=== PATIENT | male | born 1945 | race African-American/Black ===

== ENCOUNTER 2016-09-06 19:55 | Inpatient (IN) ==
--- NOTE | 2016-09-06 20:25 | Emergency Department Note ---
Arrival - Arrival Chief Complaint: Shortness of Breath Stated Complaint: short of breath ED Nursing Triage Note: Patient to room via ems. Patient was transfered from [facility] for NSTEMI. Patient states that he has been short of breath for 3 weeks. He states that today he became dizzy and thought he was going to pass out. Patients trop 5.3 at [facility]. Mode of Arrival: Stretcher Limitations: No Limitations Source: Patient Time Seen by Provider: 09/06/16 20:20 - History of Present Illness HPI Narrative: This morbidly obese 71-year-old black male presents on transfer from [facility] where he presented for acute onset of dizziness following progressive insidious onset of shortness of breath, orthopnea, and PND. The patient's workup at [facility] was found to have findings of a non-STEMI NE. Of note he has had a prior NE as well as cardiac cath with stents per Dr. Blanchard here at [place]. Interestingly enough the patient had no complaints of pain whatsoever during the past 3 weeks or especially during the acute episode earlier today. He did complain of some diaphoresis and shortness of breath at the peak of dizziness when he thought he was about to pass out but currently feels back to normal. On transfer from [place] he was given Antivert, aspirin, Nitropaste, Lasix, and Lovenox. He does not appear in any acute distress in bed at rest. Onset (ago): hour(s) (Patient presents 4 hours post onset of symptoms) Allergies/Adverse Reactions: Allergies Allergy/AdvReac Type Severity Reaction Status Date / Time No Known Allergies Allergy Unverified 09/06/16 20:03 Home Medications: Home Medications Medication Instructions Recorded Confirmed Type Aspirin EC Tab 81 mg PO DAILY 09/06/16 09/06/16 History Glipizide [Glipizide Xl] 10 mg PO BID 09/06/16 09/06/16 History Lisinopril 10 mg PO DAILY 09/06/16 09/06/16 History Metformin HCl [Fortamet] 500 mg PO BID 09/06/16 09/06/16 History Pravastatin [Pravachol] 40 mg PO BEDTIME 09/06/16 09/06/16 History Tamsulosin [Flomax] 0.4 mg PO DAILY 09/06/16 09/06/16 History Review of System - Review of System 12 point system: reviewed and no additional remarkable complaints except as stated - Review of System Constitutional: Present: as per HPI Respiratory: Present: as per HPI Cardiovascular: Present: as per HPI Medical,Surgical,& Family Hx - Medical History Cardio: History of: Hypertension, Cardiovascular Problems (NE) Neurology: History of: Cerebrovascular Accident Endocrine: History of: Diabetes Mellitus (NIDDM) Gastrointestinal: History of: Hepatitis - Surgical History Cardiac Surgeries: Sugical HX of: Cardiac Catheterization (stents placed) - Social History Smoking Status: Never smoker Frequency of Alcohol Use: None Type of Drug Use: None Exam Physical Examination: GENERAL: Morbidly obese black male in no acute distress. HEENT: Normocephalic. No trauma. Moist mucous membranes. EOMI. PERRLA. ENT NML NECK: Supple. No adenopathy. CARDIAC: Regular. No murmurs. Heart rate 95 CHEST: Bibasilar scattered rales. No respiratory distress. O2 sat 98% ABDOMEN: Soft. Nontender. Active bowel sounds. EXTREMITIES: No trauma. Normal ROM. No pedal edema. SKIN: No diaphoresis. No rash. NEURO: Alert. Neuro intact no focal deficits. Vital Signs: Vital Signs Temperature 97.6 F 09/06/16 19:55 Pulse Rate 95 H 09/06/16 20:09 Respiratory Rate 20 09/06/16 20:09 Blood Pressure 185/82 09/06/16 20:09 O2 Sat by Pulse Oximetry 98 09/06/16 20:09 Course - Reevaluation(s) Reevaluation #1: Discussed with patient the need for hospitalization. - Consultations Consultation #1: Discussed with Dr. Angulo who agreed to admit for Dr. Blanchard for further evaluation treatment of the situation. Results - Labs Labs: Laboratory from [place] reveals creatinine 1.6 with a BUN of 18 a potassium 4.2 CK total of 225 with a troponin of 5.387 white blood cell count 9400 with hematocrit of 37 - Impressions EKG sinus rhythm with normal IN interval and QRS duration. Left atrial enlargement noted with significant lateral and inferior wall ST flattening and depression as well as evidence in V1 a possible anterior NE. - Diagnostic Findings Procedure: CT: image reviewed by me, report reviewed by me (Head per [place] small age indeterminate left cerebellar infarct, old right basal ganglia lacunar infarct) Disposition Clinical Impression: Non-STEMI NE, CAD with prior NE and stents, Hypertension, Diabetes Case discussed with: patient Disposition: Still a Patient Condition: Stable Time of Disposition: 20:46
[2016-09-06] MEDS ORDERED: GLUCAGON 1 MG VIAL IM PRN (20:37)
[2016-09-06] MEDS ORDERED: DEXTROSE 50% 25 GM/50 ML VIAL IV PRN (20:37)
[2016-09-06] MEDS ORDERED: ONDANSETRON 4 MG/2 ML VIAL IV PRN (20:37)
[2016-09-06] MEDS ORDERED: HYDROmorphone 2 MG/1 ML VIAL IV PRN (20:37)
[2016-09-06] MEDS ORDERED: TAMSULOSIN 0.4 MG CAPSULE PO SCH (21:00)
[2016-09-06] MEDS ORDERED: ENOXAPARIN 120 MG/0.8 ML SYRINGE SUBCUT SCH (21:00)
[2016-09-06] MEDS ORDERED: PRAVASTATIN 40 MG TABLET PO SCH (21:00)
[2016-09-06 21:05] LABS: PT Patient Result 10.7 SECS; Partial Thromboplastin Time 31.1 SECS (0-40)
[2016-09-06] MEDS: INSULIN REGULAR 100 UNIT/ML SUBCUT SCH (21:32)
--- NOTE | 2016-09-06 21:43 | XRay Report ---
Exam: XR chest 1V portable Date: 09/06/2016 8:21 PM Indication: Chest pain Comparison: None Technical: AP portable Findings: Cardiomegaly present. Question mild edema. External cardiac leads oxygen tubing are present. No obvious infiltrate or effusion. Lateral marginal osteophytes are present. Impression: 1. Cardiomegaly. Very minimal interstitial edema suspected PROCEDURE INTERPRETED AT [facility] DEPARTMENT OF RADIOLOGY Final Report Signed by: Dr. Olegario Hull
[2016-09-06] MEDS: METOPROLOL TARTRATE 50 MG TABLET PO SCH (22:20)
--- NOTE | 2016-09-06 23:31 | EKG Report ---
Stationary ECG Study [facility] Test Date: 09/06/2016 11:31:33 PM Pat Name: MOMO HAWK Department: Room: 111 Gender: M Car Jockey: LEON : 1945 Requested by: Rony Campbell Order Number: [id number] Reading MD: GEORGINA CORDERO Intervals [place] Rate: 72 P: 34 CO: 165 QRS: 28 QRSD: 98 T: 153 QT: 364 QTc: 388 Interpretive Statements SINUS RHYTHM at 72 BPM POSSIBLE LEFT ATRIAL ENLARGEMENT Possible old inferior IN NST; consider ischemia Electronically Signed On 09-07-16 15:35:39 CDT by GEORGINA CORDERO [email or web address]
[2016-09-07] MEDS: NITROGLYCERIN 2% OINT 1 INCH/GM PACK TOP SCH ×3 (00:33→16:04)
[2016-09-07 05:26] LABS: Basophils % 0.3 % (0.0-0.8); Eosinophils # 0.2 10*3/uL (0.0-0.87); Eosinophils % 2.3 % (0.00-10.9); Hematocrit 36.2 VOL% (42.0-52.0); Hemoglobin 10.8 GM/DL (14.0-18.0); Immature Granulocytes % 0.9 %; Immature Granulocytes Absolute 0.08 #; Lymphocytes # 1.8 10*3/uL (1.4-4.0); Lymphocytes % 19.7 % (21.2-54.2); Mean Corpuscular HGB Conc 29.8 GM/DL (32-36); Mean Corpuscular Hemoglobin 28 PG (27-34); Mean Corpuscular Volume 95.3 FL (87-102); Mean Platelet Volume 13.2 FL (9.6-12.0); Monocytes % 10.6 % (1.7-12.7); Neutrophils # 6.1 10*3/uL (1.4-7.4); Neutrophils % 66.2 % (38.7-73.9); Platelet Count 304 T/CUMM (130-400); Red Cell Distribution Width 16.4 % (9.3-17.3); White Blood Count 9.2 T/CUMM (4-12)
[2016-09-07 05:36] LABS: PT Patient Result 10.5 SECS; Partial Thromboplastin Time 33.2 SECS (0-40)
[2016-09-07 05:44] LABS: Alanine Aminotransferase 32 U/L (16-61); Alkaline Phosphatase 90 U/L (45-117); Aspartate Amino Transferase 25 U/L (0-37); Bilirubin,Total < 0.39 MG/DL (0.2-1.0); Blood Urea Nitrogen 23 MG/DL (7-18); Calcium 9.4 MG/DL (8.5-10.1); Glucose 129 MG/DL (74-106); Osmolality,Calculated 291.8 MOS/KG (273-304); Potassium 4.8 MMOL/L (3.5-5.1); Sodium 144 MMOL/L (136-145); Total Protein 7.1 G/DL (6.4-8.3)
[2016-09-07] MEDS ORDERED: metFORMIN 500 MG TABLET PO SCH (08:00)
[2016-09-07] MEDS ORDERED: ASPIRIN 325 MG TABLET PO SCH (09:00)
[2016-09-07] MEDS ORDERED: PANTOPRAZOLE 40 MG TABLET PO SCH (09:00)
[2016-09-07] MEDS ORDERED: FUROSEMIDE 40 MG/4 ML VIAL IV SCH (09:00)
--- NOTE | 2016-09-07 09:06 | EKG Report ---
Stationary ECG Study [facility] Test Date: 09/07/2016 2:55:38 AM Pat Name: MOMO HAWK Department: Room: 111 Gender: M Team Automobile Assembler: LEON : 1945 Requested by: Rony Campbell Order Number: [id number] Reading MD: GEORGINA CORDERO Intervals [place] Rate: 73 P: 48 VT: 155 QRS: 23 QRSD: 106 T: 148 QT: 374 QTc: 400 Interpretive Statements SINUS RHYTHM WITH MARKED SINUS ARRHYTHMIA with one PVC at 73 BPM POSSIBLE LEFT ATRIAL ENLARGEMENT Possible old inferior TX NST; consider ischemia Electronically Signed On 09-07-16 15:36:37 CDT by GEORGINA CORDERO [email or web address]
--- NOTE | 2016-09-07 09:14 | Cardiology History & Physical ---
<Annia Etienne E - Last Filed: 09/07/16 09:16> Assessment and Plan - Time spent with patient Time spent with patient: Greater than 30 minutes (1) NSTEMI (non-ST elevated myocardial infarction) Status: Acute Assessment and plan: SEE PLAN OF CARE LISTED BELOW Current Visit: Yes (2) CAD (coronary artery disease) Status: Chronic Assessment and plan: SEE PLAN OF CARE LISTED BELOW Current Visit: Yes (3) Hypertension Status: Chronic Assessment and plan: SEE PLAN OF CARE LISTED BELOW Current Visit: Yes (4) Dyslipidemia Status: Chronic Assessment and plan: SEE PLAN OF CARE LISTED BELOW Current Visit: Yes (5) Diabetes Status: Chronic Assessment and plan: SEE PLAN OF CARE LISTED BELOW Current Visit: Yes (6) Obesity (BMI 30-39.9) Status: Chronic Assessment and plan: SEE PLAN OF CARE LISTED BELOW Current Visit: Yes (7) Chronic renal insufficiency, stage II (mild) Status: Chronic Assessment and plan: SEE PLAN OF CARE LISTED BELOW Current Visit: Yes (8) Noncompliance Status: Chronic Assessment and plan: SEE PLAN OF CARE LISTED BELOW Current Visit: Yes History of Present Illness Chief complaint: Shortness of breath, elevated troponin History of present illness: Mr. 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 Patient is a poor historian. Risk factors include: age, known coronary artery disease with prior NV, hypertension, dyslipidemia, diabetes, sedentary lifestyle, obesity, non- compliance. He has a history of known coronary artery disease with apparent last cardiac catheterization taking place in 2000. Reading a discharge summary I see that Dr. Blanchard noted the following with heart cath: November 29, 2000: Cath revealed normal LVEF. There was inferior hypokinesis. It was felt that he had mild disease. The diagonal had 50% narrowing. The circumflex had distal diffuse disease. It was old. In obtuse marginal had 50% lesion. The right coronary artery had mid 70% lesion. The distal right coronary artery had a 99% narrowing. It was before PDA. Stent it was a long segment on the proximal and mid right coronary artery with good overall results. He presented to the emergency department at [facility] last evening with complaints of weakness, dizziness, worsening shortness of breath and diaphoresis for three weeks. He is adamant he has had not chest pain, heaviness or tightness. He reveals he has had a "cold" in his chest for about 3 weeks. Cardiac biomarkers were obtained his troponin did to be 5.3. Creatinine of 1.6, proBNP greater than 1000 when he was transferred to our unit. EKG is abnormal. He has been housed in our intensive care unit overnight. He tells me at this time, he is breathing and his "cold" are better. He denies swelling, and in fact denies any type of symptoms other than "having a cold". He has received aspirin, Lovenox, beta blockade, nitroglycerin and lipid-lowering agent. Holding any ARBs or ИВАН inhibitors, holding metformin. We discussed the need for cardiac catheterization his troponin remains elevated at 4.35. -5.0. Patient states he is willing to undergo this procedure. I stressed the importance of taking medications, specifically antiplatelets, daily without fail for 1 year. He tells me he is not certain he can be compliant. We discussed the possibility of using a bare-metal stent and taking antiplatelet for 1 month without fail. He believes he may continue this. Certainly, we can discuss home health at discharge to help with medication compliance as well as working closely with his primary care provider Dr. Akhil De Leon. Echocardiogram has been ordered. I will keep him n.p.o. until Dr. Blanchard can evaluate and make recommendations. 1. NSTEMI -has received appropriate medications and anticipate he will undergo cardiac catheterization. 2. KNOWN CAD -see plan of care listed above 3. HYPERTENSION -will adjust medications accordingly during hospital stay 4. DYSLIPIDEMIA -continue lipid-lowering agent. Fasting lipid profile in the morning 5. DIABETES -sliding scale insulin. Hold metformin 6. OBESITY -dietary counseling prior to discharge 7. NON-COMPLIANCE -reiterated the importance of compliance. We will work closely with his primary care provider to ensure compliance for 1 full month of \\ antiplatelet therapy should he need a coronary PCI 8. RENAL INSUFFICIENCY -I am uncertain if this is a chronic condition or an acute. I suspect there is chronic component to this and at this time a light pole there is chronic renal insufficiency, stage II Home Medications Medication Instructions Recorded Confirmed Type Aspirin EC Tab 81 mg PO DAILY 09/06/16 09/06/16 History Glipizide [Glipizide Xl] 10 mg PO BID 09/06/16 09/06/16 History Lisinopril 10 mg PO DAILY 09/06/16 09/06/16 History Metformin HCl [Fortamet] 500 mg PO BID 09/06/16 09/06/16 History Pravastatin [Pravachol] 40 mg PO BEDTIME 09/06/16 09/06/16 History Tamsulosin [Flomax] 0.4 mg PO DAILY 09/06/16 09/06/16 History Allergies Allergy/AdvReac Type Severity Reaction Status Date / Time No Known Allergies Allergy Unverified 09/06/16 20:03 Review of systems: REVIEW OF SYSTEMS: - Constitutional Constitutional: Denies fatigue. Absent: syncope, anorexia, night sweats - EENT Eyes: Absent: blurry vision, loss of vision, diplopia Ears: Absent: decreased hearing, ear pain, ear discharge - Cardiovascular Cardiovascular: Denies chest pain with exertion. Mild dyspnea on exertion and at rest. Denies edema, palpitations. Absent: chest pain with deep breath, claudication - Respiratory Respiratory: Present: MAURER, cough. Absent: wheezing, hemoptysis, change in phlegm color - Gastrointestinal Gastrointestinal: Denies constipation. Absent: abdominal pain, hematemesis, hematochezia, melena, change in bowel habits, nausea - Genitourinary Genitourinary: Absent: difficulty urinating, dysuria, urinary hesitancy, flank pain - Musculoskeletal Musculoskeletal: Present: back pain Absent: joint swelling, muscle cramps, muscle weakness - Neurological Neurological: Present: normal gait without frequent falls, dizziness.. Absent: hemiparesis - Psychiatric Psychiatric: Absent: anxiety, depression, difficulty concentrating - Endocrine Endocrine: Absent: cold intolerance, heat intolerance, polyuria, polyphagia, polydipsia - Hematologic/Lymphatic Hematologic/Lymphatic: Present: easy bruising. Absent: easy bleeding, easy bruisability -Integumentary Integumentary: Absent: lesions, rashes, skin breakdown Medical,Surgical,& Family Hx - Medical History Cardio: History of: CAD, Hypertension, NV, Cardiovascular Problems (NV) Neurology: History of: Cerebrovascular Accident Endocrine: History of: Diabetes Mellitus (NIDDM) Gastrointestinal: History of: Hepatitis - Surgical History Cardiac Surgeries: Sugical HX of: Cardiac Catheterization (stents placed) - Family History Family History: Reports;: Family Cancer (dad, brother), Family Hypertension (dad , brother) Denies;: Family Diabetes, Family Heart Disease, Family Hematology, Family Psychiatric Problems, Family Stroke - Social History Smoking Status: Never smoker Have you smoked in the last 12 months: No Frequency of Alcohol Use: None Type of Drug Use: None Marital Status: Lives With:: Spouse Functional capacity: independent ambulation Cardiology Physical Exam - Constitutional Vitals: Vital Signs Temp Pulse Resp BP Pulse Ox 97.8 F 65 18 106/58 98 09/07/16 00:00 09/07/16 06:00 09/07/16 06:00 09/07/16 06:00 09/07/16 06:00 Intake and Output 09/06/16 09/07/16 09/07/16 23:59 07:59 15:59 Intake Total 200 / 200 Output Total 300 / 300 1100 / 1100 Balance -100 / -100 -1100 / -1100 Intake: Oral 200 / 200 Output: Urine 300 / 300 1100 / 1100 Other: Voiding Method Urinal Urinal # Bowel Movements 1 Weight 115 kg 114.759 kg Patient Weight 09/07/16 23:59 Weight 114.759 kg Exam: General: [Appears well with no apparent distress.] [Pleasant and cooperative. ] [Appears comfortable.] HEENT: [PERRL, normocephalic, atraumatic. Mucous membranes moist. No jaundice noted. Conjunctiva moist and clear, sclerae anicteric] Neck: Difficult to assess for JVD but no obvious jugular vein distention or HR HJR noted. No thyromegaly or lymphadenopathy noted. Cardiac: [Regular rate and rhythm.] [No obvious murmur rub or gallop.] Lungs: [Clear to auscultation without accessory muscle use to assist the respiratory pattern.] Wearing oxygen 2 L/min via nasal cannula Abdomen: Soft, protuberant, bowel sounds normoactive. Nontender and nondistended. No abdominal bruit or thrill noted. No masses noted. Musculoskeletal: No fluid collection. Decreased range of motion is noted. Extremities: No clubbing, cyanosis noted. [Trace to 1+ bilateral lower extremity edema noted.] Upper extremity pulses 2+. Lower extremity pulses 1+. Capillary refill less than 3 seconds. Skin: No unusual lesions or rashes. No skin breakdown appreciated. Neuro: Awake, alert and oriented 3. Moves all extremities well without hemiparesis or paralysis. No essential tremor is appreciated. Result/EKG - Labs CBC & BMP: 09/07/16 05:05 09/07/16 05:05 Lab Results: I have reviewed the past 24 hour labs Labs: Laboratory Results - last 24 hr 09/06/16 09/06/16 09/07/16 21:28 23:49 02:05 WBC RBC Hgb Hct MCV MCH MCHC RDW Plt Count MPV Neut % (Auto) Lymph % (Auto) Maury % (Auto) Eos % (Auto) Baso % (Auto) Neut # (Auto) Lymph # (Auto) Maury # (Auto) Eos # (Auto) Baso # (Auto) Immature Gran % Nucleated RBC % Immature Gran # Nucleated RBCs # INR PT Patient/Control Mix Circ Anticoag PTT Sodium Potassium Chloride Carbon Dioxide Anion Gap BUN Creatinine GFR Calculation BUN/Creatinine Ratio Glucose POC Glucose 126 H Calculated Osmolality Calcium Total Bilirubin AST ALT Alkaline Phosphatase Total Creatine Kinase CK-MB (CK-2) Troponin I 4.460 H 4.790 H Total Protein Albumin Globulin Albumin/Globulin Ratio 09/07/16 09/07/16 09/07/16 05:05 05:05 05:05 WBC 9.2 RBC 3.80 Hgb 10.8 L Hct 36.2 L MCV 95.3 MCH 28 MCHC 29.8 L RDW 16.4 Plt Count 304 MPV 13.2 H Neut % (Auto) 66.2 Lymph % (Auto) 19.7 L Maury % (Auto) 10.6 Eos % (Auto) 2.3 Baso % (Auto) 0.3 Neut # (Auto) 6.1 Lymph # (Auto) 1.8 Maury # (Auto) 1.0 H Eos # (Auto) 0.2 Baso # (Auto) 0.0 Immature Gran % 0.9 Nucleated RBC % 0.0 Immature Gran # 0.08 Nucleated RBCs # 0.00 INR 1.0 PT Patient/Control Mix 10.5 Circ Anticoag PTT 33.2 Sodium 144 Potassium 4.8 Chloride 110 H Carbon Dioxide 27 Anion Gap 11.8 BUN 23 H Creatinine 1.70 H GFR Calculation 60 BUN/Creatinine Ratio 13.00 Glucose 129 H POC Glucose Calculated Osmolality 291.8 Calcium 9.4 Total Bilirubin < 0.39 AST 25 ALT 32 Alkaline Phosphatase 90 Total Creatine Kinase 234 CK-MB (CK-2) 3.4 Troponin I 4.340 H Total Protein 7.1 Albumin 3.0 L Globulin 4.1 H Albumin/Globulin Ratio 0.7 L - Diagnostic Findings Procedure: Chest x-ray: report reviewed by me, CT: report reviewed by me - EKG EKG results: interpreted by me EKG shows: sinus rhythm <Mina Blanchard - Last Filed: 09/07/16 10:30> Assessment and Plan - Time spent with patient Time spent with patient: Greater than 30 minutes (1) Hypomagnesemia Status: Acute Current Visit: Yes (2) Heart failure Status: Acute Current Visit: Yes (3) Suspected sleep apnea Status: Acute Current Visit: Yes (4) NSTEMI (non-ST elevated myocardial infarction) Status: Acute Current Visit: Yes (5) CAD (coronary artery disease) Status: Chronic Current Visit: Yes (6) Chronic renal insufficiency, stage II (mild) Status: Chronic Current Visit: Yes (7) Diabetes Status: Chronic Current Visit: Yes (8) Dyslipidemia Status: Chronic Current Visit: Yes (9) Hypertension Status: Chronic Current Visit: Yes (10) Noncompliance Status: Chronic Current Visit: Yes (11) Obesity (BMI 30-39.9) Status: Chronic Current Visit: Yes History of Present Illness History of present illness: Mr. Landry is a 71 year old male Cardiology Physical Exam - Constitutional Vitals: Vital Signs Temp Pulse Resp BP Pulse Ox 97.8 F 65 18 106/58 98 09/07/16 00:00 09/07/16 06:00 09/07/16 06:00 09/07/16 06:00 09/07/16 06:00 Intake and Output 09/06/16 09/07/16 09/07/16 23:59 07:59 15:59 Intake Total 200 / 200 Output Total 300 / 300 1100 / 1100 Balance -100 / -100 -1100 / -1100 Intake: IV 10 1/2Ns 1,000 ml @ 75 mls/ 10 10 hr IV .[id number] SHELL Rx#: [id number] Oral 200 / 200 Output: Urine 300 / 300 1100 / 1100 Other: Voiding Method Urinal Urinal # Bowel Movements 1 Weight 115 kg 114.759 kg Patient Weight 09/07/16 23:59 Weight 114.759 kg Result/EKG - Labs CBC & BMP: 09/07/16 05:05 04/04/17 05:05 Labs: Laboratory Results - last 24 hr 09/06/16 09/06/16 09/07/16 21:28 23:49 02:05 WBC RBC Hgb Hct MCV MCH MCHC RDW Plt Count MPV Neut % (Auto) Lymph % (Auto) Maury % (Auto) Eos % (Auto) Baso % (Auto) Neut # (Auto) Lymph # (Auto) Maury # (Auto) Eos # (Auto) Baso # (Auto) Immature Gran % Nucleated RBC % Immature Gran # Nucleated RBCs # INR PT Patient/Control Mix Circ Anticoag PTT Sodium Potassium Chloride Carbon Dioxide Anion Gap BUN Creatinine GFR Calculation BUN/Creatinine Ratio Glucose POC Glucose 126 H Calculated Osmolality Calcium Total Bilirubin AST ALT Alkaline Phosphatase Total Creatine Kinase CK-MB (CK-2) Troponin I 4.460 H 4.790 H Total Protein Albumin Globulin Albumin/Globulin Ratio 09/07/16 09/07/16 09/07/16 05:05 05:05 05:05 WBC 9.2 RBC 3.80 Hgb 10.8 L Hct 36.2 L MCV 95.3 MCH 28 MCHC 29.8 L RDW 16.4 Plt Count 304 MPV 13.2 H Neut % (Auto) 66.2 Lymph % (Auto) 19.7 L Maury % (Auto) 10.6 Eos % (Auto) 2.3 Baso % (Auto) 0.3 Neut # (Auto) 6.1 Lymph # (Auto) 1.8 Maury # (Auto) 1.0 H Eos # (Auto) 0.2 Baso # (Auto) 0.0 Immature Gran % 0.9 Nucleated RBC % 0.0 Immature Gran # 0.08 Nucleated RBCs # 0.00 INR 1.0 PT Patient/Control Mix 10.5 Circ Anticoag PTT 33.2 Sodium 144 Potassium 4.8 Chloride 110 H Carbon Dioxide 27 Anion Gap 11.8 BUN 23 H Creatinine 1.70 H GFR Calculation 60 BUN/Creatinine Ratio 13.00 Glucose 129 H POC Glucose Calculated Osmolality 291.8 Calcium 9.4 Total Bilirubin < 0.39 AST 25 ALT 32 Alkaline Phosphatase 90 Total Creatine Kinase 234 CK-MB (CK-2) 3.4 Troponin I 4.340 H Total Protein 7.1 Albumin 3.0 L Globulin 4.1 H Albumin/Globulin Ratio 0.7 L
[2016-09-07] MEDS: METOPROLOL TARTRATE 50 MG TABLET PO SCH (09:15)
[2016-09-07] MEDS: INSULIN REGULAR 100 UNIT/ML SUBCUT SCH ×3 (09:16→16:45)
[2016-09-07] MEDS ORDERED: SODIUM CHLORIDE 0.45% 1,000 ML IV SCH (09:30)
[2016-09-07] MEDS ORDERED: MAGNESIUM SULF RIDER 2 GM in PREMIX 1 EACH IV PRN (09:33)
[2016-09-07] MEDS ORDERED: POTASSIUM CHLORIDE RIDER 10 MEQ in PREMIX 1 EACH IV PRN (09:33)
--- NOTE | 2016-09-07 09:46 | EKG Report ---
Please refer to the EKG image. Final interpretation is pending.
[2016-09-07] MEDS ORDERED: DIAZEPAM 5 MG TABLET PO ONE (10:00)
[2016-09-07] MEDS ORDERED: diphenhydrAMINE CAP 25 MG CAPSULE PO ONE (10:00)
[2016-09-07] MEDS ORDERED: MAGNESIUM SULF RIDER 2 GM in PREMIX 1 EACH IV ONE (10:26)
--- NOTE | 2016-09-07 10:28 | History and Physical Update ---
Sedation H&P Update - History and Physical H&P was reviewed, the patient examined and there: are no changes in the patients condition since last H&P was completed. - Dictation Physical: refer to scanned H&P - Physical Exam Mental Status: alert and oriented Heart: regular rate and rhythm Lung: clear to auscultation Abdomen: within normal limits Vitals: within normal limits - Sedation Patient Consent: Procedure disscussed with patient and patinet has consented., Risks and benefits were discussed with patient,including infection,, bleeding, injury to surrounding structures, seizure, temporary nerve, Patient understands and accepts potential risks/benefits and agrees to, proceed. ASA Class: II Airway Assessment: Class III: Soft palate, base of uvula visible
[2016-09-07] MEDS ORDERED: LIDOCAINE 1% 20 ML VIAL ONE ×2 (10:34→11:55)
[2016-09-07] MEDS ORDERED: ETOMIDATE 20 MG/10 ML VIAL IV ONE (10:51)
[2016-09-07] MEDS ORDERED: SUCCINYLCHOLINE 200 MG/10 ML VIAL ONE (10:51)
--- NOTE | 2016-09-07 11:00 | Event Note ---
ER code note/procedure note: Called to Triage Rn #1 for CODE BLUE. Upon arrival patient had a pulse agonal breathing was on the cath table prior to the start of the cath. Patient apparently bradycardia down into respiratory distress, ACLS protocol started, patient was intubated successfully first attempt with a 7.5 ET tube using a #4 Parr blade ET tube excessively passed through the vocal cords visualized copious amounts of secretions expelled from the esophagus into the upper airway was sucked out suction, 20 mg etomidate use, patient had a good pulse good and CO2 detection on color change, condensation noted in the tube, using the C arm we could visualize the ET tube 2 cm above the joseph, care was turned over to the four horse hitch driver's with a proceed with catheterization the patient patient stable but critical condition
[2016-09-07] MEDS ORDERED: MEPERIDINE 25 MG/1 ML VIAL ONE (11:18)
[2016-09-07] MEDS ORDERED: MIDAZOLAM 2 MG/2 ML VIAL ONE (11:19)
--- NOTE | 2016-09-07 11:21 | XRay Report ---
Referring Physician: Mina Blanchard Exam: XR chest 1V portable Date: September 07, 2016 at 10:41 AM Reason: Code, unresponsive Comparison: Chest one view portable September 06, 2016 Findings: An endotracheal tube is in place with its distal tip at the level of the aortic arch, projecting 2 cm above the joseph. The cardiac silhouette is again enlarged. There are scattered opacities throughout both lungs. This is concerning for pulmonary edema and atelectasis, but pneumonia is not excluded. No pneumothorax is identified, but there may be mild left pleural fluid. There is persistent mild elevation of the right hemidiaphragm. The osseous structures appear stable. Impression: 1. Interval placement of an endotracheal tube as above. 2. There are scattered opacities throughout both lungs. This is concerning for pulmonary edema and atelectasis, but pneumonia is not excluded. PROCEDURE INTERPRETED AT [facility] DEPARTMENT OF RADIOLOGY Final Report Signed by: Dr. Marcelo Reynolds
[2016-09-07] MEDS ORDERED: PROPOFOL 1,000 MG/100 ML BOTTLE IV ONE ×2 (11:24)
[2016-09-07 11:36] LABS: Risk Ratio 4.58; VLDL CHOLESTEROL 22.8 MG/DL
[2016-09-07] MEDS ORDERED: HEPARIN/NACL 0.9% 2 UNITS/ML 500 ML IV ONE ×2 (12:00→12:47)
--- NOTE | 2016-09-07 12:07 | EKG Report ---
Stationary ECG Study [facility] Test Date: 09/07/2016 11:10:30 AM Pat Name: MOMO HAWK Department: Room: 111 Gender: M Data Control Clerk: : 1945 Requested by: Mina Blanchard Order Number: [id number] Reading MD: GEORGINA CORDERO Intervals [place] Rate: 95 P: 29 IN: 163 QRS: 20 QRSD: 106 T: 38 QT: 386 QTc: 439 Interpretive Statements SINUS RHYTHM WITH OCCASIONAL VENTRICULAR PREMATURE COMPLEXES at 95 bpm POSSIBLE LEFT ATRIAL ENLARGEMENT INFERIOR INFARCT, PROBABLY OLD Electronically Signed On 09-07-16 15:49:23 CDT by GEORGINA CORDERO [email or web address]
[2016-09-07] MEDS ORDERED: SODIUM CHLORIDE 0.9% 1,000 ML IV SCH (12:30)
--- NOTE | 2016-09-07 12:36 | Operative Note ---
Date of procedure: 09/07/16 Procedure Preformed: Left heart cath Coronary angiography Left ventriculography Placement of right femoral artery sheath-- for use with Arctic sun Placement of triple-lumen sheath in the right femoral vein-for use with Arctic sun Intra-aortic balloon pump placed from the left femoral artery-for hypotension, triple-vessel coronary disease, heart failure, high LVEDP, for coronary arterial bypass grafting in the near future Surgeon / Physician: Mina Blanchard Hl7 Interface Developer: Chris Manzanares Post-op diagnosis: same (Known coronary disease, non-ST elevation [place], heart failure, renal insufficiency, diabetes) Findings: Impression: Significant three-vessel coronary arterial disease--involving the proximal to mid LAD, 2 major diagonals, septal perforators, mid to distal circumflex, mid right coronary artery Moderately severe global left systolic dysfunction, LVEF 30% Global hypokinesis Moderate elevation of LVEDP, 20-25 mmHg Sewing in of the right femoral arterial sheath-to be used with Arctic sun Placement of a venous triple lumen catheter in the right femoral vein-for use with Arctic sun Intra-aortic balloon pump-placed via the left femoral artery-for hemodynamic instability, non-STEMI, hypotension, heart failure, likely for coronary bypass grafting in the near future Plan/recommendations: The patient will have risk factors optimized. The patient will be on antiplatelet medications to include aspirin indefinitely he has had significant progression of disease. He has coronary artery disease involving all 3 vessels.. He coded right before this event. He could have been ischemic. I placed a balloon pump. I am consulting Dr. Steve Guzman regarding consideration of her bypass grafting. I will consult pulmonary medicine. I will change the metoprolol to carvedilol. Since he did not have return of spontaneous consciousness, will treat him with Arctic sun per postcode protocol. Prognosis is guarded. I discussed with the patient's . sHe voices understanding. Addenda: I saw the patient post-cath. the groin puncture site and distal pulse are stable. vital signs are stable and the patient will be observed closely overnight. Specimens: none sent Estimated blood loss: minimal Condition: critical Anesthesia: local, conscious sedation Disposition: ICU
[2016-09-07] MEDS: PROPOFOL 1,000 MG/100 ML BOTTLE IV SCH ×3 (12:41→18:59)
--- NOTE | 2016-09-07 12:43 | Cardiology Operative Report ---
Date of Procedure:: 09/07/16 Post-op diagnosis: same (Known coronary disease, non-ST elevation [place], heart failure, renal insufficiency, diabetes--upon being put on table for the cath, the patient had a cardiopulmonary arrest. He was resuscitated fairly quickly. His initial rhythm was noted to be bradycardia. He been off the monitor at the time. Atropine and epinephrine were given he responded very quickly.) Procedure: Date of procedure: 09/07/16 Procedure Preformed: Left heart cath Coronary angiography Left ventriculography Placement of right femoral artery sheath-- for use with Metropolist Placement of triple-lumen sheath in the right femoral vein-for use with Metropolist Intra-aortic balloon pump placed from the left femoral artery-for hypotension, triple-vessel coronary disease, heart failure, high LVEDP, for coronary arterial bypass grafting in the near future--high risk coronary anatomy Surgeon / Physician: Mina Blanchard Perpetual Inventory Clerk: Chris Manzanares Post-op diagnosis: same (Known coronary disease, non-ST elevation [place], heart failure, renal insufficiency, diabetes) procedure: The patient was prepped and draped in usual manner. Entered the right femoral artery via the Seldinger technique. I used a sheath and then used a JL4 and engaged left coronary. Multiple views were taken. I then exchanged for a JR4. Multiple views of the right coronary were taken. I then exchanged for an angled pigtail. I crossed the valve. Left ventricular end-diastolic pressures measured. Left ventriculography was done. Left ventricle pullback was done. The catheters were then removed from the patient. He was deemed at that point the patient was likely a surgical candidate. Also he was hypotensive, recent non-STEMI, moderate LV systolic dysfunction, triple-vessel disease, and elevated LVEDP. Thus, placed a left femoral artery balloon pump into the central aorta. It was secured. I sewn in place the right femoral arterial sheath to be used with the therapeutic hypothermia. Also placed a venous sheath in the right femoral vein to be used with the therapeutic hypothermia. It was a triple-lumen catheter. Please see the cath data sheets for the details of catheters used. Complications: None Hemodynamic data: LVEDP was 20-25 mmHg. Angiographic data: The left main coronary was large and had minimal luminal irregularities. The left anterior descending artery was a large vessel with 2 major diagonals and 2 major septal perforators. After the second major diagonal, but at the junction of the proximal mid LAD, the LAD was totally occluded. There were some collaterals to it, suggesting this was not recent. There was critical disease in the ostium of the 2 diagonals and the 2 septal perforators. The left circumflex system was moderate to large sized and had one obtuse marginal post lateral branch. The circumflex, after the obtuse marginal was totally occluded. There were some left to left collaterals. The first obtuse marginal had mild disease, probably no more than 30-40% narrowed. The right coronary artery was large in size, dominant vessel with the PDA. There is appearance of 1 or 2 long stents in the right coronary artery. The stents were occluded. There were some SEAMUS grade I to II collaterals to the distal right coronary artery, suggesting this is not a recent occlusion. The distal right coronary artery was seen and was at least moderate in size. STREETER left ventriculography revealed moderately severe global/regional left ventricular systolic dysfunction. Overall ejection fraction was at least 30%. There is no significant mitral regurgitation. Angiogram of the right femoral artery revealed the puncture site to be in a large vessel, above the bifurcation. It was suitable for Angio-Seal. Findings: Impression: Significant three-vessel coronary arterial disease--involving the proximal to mid LAD, 2 major diagonals, septal perforators, mid to distal circumflex, mid right coronary artery Moderately severe global left systolic dysfunction, LVEF 30% Global hypokinesis Moderate elevation of LVEDP, 20-25 mmHg Sewing in of the right femoral arterial sheath-to be used with Metropolist Placement of a venous triple lumen catheter in the right femoral vein-for use with Metropolist Intra-aortic balloon pump-placed via the left femoral artery-for hemodynamic instability, non-STEMI, hypotension, heart failure, likely for coronary bypass grafting in the near future Plan/recommendations: The patient will have risk factors optimized. The patient will be on antiplatelet medications to include aspirin indefinitely he has had significant progression of disease. He has coronary artery disease involving all 3 vessels.. He coded right before this event. He could have been ischemic. I placed a balloon pump. I am consulting Dr. Steve Guzman regarding consideration of her bypass grafting. I will consult pulmonary medicine. I will change the metoprolol to carvedilol. Since he did not have return of spontaneous consciousness, will treat him with Arctic sun per postcode protocol. Prognosis is guarded. I discussed with the patient's . sHe voices understanding. Addenda: I saw the patient post-cath. the groin puncture site and distal pulse are stable. vital signs are stable and the patient will be observed closely overnight. Specimens: none sent Estimated blood loss: minimal Condition: critical Anesthesia: local, conscious sedation Disposition: ICU Additional CC's: Mina De Leon Anesthesia: local, minimal conscious sedation Surgeon / Physician: Mina Blanchard Perpetual Inventory Clerk: other Estimated blood loss: minimal Specimens: none sent Condition: critical Disposition: ICU/CCU
[2016-09-07] MEDS ORDERED: PHENYLEPHRINE DRIP 40 MG/250 ML PREMIX IV ONE (13:19)
[2016-09-07] MEDS ORDERED: ALBUMIN 5% 12.5 GM/250 ML VIAL IV ONE (13:19)
--- NOTE | 2016-09-07 13:24 | Cardiothoracic Progress Note ---
Cardiothoracic Subjective Interval history: Patient is a 71-year-old man with known coronary artery disease who presented this morning to an outside hospital with symptoms of shortness of breath and chest discomfort. He had an elevated troponin noted and was therefore transferred here for further care. Upon admission to our emergency room and was clear that the patient was having ischemic chest pain and cardiology was consulted and felt that urgent cardiac catheterization was necessary. At the time of cardiac catheterization the patient experienced cardiopulmonary arrest and had to be resuscitated and intubated. Catheterization was then undertaken demonstrating critical 3 vessel coronary disease and a intra-aortic balloon pump was put in place. Patient was transferred to the intensive care unit where he remained critically ill with evidence of cardiogenic shock. He is intubated and on the ventilator. I had a long discussion with Dr. Blanchard and we both believe that revascularization is going to be indicated and that the question of timing is paramount. We are going to begin therapy with hypothermia because of his cardiac arrest and continue to support in hemodynamically with the intra-aortic balloon pump and appropriate medication. Hopefully he will improve over the next 12-24 hours to the point where surgery can be considered. I do think that surgical intervention at this critical time probably carries a prohibitive risk. We will follow along with you. Exam (Progress Note) - Constitutional Vitals: Period Temp Pulse Resp BP Sys/Hassan Pulse Ox Last 24 Hr 97.0 F-97.8 F 60-107 14-24 104-167/58-96 91-98 Result/EKG - Labs CBC & BMP: 09/07/16 05:05 09/07/16 05:05 Labs: Laboratory Results - last 24 hr 09/06/16 09/06/16 09/07/16 21:28 23:49 02:02 WBC RBC Hgb Hct MCV MCH MCHC RDW Plt Count MPV Neut % (Auto) Lymph % (Auto) Shelby % (Auto) Eos % (Auto) Baso % (Auto) Neut # (Auto) Lymph # (Auto) Shelby # (Auto) Eos # (Auto) Baso # (Auto) Immature Gran % Nucleated RBC % Immature Gran # Nucleated RBCs # INR PT Patient/Control Mix Circ Anticoag PTT Sodium Potassium Chloride Carbon Dioxide Anion Gap BUN Creatinine GFR Calculation BUN/Creatinine Ratio Glucose POC Glucose 126 H Calculated Osmolality Calcium Total Bilirubin AST ALT Alkaline Phosphatase Total Creatine Kinase CK-MB (CK-2) Troponin I 4.460 H Total Protein Albumin Globulin Albumin/Globulin Ratio Triglycerides 114 Cholesterol 197 LDL Cholesterol 137.0 VLDL Cholesterol 22.8 HDL Cholesterol 43 Heart Disease Risk Ratio 4.58 09/07/16 09/07/16 09/07/16 02:05 05:05 05:05 WBC 9.2 RBC 3.80 Hgb 10.8 L Hct 36.2 L MCV 95.3 MCH 28 MCHC 29.8 L RDW 16.4 Plt Count 304 MPV 13.2 H Neut % (Auto) 66.2 Lymph % (Auto) 19.7 L Shelby % (Auto) 10.6 Eos % (Auto) 2.3 Baso % (Auto) 0.3 Neut # (Auto) 6.1 Lymph # (Auto) 1.8 Shelby # (Auto) 1.0 H Eos # (Auto) 0.2 Baso # (Auto) 0.0 Immature Gran % 0.9 Nucleated RBC % 0.0 Immature Gran # 0.08 Nucleated RBCs # 0.00 INR 1.0 PT Patient/Control Mix 10.5 Circ Anticoag PTT 33.2 Sodium Potassium Chloride Carbon Dioxide Anion Gap BUN Creatinine GFR Calculation BUN/Creatinine Ratio Glucose POC Glucose Calculated Osmolality Calcium Total Bilirubin AST ALT Alkaline Phosphatase Total Creatine Kinase CK-MB (CK-2) Troponin I 4.790 H Total Protein Albumin Globulin Albumin/Globulin Ratio Triglycerides Cholesterol LDL Cholesterol VLDL Cholesterol HDL Cholesterol Heart Disease Risk Ratio 09/07/16 09/07/16 05:05 07:11 WBC RBC Hgb Hct MCV MCH MCHC RDW Plt Count MPV Neut % (Auto) Lymph % (Auto) Shelby % (Auto) Eos % (Auto) Baso % (Auto) Neut # (Auto) Lymph # (Auto) Shelby # (Auto) Eos # (Auto) Baso # (Auto) Immature Gran % Nucleated RBC % Immature Gran # Nucleated RBCs # INR PT Patient/Control Mix Circ Anticoag PTT Sodium 144 Potassium 4.8 Chloride 110 H Carbon Dioxide 27 Anion Gap 11.8 BUN 23 H Creatinine 1.70 H GFR Calculation 60 BUN/Creatinine Ratio 13.00 Glucose 129 H POC Glucose 147 H Calculated Osmolality 291.8 Calcium 9.4 Total Bilirubin < 0.39 AST 25 ALT 32 Alkaline Phosphatase 90 Total Creatine Kinase 234 CK-MB (CK-2) 3.4 Troponin I 4.340 H Total Protein 7.1 Albumin 3.0 L Globulin 4.1 H Albumin/Globulin Ratio 0.7 L Triglycerides Cholesterol LDL Cholesterol VLDL Cholesterol HDL Cholesterol Heart Disease Risk Ratio
[2016-09-07] MEDS ORDERED: PHENYLEPHRINE DRIP 40 MG/250 ML PREMIX IV SCH (13:30)
[2016-09-07] MEDS: fentaNYL INJ 1,250 MCG in SODIUM CHLORIDE 0.9% 225 ML IV SCH (13:54)
[2016-09-07] MEDS: CISATRACURIUM 200 MG in SODIUM CHLORIDE 0.9% 100 ML IV SCH (13:59)
[2016-09-07 14:25] LABS: ABG Base Excess -1.6 MMOL/L (-2.5-2.5); ABG HCO3 25.8 MMOL/L (20-26); ABG PH 7.274 (7.35-7.45); ABG PO2 211.2 MM HG (80-95); ABG TCO2 27.6 MMOL/L (23-27)
[2016-09-07 14:30] LABS: Basophils % 0.3 % (0.0-0.8); Eosinophils # 0.1 10*3/uL (0.0-0.87); Eosinophils % 1.3 % (0.00-10.9); Hematocrit 32.8 VOL% (42.0-52.0); Hemoglobin 9.8 GM/DL (14.0-18.0); Immature Granulocytes % 1.5 %; Immature Granulocytes Absolute 0.12 #; Lymphocytes # 1.2 10*3/uL (1.4-4.0); Lymphocytes % 14.8 % (21.2-54.2); Mean Corpuscular HGB Conc 29.9 GM/DL (32-36); Mean Corpuscular Hemoglobin 29 PG (27-34); Mean Corpuscular Volume 96.5 FL (87-102); Mean Platelet Volume 12.8 FL (9.6-12.0); Monocytes # 0.6 10*3/uL (0.11-0.8); Monocytes % 7.9 % (1.7-12.7); Neutrophils # 5.9 10*3/uL (1.4-7.4); Neutrophils % 74.2 % (38.7-73.9); Platelet Count 263 T/CUMM (130-400); Red Cell Distribution Width 16.5 % (9.3-17.3)
[2016-09-07 14:31] LABS: INR 1.1; PT Patient Result 11.4 SECS
[2016-09-07 14:47] LABS: Albumin 3.2 G/DL (3.4-5.0); Bilirubin,Total 0.4 MG/DL (0.2-1.0); Calcium 8.8 MG/DL (8.5-10.1); Magnesium 2.1 MG/DL (1.8-2.4); Osmolality,Calculated 286.1 MOS/KG (273-304); Potassium 4.5 MMOL/L (3.5-5.1); Total Protein 6.5 G/DL (6.4-8.3)
[2016-09-07 14:48] LABS: Lactic Acid 0.7 MMOL/L (0.4-2.0)
[2016-09-07 14:49] LABS: Apearance,Urine CLEAR (Clear); Bilirubin,Urine Negative (Negative); Blood, Urine Moderate mg/dL (Negative); Glucose,Urine (UA) Negative (Negative); Ketones,Urine Negative (Negative); Mucus,Urine Occasional /LPF (Occasional); Nitrite,Urine Negative (Negative); Protein,Urine 30 MG/DL; RBC,Urine 16 /HPF (0-4); Squamous Epithelial Cell,Urine Occasional /HPF (0-10); Urine Color Yellow (Yellow); Urine Urobilinogen < 2.0 EU/DL (0.2-1.0); WBC,Urine 2 /HPF (0-6)
[2016-09-07] MEDS: ASPIRIN CHEW 81 MG TABLET PO SCH (15:57)
[2016-09-07] MEDS: MINERAL OIL/PETROLATUM OPH OINT 3.5 GM TUBE BOTH EYES SCH ×2 (15:58→21:51)
[2016-09-07] MEDS: MAGNESIUM CHLORIDE 64 MG TABLET PO SCH ×2 (16:03→21:50)
[2016-09-07] MEDS ORDERED: ALBUMIN 5% 12.5 GM in PREMIX 1 EACH IV ONE (16:35)
[2016-09-07] MEDS: CARVEDILOL 3.125 MG TABLET PO SCH ×2 (17:08→23:04)
[2016-09-07] MEDS ORDERED: ATROPINE 1 MG/10 ML SYRINGE IV PRN (17:46)
--- NOTE | 2016-09-07 17:49 | Neurology Consult Note ---
History of Present Illness History of present illness: Mr. Landry is a 71 year old -[place] male, not routinely followed by cardiology but considers Dr. Blanchard his scallop shucker. Patient is a poor historian. Risk factors include: age, known coronary artery disease with prior MT, hypertension, dyslipidemia, diabetes, sedentary lifestyle, obesity, non- compliance. He has a history of known coronary artery disease with apparent last cardiac catheterization taking place in 2000. He presented to the emergency department at [facility] last evening with complaints of weakness , dizziness, worsening shortness of breath and diaphoresis for three weeks. He is adamant he has had not chest pain, heaviness or tightness. He reveals he has had a "cold" in his chest for about 3 weeks. He was taken to to laboratory machinist this morning where he coded. Code was ran for 5 minutes or more. He was started on [employer] sun protocol now. Home Medications Medication Instructions Recorded Confirmed Type Aspirin EC Tab 81 mg PO DAILY 09/06/16 09/06/16 History Glipizide [Glipizide Xl] 10 mg PO BID 09/06/16 09/06/16 History Lisinopril 10 mg PO DAILY 09/06/16 09/06/16 History Metformin HCl [Fortamet] 500 mg PO BID 09/06/16 09/06/16 History Pravastatin [Pravachol] 40 mg PO BEDTIME 09/06/16 09/06/16 History Tamsulosin [Flomax] 0.4 mg PO DAILY 09/06/16 09/06/16 History Allergies Allergy/AdvReac Type Severity Reaction Status Date / Time No Known Allergies Allergy Unverified 09/06/16 20:03 ROS unobtainable: due to endotracheal tube, due to mental status Medical,Surgical,& Family Hx - Medical History Cardio: History of: CAD, Hypertension, MT, Cardiovascular Problems ([place]) Neurology: History of: Cerebrovascular Accident Endocrine: History of: Diabetes Mellitus (NIDDM) Gastrointestinal: History of: Hepatitis - Surgical History Cardiac Surgeries: Sugical HX of: Cardiac Catheterization (stents placed) - Family History Family History: Reports;: Family Cancer (dad, brother), Family Hypertension (dad , brother) Denies;: Family Diabetes, Family Heart Disease, Family Hematology, Family Psychiatric Problems, Family Stroke - Social History Smoking Status: Never smoker Frequency of Alcohol Use: None Type of Drug Use: None Exam - Constitutional Vitals: Period Temp Pulse Resp BP Sys/Hassan Pulse Ox Last 24 Hr 97.0 F-97.8 F 60-107 12-24 104-167/58-96 91-100 Exam: GENERAL: Patient is in no acute distress. NECK: Neck is supple. There is no JVD. No carotid bruits present. No thyroid masses. CVS: First and second heart sounds are normal. There is no S3 present. Regular rate and rhythm. RESPIRATORY: Lungs are clear to auscultation without any rales or rhonchi. ABDOMEN: Soft and non-tender. Bowel sounds are present. There is no hepatosplenomegaly. EXT: There is no palpable edema. Peripheral pulses are present. Skin: No rashes Central Nervous system: General: Sedated Speech: None Comprehension: None Facial expressions: Normal Cranial Nerves: Pupils are small and sluggish. Doll's head eye movements are impaired. Motor: Strength cannot be assessed Sensory: Cannot be assessed Reflexes: Absent and symmetric Cerebellar function: Cannot be assessed Toes: Equivocal Gait: Cannot be assessed Results - Labs CBC & BMP: 09/07/16 14:00 09/07/16 14:00 Assessment and Plan (1) Hypoxic encephalopathy Status: Acute Assessment and plan: Secondary to cardio-pulmonary arrest Cont current Hypothermia protocol. Will perform scanning in next 24 -48 hours. Prognosis is guarded. Thank you for the consult Current Visit: Yes
[2016-09-07] MEDS: DOPamine 800 MG/250 ML PREMIX IV SCH (17:52)
--- NOTE | 2016-09-07 18:19 | Pulmonology Consult Note ---
Assessment and Plan (1) CAD (coronary artery disease) Status: Chronic Assessment and plan: Patient has significant triple-vessel coronary artery disease with an ischemic cardiomyopathy and ejection fraction of 30%. He is on the balloon pump now. Current Visit: Yes (2) Hypertension Status: Chronic Assessment and plan: His blood pressure and heart rate are stable at present. Current Visit: Yes (3) Dyslipidemia Status: Chronic Assessment and plan: This can be treated later. Current Visit: Yes (4) Diabetes Status: Chronic Assessment and plan: His glucose has been monitored. Current Visit: Yes (5) Obesity (BMI 30-39.9) Status: Chronic Assessment and plan: He is a large man Current Visit: Yes (6) Chronic renal insufficiency, stage II (mild) Status: Chronic Assessment and plan: His creatinine is 1.8 at present Current Visit: Yes (7) Hypoxic encephalopathy Status: Acute Assessment and plan: The patient is undergoing a cooling protocol since he had a brief cardiac arrest. Current Visit: Yes (8) Cardiac arrest Status: Acute Assessment and plan: Patient is status post brief cardiac arrest and is stable at present. He is undergoing the cooling protocol. Current Visit: Yes (9) On mechanically assisted ventilation Status: Acute Assessment and plan: We will adjust his ventilator and continue support Current Visit: Yes (10) NSTEMI (non-ST elevated myocardial infarction) Status: Acute Assessment and plan: He does have significant enzymes. Current Visit: Yes History of Present Illness Chief complaint: Ventilator History of present illness: Mr. Landry is a 71 year old black male that is overweight and has known coronary artery disease hypertension hyperlipidemia and diabetes. He came in with shortness of breath along with weakness and dizziness. He said he was not having chest pain. He was monitored in the CCU and this morning was taken to the cardiac catheterization lab. While moving onto the table he apparently had a brief cardiac arrest. Brief CPR was done and he is ventilated. He had a cardiac catheterization and now has triple-vessel coronary artery disease. He had an ejection fraction about 30%. He is now on the balloon pump and the cooling protocol. He has been ventilated and is reasonably stable at present. He has not been a smoker and no history of lung disease. Home Medications Medication Instructions Recorded Confirmed Type Aspirin EC Tab 81 mg PO DAILY 09/06/16 09/06/16 History Glipizide [Glipizide Xl] 10 mg PO BID 09/06/16 09/06/16 History Lisinopril 10 mg PO DAILY 09/06/16 09/06/16 History Metformin HCl [Fortamet] 500 mg PO BID 09/06/16 09/06/16 History Pravastatin [Pravachol] 40 mg PO BEDTIME 09/06/16 09/06/16 History Tamsulosin [Flomax] 0.4 mg PO DAILY 09/06/16 09/06/16 History Allergies Allergy/AdvReac Type Severity Reaction Status Date / Time No Known Allergies Allergy Unverified 09/06/16 20:03 ROS unobtainable: due to endotracheal tube (He is sedated on the ventilator at present.) Exam (Pulmonay) H&P - Constitutional Vitals: Period Temp Pulse Resp BP Sys/Hassan Pulse Ox Last 24 Hr 97.0 F-97.8 F 60-107 12-24 104-167/58-96 91-100 General appearance: over weight, other (He is sedated on the ventilator) - Head Head exam: Present: normal inspection, normocephalic - Eye Eye exam: Absent: scleral icterus Pupils: Present: JAY - ENT ENT exam: Present: other (ET tube is in good position) - Neck Neck exam: Present: normal inspection. Absent: lymphadenopathy, thyromegaly - Respiratory Respiratory exam: Present: clear to auscultation bilaterally (He has good breath sounds bilaterally is moving air okay.) - Cardiovascular Cardiovascular exam: Present: regular rate and rhythm. Absent: gallop, systolic murmur - GI/Abdominal GI/Abdominal exam: Present: hypoactive bowel sounds, soft. Absent: distended, organomegaly, tenderness - Extremities Exam Extremities exam: Present: edema (He has trace ankle edema). Absent: calf tenderness - Neurological Exam Neurological exam: Present: other (He is sedated on the ventilator at present) - Skin Skin exam: Present: warm, dry Medical,Surgical,& Family Hx - Medical History Cardio: History of: CAD, Hypertension, [place], Cardiovascular Problems ([place]) Neurology: History of: Cerebrovascular Accident Endocrine: History of: Diabetes Mellitus (NIDDM) Gastrointestinal: History of: Hepatitis - Surgical History Cardiac Surgeries: Sugical HX of: Cardiac Catheterization (stents placed) - Family History Family History: Reports;: Family Cancer (dad, brother), Family Hypertension (dad , brother) Denies;: Family Diabetes, Family Heart Disease, Family Hematology, Family Psychiatric Problems, Family Stroke - Social History Smoking Status: Never smoker Frequency of Alcohol Use: None Type of Drug Use: None Results - Labs CBC & BMP: 09/07/16 14:00 09/07/16 14:00 Labs: His PO2 is 211 with a PCO2 of 57 and pH of 7.27 - Diagnostic Findings Procedure: Chest x-ray: image reviewed by me, report reviewed by me (Chest x- ray shows cardiomegaly suggest mild CHF)
[2016-09-07] MEDS: INSULIN REGULAR 100 UNIT/ML IV SCH ×2 (20:24→23:38)
[2016-09-07 20:28] LABS: INR 1.1; PT Patient Result 11.2 SECS; Partial Thromboplastin Time 36.2 SECS (0-40)
[2016-09-07 20:57] LABS: CKMB % 2.2 %
[2016-09-07 20:58] LABS: Troponin I Only 3.48 NG/ML (0.00-0.045)
[2016-09-07] MEDS ORDERED: INSULIN REGULAR 100 UNIT/ML SUBCUT SCH (21:00)
[2016-09-07] MEDS ORDERED: ENOXAPARIN 40 MG/0.4 ML SYRINGE SUBCUT SCH (21:00)
[2016-09-07] MEDS: PRAVASTATIN 40 MG TABLET PO SCH (21:50)
[2016-09-08 00:14] LABS: CKMB % 2.9 %
[2016-09-08 00:17] LABS: Troponin I Only 3.52 NG/ML (0.00-0.045)
[2016-09-08] MEDS: fentaNYL INJ 1,250 MCG in SODIUM CHLORIDE 0.9% 225 ML IV SCH ×3 (00:43→19:01)
[2016-09-08 02:44] LABS: INR 1.1; PT Patient Result 11.2 SECS; Partial Thromboplastin Time 35.9 SECS (0-40)
[2016-09-08 03:50] LABS: Apearance,Urine CLEAR (Clear); Bacteria,Urine Occasional /HPF (Few); Bilirubin,Urine Negative (Negative); Blood, Urine Moderate mg/dL (Negative); Glucose,Urine (UA) 50 mg/dL (Negative); Ketones,Urine Negative (Negative); Nitrite,Urine Negative (Negative); Protein,Urine 30 MG/DL; RBC,Urine 41 /HPF (0-4); Urine Color Yellow (Yellow); Urine Specific Gravity 1.014 (1.001-1.035); Urine Urobilinogen < 2.0 EU/DL (0.2-1.0); WBC,Urine 5 /HPF (0-6)
[2016-09-08 04:44] LABS: ABG Base Excess -0.2 MMOL/L (-2.5-2.5); ABG HCO3 24.2 MMOL/L (20-26); ABG Oxygen Saturation 94.9 % (95-100); ABG PCO2 43.2 MM HG (35-48); ABG PH 7.373 (7.35-7.45); ABG PO2 77.1 MM HG (80-95); ABG TCO2 22.6 MMOL/L (23-27)
[2016-09-08] MEDS: CARVEDILOL 3.125 MG TABLET PO SCH ×4 (04:44→22:54)
[2016-09-08] MEDS: INSULIN REGULAR 100 UNIT/ML IV SCH ×6 (04:51→23:48)
[2016-09-08 05:13] LABS: Calcium 9.3 MG/DL (8.5-10.1); Magnesium 2.1 MG/DL (1.8-2.4); Osmolality,Calculated 292.8 MOS/KG (273-304); Potassium 3.8 MMOL/L (3.5-5.1)
[2016-09-08 05:17] LABS: Basophils % 0.2 % (0.0-0.8); Eosinophils # 0.1 10*3/uL (0.0-0.87); Eosinophils % 1.7 % (0.00-10.9); Hematocrit 36.8 VOL% (42.0-52.0); Hemoglobin 11.2 GM/DL (14.0-18.0); Immature Granulocytes % 0.7 %; Immature Granulocytes Absolute 0.06 #; Lymphocytes # 0.8 10*3/uL (1.4-4.0); Lymphocytes % 9.7 % (21.2-54.2); Mean Corpuscular HGB Conc 30.4 GM/DL (32-36); Mean Corpuscular Hemoglobin 29 PG (27-34); Mean Corpuscular Volume 94.8 FL (87-102); Mean Platelet Volume 12.2 FL (9.6-12.0); Monocytes # 0.8 10*3/uL (0.11-0.8); Monocytes % 9.8 % (1.7-12.7); Neutrophils # 6.5 10*3/uL (1.4-7.4); Neutrophils % 77.9 % (38.7-73.9); Platelet Count 222 T/CUMM (130-400); Red Blood Count 3.88 MC/CUMM (3.8-5.5); Red Cell Distribution Width 16.1 % (9.3-17.3); White Blood Count 8.4 T/CUMM (4-12)
[2016-09-08 05:47] LABS: CKMB % 3.6 %
[2016-09-08 05:54] LABS: Troponin I Only 3.23 NG/ML (0.00-0.045)
--- NOTE | 2016-09-08 06:15 | Cardiothoracic Progress Note ---
Cardiothoracic Subjective Interval history: Patient is sedated on the [facility] protocol. Blood pressure has been stable through the night and his blood gases have been adequate. Urine output has been good and his creatinine is actually down this morning. His troponins have actually trended down since his admission to the hospital. This would indicate to me that he has not had any further myocardial damage. Probably had whatever injury occurred at sometime in the recent past. He is due to be rewarmed starting earlier this afternoon but if he remains stable it may be best to wait on surgery until early next week. My reading of the [facility] protocol recommends against surgery if possible in the early period of time following cessation of cooling. Will follow along for now and make further determinations about timing of surgery depending upon his clinical condition. Exam (Progress Note) - Constitutional Vitals: Period Temp Pulse Resp BP Sys/Hassan Pulse Ox Last 24 Hr 9.7 F-97.7 F 48-82 7-22 66-149/35-76 91-100 Result/EKG - Labs CBC & BMP: 09/08/16 05:00 09/08/16 04:30 Labs: Laboratory Results - last 24 hr 09/07/16 09/07/16 09/07/16 02:02 07:11 14:00 WBC RBC Hgb Hct MCV MCH MCHC RDW Plt Count MPV Neut % (Auto) Lymph % (Auto) [place] % (Auto) Eos % (Auto) Baso % (Auto) Neut # (Auto) Lymph # (Auto) [place] # (Auto) Eos # (Auto) Baso # (Auto) Immature Gran % Nucleated RBC % Immature Gran # Nucleated RBCs # INR PT Patient/Control Mix Circ Anticoag PTT ABG pH ABG pCO2 ABG pO2 ABG HCO3 ABG Total CO2 ABG O2 Saturation ABG Base Excess Sodium Potassium Chloride Carbon Dioxide Anion Gap BUN Creatinine GFR Calculation BUN/Creatinine Ratio Glucose POC Glucose 147 H Calculated Osmolality Lactic Acid Calcium Phosphorus Magnesium Total Bilirubin AST ALT Alkaline Phosphatase Total Creatine Kinase 242 CK-MB (CK-2) 4.0 H CK and CKMB Interp Troponin I 3.320 H D B-Natriuretic Peptide Total Protein Albumin Globulin Albumin/Globulin Ratio Triglycerides 114 Cholesterol 197 LDL Cholesterol 137.0 VLDL Cholesterol 22.8 HDL Cholesterol 43 Heart Disease Risk Ratio 4.58 Amylase Lipase Urine Color Urine Appearance Urine pH Ur Specific [place] Urine Protein Urine Glucose (UA) Urine Ketones Urine Blood Urine Nitrate Urine Bilirubin Urine Urobilinogen Urine Leukocytes Urine RBC Urine WBC Ur Squamous Epith Cells Urine Bacteria Urine Mucus Ur Culture Indicated? 09/07/16 09/07/16 09/07/16 14:00 14:00 14:00 WBC 8.0 RBC 3.40 L Hgb 9.8 L Hct 32.8 L MCV 96.5 MCH 29 MCHC 29.9 L RDW 16.5 Plt Count 263 MPV 12.8 H Neut % (Auto) 74.2 H Lymph % (Auto) 14.8 L [place] % (Auto) 7.9 Eos % (Auto) 1.3 Baso % (Auto) 0.3 Neut # (Auto) 5.9 Lymph # (Auto) 1.2 L [place] # (Auto) 0.6 Eos # (Auto) 0.1 Baso # (Auto) 0.0 Immature Gran % 1.5 Nucleated RBC % 0.0 Immature Gran # 0.12 Nucleated RBCs # 0.00 INR 1.1 PT Patient/Control Mix 11.4 Circ Anticoag PTT 35.0 ABG pH ABG pCO2 ABG pO2 ABG HCO3 ABG Total CO2 ABG O2 Saturation ABG Base Excess Sodium 142 Potassium 4.5 Chloride 110 H Carbon Dioxide 26 Anion Gap 10.5 BUN 24 H Creatinine 1.80 H GFR Calculation 56 BUN/Creatinine Ratio 13.00 Glucose 100 POC Glucose Calculated Osmolality 286.1 Lactic Acid 0.7 Calcium 8.8 Phosphorus 5.0 H Magnesium 2.1 Total Bilirubin 0.40 AST 39 H ALT 54 Alkaline Phosphatase 73 Total Creatine Kinase CK-MB (CK-2) CK and CKMB Interp Troponin I B-Natriuretic Peptide Total Protein 6.5 Albumin 3.2 L Globulin 3.3 Albumin/Globulin Ratio 0.9 L Triglycerides Cholesterol LDL Cholesterol VLDL Cholesterol HDL Cholesterol Heart Disease Risk Ratio Amylase 55 Lipase 111.0 Urine Color Urine Appearance Urine pH Ur Specific [place] Urine Protein Urine Glucose (UA) Urine Ketones Urine Blood Urine Nitrate Urine Bilirubin Urine Urobilinogen Urine Leukocytes Urine RBC Urine WBC Ur Squamous Epith Cells Urine Bacteria Urine Mucus Ur Culture Indicated? 09/07/16 09/07/16 09/07/16 14:00 14:00 14:19 WBC RBC Hgb Hct MCV MCH MCHC RDW Plt Count MPV Neut % (Auto) Lymph % (Auto) [place] % (Auto) Eos % (Auto) Baso % (Auto) Neut # (Auto) Lymph # (Auto) [place] # (Auto) Eos # (Auto) Baso # (Auto) Immature Gran % Nucleated RBC % Immature Gran # Nucleated RBCs # INR PT Patient/Control Mix Circ Anticoag PTT ABG pH 7.274 L ABG pCO2 57.0 H ABG pO2 211.2 H ABG HCO3 25.8 ABG Total CO2 27.6 H ABG O2 Saturation 99.0 ABG Base Excess -1.6 Sodium Potassium Chloride Carbon Dioxide Anion Gap BUN Creatinine GFR Calculation BUN/Creatinine Ratio Glucose POC Glucose Calculated Osmolality Lactic Acid Calcium Phosphorus Magnesium Total Bilirubin AST ALT Alkaline Phosphatase Total Creatine Kinase CK-MB (CK-2) CK and CKMB Interp Troponin I B-Natriuretic Peptide 173 H Total Protein Albumin Globulin Albumin/Globulin Ratio Triglycerides Cholesterol LDL Cholesterol VLDL Cholesterol HDL Cholesterol Heart Disease Risk Ratio Amylase Lipase Urine Color Yellow Urine Appearance Clear Urine pH 5.0 Ur Specific [place] 1.040 H Urine Protein 30 Urine Glucose (UA) Negative Urine Ketones Negative Urine Blood Moderate Urine Nitrate Negative Urine Bilirubin Negative Urine Urobilinogen < 2.0 H Urine Leukocytes Negative Urine RBC 16 Urine WBC 2 Ur Squamous Epith Cells Occasional Urine Bacteria Urine Mucus Occasional Ur Culture Indicated? Not indicated 09/07/16 09/07/16 09/07/16 16:49 20:02 20:06 WBC RBC Hgb Hct MCV MCH MCHC RDW Plt Count MPV Neut % (Auto) Lymph % (Auto) [place] % (Auto) Eos % (Auto) Baso % (Auto) Neut # (Auto) Lymph # (Auto) [place] # (Auto) Eos # (Auto) Baso # (Auto) Immature Gran % Nucleated RBC % Immature Gran # Nucleated RBCs # INR PT Patient/Control Mix Circ Anticoag PTT ABG pH ABG pCO2 ABG pO2 ABG HCO3 ABG Total CO2 ABG O2 Saturation ABG Base Excess Sodium Potassium Chloride Carbon Dioxide Anion Gap BUN Creatinine GFR Calculation BUN/Creatinine Ratio Glucose POC Glucose 72 L 147 H Calculated Osmolality Lactic Acid Calcium Phosphorus Magnesium Total Bilirubin AST ALT Alkaline Phosphatase Total Creatine Kinase 390 H D CK-MB (CK-2) 8.4 H CK and CKMB Interp 2.2 Troponin I 3.480 H B-Natriuretic Peptide Total Protein Albumin Globulin Albumin/Globulin Ratio Triglycerides Cholesterol LDL Cholesterol VLDL Cholesterol HDL Cholesterol Heart Disease Risk Ratio Amylase Lipase Urine Color Urine Appearance Urine pH Ur Specific [place] Urine Protein Urine Glucose (UA) Urine Ketones Urine Blood Urine Nitrate Urine Bilirubin Urine Urobilinogen Urine Leukocytes Urine RBC Urine WBC Ur Squamous Epith Cells Urine Bacteria Urine Mucus Ur Culture Indicated? 09/07/16 09/07/16 09/07/16 20:06 23:20 23:21 WBC RBC Hgb Hct MCV MCH MCHC RDW Plt Count MPV Neut % (Auto) Lymph % (Auto) [place] % (Auto) Eos % (Auto) Baso % (Auto) Neut # (Auto) Lymph # (Auto) [place] # (Auto) Eos # (Auto) Baso # (Auto) Immature Gran % Nucleated RBC % Immature Gran # Nucleated RBCs # INR 1.1 PT Patient/Control Mix 11.2 Circ Anticoag PTT 36.2 ABG pH ABG pCO2 ABG pO2 ABG HCO3 ABG Total CO2 ABG O2 Saturation ABG Base Excess Sodium Potassium Chloride Carbon Dioxide Anion Gap BUN Creatinine GFR Calculation BUN/Creatinine Ratio Glucose POC Glucose 188 H Calculated Osmolality Lactic Acid Calcium Phosphorus Magnesium Total Bilirubin AST ALT Alkaline Phosphatase Total Creatine Kinase 392 H CK-MB (CK-2) 11.2 H CK and CKMB Interp 2.9 Troponin I 3.520 H B-Natriuretic Peptide Total Protein Albumin Globulin Albumin/Globulin Ratio Triglycerides Cholesterol LDL Cholesterol VLDL Cholesterol HDL Cholesterol Heart Disease Risk Ratio Amylase Lipase Urine Color Urine Appearance Urine pH Ur Specific [place] Urine Protein Urine Glucose (UA) Urine Ketones Urine Blood Urine Nitrate Urine Bilirubin Urine Urobilinogen Urine Leukocytes Urine RBC Urine WBC Ur Squamous Epith Cells Urine Bacteria Urine Mucus Ur Culture Indicated? 09/08/16 09/08/16 09/08/16 02:00 02:10 04:27 WBC RBC Hgb Hct MCV MCH MCHC RDW Plt Count MPV Neut % (Auto) Lymph % (Auto) [place] % (Auto) Eos % (Auto) Baso % (Auto) Neut # (Auto) Lymph # (Auto) [place] # (Auto) Eos # (Auto) Baso # (Auto) Immature Gran % Nucleated RBC % Immature Gran # Nucleated RBCs # INR 1.1 PT Patient/Control Mix 11.2 Circ Anticoag PTT 35.9 ABG pH ABG pCO2 ABG pO2 ABG HCO3 ABG Total CO2 ABG O2 Saturation ABG Base Excess Sodium Potassium Chloride Carbon Dioxide Anion Gap BUN Creatinine GFR Calculation BUN/Creatinine Ratio Glucose POC Glucose 204 H Calculated Osmolality Lactic Acid Calcium Phosphorus Magnesium Total Bilirubin AST ALT Alkaline Phosphatase Total Creatine Kinase CK-MB (CK-2) CK and CKMB Interp Troponin I B-Natriuretic Peptide Total Protein Albumin Globulin Albumin/Globulin Ratio Triglycerides Cholesterol LDL Cholesterol VLDL Cholesterol HDL Cholesterol Heart Disease Risk Ratio Amylase Lipase Urine Color Yellow Urine Appearance Clear Urine pH 6.0 Ur Specific [place] 1.014 Urine Protein 30 Urine Glucose (UA) 50 Urine Ketones Negative Urine Blood Moderate Urine Nitrate Negative Urine Bilirubin Negative Urine Urobilinogen < 2.0 H Urine Leukocytes Trace Urine RBC 41 Urine WBC 5 Ur Squamous Epith Cells Urine Bacteria Occasional Urine Mucus Ur Culture Indicated? Results to follow 09/08/16 09/08/16 09/08/16 04:30 04:30 04:30 WBC RBC Hgb Hct MCV MCH MCHC RDW Plt Count MPV Neut % (Auto) Lymph % (Auto) [place] % (Auto) Eos % (Auto) Baso % (Auto) Neut # (Auto) Lymph # (Auto) [place] # (Auto) Eos # (Auto) Baso # (Auto) Immature Gran % Nucleated RBC % Immature Gran # Nucleated RBCs # INR PT Patient/Control Mix Circ Anticoag PTT ABG pH 7.373 ABG pCO2 43.2 ABG pO2 77.1 L ABG HCO3 24.2 ABG Total CO2 22.6 L ABG O2 Saturation 94.9 L ABG Base Excess -0.2 Sodium 144 Potassium 3.8 Chloride 110 H Carbon Dioxide 25 Anion Gap 12.8 BUN 19 H Creatinine 1.20 GFR Calculation 92 BUN/Creatinine Ratio 15.00 Glucose 190 H POC Glucose Calculated Osmolality 292.8 Lactic Acid Calcium 9.3 Phosphorus Magnesium 2.1 Total Bilirubin AST ALT Alkaline Phosphatase Total Creatine Kinase 371 H CK-MB (CK-2) 13.2 H CK and CKMB Interp 3.6 Troponin I 3.230 H B-Natriuretic Peptide Total Protein Albumin Globulin Albumin/Globulin Ratio Triglycerides Cholesterol LDL Cholesterol VLDL Cholesterol HDL Cholesterol Heart Disease Risk Ratio Amylase Lipase Urine Color Urine Appearance Urine pH Ur Specific [place] Urine Protein Urine Glucose (UA) Urine Ketones Urine Blood Urine Nitrate Urine Bilirubin Urine Urobilinogen Urine Leukocytes Urine RBC Urine WBC Ur Squamous Epith Cells Urine Bacteria Urine Mucus Ur Culture Indicated? 09/08/16 09/08/16 04:30 05:00 WBC 8.4 RBC 3.88 Hgb 11.2 L Hct 36.8 L MCV 94.8 MCH 29 MCHC 30.4 L RDW 16.1 Plt Count 222 MPV 12.2 H Neut % (Auto) 77.9 H Lymph % (Auto) 9.7 L [place] % (Auto) 9.8 Eos % (Auto) 1.7 Baso % (Auto) 0.2 Neut # (Auto) 6.5 Lymph # (Auto) 0.8 L [place] # (Auto) 0.8 Eos # (Auto) 0.1 Baso # (Auto) 0.0 Immature Gran % 0.7 Nucleated RBC % 0.0 Immature Gran # 0.06 Nucleated RBCs # 0.00 INR PT Patient/Control Mix Circ Anticoag PTT ABG pH ABG pCO2 ABG pO2 ABG HCO3 ABG Total CO2 ABG O2 Saturation ABG Base Excess Sodium Potassium Chloride Carbon Dioxide Anion Gap BUN Creatinine GFR Calculation BUN/Creatinine Ratio Glucose POC Glucose Calculated Osmolality Lactic Acid 1.0 Calcium Phosphorus Magnesium Total Bilirubin AST ALT Alkaline Phosphatase Total Creatine Kinase CK-MB (CK-2) CK and CKMB Interp Troponin I B-Natriuretic Peptide Total Protein Albumin Globulin Albumin/Globulin Ratio Triglycerides Cholesterol LDL Cholesterol VLDL Cholesterol HDL Cholesterol Heart Disease Risk Ratio Amylase Lipase Urine Color Urine Appearance Urine pH Ur Specific [place] Urine Protein Urine Glucose (UA) Urine Ketones Urine Blood Urine Nitrate Urine Bilirubin Urine Urobilinogen Urine Leukocytes Urine RBC Urine WBC Ur Squamous Epith Cells Urine Bacteria Urine Mucus Ur Culture Indicated?
--- NOTE | 2016-09-08 07:55 | Pulmonology Progress Note ---
Pulmonary - PN: Subj Interval history: The patient is a 71-year-old black man that came in with shortness of breath and some weakness there was a question of mild heart failure. He was taken to the [facility] where he had a brief cardiac arrest. He was found to have triple- vessel coronary artery disease with ejection fraction of 30%. He has been placed on the ventilator and the balloon pump. He is on the cooling protocol. He has been fairly stable overnight. He is sedated and his blood pressure is a little on the low side. He has not had any arrhythmias. He has had good urine output. His oxygenation has been adequate. Exam (Progress Note) - Constitutional Vitals: Period Temp Pulse Resp BP Sys/Hassan Pulse Ox Last 24 Hr 9.7 F-95.9 F 46-82 7-22 66-149/35-76 91-100 Exam: General appearance: over weight, other (He is sedated on the ventilator. He is comfortable on the ventilator. He has had little change through the night.) - Head Head exam: Present: normal inspection, normocephalic - Eye Eye exam: Absent: scleral icterus Pupils: Present: JAY - ENT ENT exam: Present: other (ET tube is in good position) - Neck Neck exam: Present: normal inspection. Absent: lymphadenopathy, thyromegaly - Respiratory Respiratory exam: Present: clear to auscultation bilaterally (He has good breath sounds bilaterally is moving air okay.) - Cardiovascular Cardiovascular exam: Present: regular rate and rhythm. Absent: gallop, systolic murmur - GI/Abdominal GI/Abdominal exam: Present: hypoactive bowel sounds, soft. Absent: distended, organomegaly, tenderness - Extremities Exam Extremities exam: Present: edema (He has trace ankle edema). Absent: calf tenderness - Neurological Exam Neurological exam: Present: other (He is sedated on the ventilator at present) - Skin Skin exam: Present: warm, dry Results - Labs CBC & BMP: 09/08/16 05:00 09/08/16 04:30 Labs: His PO2 of 77 with a PCO2 of 43 and a pH of 7.37 Assessment and Plan (1) CAD (coronary artery disease) Status: Chronic Assessment and plan: Patient has significant triple-vessel coronary artery disease with an ischemic cardiomyopathy and ejection fraction of 30%. He is on the balloon pump now. He has been hemodynamically stable. Current Visit: Yes (2) Hypertension Status: Chronic Assessment and plan: His blood pressure and heart rate are stable at present. His blood pressure is a little on the low side but he is sedated and is on the balloon pump. Current Visit: Yes (3) Dyslipidemia Status: Chronic Assessment and plan: This can be treated later. Current Visit: Yes (4) Diabetes Status: Chronic Assessment and plan: His glucose has been monitored. His glucose is 204 this morning Current Visit: Yes (5) Obesity (BMI 30-39.9) Status: Chronic Assessment and plan: He is a large man. He has been ventilated okay. Current Visit: Yes (6) Chronic renal insufficiency, stage II (mild) Status: Chronic Assessment and plan: His creatinine has improved and is down to 1.2. He does have good urine output. Current Visit: Yes (7) Hypoxic encephalopathy Status: Acute Assessment and plan: The patient is undergoing a cooling protocol since he had a brief cardiac arrest. Current Visit: Yes (8) Cardiac arrest Status: Acute Assessment and plan: Patient is status post brief cardiac arrest and is stable at present. He is undergoing the cooling protocol. Current Visit: Yes (9) On mechanically assisted ventilation Status: Acute Assessment and plan: We will adjust his ventilator and continue support. His ABGs are adequate. Current Visit: Yes (10) NSTEMI (non-ST elevated myocardial infarction) Status: Acute Assessment and plan: He does have significant enzymes. His troponin went up to 3.4 and is starting to fall. Current Visit: Yes
--- NOTE | 2016-09-08 07:58 | EKG Report ---
Stationary ECG Study [facility] Test Date: 09/08/2016 7:35:32 AM Pat Name: MOMO HAWK Department: Room: 111 Gender: M Gold Beater: CHINTAN : 1945 Requested by: Desmond Blanchard Order Number: [id number] Reading MD: DESMOND BLANCHARD Intervals [place] Rate: 53 P: 18 HI: 164 QRS: 62 QRSD: 114 T: 227 QT: 504 QTc: 486 Interpretive Statements SINUS BRADYCARDIA MODERATE INTRAVENTRICULAR CONDUCTION DELAY ST DEVIATION AND MODERATE T-WAVE ABNORMALITY, CONSIDER LATERAL ISCHEMIA ST DEVIATION AND MODERATE T-WAVE ABNORMALITY, CONSIDER INFERIOR ISCHEMIA INTERPRETATION BASED ON A DEFAULT AGE OF 40 YEARS Electronically Signed On 09-11-16 13:58:29 CDT by DESMOND BLANCHARD [email or web address]
[2016-09-08 08:56] LABS: Basophils % 0.3 % (0.0-0.8); Eosinophils # 0.2 10*3/uL (0.0-0.87); Eosinophils % 2.1 % (0.00-10.9); Hematocrit 34.4 VOL% (42.0-52.0); Hemoglobin 10.5 GM/DL (14.0-18.0); Immature Granulocytes % 0.7 %; Immature Granulocytes Absolute 0.05 #; Lymphocytes # 0.7 10*3/uL (1.4-4.0); Lymphocytes % 9.8 % (21.2-54.2); Mean Corpuscular HGB Conc 30.5 GM/DL (32-36); Mean Corpuscular Hemoglobin 29 PG (27-34); Mean Corpuscular Volume 94.8 FL (87-102); Mean Platelet Volume 12.3 FL (9.6-12.0); Monocytes # 0.5 10*3/uL (0.11-0.8); Monocytes % 6.4 % (1.7-12.7); Neutrophils # 5.7 10*3/uL (1.4-7.4); Neutrophils % 80.7 % (38.7-73.9); Platelet Count 215 T/CUMM (130-400); Red Blood Count 3.63 MC/CUMM (3.8-5.5); Red Cell Distribution Width 15.9 % (9.3-17.3); White Blood Count 7.1 T/CUMM (4-12)
[2016-09-08] MEDS ORDERED: ASPIRIN EC 81 MG TABLET PO SCH (09:00)
[2016-09-08] MEDS ORDERED: TAMSULOSIN 0.4 MG CAPSULE PO SCH (09:00)
[2016-09-08 09:05] LABS: PT Patient Result 11.1 SECS; Partial Thromboplastin Time 35.7 SECS (0-40)
[2016-09-08] MEDS: CISATRACURIUM 200 MG in SODIUM CHLORIDE 0.9% 100 ML IV SCH (09:21)
[2016-09-08 09:26] LABS: Calcium 8.8 MG/DL (8.5-10.1); Osmolality,Calculated 292.8 MOS/KG (273-304); Potassium 3.9 MMOL/L (3.5-5.1)
[2016-09-08 09:36] LABS: CKMB % 3.1 %
[2016-09-08 09:37] LABS: Troponin I Only 2.61 NG/ML (0.00-0.045)
[2016-09-08] MEDS: PHENYLEPHRINE INJ 160 MG in SODIUM CHLORIDE 0.9% 234 ML IV SCH ×2 (09:43→16:31)
[2016-09-08] MEDS ORDERED: POTASSIUM CHLORIDE RIDER 100 ML IV PRN (09:48)
--- NOTE | 2016-09-08 09:48 | Cardiology Progress Note ---
<Annia Etienne E - Last Filed: 09/08/16 09:59> Assessment and Plan - Time spent with patient Time spent with patient: Greater than 30 minutes (1) NSTEMI (non-ST elevated myocardial infarction) Status: Acute Assessment and plan: SEE PLAN OF CARE LISTED BELOW Current Visit: Yes (2) CAD (coronary artery disease) Status: Chronic Assessment and plan: SEE PLAN OF CARE LISTED BELOW Current Visit: Yes (3) Hypertension Status: Chronic Assessment and plan: SEE PLAN OF CARE LISTED BELOW Current Visit: Yes (4) Dyslipidemia Status: Chronic Assessment and plan: SEE PLAN OF CARE LISTED BELOW Current Visit: Yes (5) Diabetes Status: Chronic Assessment and plan: SEE PLAN OF CARE LISTED BELOW Current Visit: Yes (6) Obesity (BMI 30-39.9) Status: Chronic Assessment and plan: SEE PLAN OF CARE LISTED BELOW Current Visit: Yes (7) Chronic renal insufficiency, stage II (mild) Status: Chronic Assessment and plan: SEE PLAN OF CARE LISTED BELOW Current Visit: Yes (8) Noncompliance Status: Chronic Assessment and plan: SEE PLAN OF CARE LISTED BELOW Current Visit: Yes (9) Ischemic cardiomyopathy Status: Acute Assessment and plan: See plan of care listed below Current Visit: Yes (10) Cardiopulmonary arrest Status: Acute Assessment and plan: See plan of care listed below Current Visit: Yes Cardiology - PN: Subj Interval history: FLOOR MANAGER: DR. BLANCHARD PCP: DR. GAYLE HATHAWAY Mr. Landry was admitted for NSTEMI September 07, 2016. He underwent cardiac catheterization and was found to have significant three-vessel coronary artery disease, EF 30%. CV surgery has been consulted regarding consideration of CABG. He did experience brief cardiopulmonary arrest prior to the cardiac catheterization. He was placed on a balloon pump. Because he did not have spontaneous return of consciousness, he is being treated with [facility] post code protocol. He should start rewarming this afternoon. DAY 2, SEPTEMBER 08, 2016: Overnight, patient's labs are stable. Troponin is decreasing, creatinine is stable at 1.3. Patient will continue to be supported and recovered today. Hopefully, in approximately 1 week, patient may be eligible for CABG depending on his continued improvement. I 1. NSTEMI -troponins trending down. 2. Three-vessel CAD -eventually, will require bypass grafting. Appreciate Dr. Guzman's assistance. 3. HYPERTENSION -history of, now being maintained with low-dose dopamine. 4. DYSLIPIDEMIA - continue lipid-lowering agent. 5. DIABETES -sliding scale insulin. Hold metformin 6. OBESITY -dietary counseling prior to discharge 7. NON-COMPLIANCE - will continue to reiterate the importance of compliance when able 8. RENAL INSUFFICIENCY -chronic renal insufficiency, stage II. Continue current plan of care. Avoiding ИВАН inhibitors and or ARB's. 9. POST CARDIOPULMONARY ARREST - [place] protocol continues. IABP in place 10. ICM - EF 30%. Exam (Progress Note) - Constitutional Vitals: Period Temp Pulse Resp BP Sys/Hassan Pulse Ox Last 24 Hr 9.7 F-95.9 F 46-82 12-22 66-136/35-76 91-100 Exam: General: [Intubated, sedated. Appears comfortable. HEENT: [NG tube for right nares. ET tube intact secure. No jaundice noted. Conjunctiva moist and clear, sclerae anicteric] Neck: No obvious JVD/HJR, no thyromegaly or lymphadenopathy noted. No carotid bruit appreciated Cardiac: [Regular rate and rhythm, IABP augmentation ausculatated. Lungs: [Coarse, but clear. Remains intubated. Symmeterical chest wall movements noted. Abdomen: Soft, bowel sounds normoactive. Nontender and nondistended. No abdominal bruit or thrill noted. No masses noted. Musculoskeletal: No fluid collection. Decreased range of motion is noted. Extremities: No clubbing, cyanosis noted. [ No edema noted.] Upper extremity pulses 2+. Lower extremity pulses 2+. Capillary refill less than 3 seconds. Skin: No unusual lesions or rashes. No skin breakdown appreciated. Neuro: No essential tremor is appreciated. Result/EKG - Labs CBC & BMP: 09/08/16 08:50 09/08/16 08:50 Lab Results: I have reviewed the past 24 hour labs Labs: Laboratory Results - last 24 hr 09/07/16 09/07/16 09/07/16 02:02 07:11 14:00 WBC RBC Hgb Hct MCV MCH MCHC RDW Plt Count MPV Neut % (Auto) Lymph % (Auto) [place] % (Auto) Eos % (Auto) Baso % (Auto) Neut # (Auto) Lymph # (Auto) [place] # (Auto) Eos # (Auto) Baso # (Auto) Immature Gran % Nucleated RBC % Immature Gran # Nucleated RBCs # INR PT Patient/Control Mix Circ Anticoag PTT ABG pH ABG pCO2 ABG pO2 ABG HCO3 ABG Total CO2 ABG O2 Saturation ABG Base Excess Sodium Potassium Chloride Carbon Dioxide Anion Gap BUN Creatinine GFR Calculation BUN/Creatinine Ratio Glucose POC Glucose 147 H Calculated Osmolality Lactic Acid Calcium Phosphorus Magnesium Total Bilirubin AST ALT Alkaline Phosphatase Total Creatine Kinase 242 CK-MB (CK-2) 4.0 H CK and CKMB Interp Troponin I 3.320 H D B-Natriuretic Peptide Total Protein Albumin Globulin Albumin/Globulin Ratio Triglycerides 114 Cholesterol 197 LDL Cholesterol 137.0 VLDL Cholesterol 22.8 HDL Cholesterol 43 Heart Disease Risk Ratio 4.58 Amylase Lipase Urine Color Urine Appearance Urine pH Ur Specific [place] Urine Protein Urine Glucose (UA) Urine Ketones Urine Blood Urine Nitrate Urine Bilirubin Urine Urobilinogen Urine Leukocytes Urine RBC Urine WBC Ur Squamous Epith Cells Urine Bacteria Urine Mucus Ur Culture Indicated? 09/07/16 09/07/16 09/07/16 14:00 14:00 14:00 WBC 8.0 RBC 3.40 L Hgb 9.8 L Hct 32.8 L MCV 96.5 MCH 29 MCHC 29.9 L RDW 16.5 Plt Count 263 MPV 12.8 H Neut % (Auto) 74.2 H Lymph % (Auto) 14.8 L [place] % (Auto) 7.9 Eos % (Auto) 1.3 Baso % (Auto) 0.3 Neut # (Auto) 5.9 Lymph # (Auto) 1.2 L [place] # (Auto) 0.6 Eos # (Auto) 0.1 Baso # (Auto) 0.0 Immature Gran % 1.5 Nucleated RBC % 0.0 Immature Gran # 0.12 Nucleated RBCs # 0.00 INR 1.1 PT Patient/Control Mix 11.4 Circ Anticoag PTT 35.0 ABG pH ABG pCO2 ABG pO2 ABG HCO3 ABG Total CO2 ABG O2 Saturation ABG Base Excess Sodium 142 Potassium 4.5 Chloride 110 H Carbon Dioxide 26 Anion Gap 10.5 BUN 24 H Creatinine 1.80 H GFR Calculation 56 BUN/Creatinine Ratio 13.00 Glucose 100 POC Glucose Calculated Osmolality 286.1 Lactic Acid 0.7 Calcium 8.8 Phosphorus 5.0 H Magnesium 2.1 Total Bilirubin 0.40 AST 39 H ALT 54 Alkaline Phosphatase 73 Total Creatine Kinase CK-MB (CK-2) CK and CKMB Interp Troponin I B-Natriuretic Peptide Total Protein 6.5 Albumin 3.2 L Globulin 3.3 Albumin/Globulin Ratio 0.9 L Triglycerides Cholesterol LDL Cholesterol VLDL Cholesterol HDL Cholesterol Heart Disease Risk Ratio Amylase 55 Lipase 111.0 Urine Color Urine Appearance Urine pH Ur Specific [place] Urine Protein Urine Glucose (UA) Urine Ketones Urine Blood Urine Nitrate Urine Bilirubin Urine Urobilinogen Urine Leukocytes Urine RBC Urine WBC Ur Squamous Epith Cells Urine Bacteria Urine Mucus Ur Culture Indicated? 09/07/16 09/07/16 09/07/16 14:00 14:00 14:19 WBC RBC Hgb Hct MCV MCH MCHC RDW Plt Count MPV Neut % (Auto) Lymph % (Auto) [place] % (Auto) Eos % (Auto) Baso % (Auto) Neut # (Auto) Lymph # (Auto) [place] # (Auto) Eos # (Auto) Baso # (Auto) Immature Gran % Nucleated RBC % Immature Gran # Nucleated RBCs # INR PT Patient/Control Mix Circ Anticoag PTT ABG pH 7.274 L ABG pCO2 57.0 H ABG pO2 211.2 H ABG HCO3 25.8 ABG Total CO2 27.6 H ABG O2 Saturation 99.0 ABG Base Excess -1.6 Sodium Potassium Chloride Carbon Dioxide Anion Gap BUN Creatinine GFR Calculation BUN/Creatinine Ratio Glucose POC Glucose Calculated Osmolality Lactic Acid Calcium Phosphorus Magnesium Total Bilirubin AST ALT Alkaline Phosphatase Total Creatine Kinase CK-MB (CK-2) CK and CKMB Interp Troponin I B-Natriuretic Peptide 173 H Total Protein Albumin Globulin Albumin/Globulin Ratio Triglycerides Cholesterol LDL Cholesterol VLDL Cholesterol HDL Cholesterol Heart Disease Risk Ratio Amylase Lipase Urine Color Yellow Urine Appearance Clear Urine pH 5.0 Ur Specific [place] 1.040 H Urine Protein 30 Urine Glucose (UA) Negative Urine Ketones Negative Urine Blood Moderate Urine Nitrate Negative Urine Bilirubin Negative Urine Urobilinogen < 2.0 H Urine Leukocytes Negative Urine RBC 16 Urine WBC 2 Ur Squamous Epith Cells Occasional Urine Bacteria Urine Mucus Occasional Ur Culture Indicated? Not indicated 09/07/16 09/07/16 09/07/16 16:49 20:02 20:06 WBC RBC Hgb Hct MCV MCH MCHC RDW Plt Count MPV Neut % (Auto) Lymph % (Auto) [place] % (Auto) Eos % (Auto) Baso % (Auto) Neut # (Auto) Lymph # (Auto) [place] # (Auto) Eos # (Auto) Baso # (Auto) Immature Gran % Nucleated RBC % Immature Gran # Nucleated RBCs # INR PT Patient/Control Mix Circ Anticoag PTT ABG pH ABG pCO2 ABG pO2 ABG HCO3 ABG Total CO2 ABG O2 Saturation ABG Base Excess Sodium Potassium Chloride Carbon Dioxide Anion Gap BUN Creatinine GFR Calculation BUN/Creatinine Ratio Glucose POC Glucose 72 L 147 H Calculated Osmolality Lactic Acid Calcium Phosphorus Magnesium Total Bilirubin AST ALT Alkaline Phosphatase Total Creatine Kinase 390 H D CK-MB (CK-2) 8.4 H CK and CKMB Interp 2.2 Troponin I 3.480 H B-Natriuretic Peptide Total Protein Albumin Globulin Albumin/Globulin Ratio Triglycerides Cholesterol LDL Cholesterol VLDL Cholesterol HDL Cholesterol Heart Disease Risk Ratio Amylase Lipase Urine Color Urine Appearance Urine pH Ur Specific [place] Urine Protein Urine Glucose (UA) Urine Ketones Urine Blood Urine Nitrate Urine Bilirubin Urine Urobilinogen Urine Leukocytes Urine RBC Urine WBC Ur Squamous Epith Cells Urine Bacteria Urine Mucus Ur Culture Indicated? 09/07/16 09/07/16 09/07/16 20:06 23:20 23:21 WBC RBC Hgb Hct MCV MCH MCHC RDW Plt Count MPV Neut % (Auto) Lymph % (Auto) [place] % (Auto) Eos % (Auto) Baso % (Auto) Neut # (Auto) Lymph # (Auto) [place] # (Auto) Eos # (Auto) Baso # (Auto) Immature Gran % Nucleated RBC % Immature Gran # Nucleated RBCs # INR 1.1 PT Patient/Control Mix 11.2 Circ Anticoag PTT 36.2 ABG pH ABG pCO2 ABG pO2 ABG HCO3 ABG Total CO2 ABG O2 Saturation ABG Base Excess Sodium Potassium Chloride Carbon Dioxide Anion Gap BUN Creatinine GFR Calculation BUN/Creatinine Ratio Glucose POC Glucose 188 H Calculated Osmolality Lactic Acid Calcium Phosphorus Magnesium Total Bilirubin AST ALT Alkaline Phosphatase Total Creatine Kinase 392 H CK-MB (CK-2) 11.2 H CK and CKMB Interp 2.9 Troponin I 3.520 H B-Natriuretic Peptide Total Protein Albumin Globulin Albumin/Globulin Ratio Triglycerides Cholesterol LDL Cholesterol VLDL Cholesterol HDL Cholesterol Heart Disease Risk Ratio Amylase Lipase Urine Color Urine Appearance Urine pH Ur Specific [place] Urine Protein Urine Glucose (UA) Urine Ketones Urine Blood Urine Nitrate Urine Bilirubin Urine Urobilinogen Urine Leukocytes Urine RBC Urine WBC Ur Squamous Epith Cells Urine Bacteria Urine Mucus Ur Culture Indicated? 09/08/16 09/08/16 09/08/16 02:00 02:10 04:27 WBC RBC Hgb Hct MCV MCH MCHC RDW Plt Count MPV Neut % (Auto) Lymph % (Auto) [place] % (Auto) Eos % (Auto) Baso % (Auto) Neut # (Auto) Lymph # (Auto) [place] # (Auto) Eos # (Auto) Baso # (Auto) Immature Gran % Nucleated RBC % Immature Gran # Nucleated RBCs # INR 1.1 PT Patient/Control Mix 11.2 Circ Anticoag PTT 35.9 ABG pH ABG pCO2 ABG pO2 ABG HCO3 ABG Total CO2 ABG O2 Saturation ABG Base Excess Sodium Potassium Chloride Carbon Dioxide Anion Gap BUN Creatinine GFR Calculation BUN/Creatinine Ratio Glucose POC Glucose 204 H Calculated Osmolality Lactic Acid Calcium Phosphorus Magnesium Total Bilirubin AST ALT Alkaline Phosphatase Total Creatine Kinase CK-MB (CK-2) CK and CKMB Interp Troponin I B-Natriuretic Peptide Total Protein Albumin Globulin Albumin/Globulin Ratio Triglycerides Cholesterol LDL Cholesterol VLDL Cholesterol HDL Cholesterol Heart Disease Risk Ratio Amylase Lipase Urine Color Yellow Urine Appearance Clear Urine pH 6.0 Ur Specific [place] 1.014 Urine Protein 30 Urine Glucose (UA) 50 Urine Ketones Negative Urine Blood Moderate Urine Nitrate Negative Urine Bilirubin Negative Urine Urobilinogen < 2.0 H Urine Leukocytes Trace Urine RBC 41 Urine WBC 5 Ur Squamous Epith Cells Urine Bacteria Occasional Urine Mucus Ur Culture Indicated? Results to follow 09/08/16 09/08/16 09/08/16 04:30 04:30 04:30 WBC RBC Hgb Hct MCV MCH MCHC RDW Plt Count MPV Neut % (Auto) Lymph % (Auto) [place] % (Auto) Eos % (Auto) Baso % (Auto) Neut # (Auto) Lymph # (Auto) [place] # (Auto) Eos # (Auto) Baso # (Auto) Immature Gran % Nucleated RBC % Immature Gran # Nucleated RBCs # INR PT Patient/Control Mix Circ Anticoag PTT ABG pH ABG pCO2 ABG pO2 ABG HCO3 ABG Total CO2 ABG O2 Saturation ABG Base Excess Sodium 144 Potassium 3.8 Chloride 110 H Carbon Dioxide 25 Anion Gap 12.8 BUN 19 H Creatinine 1.20 GFR Calculation 92 BUN/Creatinine Ratio 15.00 Glucose 190 H POC Glucose Calculated Osmolality 292.8 Lactic Acid Calcium 9.3 Phosphorus 3.3 Magnesium 2.1 Total Bilirubin AST ALT Alkaline Phosphatase Total Creatine Kinase 371 H CK-MB (CK-2) 13.2 H CK and CKMB Interp 3.6 Troponin I 3.230 H B-Natriuretic Peptide Total Protein Albumin Globulin Albumin/Globulin Ratio Triglycerides Cholesterol LDL Cholesterol VLDL Cholesterol HDL Cholesterol Heart Disease Risk Ratio Amylase Lipase Urine Color Urine Appearance Urine pH Ur Specific [place] Urine Protein Urine Glucose (UA) Urine Ketones Urine Blood Urine Nitrate Urine Bilirubin Urine Urobilinogen Urine Leukocytes Urine RBC Urine WBC Ur Squamous Epith Cells Urine Bacteria Urine Mucus Ur Culture Indicated? 09/08/16 09/08/16 09/08/16 04:30 04:30 05:00 WBC 8.4 RBC 3.88 Hgb 11.2 L Hct 36.8 L MCV 94.8 MCH 29 MCHC 30.4 L RDW 16.1 Plt Count 222 MPV 12.2 H Neut % (Auto) 77.9 H Lymph % (Auto) 9.7 L [place] % (Auto) 9.8 Eos % (Auto) 1.7 Baso % (Auto) 0.2 Neut # (Auto) 6.5 Lymph # (Auto) 0.8 L [place] # (Auto) 0.8 Eos # (Auto) 0.1 Baso # (Auto) 0.0 Immature Gran % 0.7 Nucleated RBC % 0.0 Immature Gran # 0.06 Nucleated RBCs # 0.00 INR PT Patient/Control Mix Circ Anticoag PTT ABG pH 7.373 ABG pCO2 43.2 ABG pO2 77.1 L ABG HCO3 24.2 ABG Total CO2 22.6 L ABG O2 Saturation 94.9 L ABG Base Excess -0.2 Sodium Potassium Chloride Carbon Dioxide Anion Gap BUN Creatinine GFR Calculation BUN/Creatinine Ratio Glucose POC Glucose Calculated Osmolality Lactic Acid 1.0 Calcium Phosphorus Magnesium Total Bilirubin AST ALT Alkaline Phosphatase Total Creatine Kinase CK-MB (CK-2) CK and CKMB Interp Troponin I B-Natriuretic Peptide Total Protein Albumin Globulin Albumin/Globulin Ratio Triglycerides Cholesterol LDL Cholesterol VLDL Cholesterol HDL Cholesterol Heart Disease Risk Ratio Amylase Lipase Urine Color Urine Appearance Urine pH Ur Specific [place] Urine Protein Urine Glucose (UA) Urine Ketones Urine Blood Urine Nitrate Urine Bilirubin Urine Urobilinogen Urine Leukocytes Urine RBC Urine WBC Ur Squamous Epith Cells Urine Bacteria Urine Mucus Ur Culture Indicated? 09/08/16 09/08/16 09/08/16 08:50 08:50 08:50 WBC 7.1 RBC 3.63 L Hgb 10.5 L Hct 34.4 L MCV 94.8 MCH 29 MCHC 30.5 L RDW 15.9 Plt Count 215 MPV 12.3 H Neut % (Auto) 80.7 H Lymph % (Auto) 9.8 L [place] % (Auto) 6.4 Eos % (Auto) 2.1 Baso % (Auto) 0.3 Neut # (Auto) 5.7 Lymph # (Auto) 0.7 L [place] # (Auto) 0.5 Eos # (Auto) 0.2 Baso # (Auto) 0.0 Immature Gran % 0.7 Nucleated RBC % 0.0 Immature Gran # 0.05 Nucleated RBCs # 0.00 INR 1.0 PT Patient/Control Mix 11.1 Circ Anticoag PTT 35.7 ABG pH ABG pCO2 ABG pO2 ABG HCO3 ABG Total CO2 ABG O2 Saturation ABG Base Excess Sodium Potassium Chloride Carbon Dioxide Anion Gap BUN Creatinine GFR Calculation BUN/Creatinine Ratio Glucose POC Glucose Calculated Osmolality Lactic Acid Calcium Phosphorus Magnesium Total Bilirubin AST ALT Alkaline Phosphatase Total Creatine Kinase 362 H CK-MB (CK-2) 11.2 H CK and CKMB Interp 3.1 Troponin I 2.610 H B-Natriuretic Peptide Total Protein Albumin Globulin Albumin/Globulin Ratio Triglycerides Cholesterol LDL Cholesterol VLDL Cholesterol HDL Cholesterol Heart Disease Risk Ratio Amylase Lipase Urine Color Urine Appearance Urine pH Ur Specific [place] Urine Protein Urine Glucose (UA) Urine Ketones Urine Blood Urine Nitrate Urine Bilirubin Urine Urobilinogen Urine Leukocytes Urine RBC Urine WBC Ur Squamous Epith Cells Urine Bacteria Urine Mucus Ur Culture Indicated? 09/08/16 08:50 WBC RBC Hgb Hct MCV MCH MCHC RDW Plt Count MPV Neut % (Auto) Lymph % (Auto) [place] % (Auto) Eos % (Auto) Baso % (Auto) Neut # (Auto) Lymph # (Auto) [place] # (Auto) Eos # (Auto) Baso # (Auto) Immature Gran % Nucleated RBC % Immature Gran # Nucleated RBCs # INR PT Patient/Control Mix Circ Anticoag PTT ABG pH ABG pCO2 ABG pO2 ABG HCO3 ABG Total CO2 ABG O2 Saturation ABG Base Excess Sodium 144 Potassium 3.9 Chloride 110 H Carbon Dioxide 27 Anion Gap 10.9 BUN 20 H Creatinine 1.30 GFR Calculation 83 BUN/Creatinine Ratio 15.00 Glucose 179 H POC Glucose Calculated Osmolality 292.8 Lactic Acid 1.0 Calcium 8.8 Phosphorus Magnesium 2.0 Total Bilirubin AST ALT Alkaline Phosphatase Total Creatine Kinase CK-MB (CK-2) CK and CKMB Interp Troponin I B-Natriuretic Peptide Total Protein Albumin Globulin Albumin/Globulin Ratio Triglycerides Cholesterol LDL Cholesterol VLDL Cholesterol HDL Cholesterol Heart Disease Risk Ratio Amylase Lipase Urine Color Urine Appearance Urine pH Ur Specific [place] Urine Protein Urine Glucose (UA) Urine Ketones Urine Blood Urine Nitrate Urine Bilirubin Urine Urobilinogen Urine Leukocytes Urine RBC Urine WBC Ur Squamous Epith Cells Urine Bacteria Urine Mucus Ur Culture Indicated? - Diagnostic Findings Procedure: Chest x-ray: report reviewed by me - EKG EKG results: interpreted by me EKG shows: sinus rhythm <Mina Blanchard - Last Filed: 09/08/16 17:23> Assessment and Plan (1) Hypomagnesemia Status: Acute Current Visit: Yes (2) Heart failure Status: Acute Current Visit: Yes (3) Suspected sleep apnea Status: Acute Current Visit: Yes (4) NSTEMI (non-ST elevated myocardial infarction) Status: Acute Current Visit: Yes (5) CAD (coronary artery disease) Status: Chronic Current Visit: Yes (6) Chronic renal insufficiency, stage II (mild) Status: Chronic Current Visit: Yes (7) Diabetes Status: Chronic Current Visit: Yes (8) Dyslipidemia Status: Chronic Current Visit: Yes (9) Hypertension Status: Chronic Current Visit: Yes (10) Noncompliance Status: Chronic Current Visit: Yes (11) Obesity (BMI 30-39.9) Status: Chronic Current Visit: Yes (12) Hypoxic encephalopathy Status: Acute Current Visit: Yes Exam (Progress Note) - Constitutional Vitals: Period Temp Pulse Resp BP Sys/Hassan Pulse Ox Last 24 Hr 90.5 F-91.8 F 46-65 9-12 65-135/15-67 91-100 Result/EKG - Labs CBC & BMP: 09/08/16 12:46 09/08/16 12:46 Labs: Laboratory Results - last 24 hr 09/07/16 09/07/16 09/07/16 20:02 20:06 20:06 WBC RBC Hgb Hct MCV MCH MCHC RDW Plt Count MPV Neut % (Auto) Lymph % (Auto) [place] % (Auto) Eos % (Auto) Baso % (Auto) Neut # (Auto) Lymph # (Auto) [place] # (Auto) Eos # (Auto) Baso # (Auto) Immature Gran % Nucleated RBC % Immature Gran # Nucleated RBCs # INR 1.1 PT Patient/Control Mix 11.2 Circ Anticoag PTT 36.2 ABG pH ABG pCO2 ABG pO2 ABG HCO3 ABG Total CO2 ABG O2 Saturation ABG Base Excess Sodium Potassium Chloride Carbon Dioxide Anion Gap BUN Creatinine GFR Calculation BUN/Creatinine Ratio Glucose POC Glucose 147 H Calculated Osmolality Lactic Acid Calcium Phosphorus Magnesium Total Creatine Kinase 390 H D CK-MB (CK-2) 8.4 H CK and CKMB Interp 2.2 Troponin I 3.480 H Urine Color Urine Appearance Urine pH Ur Specific [place] Urine Protein Urine Glucose (UA) Urine Ketones Urine Blood Urine Nitrate Urine Bilirubin Urine Urobilinogen Urine Leukocytes Urine RBC Urine WBC Urine Bacteria Ur Culture Indicated? 09/07/16 09/07/16 09/08/16 23:20 23:21 02:00 WBC RBC Hgb Hct MCV MCH MCHC RDW Plt Count MPV Neut % (Auto) Lymph % (Auto) [place] % (Auto) Eos % (Auto) Baso % (Auto) Neut # (Auto) Lymph # (Auto) [place] # (Auto) Eos # (Auto) Baso # (Auto) Immature Gran % Nucleated RBC % Immature Gran # Nucleated RBCs # INR PT Patient/Control Mix Circ Anticoag PTT ABG pH ABG pCO2 ABG pO2 ABG HCO3 ABG Total CO2 ABG O2 Saturation ABG Base Excess Sodium Potassium Chloride Carbon Dioxide Anion Gap BUN Creatinine GFR Calculation BUN/Creatinine Ratio Glucose POC Glucose 188 H Calculated Osmolality Lactic Acid Calcium Phosphorus Magnesium Total Creatine Kinase 392 H CK-MB (CK-2) 11.2 H CK and CKMB Interp 2.9 Troponin I 3.520 H Urine Color Yellow Urine Appearance Clear Urine pH 6.0 Ur Specific [place] 1.014 Urine Protein 30 Urine Glucose (UA) 50 Urine Ketones Negative Urine Blood Moderate Urine Nitrate Negative Urine Bilirubin Negative Urine Urobilinogen < 2.0 H Urine Leukocytes Trace Urine RBC 41 Urine WBC 5 Urine Bacteria Occasional Ur Culture Indicated? Results to follow 09/08/16 09/08/16 09/08/16 02:10 04:27 04:30 WBC RBC Hgb Hct MCV MCH MCHC RDW Plt Count MPV Neut % (Auto) Lymph % (Auto) [place] % (Auto) Eos % (Auto) Baso % (Auto) Neut # (Auto) Lymph # (Auto) [place] # (Auto) Eos # (Auto) Baso # (Auto) Immature Gran % Nucleated RBC % Immature Gran # Nucleated RBCs # INR 1.1 PT Patient/Control Mix 11.2 Circ Anticoag PTT 35.9 ABG pH ABG pCO2 ABG pO2 ABG HCO3 ABG Total CO2 ABG O2 Saturation ABG Base Excess Sodium 144 Potassium 3.8 Chloride 110 H Carbon Dioxide 25 Anion Gap 12.8 BUN 19 H Creatinine 1.20 GFR Calculation 92 BUN/Creatinine Ratio 15.00 Glucose 190 H POC Glucose 204 H Calculated Osmolality 292.8 Lactic Acid Calcium 9.3 Phosphorus Magnesium 2.1 Total Creatine Kinase CK-MB (CK-2) CK and CKMB Interp Troponin I Urine Color Urine Appearance Urine pH Ur Specific [place] Urine Protein Urine Glucose (UA) Urine Ketones Urine Blood Urine Nitrate Urine Bilirubin Urine Urobilinogen Urine Leukocytes Urine RBC Urine WBC Urine Bacteria Ur Culture Indicated? 09/08/16 09/08/16 09/08/16 04:30 04:30 04:30 WBC RBC Hgb Hct MCV MCH MCHC RDW Plt Count MPV Neut % (Auto) Lymph % (Auto) [place] % (Auto) Eos % (Auto) Baso % (Auto) Neut # (Auto) Lymph # (Auto) [place] # (Auto) Eos # (Auto) Baso # (Auto) Immature Gran % Nucleated RBC % Immature Gran # Nucleated RBCs # INR PT Patient/Control Mix Circ Anticoag PTT ABG pH 7.373 ABG pCO2 43.2 ABG pO2 77.1 L ABG HCO3 24.2 ABG Total CO2 22.6 L ABG O2 Saturation 94.9 L ABG Base Excess -0.2 Sodium Potassium Chloride Carbon Dioxide Anion Gap BUN Creatinine GFR Calculation BUN/Creatinine Ratio Glucose POC Glucose Calculated Osmolality Lactic Acid Calcium Phosphorus 3.3 Magnesium Total Creatine Kinase 371 H CK-MB (CK-2) 13.2 H CK and CKMB Interp 3.6 Troponin I 3.230 H Urine Color Urine Appearance Urine pH Ur Specific [place] Urine Protein Urine Glucose (UA) Urine Ketones Urine Blood Urine Nitrate Urine Bilirubin Urine Urobilinogen Urine Leukocytes Urine RBC Urine WBC Urine Bacteria Ur Culture Indicated? 09/08/16 09/08/16 09/08/16 04:30 05:00 08:50 WBC 8.4 RBC 3.88 Hgb 11.2 L Hct 36.8 L MCV 94.8 MCH 29 MCHC 30.4 L RDW 16.1 Plt Count 222 MPV 12.2 H Neut % (Auto) 77.9 H Lymph % (Auto) 9.7 L [place] % (Auto) 9.8 Eos % (Auto) 1.7 Baso % (Auto) 0.2 Neut # (Auto) 6.5 Lymph # (Auto) 0.8 L [place] # (Auto) 0.8 Eos # (Auto) 0.1 Baso # (Auto) 0.0 Immature Gran % 0.7 Nucleated RBC % 0.0 Immature Gran # 0.06 Nucleated RBCs # 0.00 INR PT Patient/Control Mix Circ Anticoag PTT ABG pH ABG pCO2 ABG pO2 ABG HCO3 ABG Total CO2 ABG O2 Saturation ABG Base Excess Sodium Potassium Chloride Carbon Dioxide Anion Gap BUN Creatinine GFR Calculation BUN/Creatinine Ratio Glucose POC Glucose Calculated Osmolality Lactic Acid 1.0 Calcium Phosphorus Magnesium Total Creatine Kinase 362 H CK-MB (CK-2) 11.2 H CK and CKMB Interp 3.1 Troponin I 2.610 H Urine Color Urine Appearance Urine pH Ur Specific [place] Urine Protein Urine Glucose (UA) Urine Ketones Urine Blood Urine Nitrate Urine Bilirubin Urine Urobilinogen Urine Leukocytes Urine RBC Urine WBC Urine Bacteria Ur Culture Indicated? 09/08/16 09/08/16 09/08/16 08:50 08:50 08:50 WBC 7.1 RBC 3.63 L Hgb 10.5 L Hct 34.4 L MCV 94.8 MCH 29 MCHC 30.5 L RDW 15.9 Plt Count 215 MPV 12.3 H Neut % (Auto) 80.7 H Lymph % (Auto) 9.8 L [place] % (Auto) 6.4 Eos % (Auto) 2.1 Baso % (Auto) 0.3 Neut # (Auto) 5.7 Lymph # (Auto) 0.7 L [place] # (Auto) 0.5 Eos # (Auto) 0.2 Baso # (Auto) 0.0 Immature Gran % 0.7 Nucleated RBC % 0.0 Immature Gran # 0.05 Nucleated RBCs # 0.00 INR 1.0 PT Patient/Control Mix 11.1 Circ Anticoag PTT 35.7 ABG pH ABG pCO2 ABG pO2 ABG HCO3 ABG Total CO2 ABG O2 Saturation ABG Base Excess Sodium 144 Potassium 3.9 Chloride 110 H Carbon Dioxide 27 Anion Gap 10.9 BUN 20 H Creatinine 1.30 GFR Calculation 83 BUN/Creatinine Ratio 15.00 Glucose 179 H POC Glucose Calculated Osmolality 292.8 Lactic Acid 1.0 Calcium 8.8 Phosphorus Magnesium 2.0 Total Creatine Kinase CK-MB (CK-2) CK and CKMB Interp Troponin I Urine Color Urine Appearance Urine pH Ur Specific [place] Urine Protein Urine Glucose (UA) Urine Ketones Urine Blood Urine Nitrate Urine Bilirubin Urine Urobilinogen Urine Leukocytes Urine RBC Urine WBC Urine Bacteria Ur Culture Indicated? 09/08/16 09/08/16 09/08/16 12:15 12:46 12:46 WBC RBC Hgb Hct MCV MCH MCHC RDW Plt Count MPV Neut % (Auto) Lymph % (Auto) [place] % (Auto) Eos % (Auto) Baso % (Auto) Neut # (Auto) Lymph # (Auto) [place] # (Auto) Eos # (Auto) Baso # (Auto) Immature Gran % Nucleated RBC % Immature Gran # Nucleated RBCs # INR 1.1 PT Patient/Control Mix 11.4 Circ Anticoag PTT 35.2 ABG pH ABG pCO2 ABG pO2 ABG HCO3 ABG Total CO2 ABG O2 Saturation ABG Base Excess Sodium 146 H Potassium 3.8 Chloride 112 H Carbon Dioxide 27 Anion Gap 10.8 BUN 18 Creatinine 1.20 GFR Calculation 92 BUN/Creatinine Ratio 15.00 Glucose 156 H POC Glucose 155 H Calculated Osmolality 294.6 Lactic Acid Calcium 8.6 Phosphorus Magnesium 2.1 Total Creatine Kinase CK-MB (CK-2) CK and CKMB Interp Troponin I Urine Color Urine Appearance Urine pH Ur Specific [place] Urine Protein Urine Glucose (UA) Urine Ketones Urine Blood Urine Nitrate Urine Bilirubin Urine Urobilinogen Urine Leukocytes Urine RBC Urine WBC Urine Bacteria Ur Culture Indicated? 09/08/16 09/08/16 09/08/16 12:46 12:46 12:47 WBC 6.7 RBC 3.70 L Hgb 10.7 L Hct 34.4 L MCV 93.0 MCH 29 MCHC 31.1 L RDW 15.9 Plt Count 212 MPV 12.3 H Neut % (Auto) 77.8 H Lymph % (Auto) 11.2 L [place] % (Auto) 7.0 Eos % (Auto) 3.1 Baso % (Auto) 0.3 Neut # (Auto) 5.2 Lymph # (Auto) 0.8 L [place] # (Auto) 0.5 Eos # (Auto) 0.2 Baso # (Auto) 0.0 Immature Gran % 0.6 Nucleated RBC % 0.0 Immature Gran # 0.04 Nucleated RBCs # 0.00 INR PT Patient/Control Mix Circ Anticoag PTT ABG pH ABG pCO2 ABG pO2 ABG HCO3 ABG Total CO2 ABG O2 Saturation ABG Base Excess Sodium Potassium Chloride Carbon Dioxide Anion Gap BUN Creatinine GFR Calculation BUN/Creatinine Ratio Glucose POC Glucose Calculated Osmolality Lactic Acid 1.0 Calcium Phosphorus Magnesium Total Creatine Kinase 333 H CK-MB (CK-2) 11.2 H CK and CKMB Interp 3.4 Troponin I 2.490 H Urine Color Urine Appearance Urine pH Ur Specific [place] Urine Protein Urine Glucose (UA) Urine Ketones Urine Blood Urine Nitrate Urine Bilirubin Urine Urobilinogen Urine Leukocytes Urine RBC Urine WBC Urine Bacteria Ur Culture Indicated?
[2016-09-08] MEDS ORDERED: MAGNESIUM SULF RIDER 1 GM in PREMIX 1 EACH IV PRN (09:51)
[2016-09-08] MEDS: ASPIRIN CHEW 81 MG TABLET PO SCH (10:06)
[2016-09-08] MEDS: MINERAL OIL/PETROLATUM OPH OINT 3.5 GM TUBE BOTH EYES SCH ×3 (10:06→20:53)
[2016-09-08] MEDS: MAGNESIUM CHLORIDE 64 MG TABLET PO SCH ×2 (10:06→20:53)
--- NOTE | 2016-09-08 11:05 | Physician Query Form ---
CLICK EDIT DOCUMENT TO SELECT QUERY ANSWER --> OK --> SIGN Gina Linares RN, CCDS Certified Clinical Fabrication Machine Operator W) [phone] (f) [phone] [email or web address]: Make your selection(s) from the choices in EACH section by typing an "x" and enter comments in the comment section. Please use your independent medical judgment in providing your response. This request does not imply that any particular answer is desired or expected. CLINICAL INDICATORS: (Providers should not edit this section) The Medical Record indicates that the patient was admitted with Non-STEMI, "agonal breathing was on the cath table", Intubated and remains on the ventilator. If possible, please further clarify the type and acuity of respiratory diagnosis : ACUITY: ( x) Acute ( ) Chronic ( ) Acute on Chronic TYPE: ( ) Respiratory failure with hypoxia ( ) Respiratory failure with hypercapnia ( x) Respiratory Arrest ( ) Postprocedural/postoperative respiratory failure ( ) Respiratory Insufficiency ( ) Other, please specify: ( ) Clinically unable to determine Recognized criteria for respiratory failure PH <7.35 or >7.45 PO2 <60 PCO2 >50 RR >24 O2 Sat <90% on RA or <95% on O2 Use of accessory muscles Unable to speak in full sentences Intubation is not required COMMENTS: Use of terms such as suspected, likely, or probable (associated with a specific diagnosis that is being evaluated, monitored, or treated as if it exists) are acceptable and can be restated in the discharge summary if not ruled out. MTDD
[2016-09-08 12:59] LABS: Basophils % 0.3 % (0.0-0.8); Eosinophils # 0.2 10*3/uL (0.0-0.87); Eosinophils % 3.1 % (0.00-10.9); Hematocrit 34.4 VOL% (42.0-52.0); Hemoglobin 10.7 GM/DL (14.0-18.0); Immature Granulocytes % 0.6 %; Immature Granulocytes Absolute 0.04 #; Lymphocytes # 0.8 10*3/uL (1.4-4.0); Lymphocytes % 11.2 % (21.2-54.2); Mean Corpuscular HGB Conc 31.1 GM/DL (32-36); Mean Corpuscular Hemoglobin 29 PG (27-34); Mean Platelet Volume 12.3 FL (9.6-12.0); Monocytes # 0.5 10*3/uL (0.11-0.8); Neutrophils # 5.2 10*3/uL (1.4-7.4); Neutrophils % 77.8 % (38.7-73.9); Platelet Count 212 T/CUMM (130-400); Red Cell Distribution Width 15.9 % (9.3-17.3); White Blood Count 6.7 T/CUMM (4-12)
[2016-09-08 13:11] LABS: INR 1.1; PT Patient Result 11.4 SECS; Partial Thromboplastin Time 35.2 SECS (0-40)
[2016-09-08 13:30] LABS: Calcium 8.6 MG/DL (8.5-10.1); Magnesium 2.1 MG/DL (1.8-2.4); Osmolality,Calculated 294.6 MOS/KG (273-304); Potassium 3.8 MMOL/L (3.5-5.1)
[2016-09-08 13:35] LABS: CKMB % 3.4 %
[2016-09-08 13:38] LABS: Troponin I Only 2.49 NG/ML (0.00-0.045)
--- NOTE | 2016-09-08 15:46 | Neurology Progress Note ---
Neurology - PN : Subjective Interval history: Patient is still going through hypothermia protocol. His body temperature is 91 . No seizure-like activity reported Exam (Progress Note) - Constitutional Vitals: Period Temp Pulse Resp BP Sys/Hassan Pulse Ox Last 24 Hr 9.7 F-93.7 F 46-65 9-12 65-135/15-67 91-100 Exam: GENERAL: Patient is in no acute distress. NECK: Neck is supple. There is no JVD. No carotid bruits present. No thyroid masses. CVS: First and second heart sounds are normal. There is no S3 present. Regular rate and rhythm. RESPIRATORY: Lungs are clear to auscultation without any rales or rhonchi. ABDOMEN: Soft and non-tender. Bowel sounds are present. There is no hepatosplenomegaly. EXT: There is no palpable edema. Peripheral pulses are present. Skin: No rashes Central Nervous system: General: Sedated Speech: None Comprehension: None Facial expressions: Normal Cranial Nerves: Pupils are small and sluggish. Doll's head eye movements are impaired. Motor: Strength cannot be assessed Sensory: Cannot be assessed Reflexes: Absent and symmetric Cerebellar function: Cannot be assessed Toes: Equivocal Gait: Cannot be assessed Results - Labs CBC & BMP: 09/08/16 12:46 09/08/16 12:46 Assessment and Plan (1) Hypoxic encephalopathy Status: Acute Assessment and plan: Continue current supportive treatment. Plan to do a CAT scan and EEG once normal body temperature achieved Current Visit: Yes
--- NOTE | 2016-09-08 16:13 | ECHO Report ---
Jose Landry Exam Date: 09/08/2016 09:54 Referring Physician: Technologist: Kate Ferreira RDCS Age: 71 Ht (in): 68 Wt (lb): 253 Gender: M Exam Location: [facility] Echo Indications: Non-ST elevation (NSTEMI) myocardial infarction, CAD, Essential (primary) hypertension, Dyslipidemia, Chronic renal insufficiency stage 2, IDDM, Ischemic cardiomyopathy BP: 116 / 39 HR: 48 Rhythm: Sinus Technical Quality: Good IMPRESSIONS Moderate - 3 + left ventricular hypertrophy. Left ventricular ejection fraction is estimated at 35 - 40 %. Global HK ; apex and distal septum more severeHK. Moderately increased right atrial size. Moderately increased left atrial size. Mildly thickened mitral valve with 2+ mitral regurgitation. Aortic valve sclerosis without stenosis or regurgitation. Morphologically normal tricuspid valve. Trace to mild tricuspid valve regurgitation. Tricuspid regurgitation velocities suggest a PAP of 36 mmHg. MEASUREMENTS (Male / Female) Normal Values 2D ECHO LV Diastolic Diameter PLAX 4.6 cm 4.2 - 5.9 / 3.9 - 5.3 cm LV Systolic Diameter PLAX 3.3 cm LV Fractional Shortening PLAX 27.9 % IVS Diastolic Thickness 1.6 cm 0.6 - 1.0 / 0.6 - 0.9 cm LVPW Diastolic Thickness 1.8 cm 0.6 - 1.0 / 0.6 - 0.9 cm RV Internal Dim ED PLAX 3.2 cm Aortic Root Diameter 3.2 cm LA Systolic Diameter LX 5.3 cm 3.0 - 4.0 / 2.7 - 3.8 cm DOPPLER TR Peak Velocity 255.0 cm/s TR Peak Gradient 26.0 mmHg FINDINGS Left Ventricle Normal left ventricular cavity size. Moderate - 3 + left ventricular hypertrophy. Left ventricular ejection fraction is estimated at 35 - 40 %. global HK ; apex and distal septum more severeHK Right Ventricle The right ventricle is normal in size and function. Right Atrium Moderately increased right atrial size. Left Atrium Moderately increased left atrial size. Mitral Valve Mildly thickened mitral valve with 2+ mitral regurgitation. Aortic Valve Aortic valve sclerosis without stenosis or regurgitation. Tricuspid Valve Morphologically normal tricuspid valve. Trace to mild tricuspid valve regurgitation. Tricuspid regurgitation velocities suggest a PAP of 36 mmHg. Pulmonic Valve Morphologically normal pulmonic valve without significant stenosis. There is no pulmonic regurgitation. Pericardium Normal pericardium without effusion. Aorta Normal ascending aorta dimension. Mina Touchstone MD (Electronically Signed) Final Date: 08 September 2016 16:12
[2016-09-08] MEDS ORDERED: ENOXAPARIN 120 MG/0.8 ML SYRINGE SUBCUT SCH (17:00)
[2016-09-08] MEDS: ENOXAPARIN 120 MG/0.8 ML SYRINGE SUBCUT SCH (17:52)
[2016-09-08] MEDS: PROPOFOL 1,000 MG/100 ML BOTTLE IV SCH (19:00)
[2016-09-08 20:20] LABS: Basophils % 0.2 % (0.0-0.8); Eosinophils # 0.2 10*3/uL (0.0-0.87); Eosinophils % 2.3 % (0.00-10.9); Hematocrit 34.3 VOL% (42.0-52.0); Hemoglobin 10.7 GM/DL (14.0-18.0); Immature Granulocytes % 0.5 %; Immature Granulocytes Absolute 0.04 #; Lymphocytes # 0.5 10*3/uL (1.4-4.0); Lymphocytes % 6.5 % (21.2-54.2); Mean Corpuscular HGB Conc 31.2 GM/DL (32-36); Mean Corpuscular Hemoglobin 29 PG (27-34); Mean Corpuscular Volume 92.7 FL (87-102); Mean Platelet Volume 12.1 FL (9.6-12.0); Monocytes # 0.6 10*3/uL (0.11-0.8); Monocytes % 6.9 % (1.7-12.7); Neutrophils # 6.8 10*3/uL (1.4-7.4); Neutrophils % 83.6 % (38.7-73.9); Platelet Count 196 T/CUMM (130-400); Red Cell Distribution Width 16.2 % (9.3-17.3); White Blood Count 8.1 T/CUMM (4-12)
[2016-09-08 20:32] LABS: INR 1.1; Partial Thromboplastin Time 38.3 SECS (0-40)
[2016-09-08 20:33] LABS: Lactic Acid 0.9 MMOL/L (0.4-2.0)
[2016-09-08 20:39] LABS: Calcium 8.6 MG/DL (8.5-10.1); Osmolality,Calculated 295.4 MOS/KG (273-304); Potassium 3.7 MMOL/L (3.5-5.1)
[2016-09-08] MEDS: PRAVASTATIN 40 MG TABLET PO SCH (20:53)
[2016-09-08] MEDS: ATORVASTATIN 40 MG TABLET PO SCH (20:53)
[2016-09-08] MEDS ORDERED: AMIODARONE 450 MG/9 ML VIAL IV ONE (22:18)
[2016-09-08] MEDS: AMIODARONE INJ 450 MG in DEXTROSE 5% 241 ML IV SCH (22:32)
[2016-09-09] MEDS: PROPOFOL 1,000 MG/100 ML BOTTLE IV SCH ×8 (00:42→21:57)
[2016-09-09 02:17] LABS: Basophils % 0.2 % (0.0-0.8); Eosinophils # 0.2 10*3/uL (0.0-0.87); Eosinophils % 2.5 % (0.00-10.9); Hematocrit 34.7 VOL% (42.0-52.0); Hemoglobin 10.5 GM/DL (14.0-18.0); Immature Granulocytes % 0.8 %; Immature Granulocytes Absolute 0.07 #; Lymphocytes # 0.6 10*3/uL (1.4-4.0); Lymphocytes % 6.6 % (21.2-54.2); Mean Corpuscular HGB Conc 30.3 GM/DL (32-36); Mean Corpuscular Hemoglobin 29 PG (27-34); Mean Corpuscular Volume 94.3 FL (87-102); Mean Platelet Volume 12.5 FL (9.6-12.0); Monocytes # 0.5 10*3/uL (0.11-0.8); Monocytes % 5.4 % (1.7-12.7); Neutrophils % 84.5 % (38.7-73.9); Platelet Count 194 T/CUMM (130-400); Red Blood Count 3.68 MC/CUMM (3.8-5.5); Red Cell Distribution Width 16.3 % (9.3-17.3); White Blood Count 8.3 T/CUMM (4-12)
[2016-09-09 02:26] LABS: INR 1.1; PT Patient Result 11.7 SECS
[2016-09-09] MEDS: fentaNYL INJ 1,250 MCG in SODIUM CHLORIDE 0.9% 225 ML IV SCH ×3 (02:48→14:51)
[2016-09-09 02:50] LABS: Calcium 8.6 MG/DL (8.5-10.1); Magnesium 2.1 MG/DL (1.8-2.4); Osmolality,Calculated 294.6 MOS/KG (273-304); Potassium 3.8 MMOL/L (3.5-5.1)
[2016-09-09 04:01] LABS: ABG Base Excess 2.2 MMOL/L (-2.5-2.5); ABG HCO3 27.4 MMOL/L (20-26); ABG Oxygen Saturation 95.7 % (95-100); ABG PCO2 44.7 MM HG (35-48); ABG PH 7.406 (7.35-7.45); ABG PO2 79.3 MM HG (80-95); ABG TCO2 28.8 MMOL/L (23-27)
[2016-09-09] MEDS: INSULIN REGULAR 100 UNIT/ML IV SCH ×2 (04:08→08:47)
[2016-09-09] MEDS: CARVEDILOL 3.125 MG TABLET PO SCH (04:59)
[2016-09-09] MEDS: ENOXAPARIN 120 MG/0.8 ML SYRINGE SUBCUT SCH ×2 (06:19→17:37)
--- NOTE | 2016-09-09 06:23 | Pulmonology Progress Note ---
Pulmonary - PN: Subj Interval history: The patient is a 71-year-old black man that came in with shortness of breath and some weakness there was a question of mild heart failure. He was taken to the [facility] where he had a brief cardiac arrest. He was found to have triple- vessel coronary artery disease with ejection fraction of 30%. He has been placed on the ventilator and the balloon pump. He is on the cooling protocol. He has been fairly stable overnight. He is starting the warming process and apparently did start moving around and had to be sedated more. He has been stable on the ventilator. His oxygenation and vital signs are stable. Exam (Progress Note) - Constitutional Vitals: Period Temp Pulse Resp BP Sys/Hassan Pulse Ox Last 24 Hr 91.1 F-95.6 F 46-89 9-12 65-123/15-98 91-100 Exam: General appearance: over weight, other (He is sedated on the ventilator. He is comfortable on the ventilator. He has had little change through the night. He is in the warming phase of the [place] protocol) - Head Head exam: Present: normal inspection, normocephalic - Eye Eye exam: Absent: scleral icterus Pupils: Present: JAY - ENT ENT exam: Present: other (ET tube is in good position) - Neck Neck exam: Present: normal inspection. Absent: lymphadenopathy, thyromegaly - Respiratory Respiratory exam: Present: clear to auscultation bilaterally (He has good breath sounds bilaterally is moving air okay.) - Cardiovascular Cardiovascular exam: Present: regular rate and rhythm. Absent: gallop, systolic murmur - GI/Abdominal GI/Abdominal exam: Present: hypoactive bowel sounds, soft. Absent: distended, organomegaly, tenderness - Extremities Exam Extremities exam: Present: edema (He has trace ankle edema). Absent: calf tenderness - Neurological Exam Neurological exam: Present: other (He is sedated on the ventilator at present. Apparently he did start moving around and had to be sedated more.) - Skin Skin exam: Present: warm, dry Results - Labs CBC & BMP: 09/09/16 01:55 09/09/16 01:55 Labs: PO2 is 79 with a PCO2 of 44 and a pH of 7.4 Assessment and Plan (1) CAD (coronary artery disease) Status: Chronic Assessment and plan: Patient has significant triple-vessel coronary artery disease with an ischemic cardiomyopathy and ejection fraction of 30%. He is on the balloon pump now. He has been hemodynamically stable. Current Visit: Yes (2) Hypertension Status: Chronic Assessment and plan: His blood pressure has been on the low side and he is still getting dopamine. Current Visit: Yes (3) Dyslipidemia Status: Chronic Assessment and plan: This can be treated later. Current Visit: Yes (4) Diabetes Status: Chronic Assessment and plan: His glucose has been monitored. His glucose is 146 this morning Current Visit: Yes (5) Obesity (BMI 30-39.9) Status: Chronic Assessment and plan: He is a large man. He has been ventilated okay. Current Visit: Yes (6) Chronic renal insufficiency, stage II (mild) Status: Chronic Assessment and plan: His creatinine has been stable at around 1.3. Current Visit: Yes (7) Hypoxic encephalopathy Status: Acute Assessment and plan: The patient is undergoing a cooling protocol since he had a brief cardiac arrest. He apparently was moving around and required more sedation. Hopefully he will come around neurologically Current Visit: Yes (8) Cardiac arrest Status: Acute Assessment and plan: Patient is status post brief cardiac arrest and is stable at present. He is undergoing the cooling protocol. He does have a significant cardiomyopathy. Current Visit: Yes (9) On mechanically assisted ventilation Status: Acute Assessment and plan: We will adjust his ventilator and continue support. His ABGs are adequate. Current Visit: Yes (10) NSTEMI (non-ST elevated myocardial infarction) Status: Acute Assessment and plan: He does have significant enzymes. His troponin went up to 3.4 and is starting to fall. His cardiac enzymes are improving. Current Visit: Yes
[2016-09-09] MEDS: CISATRACURIUM 200 MG in SODIUM CHLORIDE 0.9% 100 ML IV SCH (07:08)
[2016-09-09] MEDS: DOPamine 800 MG/250 ML PREMIX IV SCH ×2 (07:24→13:35)
--- NOTE | 2016-09-09 07:49 | EKG Report ---
Stationary ECG Study [facility] Test Date: 09/09/2016 7:48:42 AM Pat Name: MOMO HAWK Department: Room: 111 Gender: M Cardiac Sonographer: CHINTAN : 1945 Requested by: Desmond Blanchard Order Number: [id number] Reading MD: DESMOND BLANCHARD Intervals [place] Rate: 69 P: -6 ID: [id number] QRS: 17 QRSD: 122 T: 185 QT: 425 QTc: 443 Interpretive Statements SINUS RHYTHM INFERIOR MYOCARDIAL INFARCTION, OF INDETERMINATE AGE POSSIBLE ANTEROSEPTAL MYOCARDIAL INFARCTION, OF INDETERMINATE AGE Electronically Signed On 09-11-16 14:00:31 CDT by DESMOND BLANCHARD [email or web address]
[2016-09-09] MEDS ORDERED: MAGNESIUM SULF RIDER 4 GM in PREMIX 1 EACH IV PRN (08:35)
[2016-09-09] MEDS ORDERED: MAGNESIUM SULF RIDER 2 GM in PREMIX 1 EACH IV PRN (08:35)
[2016-09-09] MEDS ORDERED: POTASSIUM CHLORIDE RIDER 10 MEQ in PREMIX 1 EACH IV PRN (08:36)
[2016-09-09] MEDS ORDERED: POTASSIUM CHLORIDE RIDER 20 MEQ in PREMIX 1 EACH IV PRN (08:36)
[2016-09-09] MEDS: ASPIRIN CHEW 81 MG TABLET PO SCH (08:47)
[2016-09-09] MEDS: PANTOPRAZOLE 40 MG VIAL IV SCH (08:47)
[2016-09-09] MEDS: MAGNESIUM CHLORIDE 64 MG TABLET PO SCH ×2 (08:48→20:38)
[2016-09-09] MEDS: MINERAL OIL/PETROLATUM OPH OINT 3.5 GM TUBE BOTH EYES SCH ×3 (08:48→20:19)
--- NOTE | 2016-09-09 08:53 | Cardiology Progress Note ---
<Annia Etienne E - Last Filed: 09/09/16 08:44> Assessment and Plan - Time spent with patient Time spent with patient: Less than 30 minutes (1) NSTEMI (non-ST elevated myocardial infarction) Status: Acute Assessment and plan: SEE PLAN OF CARE LISTED BELOW Current Visit: Yes (2) CAD (coronary artery disease) Status: Chronic Assessment and plan: SEE PLAN OF CARE LISTED BELOW Current Visit: Yes (3) Hypertension Status: Chronic Assessment and plan: SEE PLAN OF CARE LISTED BELOW Current Visit: Yes (4) Dyslipidemia Status: Chronic Assessment and plan: SEE PLAN OF CARE LISTED BELOW Current Visit: Yes (5) Diabetes Status: Chronic Assessment and plan: SEE PLAN OF CARE LISTED BELOW Current Visit: Yes (6) Obesity (BMI 30-39.9) Status: Chronic Assessment and plan: SEE PLAN OF CARE LISTED BELOW Current Visit: Yes (7) Chronic renal insufficiency, stage II (mild) Status: Chronic Assessment and plan: SEE PLAN OF CARE LISTED BELOW Current Visit: Yes (8) Noncompliance Status: Chronic Assessment and plan: SEE PLAN OF CARE LISTED BELOW Current Visit: Yes (9) Ischemic cardiomyopathy Status: Acute Assessment and plan: See plan of care listed below Current Visit: Yes (10) Cardiopulmonary arrest Status: Acute Assessment and plan: See plan of care listed below Current Visit: Yes Cardiology - PN: Subj Interval history: [employer] PORTAL DEVELOPER: DR. BLANCHARD PCP: DR. GAYLE HATHAWAY Mr. Landry was admitted for NSTEMI September 07, 2016. He underwent cardiac catheterization and was found to have significant three-vessel coronary artery disease, EF 30%. CV surgery has been consulted regarding consideration of CABG. He did experience brief cardiopulmonary arrest prior to the cardiac catheterization. He was placed on a intra-aortic balloon pump. Because he did not have spontaneous return of consciousness, he has been treated with [facility] post-code protocol. DAY 2, SEPTEMBER 08, 2016: Overnight, patient's labs are stable. Troponin is decreasing, creatinine is stable at 1.3. Patient will continue to be supported and recovered today. Hopefully, in approximately 1 week, patient may be eligible for CABG depending on his continued improvement. I 2016: SEPTEMBER 09, 2016: Neurologically, the patient is sedated. After we rewarm him we will then give a trial off sedation and see neurologically how he is doing. Hopefully his decreased level of consciousness will have resolved. Regarding the timing of surgery, I agree with Dr. Guzman. We will try to defer it for several days after the [facility] post-code protocol, but will also assess his clinical state. If it becomes urgent to revascularize, we can do so. Regarding his renal function is actually improved. Maybe that is from the balloon pump, hydration, etc. Creatinine 1.3. today. His blood pressure remains slightly low. He is on Dopamine and Angel with little required titration. During the evening, he had reported PVCs and pauses lasting 2-3 seconds during the rewarming process. Dr. Vo was notified and currently being treated with IV Amiodorone. I do not see atrial fibrillation. Neurology and pulmonology following along. We appreciate their assistance. Continue support. Prognosis remains guarded, but I see it is a good sign as he is no worse in several parameters and may be slightly better and are stable. My ideal would be that neurologically he would come back to mentally virtually normal cognitive function before he undergoes his bypass grafting, if at all possible. If there is no or minimal improvement in mental function, we may take more of a conservative, nonsurgical approach. ASSESSMENT/PLAN: 1. NSTEMI -continue current plan of care. He is on therapeutic doses of Lovenox and crushable aspirin. 2. Three-vessel CAD - eventually, will require bypass grafting. Appreciate Dr. Guzman's assistance. 3. HYPERTENSION -history of, now being maintained with low-dose dopamine and Angel-Synephrine. 4. DYSLIPIDEMIA - continue lipid-lowering agent. 5. DIABETES -sliding scale insulin. Hold metformin 6. OBESITY -dietary counseling prior to discharge 7. NON-COMPLIANCE - will continue to reiterate the importance of compliance when able 8. RENAL INSUFFICIENCY -chronic renal insufficiency, stage II. Continue current plan of care. Avoiding ИВАН inhibitors and or ARB's. 9. POST CARDIOPULMONARY ARREST - [facility] protocol continues. IABP in place 10. ICM - EF 30%. Exam (Progress Note) - Constitutional Vitals: Period Temp Pulse Resp BP Sys/Hassan Pulse Ox Last 24 Hr 91.1 F-96.3 F 47-89 12-12 65-126/15-98 91-100 Exam: General: [Intubated, sedated. Appears comfortable. HEENT: [NG tube for right nares. ET tube intact secure. No jaundice noted. Conjunctiva moist and clear, sclerae anicteric] Neck: No obvious JVD/HJR, no thyromegaly or lymphadenopathy noted. No carotid bruit appreciated Cardiac: [Regular rate and rhythm, IABP augmentation ausculatated. Lungs: [Coarse, but clear. Remains intubated. Symmeterical chest wall movements noted. Abdomen: Soft, bowel sounds normoactive. Nontender and nondistended. No abdominal bruit or thrill noted. No masses noted. Musculoskeletal: No fluid collection. Decreased range of motion is noted. Extremities: No clubbing, cyanosis noted. [ No edema noted.] Upper extremity pulses 2+. Lower extremity pulses 2+. Capillary refill less than 3 seconds. Skin: No unusual lesions or rashes. No skin breakdown appreciated. Neuro: No essential tremor is appreciated. Result/EKG - Labs CBC & BMP: 09/09/16 01:55 09/09/16 01:55 Lab Results: I have reviewed the past 24 hour labs Labs: Laboratory Results - last 24 hr 09/08/16 09/08/16 09/08/16 08:50 08:50 08:50 WBC 7.1 RBC 3.63 L Hgb 10.5 L Hct 34.4 L MCV 94.8 MCH 29 MCHC 30.5 L RDW 15.9 Plt Count 215 MPV 12.3 H Neut % (Auto) 80.7 H Lymph % (Auto) 9.8 L Gregg % (Auto) 6.4 Eos % (Auto) 2.1 Baso % (Auto) 0.3 Neut # (Auto) 5.7 Lymph # (Auto) 0.7 L Gregg # (Auto) 0.5 Eos # (Auto) 0.2 Baso # (Auto) 0.0 Immature Gran % 0.7 Nucleated RBC % 0.0 Immature Gran # 0.05 Nucleated RBCs # 0.00 INR 1.0 PT Patient/Control Mix 11.1 Circ Anticoag PTT 35.7 ABG pH ABG pCO2 ABG pO2 ABG HCO3 ABG Total CO2 ABG O2 Saturation ABG Base Excess Sodium Potassium Chloride Carbon Dioxide Anion Gap BUN Creatinine GFR Calculation BUN/Creatinine Ratio Glucose POC Glucose Calculated Osmolality Lactic Acid Calcium Phosphorus Magnesium Total Creatine Kinase 362 H CK-MB (CK-2) 11.2 H CK and CKMB Interp 3.1 Troponin I 2.610 H 09/08/16 09/08/16 09/08/16 08:50 12:15 12:46 WBC RBC Hgb Hct MCV MCH MCHC RDW Plt Count MPV Neut % (Auto) Lymph % (Auto) Gregg % (Auto) Eos % (Auto) Baso % (Auto) Neut # (Auto) Lymph # (Auto) Gregg # (Auto) Eos # (Auto) Baso # (Auto) Immature Gran % Nucleated RBC % Immature Gran # Nucleated RBCs # INR 1.1 PT Patient/Control Mix 11.4 Circ Anticoag PTT 35.2 ABG pH ABG pCO2 ABG pO2 ABG HCO3 ABG Total CO2 ABG O2 Saturation ABG Base Excess Sodium 144 Potassium 3.9 Chloride 110 H Carbon Dioxide 27 Anion Gap 10.9 BUN 20 H Creatinine 1.30 GFR Calculation 83 BUN/Creatinine Ratio 15.00 Glucose 179 H POC Glucose 155 H Calculated Osmolality 292.8 Lactic Acid 1.0 Calcium 8.8 Phosphorus Magnesium 2.0 Total Creatine Kinase CK-MB (CK-2) CK and CKMB Interp Troponin I 09/08/16 09/08/16 09/08/16 12:46 12:46 12:46 WBC 6.7 RBC 3.70 L Hgb 10.7 L Hct 34.4 L MCV 93.0 MCH 29 MCHC 31.1 L RDW 15.9 Plt Count 212 MPV 12.3 H Neut % (Auto) 77.8 H Lymph % (Auto) 11.2 L Gregg % (Auto) 7.0 Eos % (Auto) 3.1 Baso % (Auto) 0.3 Neut # (Auto) 5.2 Lymph # (Auto) 0.8 L Gregg # (Auto) 0.5 Eos # (Auto) 0.2 Baso # (Auto) 0.0 Immature Gran % 0.6 Nucleated RBC % 0.0 Immature Gran # 0.04 Nucleated RBCs # 0.00 INR PT Patient/Control Mix Circ Anticoag PTT ABG pH ABG pCO2 ABG pO2 ABG HCO3 ABG Total CO2 ABG O2 Saturation ABG Base Excess Sodium 146 H Potassium 3.8 Chloride 112 H Carbon Dioxide 27 Anion Gap 10.8 BUN 18 Creatinine 1.20 GFR Calculation 92 BUN/Creatinine Ratio 15.00 Glucose 156 H POC Glucose Calculated Osmolality 294.6 Lactic Acid 1.0 Calcium 8.6 Phosphorus Magnesium 2.1 Total Creatine Kinase CK-MB (CK-2) CK and CKMB Interp Troponin I 09/08/16 09/08/16 09/08/16 12:47 16:02 20:04 WBC RBC Hgb Hct MCV MCH MCHC RDW Plt Count MPV Neut % (Auto) Lymph % (Auto) Gregg % (Auto) Eos % (Auto) Baso % (Auto) Neut # (Auto) Lymph # (Auto) Gregg # (Auto) Eos # (Auto) Baso # (Auto) Immature Gran % Nucleated RBC % Immature Gran # Nucleated RBCs # INR 1.1 PT Patient/Control Mix 12.0 Circ Anticoag PTT 38.3 ABG pH ABG pCO2 ABG pO2 ABG HCO3 ABG Total CO2 ABG O2 Saturation ABG Base Excess Sodium Potassium Chloride Carbon Dioxide Anion Gap BUN Creatinine GFR Calculation BUN/Creatinine Ratio Glucose POC Glucose 128 H Calculated Osmolality Lactic Acid Calcium Phosphorus Magnesium Total Creatine Kinase 333 H CK-MB (CK-2) 11.2 H CK and CKMB Interp 3.4 Troponin I 2.490 H 09/08/16 09/08/16 09/08/16 20:04 20:04 20:26 WBC 8.1 RBC 3.70 L Hgb 10.7 L Hct 34.3 L MCV 92.7 MCH 29 MCHC 31.2 L RDW 16.2 Plt Count 196 MPV 12.1 H Neut % (Auto) 83.6 H Lymph % (Auto) 6.5 L Gregg % (Auto) 6.9 Eos % (Auto) 2.3 Baso % (Auto) 0.2 Neut # (Auto) 6.8 Lymph # (Auto) 0.5 L Gregg # (Auto) 0.6 Eos # (Auto) 0.2 Baso # (Auto) 0.0 Immature Gran % 0.5 Nucleated RBC % 0.0 Immature Gran # 0.04 Nucleated RBCs # 0.00 INR PT Patient/Control Mix Circ Anticoag PTT ABG pH ABG pCO2 ABG pO2 ABG HCO3 ABG Total CO2 ABG O2 Saturation ABG Base Excess Sodium 147 H Potassium 3.7 Chloride 113 H Carbon Dioxide 26 Anion Gap 11.7 BUN 19 H Creatinine 1.20 GFR Calculation 92 BUN/Creatinine Ratio 15.00 Glucose 127 H POC Glucose 139 H Calculated Osmolality 295.4 Lactic Acid 0.9 Calcium 8.6 Phosphorus Magnesium 2.0 Total Creatine Kinase CK-MB (CK-2) CK and CKMB Interp Troponin I 09/08/16 09/09/16 09/09/16 23:41 01:55 01:55 WBC 8.3 RBC 3.68 L Hgb 10.5 L Hct 34.7 L MCV 94.3 MCH 29 MCHC 30.3 L RDW 16.3 Plt Count 194 MPV 12.5 H Neut % (Auto) 84.5 H Lymph % (Auto) 6.6 L Gregg % (Auto) 5.4 Eos % (Auto) 2.5 Baso % (Auto) 0.2 Neut # (Auto) 7.0 Lymph # (Auto) 0.6 L Gregg # (Auto) 0.5 Eos # (Auto) 0.2 Baso # (Auto) 0.0 Immature Gran % 0.8 Nucleated RBC % 0.0 Immature Gran # 0.07 Nucleated RBCs # 0.00 INR PT Patient/Control Mix Circ Anticoag PTT ABG pH ABG pCO2 ABG pO2 ABG HCO3 ABG Total CO2 ABG O2 Saturation ABG Base Excess Sodium 146 H Potassium 3.8 Chloride 111 H Carbon Dioxide 28 Anion Gap 10.8 BUN 19 H Creatinine 1.30 GFR Calculation 83 BUN/Creatinine Ratio 14.00 Glucose 146 H POC Glucose 129 H Calculated Osmolality 294.6 Lactic Acid Calcium 8.6 Phosphorus Magnesium 2.1 Total Creatine Kinase CK-MB (CK-2) CK and CKMB Interp Troponin I 09/09/16 09/09/16 09/09/16 01:55 01:55 03:45 WBC RBC Hgb Hct MCV MCH MCHC RDW Plt Count MPV Neut % (Auto) Lymph % (Auto) Gregg % (Auto) Eos % (Auto) Baso % (Auto) Neut # (Auto) Lymph # (Auto) Gregg # (Auto) Eos # (Auto) Baso # (Auto) Immature Gran % Nucleated RBC % Immature Gran # Nucleated RBCs # INR 1.1 PT Patient/Control Mix 11.7 Circ Anticoag PTT 39.0 ABG pH 7.406 ABG pCO2 44.7 ABG pO2 79.3 L ABG HCO3 27.4 H ABG Total CO2 28.8 H ABG O2 Saturation 95.7 ABG Base Excess 2.2 Sodium Potassium Chloride Carbon Dioxide Anion Gap BUN Creatinine GFR Calculation BUN/Creatinine Ratio Glucose POC Glucose Calculated Osmolality Lactic Acid Calcium Phosphorus 3.7 Magnesium Total Creatine Kinase CK-MB (CK-2) CK and CKMB Interp Troponin I 09/09/16 09/09/16 04:07 08:03 WBC RBC Hgb Hct MCV MCH MCHC RDW Plt Count MPV Neut % (Auto) Lymph % (Auto) Gregg % (Auto) Eos % (Auto) Baso % (Auto) Neut # (Auto) Lymph # (Auto) Gregg # (Auto) Eos # (Auto) Baso # (Auto) Immature Gran % Nucleated RBC % Immature Gran # Nucleated RBCs # INR PT Patient/Control Mix Circ Anticoag PTT ABG pH ABG pCO2 ABG pO2 ABG HCO3 ABG Total CO2 ABG O2 Saturation ABG Base Excess Sodium Potassium Chloride Carbon Dioxide Anion Gap BUN Creatinine GFR Calculation BUN/Creatinine Ratio Glucose POC Glucose 150 H 133 H Calculated Osmolality Lactic Acid Calcium Phosphorus Magnesium Total Creatine Kinase CK-MB (CK-2) CK and CKMB Interp Troponin I - Diagnostic Findings Procedure: Chest x-ray: pending - EKG EKG results: interpreted by me EKG shows: sinus rhythm <Nelson Blancharde - Last Filed: 09/09/16 18:45> Assessment and Plan (1) Hypomagnesemia Status: Acute Current Visit: Yes (2) Heart failure Status: Acute Current Visit: Yes (3) Suspected sleep apnea Status: Acute Current Visit: Yes (4) NSTEMI (non-ST elevated myocardial infarction) Status: Acute Current Visit: Yes (5) CAD (coronary artery disease) Status: Chronic Current Visit: Yes (6) Chronic renal insufficiency, stage II (mild) Status: Chronic Current Visit: Yes (7) Diabetes Status: Chronic Current Visit: Yes (8) Dyslipidemia Status: Chronic Current Visit: Yes (9) Hypertension Status: Chronic Current Visit: Yes (10) Noncompliance Status: Chronic Current Visit: Yes (11) Obesity (BMI 30-39.9) Status: Chronic Current Visit: Yes (12) Hypoxic encephalopathy Status: Acute Current Visit: Yes (13) Arrhythmia Status: Acute Current Visit: Yes Exam (Progress Note) - Constitutional Vitals: Period Temp Pulse Resp BP Sys/Hassan Pulse Ox Last 24 Hr 91.2 F-97.1 F 53-103 12-12 78-135/31-98 87-96 Result/EKG - Labs CBC & BMP: 04/06/17 09:20 09/09/16 09:20 Labs: Laboratory Results - last 24 hr 09/08/16 09/08/16 09/08/16 20:04 20:04 20:04 WBC 8.1 RBC 3.70 L Hgb 10.7 L Hct 34.3 L MCV 92.7 MCH 29 MCHC 31.2 L RDW 16.2 Plt Count 196 MPV 12.1 H Neut % (Auto) 83.6 H Lymph % (Auto) 6.5 L Gregg % (Auto) 6.9 Eos % (Auto) 2.3 Baso % (Auto) 0.2 Neut # (Auto) 6.8 Lymph # (Auto) 0.5 L Gregg # (Auto) 0.6 Eos # (Auto) 0.2 Baso # (Auto) 0.0 Immature Gran % 0.5 Nucleated RBC % 0.0 Immature Gran # 0.04 Nucleated RBCs # 0.00 INR 1.1 PT Patient/Control Mix 12.0 Circ Anticoag PTT 38.3 ABG pH ABG pCO2 ABG pO2 ABG HCO3 ABG Total CO2 ABG O2 Saturation ABG Base Excess Sodium 147 H Potassium 3.7 Chloride 113 H Carbon Dioxide 26 Anion Gap 11.7 BUN 19 H Creatinine 1.20 GFR Calculation 92 BUN/Creatinine Ratio 15.00 Glucose 127 H POC Glucose Calculated Osmolality 295.4 Lactic Acid 0.9 Calcium 8.6 Phosphorus Magnesium 2.0 Total Bilirubin AST ALT Alkaline Phosphatase Total Creatine Kinase CK-MB (CK-2) CK and CKMB Interp Troponin I Total Protein Albumin Globulin Albumin/Globulin Ratio 09/08/16 09/08/16 09/09/16 20:26 23:41 01:55 WBC 8.3 RBC 3.68 L Hgb 10.5 L Hct 34.7 L MCV 94.3 MCH 29 MCHC 30.3 L RDW 16.3 Plt Count 194 MPV 12.5 H Neut % (Auto) 84.5 H Lymph % (Auto) 6.6 L Gregg % (Auto) 5.4 Eos % (Auto) 2.5 Baso % (Auto) 0.2 Neut # (Auto) 7.0 Lymph # (Auto) 0.6 L Gregg # (Auto) 0.5 Eos # (Auto) 0.2 Baso # (Auto) 0.0 Immature Gran % 0.8 Nucleated RBC % 0.0 Immature Gran # 0.07 Nucleated RBCs # 0.00 INR PT Patient/Control Mix Circ Anticoag PTT ABG pH ABG pCO2 ABG pO2 ABG HCO3 ABG Total CO2 ABG O2 Saturation ABG Base Excess Sodium Potassium Chloride Carbon Dioxide Anion Gap BUN Creatinine GFR Calculation BUN/Creatinine Ratio Glucose POC Glucose 139 H 129 H Calculated Osmolality Lactic Acid Calcium Phosphorus Magnesium Total Bilirubin AST ALT Alkaline Phosphatase Total Creatine Kinase CK-MB (CK-2) CK and CKMB Interp Troponin I Total Protein Albumin Globulin Albumin/Globulin Ratio 09/09/16 09/09/16 09/09/16 01:55 01:55 01:55 WBC RBC Hgb Hct MCV MCH MCHC RDW Plt Count MPV Neut % (Auto) Lymph % (Auto) Gregg % (Auto) Eos % (Auto) Baso % (Auto) Neut # (Auto) Lymph # (Auto) Gregg # (Auto) Eos # (Auto) Baso # (Auto) Immature Gran % Nucleated RBC % Immature Gran # Nucleated RBCs # INR 1.1 PT Patient/Control Mix 11.7 Circ Anticoag PTT 39.0 ABG pH ABG pCO2 ABG pO2 ABG HCO3 ABG Total CO2 ABG O2 Saturation ABG Base Excess Sodium 146 H Potassium 3.8 Chloride 111 H Carbon Dioxide 28 Anion Gap 10.8 BUN 19 H Creatinine 1.30 GFR Calculation 83 BUN/Creatinine Ratio 14.00 Glucose 146 H POC Glucose Calculated Osmolality 294.6 Lactic Acid Calcium 8.6 Phosphorus 3.7 Magnesium 2.1 Total Bilirubin AST ALT Alkaline Phosphatase Total Creatine Kinase CK-MB (CK-2) CK and CKMB Interp Troponin I Total Protein Albumin Globulin Albumin/Globulin Ratio 09/09/16 09/09/16 09/09/16 03:45 04:07 08:03 WBC RBC Hgb Hct MCV MCH MCHC RDW Plt Count MPV Neut % (Auto) Lymph % (Auto) Gregg % (Auto) Eos % (Auto) Baso % (Auto) Neut # (Auto) Lymph # (Auto) Gregg # (Auto) Eos # (Auto) Baso # (Auto) Immature Gran % Nucleated RBC % Immature Gran # Nucleated RBCs # INR PT Patient/Control Mix Circ Anticoag PTT ABG pH 7.406 ABG pCO2 44.7 ABG pO2 79.3 L ABG HCO3 27.4 H ABG Total CO2 28.8 H ABG O2 Saturation 95.7 ABG Base Excess 2.2 Sodium Potassium Chloride Carbon Dioxide Anion Gap BUN Creatinine GFR Calculation BUN/Creatinine Ratio Glucose POC Glucose 150 H 133 H Calculated Osmolality Lactic Acid Calcium Phosphorus Magnesium Total Bilirubin AST ALT Alkaline Phosphatase Total Creatine Kinase CK-MB (CK-2) CK and CKMB Interp Troponin I Total Protein Albumin Globulin Albumin/Globulin Ratio 09/09/16 09/09/16 09/09/16 09:20 09:20 09:20 WBC 7.1 RBC 3.63 L Hgb 10.5 L Hct 34.4 L MCV 94.8 MCH 29 MCHC 30.5 L RDW 16.4 Plt Count 195 MPV 12.7 H Neut % (Auto) 79.1 H Lymph % (Auto) 9.2 L Gregg % (Auto) 7.8 Eos % (Auto) 2.7 Baso % (Auto) 0.4 Neut # (Auto) 5.6 Lymph # (Auto) 0.7 L Gregg # (Auto) 0.6 Eos # (Auto) 0.2 Baso # (Auto) 0.0 Immature Gran % 0.8 Nucleated RBC % 0.0 Immature Gran # 0.06 Nucleated RBCs # 0.00 INR PT Patient/Control Mix Circ Anticoag PTT ABG pH ABG pCO2 ABG pO2 ABG HCO3 ABG Total CO2 ABG O2 Saturation ABG Base Excess Sodium 146 H Potassium 3.7 Chloride 111 H Carbon Dioxide 27 Anion Gap 11.7 BUN 19 H Creatinine 1.40 H GFR Calculation 80 BUN/Creatinine Ratio 13.00 Glucose 132 H POC Glucose Calculated Osmolality 293.6 Lactic Acid Calcium 8.5 Phosphorus 4.6 Magnesium 2.1 Total Bilirubin 0.40 AST 29 ALT 48 Alkaline Phosphatase 74 Total Creatine Kinase CK-MB (CK-2) CK and CKMB Interp Troponin I Total Protein 5.8 L Albumin 2.5 L Globulin 3.3 Albumin/Globulin Ratio 0.7 L 09/09/16 09/09/16 09/09/16 09:20 09:20 09:28 WBC RBC Hgb Hct MCV MCH MCHC RDW Plt Count MPV Neut % (Auto) Lymph % (Auto) Gregg % (Auto) Eos % (Auto) Baso % (Auto) Neut # (Auto) Lymph # (Auto) Gregg # (Auto) Eos # (Auto) Baso # (Auto) Immature Gran % Nucleated RBC % Immature Gran # Nucleated RBCs # INR 1.2 PT Patient/Control Mix 12.3 Circ Anticoag PTT 41.5 H ABG pH 7.378 ABG pCO2 43.0 ABG pO2 72.3 L ABG HCO3 24.4 ABG Total CO2 22.9 L ABG O2 Saturation 93.5 L ABG Base Excess 0.1 Sodium Potassium Chloride Carbon Dioxide Anion Gap BUN Creatinine GFR Calculation BUN/Creatinine Ratio Glucose POC Glucose Calculated Osmolality Lactic Acid Calcium Phosphorus Magnesium Total Bilirubin AST ALT Alkaline Phosphatase Total Creatine Kinase 264 D CK-MB (CK-2) 6.8 H CK and CKMB Interp 2.6 Troponin I 1.720 H D Total Protein Albumin Globulin Albumin/Globulin Ratio 09/09/16 09/09/16 11:42 16:24 WBC RBC Hgb Hct MCV MCH MCHC RDW Plt Count MPV Neut % (Auto) Lymph % (Auto) Gregg % (Auto) Eos % (Auto) Baso % (Auto) Neut # (Auto) Lymph # (Auto) Gregg # (Auto) Eos # (Auto) Baso # (Auto) Immature Gran % Nucleated RBC % Immature Gran # Nucleated RBCs # INR PT Patient/Control Mix Circ Anticoag PTT ABG pH ABG pCO2 ABG pO2 ABG HCO3 ABG Total CO2 ABG O2 Saturation ABG Base Excess Sodium Potassium Chloride Carbon Dioxide Anion Gap BUN Creatinine GFR Calculation BUN/Creatinine Ratio Glucose POC Glucose 127 H 150 H Calculated Osmolality Lactic Acid Calcium Phosphorus Magnesium Total Bilirubin AST ALT Alkaline Phosphatase Total Creatine Kinase CK-MB (CK-2) CK and CKMB Interp Troponin I Total Protein Albumin Globulin Albumin/Globulin Ratio
--- NOTE | 2016-09-09 09:12 | Cardiothoracic Progress Note ---
Cardiothoracic Subjective Interval history: Patient is sedated on the ventilator currently being rewarmed according to our [facility] on protocol. He apparently did wake up some during the night and has been recently sedated. He has been stable on the ventilator for her particular standpoint with adequate blood gases. The balloon pump remains in place and his hemodynamics appear to be stable. His renal function has maintained. I think that probably the best plan is to continue rewarming and then weaned the ventilator as tolerated. He probably would be best to remove the intra-aortic balloon pump at that point as well as surgery will probably not be until next week. All this will depend on the patient's neurological condition and his hemodynamic stability. Continue present therapy for now. Exam (Progress Note) - Constitutional Vitals: Period Temp Pulse Resp BP Sys/Hassan Pulse Ox Last 24 Hr 91.1 F-96.3 F 47-89 12-12 65-126/15-98 91-100 Result/EKG - Labs CBC & BMP: 09/09/16 01:55 09/09/16 01:55 Labs: Laboratory Results - last 24 hr 09/08/16 09/08/16 09/08/16 08:50 08:50 12:15 WBC RBC Hgb Hct MCV MCH MCHC RDW Plt Count MPV Neut % (Auto) Lymph % (Auto) [place] % (Auto) Eos % (Auto) Baso % (Auto) Neut # (Auto) Lymph # (Auto) [place] # (Auto) Eos # (Auto) Baso # (Auto) Immature Gran % Nucleated RBC % Immature Gran # Nucleated RBCs # INR PT Patient/Control Mix Circ Anticoag PTT ABG pH ABG pCO2 ABG pO2 ABG HCO3 ABG Total CO2 ABG O2 Saturation ABG Base Excess Sodium 144 Potassium 3.9 Chloride 110 H Carbon Dioxide 27 Anion Gap 10.9 BUN 20 H Creatinine 1.30 GFR Calculation 83 BUN/Creatinine Ratio 15.00 Glucose 179 H POC Glucose 155 H Calculated Osmolality 292.8 Lactic Acid 1.0 Calcium 8.8 Phosphorus Magnesium 2.0 Total Creatine Kinase 362 H CK-MB (CK-2) 11.2 H CK and CKMB Interp 3.1 Troponin I 2.610 H 09/08/16 09/08/16 09/08/16 12:46 12:46 12:46 WBC 6.7 RBC 3.70 L Hgb 10.7 L Hct 34.4 L MCV 93.0 MCH 29 MCHC 31.1 L RDW 15.9 Plt Count 212 MPV 12.3 H Neut % (Auto) 77.8 H Lymph % (Auto) 11.2 L [place] % (Auto) 7.0 Eos % (Auto) 3.1 Baso % (Auto) 0.3 Neut # (Auto) 5.2 Lymph # (Auto) 0.8 L [place] # (Auto) 0.5 Eos # (Auto) 0.2 Baso # (Auto) 0.0 Immature Gran % 0.6 Nucleated RBC % 0.0 Immature Gran # 0.04 Nucleated RBCs # 0.00 INR 1.1 PT Patient/Control Mix 11.4 Circ Anticoag PTT 35.2 ABG pH ABG pCO2 ABG pO2 ABG HCO3 ABG Total CO2 ABG O2 Saturation ABG Base Excess Sodium 146 H Potassium 3.8 Chloride 112 H Carbon Dioxide 27 Anion Gap 10.8 BUN 18 Creatinine 1.20 GFR Calculation 92 BUN/Creatinine Ratio 15.00 Glucose 156 H POC Glucose Calculated Osmolality 294.6 Lactic Acid Calcium 8.6 Phosphorus Magnesium 2.1 Total Creatine Kinase CK-MB (CK-2) CK and CKMB Interp Troponin I 09/08/16 09/08/16 09/08/16 12:46 12:47 16:02 WBC RBC Hgb Hct MCV MCH MCHC RDW Plt Count MPV Neut % (Auto) Lymph % (Auto) [place] % (Auto) Eos % (Auto) Baso % (Auto) Neut # (Auto) Lymph # (Auto) [place] # (Auto) Eos # (Auto) Baso # (Auto) Immature Gran % Nucleated RBC % Immature Gran # Nucleated RBCs # INR PT Patient/Control Mix Circ Anticoag PTT ABG pH ABG pCO2 ABG pO2 ABG HCO3 ABG Total CO2 ABG O2 Saturation ABG Base Excess Sodium Potassium Chloride Carbon Dioxide Anion Gap BUN Creatinine GFR Calculation BUN/Creatinine Ratio Glucose POC Glucose 128 H Calculated Osmolality Lactic Acid 1.0 Calcium Phosphorus Magnesium Total Creatine Kinase 333 H CK-MB (CK-2) 11.2 H CK and CKMB Interp 3.4 Troponin I 2.490 H 09/08/16 09/08/16 09/08/16 20:04 20:04 20:04 WBC 8.1 RBC 3.70 L Hgb 10.7 L Hct 34.3 L MCV 92.7 MCH 29 MCHC 31.2 L RDW 16.2 Plt Count 196 MPV 12.1 H Neut % (Auto) 83.6 H Lymph % (Auto) 6.5 L [place] % (Auto) 6.9 Eos % (Auto) 2.3 Baso % (Auto) 0.2 Neut # (Auto) 6.8 Lymph # (Auto) 0.5 L [place] # (Auto) 0.6 Eos # (Auto) 0.2 Baso # (Auto) 0.0 Immature Gran % 0.5 Nucleated RBC % 0.0 Immature Gran # 0.04 Nucleated RBCs # 0.00 INR 1.1 PT Patient/Control Mix 12.0 Circ Anticoag PTT 38.3 ABG pH ABG pCO2 ABG pO2 ABG HCO3 ABG Total CO2 ABG O2 Saturation ABG Base Excess Sodium 147 H Potassium 3.7 Chloride 113 H Carbon Dioxide 26 Anion Gap 11.7 BUN 19 H Creatinine 1.20 GFR Calculation 92 BUN/Creatinine Ratio 15.00 Glucose 127 H POC Glucose Calculated Osmolality 295.4 Lactic Acid 0.9 Calcium 8.6 Phosphorus Magnesium 2.0 Total Creatine Kinase CK-MB (CK-2) CK and CKMB Interp Troponin I 09/08/16 09/08/16 09/09/16 20:26 23:41 01:55 WBC 8.3 RBC 3.68 L Hgb 10.5 L Hct 34.7 L MCV 94.3 MCH 29 MCHC 30.3 L RDW 16.3 Plt Count 194 MPV 12.5 H Neut % (Auto) 84.5 H Lymph % (Auto) 6.6 L [place] % (Auto) 5.4 Eos % (Auto) 2.5 Baso % (Auto) 0.2 Neut # (Auto) 7.0 Lymph # (Auto) 0.6 L [place] # (Auto) 0.5 Eos # (Auto) 0.2 Baso # (Auto) 0.0 Immature Gran % 0.8 Nucleated RBC % 0.0 Immature Gran # 0.07 Nucleated RBCs # 0.00 INR PT Patient/Control Mix Circ Anticoag PTT ABG pH ABG pCO2 ABG pO2 ABG HCO3 ABG Total CO2 ABG O2 Saturation ABG Base Excess Sodium Potassium Chloride Carbon Dioxide Anion Gap BUN Creatinine GFR Calculation BUN/Creatinine Ratio Glucose POC Glucose 139 H 129 H Calculated Osmolality Lactic Acid Calcium Phosphorus Magnesium Total Creatine Kinase CK-MB (CK-2) CK and CKMB Interp Troponin I 09/09/16 09/09/16 09/09/16 01:55 01:55 01:55 WBC RBC Hgb Hct MCV MCH MCHC RDW Plt Count MPV Neut % (Auto) Lymph % (Auto) [place] % (Auto) Eos % (Auto) Baso % (Auto) Neut # (Auto) Lymph # (Auto) [place] # (Auto) Eos # (Auto) Baso # (Auto) Immature Gran % Nucleated RBC % Immature Gran # Nucleated RBCs # INR 1.1 PT Patient/Control Mix 11.7 Circ Anticoag PTT 39.0 ABG pH ABG pCO2 ABG pO2 ABG HCO3 ABG Total CO2 ABG O2 Saturation ABG Base Excess Sodium 146 H Potassium 3.8 Chloride 111 H Carbon Dioxide 28 Anion Gap 10.8 BUN 19 H Creatinine 1.30 GFR Calculation 83 BUN/Creatinine Ratio 14.00 Glucose 146 H POC Glucose Calculated Osmolality 294.6 Lactic Acid Calcium 8.6 Phosphorus 3.7 Magnesium 2.1 Total Creatine Kinase CK-MB (CK-2) CK and CKMB Interp Troponin I 09/09/16 09/09/16 09/09/16 03:45 04:07 08:03 WBC RBC Hgb Hct MCV MCH MCHC RDW Plt Count MPV Neut % (Auto) Lymph % (Auto) [place] % (Auto) Eos % (Auto) Baso % (Auto) Neut # (Auto) Lymph # (Auto) [place] # (Auto) Eos # (Auto) Baso # (Auto) Immature Gran % Nucleated RBC % Immature Gran # Nucleated RBCs # INR PT Patient/Control Mix Circ Anticoag PTT ABG pH 7.406 ABG pCO2 44.7 ABG pO2 79.3 L ABG HCO3 27.4 H ABG Total CO2 28.8 H ABG O2 Saturation 95.7 ABG Base Excess 2.2 Sodium Potassium Chloride Carbon Dioxide Anion Gap BUN Creatinine GFR Calculation BUN/Creatinine Ratio Glucose POC Glucose 150 H 133 H Calculated Osmolality Lactic Acid Calcium Phosphorus Magnesium Total Creatine Kinase CK-MB (CK-2) CK and CKMB Interp Troponin I
[2016-09-09 09:30] LABS: ABG Base Excess 0.1 MMOL/L (-2.5-2.5); ABG HCO3 24.4 MMOL/L (20-26); ABG Oxygen Saturation 93.5 % (95-100); ABG PH 7.378 (7.35-7.45); ABG PO2 72.3 MM HG (80-95); ABG TCO2 22.9 MMOL/L (23-27)
[2016-09-09 09:37] LABS: Basophils % 0.4 % (0.0-0.8); Eosinophils # 0.2 10*3/uL (0.0-0.87); Eosinophils % 2.7 % (0.00-10.9); Hematocrit 34.4 VOL% (42.0-52.0); Hemoglobin 10.5 GM/DL (14.0-18.0); Immature Granulocytes % 0.8 %; Immature Granulocytes Absolute 0.06 #; Lymphocytes # 0.7 10*3/uL (1.4-4.0); Lymphocytes % 9.2 % (21.2-54.2); Mean Corpuscular HGB Conc 30.5 GM/DL (32-36); Mean Corpuscular Hemoglobin 29 PG (27-34); Mean Corpuscular Volume 94.8 FL (87-102); Mean Platelet Volume 12.7 FL (9.6-12.0); Monocytes # 0.6 10*3/uL (0.11-0.8); Monocytes % 7.8 % (1.7-12.7); Neutrophils # 5.6 10*3/uL (1.4-7.4); Neutrophils % 79.1 % (38.7-73.9); Platelet Count 195 T/CUMM (130-400); Red Blood Count 3.63 MC/CUMM (3.8-5.5); Red Cell Distribution Width 16.4 % (9.3-17.3); White Blood Count 7.1 T/CUMM (4-12)
--- NOTE | 2016-09-09 09:44 | Neurology Progress Note ---
Neurology - PN : Subjective Interval history: Patient is sedated on the ventilator currently being rewarmed according to our [facility] protocol. He apparently did wake up some during the night and has been recently sedated. He has been stable on the ventilator with adequate blood gases. The balloon pump remains in place and his hemodynamics appear to be stable. His renal function has maintained. Exam (Progress Note) - Constitutional Vitals: Period Temp Pulse Resp BP Sys/Hassan Pulse Ox Last 24 Hr 91.1 F-96.9 F 47-89 12-12 65-126/15-98 91-100 Exam: GENERAL: Patient is in no acute distress. NECK: Neck is supple. There is no JVD. No carotid bruits present. No thyroid masses. CVS: First and second heart sounds are normal. There is no S3 present. Regular rate and rhythm. RESPIRATORY: Lungs are clear to auscultation without any rales or rhonchi. ABDOMEN: Soft and non-tender. Bowel sounds are present. There is no hepatosplenomegaly. EXT: There is no palpable edema. Peripheral pulses are present. Skin: No rashes Central Nervous system: General: Sedated Speech: None Comprehension: None Facial expressions: Normal Cranial Nerves: Pupils are small and sluggish. Doll's head eye movements are impaired. Motor: Strength cannot be assessed Sensory: Cannot be assessed Reflexes: Absent and symmetric Cerebellar function: Cannot be assessed Toes: Equivocal Gait: Cannot be assessed Results - Labs CBC & BMP: 09/09/16 01:55 09/09/16 01:55 Assessment and Plan (1) Hypoxic encephalopathy Status: Acute Assessment and plan: Continue current supportive treatment. Plan to do a CAT scan and EEG once normal body temperature achieved Current Visit: Yes
[2016-09-09 09:46] LABS: INR 1.2; PT Patient Result 12.3 SECS
--- NOTE | 2016-09-09 09:46 | XRay Report ---
History ventilator management Comparison 09/07/2016 ET tube tip remains at T4. Heart and vessels remain mildly enlarged There remains mild bilateral hazy perihilar pulmonary opacities There has been development of worsening more focal consolidation and air bronchograms in the left lower lobe. Small underlying effusion suspected. Impression: 1. Worsening left lower lobe consolidation 2. Continued mild bilateral perihilar infiltrates versus edema PROCEDURE INTERPRETED AT [facility] DEPARTMENT OF RADIOLOGY Final Report Signed by: Dr. Debbie Martinez
[2016-09-09 09:54] LABS: Partial Thromboplastin Time 41.5 SECS (0-40)
[2016-09-09 10:05] LABS: CKMB % 2.6 %
[2016-09-09 10:13] LABS: Troponin I Only 1.72 NG/ML (0.00-0.045)
[2016-09-09 10:16] LABS: Albumin 2.5 G/DL (3.4-5.0); Bilirubin,Total 0.4 MG/DL (0.2-1.0); Calcium 8.5 MG/DL (8.5-10.1); Osmolality,Calculated 293.6 MOS/KG (273-304); Potassium 3.7 MMOL/L (3.5-5.1); Total Protein 5.8 G/DL (6.4-8.3)
[2016-09-09 10:45] LABS: Magnesium 2.1 MG/DL (1.8-2.4); Phosphorous 4.6 MG/DL (2.5-4.9)
[2016-09-09] MEDS ORDERED: INSULIN REGULAR 100 UNIT/ML SUBCUT SCH (12:00)
[2016-09-09] MEDS: INSULIN REGULAR 100 UNIT/ML SUBCUT SCH ×3 (12:26→20:39)
[2016-09-09] MEDS: AMIODARONE INJ 450 MG in DEXTROSE 5% 241 ML IV SCH (13:35)
[2016-09-09] MEDS ORDERED: MIDAZOLAM 2 MG/2 ML VIAL IV PRN (14:27)
[2016-09-09] MEDS: MIDAZOLAM 2 MG/2 ML VIAL IV PRN (14:41)
[2016-09-09] MEDS: PRAVASTATIN 40 MG TABLET PO SCH (20:38)
[2016-09-09] MEDS: ATORVASTATIN 40 MG TABLET PO SCH (20:38)
[2016-09-10] MEDS: INSULIN REGULAR 100 UNIT/ML SUBCUT SCH ×5 (00:08→20:20)
[2016-09-10] MEDS: PROPOFOL 1,000 MG/100 ML BOTTLE IV SCH ×7 (01:05→20:00)
[2016-09-10] MEDS: DOPamine 800 MG/250 ML PREMIX IV SCH ×2 (04:39→18:19)
[2016-09-10 04:45] LABS: INR 1.1; PT Patient Result 12.1 SECS; Partial Thromboplastin Time 39.9 SECS (0-40)
[2016-09-10] MEDS ORDERED: HEPARIN/NACL 0.9% 2 UNITS/ML 0 ML IV ONE (04:49)
[2016-09-10] MEDS: ENOXAPARIN 120 MG/0.8 ML SYRINGE SUBCUT SCH ×2 (05:06→18:28)
[2016-09-10 05:19] LABS: Albumin 2.5 G/DL (3.4-5.0); Bilirubin,Direct 0.2 MG/DL (0.0-0.20); Bilirubin,Indirect 0.9 MG/DL (0.0-1.0); Bilirubin,Total 1.1 MG/DL (0.2-1.0); Magnesium 2.5 MG/DL (1.8-2.4); Osmolality,Calculated 295.6 MOS/KG (273-304); Potassium 4.2 MMOL/L (3.5-5.1); Total Protein 6.2 G/DL (6.4-8.3)
[2016-09-10 05:20] LABS: Basophils % 0.2 % (0.0-0.8); Eosinophils # 0.2 10*3/uL (0.0-0.87); Eosinophils % 1.6 % (0.00-10.9); Hematocrit 35.5 VOL% (42.0-52.0); Hemoglobin 10.8 GM/DL (14.0-18.0); Immature Granulocytes % 0.5 %; Immature Granulocytes Absolute 0.05 #; Lymphocytes # 1.2 10*3/uL (1.4-4.0); Lymphocytes % 12.8 % (21.2-54.2); Mean Corpuscular HGB Conc 30.4 GM/DL (32-36); Mean Corpuscular Hemoglobin 29 PG (27-34); Mean Corpuscular Volume 94.9 FL (87-102); Mean Platelet Volume 13.5 FL (9.6-12.0); Monocytes # 0.9 10*3/uL (0.11-0.8); Neutrophils % 74.9 % (38.7-73.9); Platelet Count 208 T/CUMM (130-400); Red Blood Count 3.74 MC/CUMM (3.8-5.5); Red Cell Distribution Width 16.7 % (9.3-17.3); White Blood Count 9.3 T/CUMM (4-12)
[2016-09-10] MEDS: AMIODARONE INJ 450 MG in DEXTROSE 5% 241 ML IV SCH (05:31)
[2016-09-10 05:48] LABS: ABG Base Excess 0.6 MMOL/L (-2.5-2.5); ABG HCO3 24.9 MMOL/L (20-26); ABG Oxygen Saturation 96.8 % (95-100); ABG PCO2 45.7 MM HG (35-48); ABG PO2 91.3 MM HG (80-95); ABG TCO2 22.8 MMOL/L (23-27)
--- NOTE | 2016-09-10 06:46 | Pulmonology Progress Note ---
Pulmonary - PN: Subj Interval history: The patient is a 71-year-old black man that came in with shortness of breath and some weakness there was a question of mild heart failure. He was taken to the [facility] where he had a brief cardiac arrest. He was found to have triple- vessel coronary artery disease with ejection fraction of 30%. He has been placed on the ventilator and the balloon pump. He did the cooling protocol and now he is warm back up. He does respond when off sedation. He is still requiring high FiO2. His chest x-ray has just very mild changes in the bases. Exam (Progress Note) - Constitutional Vitals: Period Temp Pulse Resp BP Sys/Hassan Pulse Ox Last 24 Hr 95.8 F-98.7 F 66-103 12-12 81-147/31-65 87-98 Exam: General appearance: over weight, other (He is sedated on the ventilator. He is comfortable on the ventilator. His blood pressure stable and his urine output is okay.) - Head Head exam: Present: normal inspection, normocephalic - Eye Eye exam: Absent: scleral icterus Pupils: Present: JAY - ENT ENT exam: Present: other (ET tube is in good position) - Neck Neck exam: Present: normal inspection. Absent: lymphadenopathy, thyromegaly - Respiratory Respiratory exam: Present: clear to auscultation bilaterally (He has good breath sounds bilaterally is moving air okay. He does not have any wheezing.) - Cardiovascular Cardiovascular exam: Present: regular rate and rhythm. Absent: gallop, systolic murmur - GI/Abdominal GI/Abdominal exam: Present: hypoactive bowel sounds, soft. Absent: distended, organomegaly, tenderness - Extremities Exam Extremities exam: Present: edema (He has trace ankle edema). Absent: calf tenderness - Neurological Exam Neurological exam: Present: other (He is sedated on the ventilator at present. He did respond appropriately and when off sedation ) - Skin Skin exam: Present: warm, dry Results - Labs CBC & BMP: 09/10/16 04:00 09/10/16 04:00 Labs: PO2 is 91 with a PCO2 of 45 and a pH of 7.37 - Diagnostic Findings Procedure: Chest x-ray: image reviewed by me, report reviewed by me (Chest x- ray shows mild bibasilar changes.) Assessment and Plan (1) CAD (coronary artery disease) Status: Chronic Assessment and plan: Patient has significant triple-vessel coronary artery disease with an ischemic cardiomyopathy and ejection fraction of 30%. He is on the balloon pump now. He has been hemodynamically stable. Current Visit: Yes (2) Hypertension Status: Chronic Assessment and plan: His blood pressure has been on the low side and he is still getting dopamine. He appears to be fairly stable at present. Current Visit: Yes (3) Dyslipidemia Status: Chronic Assessment and plan: This can be treated later. Current Visit: Yes (4) Diabetes Status: Chronic Assessment and plan: His glucose has been monitored. His glucose is 147 this morning Current Visit: Yes (5) Obesity (BMI 30-39.9) Status: Chronic Assessment and plan: He is a large man. He has been ventilated okay. Current Visit: Yes (6) Chronic renal insufficiency, stage II (mild) Status: Chronic Assessment and plan: His creatinine is up to 2.2 now. Current Visit: Yes (7) Hypoxic encephalopathy Status: Acute Assessment and plan: The patient is undergoing a cooling protocol since he had a brief cardiac arrest. He does respond when he is off sedation now. Current Visit: Yes (8) Cardiac arrest Status: Acute Assessment and plan: Patient is status post brief cardiac arrest and is stable at present. He is undergoing the cooling protocol. He does have a significant cardiomyopathy. Current Visit: Yes (9) On mechanically assisted ventilation Status: Acute Assessment and plan: He is stable on the ventilator but is still requiring a fairly high FiO2. Current Visit: Yes (10) NSTEMI (non-ST elevated myocardial infarction) Status: Acute Assessment and plan: He does have significant enzymes. His troponin went up to 3.4 and is starting to fall. His cardiac enzymes are improving. Current Visit: Yes
--- NOTE | 2016-09-10 07:38 | XRay Report ---
Exam: XR chest 1V portable Date: 09/10/2016 4:00 AM Indication: Follow-up ventilator respiratory failure Comparison: 09/09/2016 Findings: Endotracheal tube is located at the aortic knob. Nasogastric tube traverses esophagus into the stomach. External cardiac leads and a cardiac pad are present over the chest. Low volume effusions and shunt vascularity are again noted. Cardiomegaly is present. Lateral marginal osteophytes are present. No pneumothorax. Impression: 1. Stable appearance of the support tubing 2. No slight interval change with persistent effusions and shunt vascularity cardiac and decompensation PROCEDURE INTERPRETED AT [facility] DEPARTMENT OF RADIOLOGY Final Report Signed by: Dr. Olegario Hull
--- NOTE | 2016-09-10 08:15 | EKG Report ---
Stationary ECG Study [facility] Test Date: 09/10/2016 7:29:24 AM Pat Name: MOMO HAWK Department: Room: 111 Gender: M Manager Urgent Care: [facility] : 1945 Requested by: Desmond Blanchard Order Number: [id number] Reading MD: DESMOND BLANCHARD Intervals [place] Rate: 92 P: 1 SC: 171 QRS: -3 QRSD: 109 T: 193 QT: 343 QTc: 393 Interpretive Statements SINUS RHYTHM INFERIOR MYOCARDIAL INFARCTION, OF INDETERMINATE AGE MODERATE T-WAVE ABNORMALITY, CONSIDER LATERAL ISCHEMIA Electronically Signed On 09-11-16 14:01:26 CDT by DESMOND BLANCHARD [email or web address]
--- NOTE | 2016-09-10 08:46 | Cardiothoracic Progress Note ---
Cardiothoracic Subjective Interval history: Patient is sedated on the ventilator and intra-aortic balloon pump. His blood gases are slowly improving and his hemodynamics likewise seem to be improving. Blood pressure is more stable as is his heart rhythm. His troponins continue to trend downward and really did not rise very high since he has been in this hospital. He has been rewarmed back to normothermia. Apparently he is responsive and appropriate when his sedation is lightened. He presents a somewhat difficult decision regarding timing of surgical intervention. I do not think he has ongoing acute ischemia but clearly he has suffered a respiratory insult from which he seems to be improving. Understanding that there is some risk and waiting on revascularization, I still think that we ought to make an effort to get him extubated and perhaps get the balloon pump out with intentions of performing surgery next week, perhaps toward midweek. I agree with his present management. Exam (Progress Note) - Constitutional Vitals: Period Temp Pulse Resp BP Sys/Hassan Pulse Ox Last 24 Hr 96.9 F-98.7 F 70-103 12-12 81-147/31-68 87-98 Result/EKG - Labs CBC & BMP: 09/10/16 04:00 09/10/16 04:00 Labs: Laboratory Results - last 24 hr 09/09/16 09/09/16 09/09/16 09:20 09:20 09:20 WBC 7.1 RBC 3.63 L Hgb 10.5 L Hct 34.4 L MCV 94.8 MCH 29 MCHC 30.5 L RDW 16.4 Plt Count 195 MPV 12.7 H Neut % (Auto) 79.1 H Lymph % (Auto) 9.2 L [place] % (Auto) 7.8 Eos % (Auto) 2.7 Baso % (Auto) 0.4 Neut # (Auto) 5.6 Lymph # (Auto) 0.7 L [place] # (Auto) 0.6 Eos # (Auto) 0.2 Baso # (Auto) 0.0 Immature Gran % 0.8 Nucleated RBC % 0.0 Immature Gran # 0.06 Nucleated RBCs # 0.00 INR PT Patient/Control Mix Circ Anticoag PTT ABG pH ABG pCO2 ABG pO2 ABG HCO3 ABG Total CO2 ABG O2 Saturation ABG Base Excess Sodium 146 H Potassium 3.7 Chloride 111 H Carbon Dioxide 27 Anion Gap 11.7 BUN 19 H Creatinine 1.40 H GFR Calculation 80 BUN/Creatinine Ratio 13.00 Glucose 132 H POC Glucose Calculated Osmolality 293.6 Calcium 8.5 Phosphorus 4.6 Magnesium 2.1 Total Bilirubin 0.40 Direct Bilirubin Indirect Bilirubin AST 29 ALT 48 Alkaline Phosphatase 74 Total Creatine Kinase CK-MB (CK-2) CK and CKMB Interp Troponin I Total Protein 5.8 L Albumin 2.5 L Globulin 3.3 Albumin/Globulin Ratio 0.7 L 09/09/16 09/09/16 09/09/16 09:20 09:20 09:28 WBC RBC Hgb Hct MCV MCH MCHC RDW Plt Count MPV Neut % (Auto) Lymph % (Auto) [place] % (Auto) Eos % (Auto) Baso % (Auto) Neut # (Auto) Lymph # (Auto) [place] # (Auto) Eos # (Auto) Baso # (Auto) Immature Gran % Nucleated RBC % Immature Gran # Nucleated RBCs # INR 1.2 PT Patient/Control Mix 12.3 Circ Anticoag PTT 41.5 H ABG pH 7.378 ABG pCO2 43.0 ABG pO2 72.3 L ABG HCO3 24.4 ABG Total CO2 22.9 L ABG O2 Saturation 93.5 L ABG Base Excess 0.1 Sodium Potassium Chloride Carbon Dioxide Anion Gap BUN Creatinine GFR Calculation BUN/Creatinine Ratio Glucose POC Glucose Calculated Osmolality Calcium Phosphorus Magnesium Total Bilirubin Direct Bilirubin Indirect Bilirubin AST ALT Alkaline Phosphatase Total Creatine Kinase 264 D CK-MB (CK-2) 6.8 H CK and CKMB Interp 2.6 Troponin I 1.720 H D Total Protein Albumin Globulin Albumin/Globulin Ratio 09/09/16 09/09/16 09/09/16 11:42 16:24 20:32 WBC RBC Hgb Hct MCV MCH MCHC RDW Plt Count MPV Neut % (Auto) Lymph % (Auto) [place] % (Auto) Eos % (Auto) Baso % (Auto) Neut # (Auto) Lymph # (Auto) [place] # (Auto) Eos # (Auto) Baso # (Auto) Immature Gran % Nucleated RBC % Immature Gran # Nucleated RBCs # INR PT Patient/Control Mix Circ Anticoag PTT ABG pH ABG pCO2 ABG pO2 ABG HCO3 ABG Total CO2 ABG O2 Saturation ABG Base Excess Sodium Potassium Chloride Carbon Dioxide Anion Gap BUN Creatinine GFR Calculation BUN/Creatinine Ratio Glucose POC Glucose 127 H 150 H 142 H Calculated Osmolality Calcium Phosphorus Magnesium Total Bilirubin Direct Bilirubin Indirect Bilirubin AST ALT Alkaline Phosphatase Total Creatine Kinase CK-MB (CK-2) CK and CKMB Interp Troponin I Total Protein Albumin Globulin Albumin/Globulin Ratio 09/10/16 09/10/16 09/10/16 00:07 04:00 04:00 WBC 9.3 D RBC 3.74 L Hgb 10.8 L Hct 35.5 L MCV 94.9 MCH 29 MCHC 30.4 L RDW 16.7 Plt Count 208 MPV 13.5 H Neut % (Auto) 74.9 H Lymph % (Auto) 12.8 L [place] % (Auto) 10.0 Eos % (Auto) 1.6 Baso % (Auto) 0.2 Neut # (Auto) 7.0 Lymph # (Auto) 1.2 L [place] # (Auto) 0.9 H Eos # (Auto) 0.2 Baso # (Auto) 0.0 Immature Gran % 0.5 Nucleated RBC % 0.0 Immature Gran # 0.05 Nucleated RBCs # 0.00 INR PT Patient/Control Mix Circ Anticoag PTT ABG pH ABG pCO2 ABG pO2 ABG HCO3 ABG Total CO2 ABG O2 Saturation ABG Base Excess Sodium Potassium Chloride Carbon Dioxide Anion Gap BUN Creatinine GFR Calculation BUN/Creatinine Ratio Glucose POC Glucose 123 H Calculated Osmolality Calcium Phosphorus 4.1 Magnesium Total Bilirubin Direct Bilirubin Indirect Bilirubin AST ALT Alkaline Phosphatase Total Creatine Kinase CK-MB (CK-2) CK and CKMB Interp Troponin I Total Protein Albumin Globulin Albumin/Globulin Ratio 09/10/16 09/10/16 09/10/16 04:00 04:00 05:00 WBC RBC Hgb Hct MCV MCH MCHC RDW Plt Count MPV Neut % (Auto) Lymph % (Auto) [place] % (Auto) Eos % (Auto) Baso % (Auto) Neut # (Auto) Lymph # (Auto) [place] # (Auto) Eos # (Auto) Baso # (Auto) Immature Gran % Nucleated RBC % Immature Gran # Nucleated RBCs # INR 1.1 PT Patient/Control Mix 12.1 Circ Anticoag PTT 39.9 ABG pH 7.370 ABG pCO2 45.7 ABG pO2 91.3 ABG HCO3 24.9 ABG Total CO2 22.8 L ABG O2 Saturation 96.8 ABG Base Excess 0.6 Sodium 146 H Potassium 4.2 Chloride 112 H Carbon Dioxide 28 Anion Gap 10.2 BUN 20 H Creatinine 2.20 H GFR Calculation 45 BUN/Creatinine Ratio 9.00 Glucose 147 H POC Glucose Calculated Osmolality 295.6 Calcium 9.0 Phosphorus Magnesium 2.5 H Total Bilirubin 1.10 H Direct Bilirubin 0.2 Indirect Bilirubin 0.9 AST 82 H ALT 45 Alkaline Phosphatase 85 Total Creatine Kinase CK-MB (CK-2) CK and CKMB Interp Troponin I Total Protein 6.2 L Albumin 2.5 L Globulin Albumin/Globulin Ratio
[2016-09-10] MEDS ORDERED: MAGNESIUM SULF RIDER 4 GM in PREMIX 1 EACH IV PRN (09:02)
[2016-09-10] MEDS ORDERED: MAGNESIUM SULF RIDER 2 GM in PREMIX 1 EACH IV PRN (09:02)
[2016-09-10] MEDS ORDERED: POTASSIUM CHLORIDE RIDER 10 MEQ in PREMIX 1 EACH IV PRN (09:05)
--- NOTE | 2016-09-10 09:23 | Cardiology Progress Note ---
Assessment and Plan - Time spent with patient Time spent with patient: Greater than 30 minutes (1) NSTEMI (non-ST elevated myocardial infarction) Status: Acute Assessment and plan: SEE PLAN OF CARE LISTED BELOW Current Visit: Yes (2) CAD (coronary artery disease) Status: Chronic Assessment and plan: SEE PLAN OF CARE LISTED BELOW Current Visit: Yes (3) Hypertension Status: Chronic Assessment and plan: SEE PLAN OF CARE LISTED BELOW Current Visit: Yes (4) Dyslipidemia Status: Chronic Assessment and plan: SEE PLAN OF CARE LISTED BELOW Current Visit: Yes (5) Diabetes Status: Chronic Assessment and plan: SEE PLAN OF CARE LISTED BELOW Current Visit: Yes (6) Obesity (BMI 30-39.9) Status: Chronic Assessment and plan: SEE PLAN OF CARE LISTED BELOW Current Visit: Yes (7) Chronic renal insufficiency, stage II (mild) Status: Chronic Assessment and plan: SEE PLAN OF CARE LISTED BELOW Current Visit: Yes (8) Noncompliance Status: Chronic Assessment and plan: SEE PLAN OF CARE LISTED BELOW Current Visit: Yes (9) Ischemic cardiomyopathy Status: Chronic Assessment and plan: See plan of care listed below Current Visit: Yes (10) Cardiopulmonary arrest Status: Resolved Assessment and plan: See plan of care listed below Current Visit: Yes (11) On intra-aortic balloon pump assist Status: Acute Assessment and plan: SEE PLAN OF CARE LISTED BELOW Current Visit: Yes Cardiology - PN: Subj Interval history: STREET LIGHT INSPECTOR: DR. MART PCP: DR. GAYLE HATHAWAY INITIAL SUMMARY: Mr. Landry was admitted for NSTEMI September 07, 2016. He underwent cardiac catheterization and was found to have significant three- vessel coronary artery disease, EF 30%. CV surgery has been consulted regarding consideration of CABG. He did experience brief cardiopulmonary arrest prior to the cardiac catheterization. He was placed on a intra-aortic balloon pump. Because he did not have spontaneous return of consciousness, he was treated with [facility] post-code protocol and has completed the rewarming process. DAY 2, SEPTEMBER 08, 2016: Overnight, patient's labs are stable. Troponin is decreasing, creatinine is stable at 1.3. Patient will continue to be supported and recovered today. Hopefully, in approximately 1 week, patient may be eligible for CABG depending on his continued improvement. I DAY 3SEPTEMBER 09, 2016: Neurologically, the patient is sedated. After we rewarm him we will then give a trial off sedation and see neurologically how he is doing. Hopefully his decreased level of consciousness will have resolved. DAY , SEPTEMBER 10, 2016: Overnight, the rewarming process has been completed. He is now normothermic. Balloon pump remains 1:1, remains intubated and sedated. He is currently requiring Dopamine at 6.5 mcg/kg/min and is stable on this dose. Angel-Synephrine has been weaned off. Plan will plan to decrease his balloon pump augmentation today. He is currently on 1:1 and we will decrease to 1:2 ratio. We can eventually go to a 1:3 ratio tomorrow, hopeful to eventually remove IABP weekend. He is currently intubated and sedated and there are no plans for extubation this weekend so this will be good timing for balloon pump removal if he can tolerate such. Dr. Guzman has seen patient today. He is going to continue to follow along closely and hopefully, should the patient continued to improve may be a candidate for surgery midweek next week. Patient was started on amiodarone approximately 36 hours ago for NSVT. After reviewing telemetry, no atrial fibrillation has been recorded and the NSVT has improved. I will stop his IV amiodarone and initiate 400 mg per NG tube now. Creatinine has increased overnight from 1.4 -2.2. This may be a delayed reaction to his IV contrast during cardiac cath and will continue to monitor this closely. Echocardiogram reveals EF 35-40% with global hypokinesis. Apical and distal septum are more severely hypokinetic. Moderate MR, moderate to 3+ LVH. PAP 36 mmHg. ASSESSMENT/PLAN: 1. NSTEMI -continue current plan of care. He is on therapeutic doses of Lovenox and crushable aspirin. 2. Three-vessel CAD - eventually, may require bypass grafting if he remains stable. Possibly midweek. Appreciate Dr. Guzman's assistance. 3. HYPERTENSION -history of but now being treated for hypotension with low- dose dopamine. Angel-Synephrine has been weaned off 4. DYSLIPIDEMIA - continue lipid-lowering agent. 5. DIABETES -sliding scale insulin. Hold metformin 6. OBESITY -dietary counseling prior to discharge when able 7. NON-COMPLIANCE - will continue to reiterate the importance of compliance when able 8. RENAL INSUFFICIENCY -chronic renal insufficiency, stage II. Continue current plan of care. Avoiding ИВАН inhibitors and or ARB's. 9. POST CARDIOPULMONARY ARREST - [place] Sun protocol completed. Will attempt decreasing augmentation rate of balloon pump. Start NG tube feedings 10. ICM - EF 35%. 11. NSVT -DC IV amiodarone and began oral replacement 12. ACUTE RENAL FAILURE, STAGE III -may be a delayed reaction to the dye. Avoiding nephrotoxic agents. Continue with daily monitoring of his kidney function. Continue with dopamine. Exam (Progress Note) - Constitutional Vitals: Period Temp Pulse Resp BP Sys/Hassan Pulse Ox Last 24 Hr 97.1 F-98.8 F 73-103 12-12 81-158/31-68 92-98 Exam: General: [Intubated, sedated. Appears comfortable. HEENT: [NG tube for right nares. ET tube intact secure. No jaundice noted. Conjunctiva moist and clear, sclerae anicteric] Neck: No obvious JVD/HJR, no thyromegaly or lymphadenopathy noted. No carotid bruit appreciated Cardiac: [Regular rate and rhythm, IABP augmentation auscultated. Lungs: [Coarse, but clear. Remains intubated. Symmeterical chest wall movements noted. Abdomen: Soft, bowel sounds normoactive. Nontender and nondistended. No abdominal bruit or thrill noted. No masses noted. Musculoskeletal: No fluid collection. Decreased range of motion is noted. Extremities: No clubbing, cyanosis noted. [Trace bilateral lower extremity edema noted.] Upper extremity pulses 2+. Lower extremity pulses 2+. Capillary refill less than 3 seconds. Groins free of hematoma or bruit. Skin: No unusual lesions or rashes. No skin breakdown appreciated. Neuro: No essential tremor is appreciated. Result/EKG - Labs CBC & BMP: 09/10/16 04:00 09/10/16 04:00 Lab Results: I have reviewed the past 24 hour labs Labs: Laboratory Results - last 24 hr 09/09/16 09/09/16 09/09/16 09:20 09:20 09:20 WBC 7.1 RBC 3.63 L Hgb 10.5 L Hct 34.4 L MCV 94.8 MCH 29 MCHC 30.5 L RDW 16.4 Plt Count 195 MPV 12.7 H Neut % (Auto) 79.1 H Lymph % (Auto) 9.2 L [place] % (Auto) 7.8 Eos % (Auto) 2.7 Baso % (Auto) 0.4 Neut # (Auto) 5.6 Lymph # (Auto) 0.7 L [place] # (Auto) 0.6 Eos # (Auto) 0.2 Baso # (Auto) 0.0 Immature Gran % 0.8 Nucleated RBC % 0.0 Immature Gran # 0.06 Nucleated RBCs # 0.00 INR PT Patient/Control Mix Circ Anticoag PTT ABG pH ABG pCO2 ABG pO2 ABG HCO3 ABG Total CO2 ABG O2 Saturation ABG Base Excess Sodium 146 H Potassium 3.7 Chloride 111 H Carbon Dioxide 27 Anion Gap 11.7 BUN 19 H Creatinine 1.40 H GFR Calculation 80 BUN/Creatinine Ratio 13.00 Glucose 132 H POC Glucose Calculated Osmolality 293.6 Calcium 8.5 Phosphorus 4.6 Magnesium 2.1 Total Bilirubin 0.40 Direct Bilirubin Indirect Bilirubin AST 29 ALT 48 Alkaline Phosphatase 74 Total Creatine Kinase CK-MB (CK-2) CK and CKMB Interp Troponin I Total Protein 5.8 L Albumin 2.5 L Globulin 3.3 Albumin/Globulin Ratio 0.7 L 09/09/16 09/09/16 09/09/16 09:20 09:20 09:28 WBC RBC Hgb Hct MCV MCH MCHC RDW Plt Count MPV Neut % (Auto) Lymph % (Auto) [place] % (Auto) Eos % (Auto) Baso % (Auto) Neut # (Auto) Lymph # (Auto) [place] # (Auto) Eos # (Auto) Baso # (Auto) Immature Gran % Nucleated RBC % Immature Gran # Nucleated RBCs # INR 1.2 PT Patient/Control Mix 12.3 Circ Anticoag PTT 41.5 H ABG pH 7.378 ABG pCO2 43.0 ABG pO2 72.3 L ABG HCO3 24.4 ABG Total CO2 22.9 L ABG O2 Saturation 93.5 L ABG Base Excess 0.1 Sodium Potassium Chloride Carbon Dioxide Anion Gap BUN Creatinine GFR Calculation BUN/Creatinine Ratio Glucose POC Glucose Calculated Osmolality Calcium Phosphorus Magnesium Total Bilirubin Direct Bilirubin Indirect Bilirubin AST ALT Alkaline Phosphatase Total Creatine Kinase 264 D CK-MB (CK-2) 6.8 H CK and CKMB Interp 2.6 Troponin I 1.720 H D Total Protein Albumin Globulin Albumin/Globulin Ratio 09/09/16 09/09/16 09/09/16 11:42 16:24 20:32 WBC RBC Hgb Hct MCV MCH MCHC RDW Plt Count MPV Neut % (Auto) Lymph % (Auto) [place] % (Auto) Eos % (Auto) Baso % (Auto) Neut # (Auto) Lymph # (Auto) [place] # (Auto) Eos # (Auto) Baso # (Auto) Immature Gran % Nucleated RBC % Immature Gran # Nucleated RBCs # INR PT Patient/Control Mix Circ Anticoag PTT ABG pH ABG pCO2 ABG pO2 ABG HCO3 ABG Total CO2 ABG O2 Saturation ABG Base Excess Sodium Potassium Chloride Carbon Dioxide Anion Gap BUN Creatinine GFR Calculation BUN/Creatinine Ratio Glucose POC Glucose 127 H 150 H 142 H Calculated Osmolality Calcium Phosphorus Magnesium Total Bilirubin Direct Bilirubin Indirect Bilirubin AST ALT Alkaline Phosphatase Total Creatine Kinase CK-MB (CK-2) CK and CKMB Interp Troponin I Total Protein Albumin Globulin Albumin/Globulin Ratio 09/10/16 09/10/16 09/10/16 00:07 04:00 04:00 WBC 9.3 D RBC 3.74 L Hgb 10.8 L Hct 35.5 L MCV 94.9 MCH 29 MCHC 30.4 L RDW 16.7 Plt Count 208 MPV 13.5 H Neut % (Auto) 74.9 H Lymph % (Auto) 12.8 L [place] % (Auto) 10.0 Eos % (Auto) 1.6 Baso % (Auto) 0.2 Neut # (Auto) 7.0 Lymph # (Auto) 1.2 L [place] # (Auto) 0.9 H Eos # (Auto) 0.2 Baso # (Auto) 0.0 Immature Gran % 0.5 Nucleated RBC % 0.0 Immature Gran # 0.05 Nucleated RBCs # 0.00 INR PT Patient/Control Mix Circ Anticoag PTT ABG pH ABG pCO2 ABG pO2 ABG HCO3 ABG Total CO2 ABG O2 Saturation ABG Base Excess Sodium Potassium Chloride Carbon Dioxide Anion Gap BUN Creatinine GFR Calculation BUN/Creatinine Ratio Glucose POC Glucose 123 H Calculated Osmolality Calcium Phosphorus 4.1 Magnesium Total Bilirubin Direct Bilirubin Indirect Bilirubin AST ALT Alkaline Phosphatase Total Creatine Kinase CK-MB (CK-2) CK and CKMB Interp Troponin I Total Protein Albumin Globulin Albumin/Globulin Ratio 09/10/16 09/10/16 09/10/16 04:00 04:00 05:00 WBC RBC Hgb Hct MCV MCH MCHC RDW Plt Count MPV Neut % (Auto) Lymph % (Auto) [place] % (Auto) Eos % (Auto) Baso % (Auto) Neut # (Auto) Lymph # (Auto) [place] # (Auto) Eos # (Auto) Baso # (Auto) Immature Gran % Nucleated RBC % Immature Gran # Nucleated RBCs # INR 1.1 PT Patient/Control Mix 12.1 Circ Anticoag PTT 39.9 ABG pH 7.370 ABG pCO2 45.7 ABG pO2 91.3 ABG HCO3 24.9 ABG Total CO2 22.8 L ABG O2 Saturation 96.8 ABG Base Excess 0.6 Sodium 146 H Potassium 4.2 Chloride 112 H Carbon Dioxide 28 Anion Gap 10.2 BUN 20 H Creatinine 2.20 H GFR Calculation 45 BUN/Creatinine Ratio 9.00 Glucose 147 H POC Glucose Calculated Osmolality 295.6 Calcium 9.0 Phosphorus Magnesium 2.5 H Total Bilirubin 1.10 H Direct Bilirubin 0.2 Indirect Bilirubin 0.9 AST 82 H ALT 45 Alkaline Phosphatase 85 Total Creatine Kinase CK-MB (CK-2) CK and CKMB Interp Troponin I Total Protein 6.2 L Albumin 2.5 L Globulin Albumin/Globulin Ratio - Diagnostic Findings Procedure: Chest x-ray: report reviewed by me - EKG EKG results: interpreted by me EKG shows: sinus rhythm
[2016-09-10] MEDS: PANTOPRAZOLE 40 MG VIAL IV SCH (10:01)
[2016-09-10] MEDS: ASPIRIN CHEW 81 MG TABLET PO SCH (10:02)
[2016-09-10] MEDS: AMIODARONE 200 MG TABLET PO SCH ×2 (10:02→20:28)
[2016-09-10] MEDS: MINERAL OIL/PETROLATUM OPH OINT 3.5 GM TUBE BOTH EYES SCH ×3 (10:02→20:29)
[2016-09-10] MEDS: MAGNESIUM CHLORIDE 64 MG TABLET PO SCH (10:05)
[2016-09-10] MEDS ORDERED: HEPARIN/NACL 0.9% 2 UNITS/ML 500 ML IV ONE (18:31)
[2016-09-10] MEDS: ATORVASTATIN 40 MG TABLET PO SCH (20:27)
[2016-09-10] MEDS: MEROPENEM 500 MG in SODIUM CHLORIDE 0.9% 100 ML IV SCH (20:56)
[2016-09-11] MEDS: DOPamine 800 MG/250 ML PREMIX IV SCH ×2 (00:18→18:20)
[2016-09-11] MEDS: INSULIN REGULAR 100 UNIT/ML SUBCUT SCH ×5 (00:21→18:16)
[2016-09-11] MEDS: PROPOFOL 1,000 MG/100 ML BOTTLE IV SCH ×8 (00:25→23:40)
[2016-09-11] MEDS: MIDAZOLAM 2 MG/2 ML VIAL IV PRN (02:08)
[2016-09-11] MEDS: MEROPENEM 500 MG in SODIUM CHLORIDE 0.9% 100 ML IV SCH ×3 (04:06→20:21)
[2016-09-11 04:12] LABS: ABG Base Excess -0.6 MMOL/L (-2.5-2.5); ABG HCO3 23.9 MMOL/L (20-26); ABG Oxygen Saturation 98.5 % (95-100); ABG PCO2 40.3 MM HG (35-48); ABG PH 7.387 (7.35-7.45)
[2016-09-11 04:34] LABS: Basophils % 0.2 % (0.0-0.8); Eosinophils # 0.1 10*3/uL (0.0-0.87); Eosinophils % 0.7 % (0.00-10.9); Hematocrit 32.6 VOL% (42.0-52.0); Immature Granulocytes % 0.8 %; Immature Granulocytes Absolute 0.09 #; Lymphocytes # 0.8 10*3/uL (1.4-4.0); Lymphocytes % 7.5 % (21.2-54.2); Mean Corpuscular HGB Conc 30.7 GM/DL (32-36); Mean Corpuscular Hemoglobin 29 PG (27-34); Mean Corpuscular Volume 94.2 FL (87-102); Mean Platelet Volume 12.6 FL (9.6-12.0); Monocytes # 1.2 10*3/uL (0.11-0.8); Monocytes % 10.9 % (1.7-12.7); Neutrophils # 8.8 10*3/uL (1.4-7.4); Neutrophils % 79.9 % (38.7-73.9); Platelet Count 184 T/CUMM (130-400); Red Blood Count 3.46 MC/CUMM (3.8-5.5); Red Cell Distribution Width 16.7 % (9.3-17.3)
[2016-09-11 05:06] LABS: Calcium 8.7 MG/DL (8.5-10.1); Magnesium 2.4 MG/DL (1.8-2.4); Osmolality,Calculated 293.8 MOS/KG (273-304); Potassium 4.1 MMOL/L (3.5-5.1)
[2016-09-11 05:19] LABS: Band Neutrophils 1 % (0-10); Eosinophils 1 % (0-10); Hypochromasia 1+; Lymphocytes 4 % (20-55); Nucleated Red Blood Cells 1 (0-5); Segmented Neutrophils 82 % (50-85); Total Cells Counted 100
[2016-09-11 05:20] LABS: Microcytosis 1+; Platelet Estimate Adequate
--- NOTE | 2016-09-11 07:24 | XRay Report ---
XR chest 1V portable Indication: Intubated. Chest one view: Since yesterday, endotracheal tube, NG tube, cardiomegaly and hazy obscuration of the lung bases is unchanged. No new infiltrates are identified. Impression: No appreciable change. PROCEDURE INTERPRETED AT [facility] DEPARTMENT OF RADIOLOGY Final Report Signed by: Mickey Goldstein M.D.
[2016-09-11] MEDS: AMIODARONE 200 MG TABLET PO SCH ×2 (08:24→20:22)
[2016-09-11] MEDS: ASPIRIN CHEW 81 MG TABLET PO SCH (08:24)
[2016-09-11] MEDS: MULTIVITAMIN LIQUID (CENTRUM) 60 ML BOTTLE NG SCH (08:25)
[2016-09-11] MEDS: PANTOPRAZOLE 40 MG VIAL IV SCH (08:26)
[2016-09-11] MEDS: MINERAL OIL/PETROLATUM OPH OINT 3.5 GM TUBE BOTH EYES SCH ×3 (08:26→20:22)
--- NOTE | 2016-09-11 09:19 | Cardiothoracic Progress Note ---
Cardiothoracic Subjective Interval history: Patient is sedated on the ventilator. His oxygen saturations have been stable and Dr. Chow is going to begin CPAP trials if he will tolerate them today. The intra-aortic balloon pump remains in place but it is been turned down to 1-2 and he seems to be tolerating this okay. Urine output and creatinine are holding stable. Patient remains critically ill but seems to be slowly gaining a little bit. It may be possible to discontinue his balloon pump before very long and continue weaning process from the ventilator. I believe that it is best to wait on surgery for now until his neurological condition and pulmonary condition have been more clearly delineated. Exam (Progress Note) - Constitutional Vitals: Period Temp Pulse Resp BP Sys/Hassan Pulse Ox Last 24 Hr 97.5 F-99.0 F 70-99 12 73-166/30-62 1298 Result/EKG - Labs CBC & BMP: 09/11/16 04:00 09/11/16 04:00 Labs: Laboratory Results - last 24 hr 09/10/16 09/10/16 09/10/16 07:19 11:27 16:26 WBC RBC Hgb Hct MCV MCH MCHC RDW Plt Count MPV Neut % (Auto) Lymph % (Auto) [place] % (Auto) Eos % (Auto) Baso % (Auto) Neut # (Auto) Lymph # (Auto) [place] # (Auto) Eos # (Auto) Baso # (Auto) Total Counted Immature Gran % Nucleated RBC % Immature Gran # Segmented Neutrophils Band Neutrophils Lymphocytes Monocytes Eosinophils Basophils Nucleated RBCs Nucleated RBCs # Platelet Estimate Hypochromasia Microcytosis Morphology Comment ABG pH ABG pCO2 ABG pO2 ABG HCO3 ABG Total CO2 ABG O2 Saturation ABG Base Excess Sodium Potassium Chloride Carbon Dioxide Anion Gap BUN Creatinine GFR Calculation BUN/Creatinine Ratio Glucose POC Glucose 175 H 172 H 137 H Calculated Osmolality Calcium Magnesium 09/10/16 09/10/16 09/11/16 20:19 23:34 03:55 WBC RBC Hgb Hct MCV MCH MCHC RDW Plt Count MPV Neut % (Auto) Lymph % (Auto) [place] % (Auto) Eos % (Auto) Baso % (Auto) Neut # (Auto) Lymph # (Auto) [place] # (Auto) Eos # (Auto) Baso # (Auto) Total Counted Immature Gran % Nucleated RBC % Immature Gran # Segmented Neutrophils Band Neutrophils Lymphocytes Monocytes Eosinophils Basophils Nucleated RBCs Nucleated RBCs # Platelet Estimate Hypochromasia Microcytosis Morphology Comment ABG pH 7.387 ABG pCO2 40.3 ABG pO2 113.0 H ABG HCO3 23.9 ABG Total CO2 22.0 L ABG O2 Saturation 98.5 ABG Base Excess -0.6 Sodium Potassium Chloride Carbon Dioxide Anion Gap BUN Creatinine GFR Calculation BUN/Creatinine Ratio Glucose POC Glucose 142 H 170 H Calculated Osmolality Calcium Magnesium 09/11/16 09/11/16 04:00 04:00 WBC 11.0 RBC 3.46 L Hgb 10.0 L Hct 32.6 L MCV 94.2 MCH 29 MCHC 30.7 L RDW 16.7 Plt Count 184 MPV 12.6 H Neut % (Auto) 79.9 H Lymph % (Auto) 7.5 L [place] % (Auto) 10.9 Eos % (Auto) 0.7 Baso % (Auto) 0.2 Neut # (Auto) 8.8 H Lymph # (Auto) 0.8 L [place] # (Auto) 1.2 H Eos # (Auto) 0.1 Baso # (Auto) 0.0 Total Counted 100 Immature Gran % 0.8 Nucleated RBC % 0.0 Immature Gran # 0.09 Segmented Neutrophils 82 Band Neutrophils 1 Lymphocytes 4 L Monocytes 11 Eosinophils 1 Basophils 1.0 H Nucleated RBCs 1 Nucleated RBCs # 0.00 Platelet Estimate Adequate Hypochromasia 1+ Microcytosis 1+ Morphology Comment ABG pH ABG pCO2 ABG pO2 ABG HCO3 ABG Total CO2 ABG O2 Saturation ABG Base Excess Sodium 144 Potassium 4.1 Chloride 112 H Carbon Dioxide 26 Anion Gap 10.1 BUN 24 H Creatinine 2.10 H GFR Calculation 48 BUN/Creatinine Ratio 11.00 Glucose 172 H POC Glucose Calculated Osmolality 293.8 Calcium 8.7 Magnesium 2.4
--- NOTE | 2016-09-11 09:40 | Pulmonology Progress Note ---
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 He is on the balloon pump ventilator. He had triple- vessel coronary artery disease. He was on the [place] sun and he is now off of this is been warmed up. He started to move around a little bit and today I started him on weaning protocol. I will also requested physical therapy protocol while on ventilator. This is probably not necessary today and his state on the pump but it is a protocol. Stop this patient will end up with coronary artery bypass surgery Chest x-ray. Cardiomegaly. Bilateral pleural effusions. Endotracheal tube is in good position. Microbiology. Sputum has grown E. coli. This is sensitive to meropenem which the patient is on. Lab. Reviewed. ABGs are slightly improved. Electrolytes are normal. Creatinine is dropped to 2.10. White count is 11,000 with 80 segs H&H 10.0 32.6 proteins and albumin are low at 6.2 and 2.5 respectively. Medicines have been reviewed Physical exam. Vital signs. See below Chest. Mild large airway congestion Heart. Lateral PMI Abdomen. Nondistended. Very rare bowel sounds Extremities nothing to suggest deep venous thrombophlebitis Neck. Symmetrical. No meningismus. Lymphatics. No submandibular cervical supraclavicular or epitrochlear adenopathy. The remainder the physical exam is benign contributory Plan. 1. Continue present medicines. 2. Begin weaning protocol 3. Begin physical therapy protocol. See above. 4. Daily chest x-ray, ABGs and lab Exam (Progress Note) - Constitutional Vitals: Period Temp Pulse Resp BP Sys/Hassan Pulse Ox Last 24 Hr 97.5 F-99.0 F 70-99 12-22 73-166/30-62 12-98 Results - Labs CBC & BMP: 09/11/16 04:00 09/11/16 04:00
[2016-09-11] MEDS: ENOXAPARIN 80 MG/0.8 ML SYRINGE SUBCUT SCH (12:20)
--- NOTE | 2016-09-11 13:44 | Cardiology Progress Note ---
Assessment and Plan (1) NSTEMI (non-ST elevated myocardial infarction) Status: Acute Assessment and plan: Neurological assessment seems good. He seems to have good cognitive function when not sedated His renal function may stabilize at a creatinine around 2. He probably needs to be slightly dry to keep out of heart failure Labile blood pressure-we will try to slowly wean the dobutamine and the balloon pump as tolerated. Coronary disease-no overt ischemia Continue current support. Try to wean off of the dobutamine and balloon pump No more arrhythmias. Will reduce amiodarone to 200 mg p.o. twice daily. I conferred care with patient's nurse, Jeremy. Current Visit: Yes (2) Hypomagnesemia Status: Acute Current Visit: Yes (3) Heart failure Status: Acute Current Visit: Yes (4) Suspected sleep apnea Status: Acute Current Visit: Yes (5) CAD (coronary artery disease) Status: Chronic Current Visit: Yes (6) Chronic renal insufficiency, stage II (mild) Status: Chronic Current Visit: Yes (7) Diabetes Status: Chronic Current Visit: Yes (8) Dyslipidemia Status: Chronic Current Visit: Yes (9) Hypertension Status: Chronic Current Visit: Yes (10) Noncompliance Status: Chronic Current Visit: Yes (11) Obesity (BMI 30-39.9) Status: Chronic Current Visit: Yes (12) Hypoxic encephalopathy Status: Acute Current Visit: Yes (13) Arrhythmia Status: Acute Current Visit: Yes Cardiology - PN: Subj Interval history: The patient's sedation is decreased he is appropriate and mentally seems alert and awake. Exam (Progress Note) - Constitutional Vitals: Period Temp Pulse Resp BP Sys/Hassan Pulse Ox Last 24 Hr 97.5 F-99.0 F 73-99 12- 87-166/30-62 Exam: HEENT: Pupils equal, reactive to light and accommodation Neck: NoJVD or bruit Lungs clear to auscultation Heart: Regular rhythm rate with normal S1 and S2. Apical S4 Abdomen: No hepatosplenomegaly Spine/extremities: No clubbing, cyanosis, or edema Neuro: sedated Psych: Unassessable Result/EKG - Labs CBC & BMP: 09/11/16 04:00 09/11/16 04:00 Lab Results: I have reviewed the past 24 hour labs Labs: Laboratory Results - last 24 hr 04/12/2009/10/16 09/10/16 16:26 20:19 23:34 WBC RBC Hgb Hct MCV MCH MCHC RDW Plt Count MPV Neut % (Auto) Lymph % (Auto) [place] % (Auto) Eos % (Auto) Baso % (Auto) Neut # (Auto) Lymph # (Auto) [place] # (Auto) Eos # (Auto) Baso # (Auto) Total Counted Immature Gran % Nucleated RBC % Immature Gran # Segmented Neutrophils Band Neutrophils Lymphocytes Monocytes Eosinophils Basophils Nucleated RBCs Nucleated RBCs # Platelet Estimate Hypochromasia Microcytosis Morphology Comment ABG pH ABG pCO2 ABG pO2 ABG HCO3 ABG Total CO2 ABG O2 Saturation ABG Base Excess Sodium Potassium Chloride Carbon Dioxide Anion Gap BUN Creatinine GFR Calculation BUN/Creatinine Ratio Glucose POC Glucose 137 H 142 H 170 H Calculated Osmolality Calcium Magnesium 09/11/16 09/11/16 09/11/16 03:55 04:00 04:00 WBC 11.0 RBC 3.46 L Hgb 10.0 L Hct 32.6 L MCV 94.2 MCH 29 MCHC 30.7 L RDW 16.7 Plt Count 184 MPV 12.6 H Neut % (Auto) 79.9 H Lymph % (Auto) 7.5 L [place] % (Auto) 10.9 Eos % (Auto) 0.7 Baso % (Auto) 0.2 Neut # (Auto) 8.8 H Lymph # (Auto) 0.8 L [place] # (Auto) 1.2 H Eos # (Auto) 0.1 Baso # (Auto) 0.0 Total Counted 100 Immature Gran % 0.8 Nucleated RBC % 0.0 Immature Gran # 0.09 Segmented Neutrophils 82 Band Neutrophils 1 Lymphocytes 4 L Monocytes 11 Eosinophils 1 Basophils 1.0 H Nucleated RBCs 1 Nucleated RBCs # 0.00 Platelet Estimate Adequate Hypochromasia 1+ Microcytosis 1+ Morphology Comment ABG pH 7.387 ABG pCO2 40.3 ABG pO2 113.0 H ABG HCO3 23.9 ABG Total CO2 22.0 L ABG O2 Saturation 98.5 ABG Base Excess -0.6 Sodium 144 Potassium 4.1 Chloride 112 H Carbon Dioxide 26 Anion Gap 10.1 BUN 24 H Creatinine 2.10 H GFR Calculation 48 BUN/Creatinine Ratio 11.00 Glucose 172 H POC Glucose Calculated Osmolality 293.8 Calcium 8.7 Magnesium 2.4
[2016-09-11] MEDS: ATORVASTATIN 40 MG TABLET PO SCH (20:22)
[2016-09-12] MEDS: INSULIN REGULAR 100 UNIT/ML SUBCUT SCH ×4 (00:18→17:52)
[2016-09-12] MEDS: DOPamine 800 MG/250 ML PREMIX IV SCH ×2 (01:56→17:54)
[2016-09-12] MEDS: PROPOFOL 1,000 MG/100 ML BOTTLE IV SCH ×6 (02:46→20:35)
[2016-09-12 04:22] LABS: Basophils % 0.4 % (0.0-0.8); Eosinophils # 0.3 10*3/uL (0.0-0.87); Eosinophils % 3.3 % (0.00-10.9); Hematocrit 29.1 VOL% (42.0-52.0); Lymphocytes # 1.2 10*3/uL (1.4-4.0); Lymphocytes % 12.1 % (21.2-54.2); Mean Corpuscular HGB Conc 30.9 GM/DL (32-36); Mean Corpuscular Hemoglobin 29 PG (27-34); Mean Corpuscular Volume 92.7 FL (87-102); Mean Platelet Volume 12.5 FL (9.6-12.0); Monocytes # 1.5 10*3/uL (0.11-0.8); Monocytes % 14.5 % (1.7-12.7); Neutrophils % 68.7 % (38.7-73.9); Platelet Count 185 T/CUMM (130-400); Red Blood Count 3.14 MC/CUMM (3.8-5.5); White Blood Count 10.2 T/CUMM (4-12)
[2016-09-12 04:27] LABS: ABG Base Excess 1.1 MMOL/L (-2.5-2.5); ABG Oxygen Saturation 98.2 % (95-100); ABG PCO2 42.3 MM HG (35-48); ABG PH 7.406 (7.35-7.45); ABG TCO2 27.3 MMOL/L (23-27)
[2016-09-12] MEDS: MEROPENEM 500 MG in SODIUM CHLORIDE 0.9% 100 ML IV SCH ×3 (04:33→20:26)
[2016-09-12 04:58] LABS: Magnesium 2.7 MG/DL (1.8-2.4); Osmolality,Calculated 299.6 MOS/KG (273-304); Potassium 4.2 MMOL/L (3.5-5.1)
[2016-09-12 05:43] LABS: Hypochromasia 1+
[2016-09-12 05:44] LABS: Microcytosis 1+; Platelet Estimate Normal
[2016-09-12] MEDS: PANTOPRAZOLE 40 MG VIAL IV SCH (08:06)
[2016-09-12] MEDS: ASPIRIN CHEW 81 MG TABLET PO SCH (08:07)
[2016-09-12] MEDS: MULTIVITAMIN LIQUID (CENTRUM) 60 ML BOTTLE NG SCH (08:07)
[2016-09-12] MEDS: AMIODARONE 200 MG TABLET PO SCH ×2 (08:07→20:26)
[2016-09-12] MEDS: MINERAL OIL/PETROLATUM OPH OINT 3.5 GM TUBE BOTH EYES SCH ×3 (08:07→20:26)
[2016-09-12] MEDS ORDERED: ACETAMINOPHEN 325 MG/10.15 ML UDCUP PO PRN (08:11)
--- NOTE | 2016-09-12 08:30 | Cardiothoracic Progress Note ---
Cardiothoracic Subjective Interval history: Patient is on the ventilator but is awake and will move all extremities to command. He does appear to have a leftward gaze. He is going to be tried on CPAP later this morning but apparently did reasonably well for 30 minutes during the night. His blood work is all satisfactory. The balloon pump is being weaned and his hemodynamics appear to be stable. I suspect he may be ready to have his balloon pump removed later today and then we can continue weaning his ventilator. He is due for a CT of the head after his intra-aortic balloon pump has been removed. Overall he is progressing slowly. Exam (Progress Note) - Constitutional Vitals: Period Temp Pulse Resp BP Sys/Hassan Pulse Ox Last 24 Hr 98.4 F-100.4 F 75-88 12-24 98-163/37-66 78-100 Result/EKG - Labs CBC & BMP: 09/12/16 04:17 04 04:17 Labs: Laboratory Results - last 24 hr 09/11/16 09/12/16 09/12/16 18:08 00:12 04:15 WBC RBC Hgb Hct MCV MCH MCHC RDW Plt Count MPV Neut % (Auto) Lymph % (Auto) [place] % (Auto) Eos % (Auto) Baso % (Auto) Neut # (Auto) Lymph # (Auto) [place] # (Auto) Eos # (Auto) Baso # (Auto) Immature Gran % Nucleated RBC % Immature Gran # Nucleated RBCs # Platelet Estimate Hypochromasia Microcytosis Morphology Comment ABG pH 7.406 ABG pCO2 42.3 ABG pO2 121.0 H ABG HCO3 26.0 ABG Total CO2 27.3 H ABG O2 Saturation 98.2 ABG Base Excess 1.1 Sodium Potassium Chloride Carbon Dioxide Anion Gap BUN Creatinine GFR Calculation BUN/Creatinine Ratio Glucose POC Glucose 155 H 166 H Calculated Osmolality Calcium Magnesium 09/12/16 09/12/16 09/12/16 04:17 04:17 05:44 WBC 10.2 RBC 3.14 L Hgb 9.0 L Hct 29.1 L MCV 92.7 MCH 29 MCHC 30.9 L RDW 17.0 Plt Count 185 MPV 12.5 H Neut % (Auto) 68.7 Lymph % (Auto) 12.1 L [place] % (Auto) 14.5 H Eos % (Auto) 3.3 Baso % (Auto) 0.4 Neut # (Auto) 7.0 Lymph # (Auto) 1.2 L [place] # (Auto) 1.5 H Eos # (Auto) 0.3 Baso # (Auto) 0.0 Immature Gran % 1.0 Nucleated RBC % 0.0 Immature Gran # 0.10 Nucleated RBCs # 0.00 Platelet Estimate Normal Hypochromasia 1+ Microcytosis 1+ Morphology Comment ABG pH ABG pCO2 ABG pO2 ABG HCO3 ABG Total CO2 ABG O2 Saturation ABG Base Excess Sodium 146 H Potassium 4.2 Chloride 113 H Carbon Dioxide 25 Anion Gap 12.2 BUN 31 H Creatinine 2.10 H GFR Calculation 46 BUN/Creatinine Ratio 14.00 Glucose 158 H POC Glucose 186 H Calculated Osmolality 299.6 Calcium 9.0 Magnesium 2.7 H
--- NOTE | 2016-09-12 09:24 | XRay Report ---
XR chest 1V portable Indication: Intubated. Chest one view: Since yesterday, endotracheal tube, NG tube, cardiomegaly and hazy obscuration of both lung bases is stable. No new infiltrates are shown. Impression: No significant change. PROCEDURE INTERPRETED AT [facility] DEPARTMENT OF RADIOLOGY Final Report Signed by: Mickey Goldstein M.D.
--- NOTE | 2016-09-12 09:25 | Pulmonology Progress Note ---
Pulmonary - PN: Subj Interval history: This is a 70-year-old male who had a cardiac arrest and brief CPR while going to the cardiac [employer]. He is on the balloon pump ventilator. He had triple- vessel coronary artery disease. He was on the [place] sun and he is now off of this is been warmed up. He started to move around a little bit and today I started him on weaning protocol. I will also requested physical therapy protocol while on ventilator. This is probably not necessary today and his state on the pump but it is a protocol. Stop this patient will end up with coronary artery bypass surgery Chest x-ray. Cardiomegaly. Bilateral pleural effusions. Endotracheal tube is in good position. Microbiology. Sputum has grown E. coli. This is sensitive to meropenem which the patient is on. Lab. Reviewed. ABGs are slightly improved. Electrolytes are normal. Creatinine is dropped to 2.10. White count is 11,000 with 80 segs H&H 10.0 32.6 proteins and albumin are low at 6.2 and 2.5 respectively. Medicines have been reviewed 09/12/2016. Patient's balloon pump is supposed to be tapered today. Yesterday he was only able to do 130 minute CPAP session. He has had some fever. Sputum from 09/08/2016 grew E. coli. Patient is covered for this. I will add Cleocin 300 IV piggyback every 6 hours ABGs on mechanical ventilation showed a pH 7.41, PCO2 42, PO2 of 126 and a bicarb of 26. Electrolytes are normal. Creatinine is 2.10 BUNs 13 white count is 10,200 with 69 segs 12 lymphs 14 monocytes H&H 9.0/29.1 and platelets are 185,000.Chest x-ray shows cardiomegaly. There are bilateral pleural effusions and central vascular prominence around both hilar areas. Endotracheal tube is in good position peer Physical exam. Vital signs. See below Chest. Mild large airway congestion Heart. Lateral PMI Abdomen. Nondistended. Very rare bowel sounds Extremities nothing to suggest deep venous thrombophlebitis Neck. Symmetrical. No meningismus. Lymphatics. No submandibular cervical supraclavicular or epitrochlear adenopathy. The remainder the physical exam is benign contributory Plan. 1. Continue present medicines. 2. Begin weaning protocol 3. Begin physical therapy protocol. See above. 4. Daily chest x-ray, ABGs and lab Exam (Progress Note) - Constitutional Vitals: Period Temp Pulse Resp BP Sys/Hassan Pulse Ox Last 24 Hr 98.4 F-100.4 F 75-88 12-24 98-163/37-66 78-100 Results - Labs CBC & BMP: 09/12/16 04:17 09/12/16 04:17
[2016-09-12] MEDS: CLINDAMYCIN INJ 300 MG in PREMIX 1 EACH IV SCH ×3 (09:42→21:03)
[2016-09-12] MEDS: ENOXAPARIN 80 MG/0.8 ML SYRINGE SUBCUT SCH (17:50)
--- NOTE | 2016-09-12 18:01 | Cardiology Progress Note ---
Assessment and Plan (1) NSTEMI (non-ST elevated myocardial infarction) Status: Acute Assessment and plan: 09/11/16: Neurological assessment seems good. He seems to have good cognitive function when not sedated His renal function may stabilize at a creatinine around 2. He probably needs to be slightly dry to keep out of heart failure Labile blood pressure-we will try to slowly wean the dobutamine and the balloon pump as tolerated. Coronary disease-no overt ischemia Continue current support. Try to wean off of the dobutamine and balloon pump No more arrhythmias. Will reduce amiodarone to 200 mg p.o. twice daily. I conferred care with patient's nurse, Jeremy. 09/12/16: Assessment/plan/recommendation: Neurologically he seems good. CT heaD for possibly tomorrow, no contrast Hemodynamically stable on 1-3 balloon pump. Will DC balloon pump The dobutamine is down to low dose. Renal function has stayed reasonably stable. We will remove the right femoral groin venous and arterial sheath. Continue to support and wane. When he is extubated and is up and about he would be looking at elective surgery with Dr. Guzman in the near future. The new [facility] team including Dr. cano will take over tomorrow. Current Visit: Yes (2) Hypomagnesemia Status: Acute Current Visit: Yes (3) Heart failure Status: Acute Current Visit: Yes (4) Suspected sleep apnea Status: Acute Current Visit: Yes (5) CAD (coronary artery disease) Status: Chronic Current Visit: Yes (6) Chronic renal insufficiency, stage II (mild) Status: Chronic Current Visit: Yes (7) Diabetes Status: Chronic Current Visit: Yes (8) Dyslipidemia Status: Chronic Current Visit: Yes (9) Hypertension Status: Chronic Current Visit: Yes (10) Noncompliance Status: Chronic Current Visit: Yes (11) Obesity (BMI 30-39.9) Status: Chronic Current Visit: Yes (12) Hypoxic encephalopathy Status: Acute Current Visit: Yes (13) Arrhythmia Status: Acute Current Visit: Yes Cardiology - PN: Subj Interval history: The patient remains sedated. He is off sedation seems to have good cognitive function. With a balloon pump 1-3 his blood pressure and hemodynamics remain stable. We have been able to wean down his dobutamine to a low dose. Exam (Progress Note) - Constitutional Vitals: Period Temp Pulse Resp BP Sys/Hassan Pulse Ox Last 24 Hr 99.4 F-100.4 F 72-92 12-24 94-163/37-66 78-100 Exam: HEENT: Pupils equal, reactive to light and accommodation Neck: NoJVD or bruit Lungs clear to auscultation Heart: Regular rhythm rate with normal S1 and S2. Apical S4 Abdomen: No hepatosplenomegaly Spine/extremities: No clubbing, cyanosis, or edema Neuro: sedated Psych: Unassessable Result/EKG - Labs CBC & BMP: 09/12/16 04:17 09/12/16 04:17 Lab Results: I have reviewed the past 24 hour labs Labs: Laboratory Results - last 24 hr 09/11/16 09/12/16 09/12/16 18:08 00:12 04:15 WBC RBC Hgb Hct MCV MCH MCHC RDW Plt Count MPV Neut % (Auto) Lymph % (Auto) [place] % (Auto) Eos % (Auto) Baso % (Auto) Neut # (Auto) Lymph # (Auto) [place] # (Auto) Eos # (Auto) Baso # (Auto) Immature Gran % Nucleated RBC % Immature Gran # Nucleated RBCs # Platelet Estimate Hypochromasia Microcytosis Morphology Comment ABG pH 7.406 ABG pCO2 42.3 ABG pO2 121.0 H ABG HCO3 26.0 ABG Total CO2 27.3 H ABG O2 Saturation 98.2 ABG Base Excess 1.1 Sodium Potassium Chloride Carbon Dioxide Anion Gap BUN Creatinine GFR Calculation BUN/Creatinine Ratio Glucose POC Glucose 155 H 166 H Calculated Osmolality Calcium Magnesium 09/12/16 09/12/16 09/12/16 04:17 04:17 05:44 WBC 10.2 RBC 3.14 L Hgb 9.0 L Hct 29.1 L MCV 92.7 MCH 29 MCHC 30.9 L RDW 17.0 Plt Count 185 MPV 12.5 H Neut % (Auto) 68.7 Lymph % (Auto) 12.1 L [place] % (Auto) 14.5 H Eos % (Auto) 3.3 Baso % (Auto) 0.4 Neut # (Auto) 7.0 Lymph # (Auto) 1.2 L [place] # (Auto) 1.5 H Eos # (Auto) 0.3 Baso # (Auto) 0.0 Immature Gran % 1.0 Nucleated RBC % 0.0 Immature Gran # 0.10 Nucleated RBCs # 0.00 Platelet Estimate Normal Hypochromasia 1+ Microcytosis 1+ Morphology Comment ABG pH ABG pCO2 ABG pO2 ABG HCO3 ABG Total CO2 ABG O2 Saturation ABG Base Excess Sodium 146 H Potassium 4.2 Chloride 113 H Carbon Dioxide 25 Anion Gap 12.2 BUN 31 H Creatinine 2.10 H GFR Calculation 46 BUN/Creatinine Ratio 14.00 Glucose 158 H POC Glucose 186 H Calculated Osmolality 299.6 Calcium 9.0 Magnesium 2.7 H - EKG EKG results: interpreted by me
--- NOTE | 2016-09-12 18:03 | Event Note ---
The left femoral arterial balloon pump was removed by me cautiously without difficulty. I ensured that all of the sutures were removed. No apparent complications. The patient's nurse is to hold femoral artery for about 20 minutes and then reassess.
[2016-09-12] MEDS: ATORVASTATIN 40 MG TABLET PO SCH (20:26)
[2016-09-13] MEDS: INSULIN REGULAR 100 UNIT/ML SUBCUT SCH ×5 (00:22→23:51)
[2016-09-13] MEDS: PROPOFOL 1,000 MG/100 ML BOTTLE IV SCH ×3 (00:37→07:01)
[2016-09-13] MEDS: CLINDAMYCIN INJ 300 MG in PREMIX 1 EACH IV SCH ×4 (03:26→21:18)
[2016-09-13 03:56] LABS: Pt O2 Delivery Device Ventilator
[2016-09-13 03:57] LABS: ABG Base Excess -0.7 MMOL/L (-2.5-2.5); ABG HCO3 23.8 MMOL/L (20-26); ABG Oxygen Saturation 94.4 % (95-100); ABG PCO2 41.9 MM HG (35-48); ABG PH 7.375 (7.35-7.45); ABG PO2 75.8 MM HG (80-95); ABG TCO2 22.7 MMOL/L (23-27)
[2016-09-13] MEDS: MEROPENEM 500 MG in SODIUM CHLORIDE 0.9% 100 ML IV SCH ×3 (04:00→20:14)
[2016-09-13 04:46] LABS: Basophils % 0.2 % (0.0-0.8); Eosinophils # 0.4 10*3/uL (0.0-0.87); Hematocrit 29.7 VOL% (42.0-52.0); Hemoglobin 8.9 GM/DL (14.0-18.0); Immature Granulocytes % 2.3 %; Immature Granulocytes Absolute 0.22 #; Lymphocytes # 1.4 10*3/uL (1.4-4.0); Lymphocytes % 14.5 % (21.2-54.2); Mean Corpuscular Hemoglobin 29 PG (27-34); Mean Corpuscular Volume 95.2 FL (87-102); Mean Platelet Volume 12.4 FL (9.6-12.0); Monocytes # 1.3 10*3/uL (0.11-0.8); Monocytes % 13.8 % (1.7-12.7); Neutrophils # 6.3 10*3/uL (1.4-7.4); Neutrophils % 65.2 % (38.7-73.9); Platelet Count 180 T/CUMM (130-400); Red Blood Count 3.12 MC/CUMM (3.8-5.5); Red Cell Distribution Width 17.2 % (9.3-17.3); White Blood Count 9.7 T/CUMM (4-12)
[2016-09-13 05:19] LABS: Calcium 8.7 MG/DL (8.5-10.1); Magnesium 2.8 MG/DL (1.8-2.4); Osmolality,Calculated 302.7 MOS/KG (273-304); Phosphorous 4.4 MG/DL (2.5-4.9); Potassium 4.4 MMOL/L (3.5-5.1); Prealbumin 11.6 MG/DL (20-40)
[2016-09-13 05:27] LABS: Band Neutrophils 1 % (0-10); Burr Cells Slight; Eosinophils 5 % (0-10); Lymphocytes 11 % (20-55); Platelet Estimate Normal; Segmented Neutrophils 69 % (50-85); Total Cells Counted 100
[2016-09-13] MEDS: MIDAZOLAM 2 MG/2 ML VIAL IV PRN (05:27)
[2016-09-13 05:28] LABS: Microcytosis 1+
--- NOTE | 2016-09-13 06:47 | CT Report ---
Referring physician: Mina Blanchard Exam: CT brain without contrast Date: September 13, 2016 Comparison: None Reason: Post hypothermia protocol The patient is in an patient was admitted on September 06, 2016. Technique: Axial images of the head were obtained without the use of contrast. Total DLP was 1073.1 mGy*cm. Findings: There is mild generalized cerebral and cerebellar atrophy/volume loss and probable mild chronic microvascular ischemic change. There is a remote lacunar infarction within the right basal ganglia and a probable small remote infarction within the left cerebellum. No hydrocephalus or midline shift is present. There is no evidence of recent intracranial hemorrhage, abnormal mass effect or acute infarction. No acute osseous process is seen. There is scattered fluid within the mastoid air cells bilaterally, which may reflect mastoiditis. The bilateral sphenoid sinuses and ethmoid air cells are opacified. There is also prominent mucosal thickening within the maxillary sinuses and mild fluid within the left maxillary sinus. Secretions are noted within the posterior nasopharynx. Impression: 1. No acute intracranial process is identified. 2. Chronic intracranial findings as above. 3. Pansinusitis. 4. There is fluid within the mastoid air cells bilaterally, which may reflect mastoiditis. The CT exam was performed using one or more of the following dose reduction techniques: Automated exposure control and adjustment of the mA and/or kV according to patient size. PROCEDURE INTERPRETED AT [facility] DEPARTMENT OF RADIOLOGY Final Report Signed by: Dr. Marcelo Reynolds
--- NOTE | 2016-09-13 07:03 | Cardiology Progress Note ---
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 Balloon pump was pulled yesterday and dopamine now off. O2 sat 97 on 60% FiO2 Telemetry shows sinus rhythm in 70s Blood pressure 104/50 Regular rhythm no gallop Decreased breath sounds few rhonchi in the bases Abdomen soft benign Right groin has ecchymotic bruise but no bruit Distal pulses 1+ Lab data White count 9.7 hemoglobin 8.9 hematocrit 29.7 Sodium 145 potassium 4.0 chloride 112 CO2 24 BUN 47 creatinine 2.30 Impression Status post non-Q-wave [place] Ischemic cardia myopathy EF 30% with three-vessel CAD Status post respiratory arrest Hypertension History of CHF Noncompliance Mild chronic renal insufficiency Plan Continue CPAP trials CABG in the near future Exam (Progress Note) - Constitutional Vitals: Period Temp Pulse Resp BP Sys/Hassan Pulse Ox Last 24 Hr 98.8 F-100.0 F 72-92 4-26 94-132/42-66 95-100 Result/EKG - Labs CBC & BMP: 09/13/16 03:29 09/13/16 03:29 Labs: Laboratory Results - last 24 hr 09/12/16 09/13/16 09/13/16 17:44 00:00 03:29 WBC 9.7 RBC 3.12 L Hgb 8.9 L Hct 29.7 L MCV 95.2 MCH 29 MCHC 30.0 L RDW 17.2 Plt Count 180 MPV 12.4 H Neut % (Auto) 65.2 Lymph % (Auto) 14.5 L [place] % (Auto) 13.8 H Eos % (Auto) 4.0 Baso % (Auto) 0.2 Neut # (Auto) 6.3 Lymph # (Auto) 1.4 [place] # (Auto) 1.3 H Eos # (Auto) 0.4 Baso # (Auto) 0.0 Total Counted 100 Immature Gran % 2.3 Nucleated RBC % 0.0 Immature Gran # 0.22 Segmented Neutrophils 69 Band Neutrophils 1 Lymphocytes 11 L Monocytes 14 Eosinophils 5 Nucleated RBCs # 0.00 Platelet Estimate Normal Microcytosis 1+ Manish Cells Slight Morphology Comment ABG pH ABG pCO2 ABG pO2 ABG HCO3 ABG Total CO2 ABG O2 Saturation ABG Base Excess FiO2 Sodium Potassium Chloride Carbon Dioxide Anion Gap BUN Creatinine GFR Calculation BUN/Creatinine Ratio Glucose POC Glucose 165 H 173 H Calculated Osmolality Calcium Phosphorus Magnesium Prealbumin 09/13/16 09/13/16 03:29 03:45 WBC RBC Hgb Hct MCV MCH MCHC RDW Plt Count MPV Neut % (Auto) Lymph % (Auto) [place] % (Auto) Eos % (Auto) Baso % (Auto) Neut # (Auto) Lymph # (Auto) [place] # (Auto) Eos # (Auto) Baso # (Auto) Total Counted Immature Gran % Nucleated RBC % Immature Gran # Segmented Neutrophils Band Neutrophils Lymphocytes Monocytes Eosinophils Nucleated RBCs # Platelet Estimate Microcytosis [place] Cells Morphology Comment ABG pH 7.375 ABG pCO2 41.9 ABG pO2 75.8 L ABG HCO3 23.8 ABG Total CO2 22.7 L ABG O2 Saturation 94.4 L ABG Base Excess -0.7 FiO2 60.00 Sodium 145 Potassium 4.4 Chloride 112 H Carbon Dioxide 24 Anion Gap 13.4 BUN 47 H D Creatinine 2.30 H GFR Calculation 34 BUN/Creatinine Ratio 20.00 Glucose 160 H POC Glucose Calculated Osmolality 302.7 Calcium 8.7 Phosphorus 4.4 Magnesium 2.8 H Prealbumin 11.6 L
--- NOTE | 2016-09-13 07:28 | XRay Report ---
Referring Physician: Mian Blanchard Exam: XR chest 1V portable Date: September 13, 2016 at 3:17 AM Reason: Respiratory failure on ventilator Comparison: Chest one view portable September 12, 2016 Findings: An endotracheal tube and feeding tube are again in place. The cardiac silhouette is again mildly enlarged. There are scattered opacities within both lungs, mainly at the lung bases. This likely represents pulmonary edema, atelectasis and possibly pneumonia. No pneumothorax is identified, but there is mild left pleural fluid. The osseous structures appear stable. Impression: There has been no significant change when considering slight differences in patient positioning. PROCEDURE INTERPRETED AT [facility] DEPARTMENT OF RADIOLOGY Final Report Signed by: Dr. Marcelo Reynolds
[2016-09-13] MEDS: ASPIRIN CHEW 81 MG TABLET PO SCH (08:10)
[2016-09-13] MEDS: MULTIVITAMIN LIQUID (CENTRUM) 60 ML BOTTLE NG SCH (08:11)
[2016-09-13] MEDS: AMIODARONE 200 MG TABLET PO SCH ×2 (08:11→21:19)
[2016-09-13] MEDS: MINERAL OIL/PETROLATUM OPH OINT 3.5 GM TUBE BOTH EYES SCH ×3 (08:12→21:19)
[2016-09-13] MEDS: PANTOPRAZOLE 40 MG VIAL IV SCH (08:26)
--- NOTE | 2016-09-13 09:00 | Neurology Progress Note ---
Neurology - PN : Subjective Interval history: Patient seems to be doing okay. Waking up and following commands when he is off of sedation. Still on ventilator. Exam (Progress Note) - Constitutional Vitals: Period Temp Pulse Resp BP Sys/Hassan Pulse Ox Last 24 Hr 98.8 F-100 F 69-92 4-26 94-132/45-66 95-100 Exam: GENERAL: Patient is in no acute distress. NECK: Neck is supple. There is no JVD. No carotid bruits present. No thyroid masses. CVS: First and second heart sounds are normal. There is no S3 present. Regular rate and rhythm. RESPIRATORY: Lungs are clear to auscultation without any rales or rhonchi. ABDOMEN: Soft and non-tender. Bowel sounds are present. There is no hepatosplenomegaly. EXT: There is no palpable edema. Peripheral pulses are present. Skin: No rashes Central Nervous system: General: Sedated however follows commands when he is off of sedation. Speech: None Comprehension: Fair Facial expressions: Normal Cranial Nerves: Pupils are small and sluggish. Doll's head eye movements are intact. No facial asymmetry is seen. Motor: Strength cannot be assessed Sensory: Cannot be assessed Reflexes: Absent and symmetric Cerebellar function: Cannot be assessed Toes: Equivocal Gait: Cannot be assessed Results - Labs CBC & BMP: 09/13/16 03:29 09/13/16 03:29 Assessment and Plan (1) Hypoxic encephalopathy Status: Acute Assessment and plan: Continue current supportive treatment. CT scan of the head reveals no acute abnormalities. EEG is pending. Prognosis is fair. Current Visit: Yes
--- NOTE | 2016-09-13 09:19 | Cardiothoracic Progress Note ---
Cardiothoracic Subjective Interval history: Patient is slowly improving. Intra-aortic balloon pump has been removed with stable hemodynamics so far. He is being weaned from the ventilator and neurologically he appears to be intact and his CT of the brain does not show any acute injury. His renal function is stable with a moderately elevated creatinine at 2.2. Overall he appears to be making progress and hopefully he can be extubated and we can further evaluate for possible surgical intervention. Exam (Progress Note) - Constitutional Vitals: Period Temp Pulse Resp BP Sys/Hassan Pulse Ox Last 24 Hr 98.8 F-100 F 69-92 4-27 94-132/45-66 95-100 Result/EKG - Labs CBC & BMP: 09/13/16 03:29 09/13/16 03:29 Labs: Laboratory Results - last 24 hr 09/12/16 09/13/16 09/13/16 17:44 00:00 03:29 WBC 9.7 RBC 3.12 L Hgb 8.9 L Hct 29.7 L MCV 95.2 MCH 29 MCHC 30.0 L RDW 17.2 Plt Count 180 MPV 12.4 H Neut % (Auto) 65.2 Lymph % (Auto) 14.5 L [place] % (Auto) 13.8 H Eos % (Auto) 4.0 Baso % (Auto) 0.2 Neut # (Auto) 6.3 Lymph # (Auto) 1.4 [place] # (Auto) 1.3 H Eos # (Auto) 0.4 Baso # (Auto) 0.0 Total Counted 100 Immature Gran % 2.3 Nucleated RBC % 0.0 Immature Gran # 0.22 Segmented Neutrophils 69 Band Neutrophils 1 Lymphocytes 11 L Monocytes 14 Eosinophils 5 Nucleated RBCs # 0.00 Platelet Estimate Normal Microcytosis 1+ Manish Cells Slight Morphology Comment ABG pH ABG pCO2 ABG pO2 ABG HCO3 ABG Total CO2 ABG O2 Saturation ABG Base Excess FiO2 Sodium Potassium Chloride Carbon Dioxide Anion Gap BUN Creatinine GFR Calculation BUN/Creatinine Ratio Glucose POC Glucose 165 H 173 H Calculated Osmolality Calcium Phosphorus Magnesium Prealbumin 09/13/16 09/13/16 09/13/16 03:29 03:45 06:06 WBC RBC Hgb Hct MCV MCH MCHC RDW Plt Count MPV Neut % (Auto) Lymph % (Auto) [place] % (Auto) Eos % (Auto) Baso % (Auto) Neut # (Auto) Lymph # (Auto) [place] # (Auto) Eos # (Auto) Baso # (Auto) Total Counted Immature Gran % Nucleated RBC % Immature Gran # Segmented Neutrophils Band Neutrophils Lymphocytes Monocytes Eosinophils Nucleated RBCs # Platelet Estimate Microcytosis [place] Cells Morphology Comment ABG pH 7.375 ABG pCO2 41.9 ABG pO2 75.8 L ABG HCO3 23.8 ABG Total CO2 22.7 L ABG O2 Saturation 94.4 L ABG Base Excess -0.7 FiO2 60.00 Sodium 145 Potassium 4.4 Chloride 112 H Carbon Dioxide 24 Anion Gap 13.4 BUN 47 H D Creatinine 2.30 H GFR Calculation 34 BUN/Creatinine Ratio 20.00 Glucose 160 H POC Glucose 162 H Calculated Osmolality 302.7 Calcium 8.7 Phosphorus 4.4 Magnesium 2.8 H Prealbumin 11.6 L
--- NOTE | 2016-09-13 09:38 | Pulmonology Progress Note ---
Pulmonary - PN: Subj Interval history: The patient is a 71-year-old black man that came in with shortness of breath and some weakness there was a question of mild heart failure. He was taken to the [facility] [employer] where he had a brief cardiac arrest. He was found to have triple- vessel coronary artery disease with ejection fraction of 30%. He has been placed on the ventilator and the balloon pump. He did the cooling protocol and now he is warm back up. He has done fairly well over the weekend and the balloon pump has been removed. His blood pressure has been stable. He gets agitated at times but has done okay. His chest x-ray looks like minimal heart failure. He has a cuff leak so we may try to extubate him soon. He seems to have a good cough. He just gets restless with the tube in place Exam (Progress Note) - Constitutional Vitals: Period Temp Pulse Resp BP Sys/Hassan Pulse Ox Last 24 Hr 98.8 F-100 F 69-92 4-27 94-132/45-66 95-100 Exam: General appearance: over weight, other (He is responding more but still requires some sedation.) - Head Head exam: Present: normal inspection, normocephalic - Eye Eye exam: Absent: scleral icterus Pupils: Present: JAY - ENT ENT exam: Present: other (ET tube is in good position. He does have a cuff leak.) - Neck Neck exam: Present: normal inspection. Absent: lymphadenopathy, thyromegaly - Respiratory Respiratory exam: Present: He has good breath sounds bilaterally with some minimal rhonchi. - Cardiovascular Cardiovascular exam: Present: regular rate and rhythm. Absent: gallop, systolic murmur - GI/Abdominal GI/Abdominal exam: Present: hypoactive bowel sounds, soft. Absent: distended, organomegaly, tenderness - Extremities Exam Extremities exam: Present: edema (He has trace ankle edema). Absent: calf tenderness - Neurological Exam Neurological exam: Present: other (He does follow commands and gets agitated and required some sedation.) - Skin Skin exam: Present: warm, dry Results - Labs CBC & BMP: 09/13/16 03:29 09/13/16 03:29 Labs: PO2 75 with a PCO2 of 41 and pH of 7.37 - Diagnostic Findings Procedure: Chest x-ray: image reviewed by me, report reviewed by me (Mild bibasilar infiltrates.) Assessment and Plan (1) CAD (coronary artery disease) Status: Chronic Assessment and plan: Patient has significant triple-vessel coronary artery disease with an ischemic cardiomyopathy and ejection fraction of 30%. He is off the balloon pump now and has just minimal heart failure. His creatinine is up to 2.3. He seems to be doing a little better. Current Visit: Yes (2) Hypertension Status: Chronic Assessment and plan: His blood pressure has been better and the balloon pump is out and he is off pressors. Current Visit: Yes (3) Dyslipidemia Status: Chronic Assessment and plan: This can be treated later. Current Visit: Yes (4) Diabetes Status: Chronic Assessment and plan: His glucose has been monitored. His glucose is 162 this morning Current Visit: Yes (5) Obesity (BMI 30-39.9) Status: Chronic Assessment and plan: He is a large man. He has been ventilated okay. Current Visit: Yes (6) Chronic renal insufficiency, stage II (mild) Status: Chronic Assessment and plan: His creatinine is up to 2.3 now. Current Visit: Yes (7) Hypoxic encephalopathy Status: Acute Assessment and plan: The patient has done well and is more responsive now. He still gets agitated when he is not on sedation. Current Visit: Yes (8) Cardiac arrest Status: Acute Assessment and plan: Patient is status post brief cardiac arrest and has done fairly well now. Will try to get him off the ventilator. Current Visit: Yes (9) On mechanically assisted ventilation Status: Acute Assessment and plan: He is stable on the ventilator and his FiO2 has been decreased. He does have a good cough. His chest x-ray is better. We will see if he can be extubated soon. Current Visit: Yes (10) NSTEMI (non-ST elevated myocardial infarction) Status: Acute Assessment and plan: He does have significant enzymes. His troponin went up to 3.4 and is starting to fall. His cardiac enzymes are improving. Current Visit: Yes
[2016-09-13] MEDS: ENOXAPARIN 80 MG/0.8 ML SYRINGE SUBCUT SCH (13:10)
[2016-09-13] MEDS: ATORVASTATIN 40 MG TABLET PO SCH (21:19)
[2016-09-13] MEDS ORDERED: MORPHINE 2 MG/1 ML SYRINGE ONE (23:26)
[2016-09-13] MEDS: MORPHINE 2 MG/1 ML SYRINGE IV PRN (23:31)
[2016-09-13] MEDS: ALBUTEROL/IPRATROPIUM 3 ML NEB RESP TX SCH (23:39)
[2016-09-14] MEDS: ALBUTEROL/IPRATROPIUM 3 ML NEB RESP TX SCH ×7 (00:12→23:54)
[2016-09-14] MEDS: CLINDAMYCIN INJ 300 MG in PREMIX 1 EACH IV SCH ×4 (02:48→21:14)
[2016-09-14] MEDS: MEROPENEM 500 MG in SODIUM CHLORIDE 0.9% 100 ML IV SCH ×3 (04:31→20:23)
[2016-09-14 04:49] LABS: Basophils # 0.1 10*3/uL (0.0-0.2); Basophils % 0.4 % (0.0-0.8); Eosinophils # 0.4 10*3/uL (0.0-0.87); Eosinophils % 3.1 % (0.00-10.9); Hematocrit 31.6 VOL% (42.0-52.0); Hemoglobin 9.4 GM/DL (14.0-18.0); Immature Granulocytes % 2.9 %; Immature Granulocytes Absolute 0.35 #; Lymphocytes # 1.3 10*3/uL (1.4-4.0); Lymphocytes % 10.8 % (21.2-54.2); Mean Corpuscular HGB Conc 29.7 GM/DL (32-36); Mean Corpuscular Hemoglobin 28 PG (27-34); Mean Corpuscular Volume 94.6 FL (87-102); Mean Platelet Volume 12.9 FL (9.6-12.0); Monocytes # 1.6 10*3/uL (0.11-0.8); Monocytes % 13.2 % (1.7-12.7); Neutrophils # 8.5 10*3/uL (1.4-7.4); Neutrophils % 69.6 % (38.7-73.9); Platelet Count 222 T/CUMM (130-400); Red Blood Count 3.34 MC/CUMM (3.8-5.5); Red Cell Distribution Width 16.9 % (9.3-17.3); White Blood Count 12.3 T/CUMM (4-12)
[2016-09-14 05:12] LABS: Hypochromasia 1+; Microcytosis 1+; Platelet Estimate Adequate
[2016-09-14 05:29] LABS: Calcium 9.1 MG/DL (8.5-10.1); Magnesium 2.6 MG/DL (1.8-2.4); Osmolality,Calculated 308.4 MOS/KG (273-304); Potassium 4.7 MMOL/L (3.5-5.1)
[2016-09-14] MEDS: INSULIN REGULAR 100 UNIT/ML SUBCUT SCH ×3 (06:13→18:22)
--- NOTE | 2016-09-14 06:21 | Cardiothoracic Progress Note ---
Cardiothoracic Subjective Interval history: Patient has remained extubated since yesterday afternoon and the intra-aortic balloon pump has been removed successfully. Patient was restless and tachypnea during the night seems a little better this morning. His O2 sats are 93% and his heart rate is 97 with a sinus rhythm. He clearly is borderline from a respiratory standpoint but hopefully he can maintain himself off the ventilator. The plan is to continue present management for now. Exam (Progress Note) - Constitutional Vitals: Period Temp Pulse Resp BP Sys/Hassan Pulse Ox Last 24 Hr 97.7 F-98.3 F 69-119 12-42 100-168/3-84 92-119 Result/EKG - Labs CBC & BMP: 09/14/16 03:11 09/14/16 03:11 Labs: Laboratory Results - last 24 hr 09/13/16 09/13/16 09/13/16 06:06 18:29 23:34 WBC RBC Hgb Hct MCV MCH MCHC RDW Plt Count MPV Neut % (Auto) Lymph % (Auto) [place] % (Auto) Eos % (Auto) Baso % (Auto) Neut # (Auto) Lymph # (Auto) [place] # (Auto) Eos # (Auto) Baso # (Auto) Immature Gran % Nucleated RBC % Immature Gran # Nucleated RBCs # Platelet Estimate Hypochromasia Microcytosis Morphology Comment Sodium Potassium Chloride Carbon Dioxide Anion Gap BUN Creatinine GFR Calculation BUN/Creatinine Ratio Glucose POC Glucose 162 H 186 H 192 H Calculated Osmolality Calcium Magnesium 09/14/16 09/14/16 09/14/16 03:11 03:11 05:46 WBC 12.3 H RBC 3.34 L Hgb 9.4 L Hct 31.6 L MCV 94.6 MCH 28 MCHC 29.7 L RDW 16.9 Plt Count 222 D MPV 12.9 H Neut % (Auto) 69.6 Lymph % (Auto) 10.8 L [place] % (Auto) 13.2 H Eos % (Auto) 3.1 Baso % (Auto) 0.4 Neut # (Auto) 8.5 H Lymph # (Auto) 1.3 L [place] # (Auto) 1.6 H Eos # (Auto) 0.4 Baso # (Auto) 0.1 Immature Gran % 2.9 Nucleated RBC % 0.0 Immature Gran # 0.35 Nucleated RBCs # 0.00 Platelet Estimate Adequate Hypochromasia 1+ Microcytosis 1+ Morphology Comment Sodium 147 H Potassium 4.7 Chloride 111 H Carbon Dioxide 25 Anion Gap 15.7 H BUN 42 H Creatinine 1.80 H GFR Calculation 45 BUN/Creatinine Ratio 23.00 H Glucose 207 H POC Glucose 216 H Calculated Osmolality 308.4 H Calcium 9.1 Magnesium 2.6 H
[2016-09-14] MEDS: MORPHINE 2 MG/1 ML SYRINGE IV PRN ×5 (06:22→23:25)
--- NOTE | 2016-09-14 06:49 | Pulmonology Progress Note ---
Pulmonary - PN: Subj Interval history: The patient is a 71-year-old black man that came in with shortness of breath and some weakness there was a question of mild heart failure. He was taken to the [facility] where he had a brief cardiac arrest. He was found to have triple- vessel coronary artery disease with ejection fraction of 30%. He has been placed on the ventilator and the balloon pump. He did the cooling protocol and now he is warm back up. He has done fairly well over the weekend and the balloon pump has been removed. His blood pressure has been stable. He was doing a little better with his breathing and had a cuff leak yesterday. We decided to try him off the ventilator. Through the day he had a little bit of anxiety and shortness of breath. He did have to go on BiPAP during the night. He still gets a little restless but is doing okay. His vital signs have been stable and he has good urine output. He responds okay although he is tachypneic. Exam (Progress Note) - Constitutional Vitals: Period Temp Pulse Resp BP Sys/Hassan Pulse Ox Last 24 Hr 97.7 F-98.3 F 69-119 12-42 100-168/47-84 92-119 Exam: General appearance: over weight, other (He is alert and responds okay and is on BiPAP.) - Head Head exam: Present: normal inspection, normocephalic - Eye Eye exam: Absent: scleral icterus Pupils: Present: JAY - ENT ENT exam: Present: Unremarkable - Neck Neck exam: Present: normal inspection. Absent: lymphadenopathy, thyromegaly - Respiratory Respiratory exam: Present: He has good breath sounds bilaterally is moving air reasonably well with some mild crackles in the bases. - Cardiovascular Cardiovascular exam: Present: regular rate and rhythm. Absent: gallop, systolic murmur - GI/Abdominal GI/Abdominal exam: Present: hypoactive bowel sounds, soft. Absent: distended, organomegaly, tenderness - Extremities Exam Extremities exam: Present: He has no leg swelling or tenderness. - Neurological Exam Neurological exam: Present: other (He does follow commands and is fairly alert) - Skin Skin exam: Present: warm, dry Results - Labs CBC & BMP: 09/14/16 03:11 09/14/16 03:11 Assessment and Plan (1) CAD (coronary artery disease) Status: Chronic Assessment and plan: Patient has significant triple-vessel coronary artery disease with an ischemic cardiomyopathy and ejection fraction of 30%. He is off the balloon pump now and has just minimal heart failure. His creatinine is improving although he does have some shortness of breath. Current Visit: Yes (2) Hypertension Status: Chronic Assessment and plan: His blood pressure has been better and the balloon pump is out and he is off pressors. Current Visit: Yes (3) Dyslipidemia Status: Chronic Assessment and plan: This can be treated later. Current Visit: Yes (4) Diabetes Status: Chronic Assessment and plan: His glucose has been monitored. His glucose is 216 this morning Current Visit: Yes (5) Obesity (BMI 30-39.9) Status: Chronic Assessment and plan: He is a large man. He has been ventilated okay. Current Visit: Yes (6) Chronic renal insufficiency, stage II (mild) Status: Chronic Assessment and plan: His creatinine is down to 1.8 today. Current Visit: Yes (7) Hypoxic encephalopathy Status: Acute Assessment and plan: The patient has done well and is more responsive now. He still gets agitated and anxious but otherwise is doing okay. Current Visit: Yes (8) Cardiac arrest Status: Acute Assessment and plan: Patient is status post brief cardiac arrest and has done fairly well now. He is responding okay and is off the ventilator but still gets short of breath Current Visit: Yes (9) On mechanically assisted ventilation Status: Resolved Assessment and plan: He has done okay off the ventilator although he did require BiPAP last night. Will recheck his chest x-ray. Current Visit: Yes (10) NSTEMI (non-ST elevated myocardial infarction) Status: Acute Assessment and plan: He does have significant enzymes. His troponin went up to 3.4 and is starting to fall. His cardiac enzymes are improving. Current Visit: Yes
[2016-09-14] MEDS ORDERED: FUROSEMIDE 40 MG/4 ML VIAL IV ONE (06:52)
--- NOTE | 2016-09-14 06:52 | Cardiology Progress Note ---
Cardiology - PN: Subj Interval history: Cardiology note 71-year-old man with three-vessel CAD and ejection fraction 30% by cardiac cath September 07, 2016. Status post respiratory arrest precath. Extubated yesterday. Telemetry shows sinus rhythm in the mid 80s. Rare PVC only. Blood pressure 150/74 O2 sat 97 on CPAP Decreased breath sounds few basilar rhonchi Regular rhythm no murmur Abdomen soft benign No leg edema Lab data today White count 12.3 hemoglobin 9.4 hematocrit 31.6 Sodium 147 potassium 4.7 chloride 111 CO2 25 BUN 42 creatinine 1.80 Glucose 207 magnesium 2.6 Impression Status post non-Q-wave CT Three-vessel CAD with ejection fraction 30% by recent cath Hypertension History CHF Mild chronic renal insufficiency Underlying COPD Noncompliance Plan Watch respiratory status closely Timing of bypass surgery will be determined by respiratory status. Exam (Progress Note) - Constitutional Vitals: Period Temp Pulse Resp BP Sys/Hassan Pulse Ox Last 24 Hr 97.7 F-98.3 F 69-119 12-42 100-168/47-84 92-119 Result/EKG - Labs CBC & BMP: 09/14/16 03:11 09/14/16 03:11 Labs: Laboratory Results - last 24 hr 09/13/16 09/13/16 09/13/16 06:06 18:29 23:34 WBC RBC Hgb Hct MCV MCH MCHC RDW Plt Count MPV Neut % (Auto) Lymph % (Auto) [place] % (Auto) Eos % (Auto) Baso % (Auto) Neut # (Auto) Lymph # (Auto) [place] # (Auto) Eos # (Auto) Baso # (Auto) Immature Gran % Nucleated RBC % Immature Gran # Nucleated RBCs # Platelet Estimate Hypochromasia Microcytosis Morphology Comment Sodium Potassium Chloride Carbon Dioxide Anion Gap BUN Creatinine GFR Calculation BUN/Creatinine Ratio Glucose POC Glucose 162 H 186 H 192 H Calculated Osmolality Calcium Magnesium 09/14/16 09/14/16 09/14/16 03:11 03:11 05:46 WBC 12.3 H RBC 3.34 L Hgb 9.4 L Hct 31.6 L MCV 94.6 MCH 28 MCHC 29.7 L RDW 16.9 Plt Count 222 D MPV 12.9 H Neut % (Auto) 69.6 Lymph % (Auto) 10.8 L [place] % (Auto) 13.2 H Eos % (Auto) 3.1 Baso % (Auto) 0.4 Neut # (Auto) 8.5 H Lymph # (Auto) 1.3 L [place] # (Auto) 1.6 H Eos # (Auto) 0.4 Baso # (Auto) 0.1 Immature Gran % 2.9 Nucleated RBC % 0.0 Immature Gran # 0.35 Nucleated RBCs # 0.00 Platelet Estimate Adequate Hypochromasia 1+ Microcytosis 1+ Morphology Comment Sodium 147 H Potassium 4.7 Chloride 111 H Carbon Dioxide 25 Anion Gap 15.7 H BUN 42 H Creatinine 1.80 H GFR Calculation 45 BUN/Creatinine Ratio 23.00 H Glucose 207 H POC Glucose 216 H Calculated Osmolality 308.4 H Calcium 9.1 Magnesium 2.6 H
[2016-09-14] MEDS: ASPIRIN CHEW 81 MG TABLET PO SCH (08:10)
[2016-09-14] MEDS: PANTOPRAZOLE 40 MG VIAL IV SCH (08:10)
[2016-09-14] MEDS: AMIODARONE 200 MG TABLET PO SCH ×2 (08:10→21:15)
[2016-09-14] MEDS: MINERAL OIL/PETROLATUM OPH OINT 3.5 GM TUBE BOTH EYES SCH ×3 (08:22→21:15)
[2016-09-14] MEDS: MULTIVITAMIN LIQUID (CENTRUM) 60 ML BOTTLE NG SCH (08:22)
--- NOTE | 2016-09-14 09:21 | XRay Report ---
XR chest 1V portable Indication: Shortness of breath Comparison: 13 September 2016 Findings: The heart and mediastinum are stable in size and configuration. Endotracheal tube is been removed. NG tube is unchanged in position The pulmonary vascularity is improved. No lung infiltrates, effusions, pneumothorax or other abnormality is demonstrated. Impression: Interval extubation. Pulmonary vascularity appears improved when compared to previous study. PROCEDURE INTERPRETED AT [facility] DEPARTMENT OF RADIOLOGY Final Report Signed by: Dr. Trent Cedillo
--- NOTE | 2016-09-14 10:19 | Physician Query Form ---
CLICK EDIT DOCUMENT TO SELECT QUERY ANSWER --> OK --> SIGN Gina Linares RN, CCDS Certified Clinical [employer]inder[employer] Machine Setter W) [phone] (f) [phone] [email or web address]: Make your selection(s) from the choices in EACH section by typing an "x" and enter comments in the comment section. Please use your independent medical judgment in providing your response. This request does not imply that any particular answer is desired or expected. CLINICAL INDICATORS: (Providers should not edit this section) The Medical Record indicates that the patient was admitted with Non-STEMI, "question of mild heart failure", "chest x-ray looks like minimal heart failure " and the patient was treated with IV Lasix on the . Please provide further specificity regarding CHF. ACUITY: ( ) Acute ( ) Chronic (x ) Acute on Chronic ( ) Clinically unable to determine TYPE: ( ) Systolic ( ) Diastolic (x ) Combined Systolic/Diastolic ( ) Other, please specify: ( ) Clinically unable to determine ( ) The patient does NOT have CHF COMME Use of terms such as suspected, likely, or probable (associated with a specific diagnosis that is being evaluated, monitored, or treated as if it exists) are acceptable and can be restated in the discharge summary if not ruled out. MTDD
[2016-09-14] MEDS: ENOXAPARIN 80 MG/0.8 ML SYRINGE SUBCUT SCH (11:48)
[2016-09-14] MEDS ORDERED: LABETALOL 20 MG/4 ML SYRINGE IV ONE (13:38)
[2016-09-14] MEDS: CARVEDILOL 6.25 MG TABLET PO SCH ×2 (13:55→21:15)
--- NOTE | 2016-09-14 15:40 | Neurology Progress Note ---
Neurology - PN : Subjective Interval history: Patient is extubated. Seems to be doing okay. No new problems reported. Following 4 steps commands. Moving all 4 extremities Exam (Progress Note) - Constitutional Vitals: Period Temp Pulse Resp BP Sys/Hassan Pulse Ox Last 24 Hr 96.4 F-99 F 74-119 22-42 113-173/58-87 89-119 Exam: GENERAL: Patient is in no acute distress. NECK: Neck is supple. There is no JVD. No carotid bruits present. No thyroid masses. CVS: First and second heart sounds are normal. There is no S3 present. Regular rate and rhythm. RESPIRATORY: Lungs are clear to auscultation without any rales or rhonchi. ABDOMEN: Soft and non-tender. Bowel sounds are present. There is no hepatosplenomegaly. EXT: There is no palpable edema. Peripheral pulses are present. Skin: No rashes Central Nervous system: General: Extubated. Following 4 steps commands. Speech: Fluent Comprehension: Fair Facial expressions: Normal Cranial Nerves: Pupils are small and sluggish. Extraocular movements are intact no facial asymmetry is seen. Motor: Moving all 4 extremities Sensory: Cannot be assessed Reflexes: Absent and symmetric Cerebellar function: Cannot be assessed Toes: Equivocal Gait: Cannot be assessed Results - Labs CBC & BMP: 09/14/16 03:11 09/14/16 03:11 Assessment and Plan (1) Hypoxic encephalopathy Status: Acute Assessment and plan: Continue current supportive treatment. She seems to be doing really well from neuro standpoint No further intervention indicated Sign off please call as needed Current Visit: Yes
[2016-09-14] MEDS: DESITIN 4OZ/NYSTATIN 15 GRAM MIXTURE PASTE TOP SCH ×2 (16:15→21:15)
[2016-09-14] MEDS: ATORVASTATIN 40 MG TABLET PO SCH (21:14)
[2016-09-15] MEDS: INSULIN REGULAR 100 UNIT/ML SUBCUT SCH ×4 (00:38→17:40)
[2016-09-15] MEDS: CLINDAMYCIN INJ 300 MG in PREMIX 1 EACH IV SCH ×4 (03:02→21:24)
[2016-09-15] MEDS: ALBUTEROL/IPRATROPIUM 3 ML NEB RESP TX SCH ×6 (03:21→23:39)
[2016-09-15] MEDS: MEROPENEM 500 MG in SODIUM CHLORIDE 0.9% 100 ML IV SCH ×3 (03:51→20:43)
[2016-09-15 04:34] LABS: Basophils # 0.1 10*3/uL (0.0-0.2); Basophils % 0.4 % (0.0-0.8); Eosinophils # 0.7 10*3/uL (0.0-0.87); Eosinophils % 5.2 % (0.00-10.9); Hematocrit 29.7 VOL% (42.0-52.0); Immature Granulocytes % 2.7 %; Immature Granulocytes Absolute 0.35 #; Lymphocytes # 1.5 10*3/uL (1.4-4.0); Lymphocytes % 11.9 % (21.2-54.2); Mean Corpuscular HGB Conc 30.3 GM/DL (32-36); Mean Corpuscular Hemoglobin 28 PG (27-34); Mean Corpuscular Volume 93.7 FL (87-102); Mean Platelet Volume 12.4 FL (9.6-12.0); Monocytes # 1.5 10*3/uL (0.11-0.8); Neutrophils # 8.7 10*3/uL (1.4-7.4); Neutrophils % 67.8 % (38.7-73.9); Platelet Count 245 T/CUMM (130-400); Red Blood Count 3.17 MC/CUMM (3.8-5.5); Red Cell Distribution Width 16.8 % (9.3-17.3); White Blood Count 12.9 T/CUMM (4-12)
[2016-09-15 05:05] LABS: Calcium 9.4 MG/DL (8.5-10.1); Magnesium 2.7 MG/DL (1.8-2.4); Osmolality,Calculated 312.3 MOS/KG (273-304); Potassium 4.6 MMOL/L (3.5-5.1)
[2016-09-15 05:19] LABS: Band Neutrophils 2 % (0-10); Eosinophils 5 % (0-10); Lymphocytes 11 % (20-55); Segmented Neutrophils 71 % (50-85); Total Cells Counted 100
[2016-09-15 05:20] LABS: Hypochromasia Slight; Platelet Estimate Normal
[2016-09-15] MEDS: MORPHINE 2 MG/1 ML SYRINGE IV PRN ×3 (06:08→17:25)
--- NOTE | 2016-09-15 06:13 | Cardiothoracic Progress Note ---
Cardiothoracic Subjective Interval history: Patient is awake and extubated. He had a somewhat restless night and still desaturates pretty quickly when his oxygen is removed. He has been fairly stable from a neurological standpoint and is responsive and moves all extremities to command. His cardiac status is stable at present. Urine output is adequate and creatinine is 1.8 which is holding steady. Overall he is making slow progress but still has a way to go before being ready for surgery. Exam (Progress Note) - Constitutional Vitals: Period Temp Pulse Resp BP Sys/Hassan Pulse Ox Last 24 Hr 96.4 F-99 F 69-100 14-34 113-175/56-87 89-100 Result/EKG - Labs CBC & BMP: 09/15/16 04:23 09/15/16 04:23 Labs: Laboratory Results - last 24 hr 09/11/16 09/11/16 09/14/16 04:57 12:06 11:49 WBC RBC Hgb Hct MCV MCH MCHC RDW Plt Count MPV Neut % (Auto) Lymph % (Auto) [place] % (Auto) Eos % (Auto) Baso % (Auto) Neut # (Auto) Lymph # (Auto) [place] # (Auto) Eos # (Auto) Baso # (Auto) Total Counted Immature Gran % Nucleated RBC % Immature Gran # Segmented Neutrophils Band Neutrophils Lymphocytes Monocytes Eosinophils Nucleated RBCs # Platelet Estimate Hypochromasia Sodium Potassium Chloride Carbon Dioxide Anion Gap BUN Creatinine GFR Calculation BUN/Creatinine Ratio Glucose POC Glucose 166 H 187 H 300 H Calculated Osmolality Calcium Magnesium 09/14/16 09/14/16 09/15/16 18:04 23:29 04:23 WBC 12.9 H RBC 3.17 L Hgb 9.0 L Hct 29.7 L MCV 93.7 MCH 28 MCHC 30.3 L RDW 16.8 Plt Count 245 MPV 12.4 H Neut % (Auto) 67.8 Lymph % (Auto) 11.9 L [place] % (Auto) 12.0 Eos % (Auto) 5.2 Baso % (Auto) 0.4 Neut # (Auto) 8.7 H Lymph # (Auto) 1.5 [place] # (Auto) 1.5 H Eos # (Auto) 0.7 Baso # (Auto) 0.1 Total Counted 100 Immature Gran % 2.7 Nucleated RBC % 0.0 Immature Gran # 0.35 Segmented Neutrophils 71 Band Neutrophils 2 Lymphocytes 11 L Monocytes 11 Eosinophils 5 Nucleated RBCs # 0.00 Platelet Estimate Normal Hypochromasia Slight Sodium Potassium Chloride Carbon Dioxide Anion Gap BUN Creatinine GFR Calculation BUN/Creatinine Ratio Glucose POC Glucose 252 H 209 H Calculated Osmolality Calcium Magnesium 09/15/16 09/15/16 04:23 05:25 WBC RBC Hgb Hct MCV MCH MCHC RDW Plt Count MPV Neut % (Auto) Lymph % (Auto) [place] % (Auto) Eos % (Auto) Baso % (Auto) Neut # (Auto) Lymph # (Auto) [place] # (Auto) Eos # (Auto) Baso # (Auto) Total Counted Immature Gran % Nucleated RBC % Immature Gran # Segmented Neutrophils Band Neutrophils Lymphocytes Monocytes Eosinophils Nucleated RBCs # Platelet Estimate Hypochromasia Sodium 148 H Potassium 4.6 Chloride 111 H Carbon Dioxide 30 Anion Gap 11.6 BUN 51 H Creatinine 1.80 H GFR Calculation 45 BUN/Creatinine Ratio 28.00 H Glucose 190 H POC Glucose 175 H Calculated Osmolality 312.3 H Calcium 9.4 Magnesium 2.7 H
--- NOTE | 2016-09-15 06:28 | XRay Report ---
Referring Physician: Juanpablo Gregg MD Exam: XR chest 1V portable Date: September 15, 2016 at 3:01 AM Reason: Shortness of breath Comparison: Chest one view portable September 14, 2016 Findings: A feeding tube is again in place. The cardiac silhouette appears normal in size. There is mild elevation of the right hemidiaphragm, prominent interstitial markings and mild bibasilar opacities. This is concerning for mild pulmonary edema and atelectasis. Pneumonia is not excluded. No pneumothorax is identified. The osseous structures appear stable. Impression: There is improved aeration of the left lung base but increased atelectasis at the right lung base. The interstitial markings are also prominent bilaterally, which could reflect mild pulmonary edema. PROCEDURE INTERPRETED AT [facility] DEPARTMENT OF RADIOLOGY Final Report Signed by: Dr. Marcelo Reynolds
--- NOTE | 2016-09-15 06:53 | Pulmonology Progress Note ---
Pulmonary - PN: Subj Interval history: The patient is a 71-year-old black man that came in with shortness of breath and some weakness there was a question of mild heart failure. He was taken to the [facility] where he had a brief cardiac arrest. He was found to have triple- vessel coronary artery disease with ejection fraction of 30%. He has been placed on the ventilator and the balloon pump. He did the cooling protocol and now he is warm back up. He has done fairly well over the weekend and the balloon pump has been removed. His blood pressure has been stable. He was doing a little better with his breathing and had a cuff leak. He was extubated and has done reasonably well. He still gets anxious at times and is using BiPAP. He has required a little bit of morphine. He says he is hungry. His chest x-ray actually looks quite clear now. Exam (Progress Note) - Constitutional Vitals: Period Temp Pulse Resp BP Sys/Hassan Pulse Ox Last 24 Hr 96.4 F-99 F 69-100 14-34 113-175/56-87 89-100 Exam: General appearance: over weight, other (He is alert and responds okay and is on BiPAP. He looks comfortable now) - Head Head exam: Present: normal inspection, normocephalic - Eye Eye exam: Absent: scleral icterus Pupils: Present: JAY - ENT ENT exam: Present: Unremarkable, he has a BiPAP mask. - Neck Neck exam: Present: normal inspection. Absent: lymphadenopathy, thyromegaly - Respiratory Respiratory exam: Present: He has good breath sounds bilaterally and his lungs sound reasonably clear. - Cardiovascular Cardiovascular exam: Present: regular rate and rhythm. Absent: gallop, systolic murmur - GI/Abdominal GI/Abdominal exam: Present: hypoactive bowel sounds, soft. Absent: distended, organomegaly, tenderness - Extremities Exam Extremities exam: Present: He has no leg swelling or tenderness. - Neurological Exam Neurological exam: Present: other (He does follow commands and is fairly alert) - Skin Skin exam: Present: warm, dry Results - Labs CBC & BMP: 09/15/16 04:23 09/15/16 04:23 - Diagnostic Findings Procedure: Chest x-ray: image reviewed by me, report reviewed by me (Chest x- ray looks clear.) Assessment and Plan (1) CAD (coronary artery disease) Status: Chronic Assessment and plan: Patient has significant triple-vessel coronary artery disease with an ischemic cardiomyopathy and ejection fraction of 30%. He is off the balloon pump now and has just minimal heart failure. His chest x-ray looks better and his breathing is a little better now. Current Visit: Yes (2) Hypertension Status: Chronic Assessment and plan: His blood pressure has been better and the balloon pump is out and he is off pressors. He looks fairly stable now. Current Visit: Yes (3) Dyslipidemia Status: Chronic Assessment and plan: This can be treated later. Current Visit: Yes (4) Diabetes Status: Chronic Assessment and plan: His glucose has been monitored. His glucose is 175 this morning Current Visit: Yes (5) Obesity (BMI 30-39.9) Status: Chronic Assessment and plan: He is a large man. He has been ventilated okay. Current Visit: Yes (6) Chronic renal insufficiency, stage II (mild) Status: Chronic Assessment and plan: His creatinine is down to 1.8 today. His renal function has been stable. Current Visit: Yes (7) Hypoxic encephalopathy Status: Acute Assessment and plan: The patient has done well and is more responsive now. He still gets agitated and anxious but otherwise is doing okay. Current Visit: Yes (8) Cardiac arrest Status: Acute Assessment and plan: Patient is status post brief cardiac arrest and has done fairly well now. He is responding okay and is off the ventilator. He looks like he is doing a little better now. We will try to increase his diet and activity. Current Visit: Yes (9) On mechanically assisted ventilation Status: Resolved Assessment and plan: He has done okay off the ventilator although he did require BiPAP last night. His chest x-ray is clear now. His breathing has improved. Current Visit: No (10) NSTEMI (non-ST elevated myocardial infarction) Status: Acute Assessment and plan: He does have significant enzymes. His troponin went up to 3.4 and is starting to fall. His cardiac enzymes are improving. Current Visit: Yes
--- NOTE | 2016-09-15 07:03 | Cardiology Progress Note ---
Cardiology - PN: Subj Interval history: Cardiology note 71-year-old man with three-vessel CAD and decreased ejection fraction by cardiac cath September 07, 2016. Patient had respiratory arrest just prior to cath. Alert and responsive. Telemetry shows sinus rhythm in the 70-80 range Blood pressure 150/74 O2 sat 92 on CPAP Regular rhythm no murmur Decreased breath sounds few basilar rhonchi Abdomen benign No leg edema Lab data today White count 12.9 hemoglobin 9.0 hematocrit 29.7 Sodium 148 potassium 4.6 chloride 111 CO2 30 BUN 51 creatinine 1.80 Glucose 190 magnesium 2.7 Chest x-ray no CHF or infiltrate Impression Ischemic cardiomyopathy EF 30% Severe three-vessel CAD Chronic hypertension COPD Mild chronic renal insufficiency Noncompliance Plan Pulmonary toilet Monitor rhythm and blood pressure Exam (Progress Note) - Constitutional Vitals: Period Temp Pulse Resp BP Sys/Hassan Pulse Ox Last 24 Hr 96.4 F-99 F 69-100 14-34 113-175/56-87 89-100 Result/EKG - Labs CBC & BMP: 09/15/16 04:23 09/15/16 04:23 Labs: Laboratory Results - last 24 hr 09/11/16 09/11/16 09/14/16 04:57 12:06 11:49 WBC RBC Hgb Hct MCV MCH MCHC RDW Plt Count MPV Neut % (Auto) Lymph % (Auto) [place] % (Auto) Eos % (Auto) Baso % (Auto) Neut # (Auto) Lymph # (Auto) [place] # (Auto) Eos # (Auto) Baso # (Auto) Total Counted Immature Gran % Nucleated RBC % Immature Gran # Segmented Neutrophils Band Neutrophils Lymphocytes Monocytes Eosinophils Nucleated RBCs # Platelet Estimate Hypochromasia Sodium Potassium Chloride Carbon Dioxide Anion Gap BUN Creatinine GFR Calculation BUN/Creatinine Ratio Glucose POC Glucose 166 H 187 H 300 H Calculated Osmolality Calcium Magnesium 09/14/16 09/14/16 09/15/16 18:04 23:29 04:23 WBC 12.9 H RBC 3.17 L Hgb 9.0 L Hct 29.7 L MCV 93.7 MCH 28 MCHC 30.3 L RDW 16.8 Plt Count 245 MPV 12.4 H Neut % (Auto) 67.8 Lymph % (Auto) 11.9 L [place] % (Auto) 12.0 Eos % (Auto) 5.2 Baso % (Auto) 0.4 Neut # (Auto) 8.7 H Lymph # (Auto) 1.5 [place] # (Auto) 1.5 H Eos # (Auto) 0.7 Baso # (Auto) 0.1 Total Counted 100 Immature Gran % 2.7 Nucleated RBC % 0.0 Immature Gran # 0.35 Segmented Neutrophils 71 Band Neutrophils 2 Lymphocytes 11 L Monocytes 11 Eosinophils 5 Nucleated RBCs # 0.00 Platelet Estimate Normal Hypochromasia Slight Sodium Potassium Chloride Carbon Dioxide Anion Gap BUN Creatinine GFR Calculation BUN/Creatinine Ratio Glucose POC Glucose 252 H 209 H Calculated Osmolality Calcium Magnesium 09/15/16 09/15/16 04:23 05:25 WBC RBC Hgb Hct MCV MCH MCHC RDW Plt Count MPV Neut % (Auto) Lymph % (Auto) [place] % (Auto) Eos % (Auto) Baso % (Auto) Neut # (Auto) Lymph # (Auto) [place] # (Auto) Eos # (Auto) Baso # (Auto) Total Counted Immature Gran % Nucleated RBC % Immature Gran # Segmented Neutrophils Band Neutrophils Lymphocytes Monocytes Eosinophils Nucleated RBCs # Platelet Estimate Hypochromasia Sodium 148 H Potassium 4.6 Chloride 111 H Carbon Dioxide 30 Anion Gap 11.6 BUN 51 H Creatinine 1.80 H GFR Calculation 45 BUN/Creatinine Ratio 28.00 H Glucose 190 H POC Glucose 175 H Calculated Osmolality 312.3 H Calcium 9.4 Magnesium 2.7 H
[2016-09-15] MEDS: PANTOPRAZOLE 40 MG VIAL IV SCH (08:50)
[2016-09-15] MEDS: DESITIN 4OZ/NYSTATIN 15 GRAM MIXTURE PASTE TOP SCH ×2 (09:00→21:27)
[2016-09-15] MEDS: MULTIVITAMIN LIQUID (CENTRUM) 60 ML BOTTLE NG SCH (09:00)
[2016-09-15] MEDS: MINERAL OIL/PETROLATUM OPH OINT 3.5 GM TUBE BOTH EYES SCH ×3 (09:00→21:33)
[2016-09-15] MEDS: ASPIRIN CHEW 81 MG TABLET PO SCH (09:00)
[2016-09-15] MEDS: AMIODARONE 200 MG TABLET PO SCH ×2 (09:00→21:27)
[2016-09-15] MEDS: CARVEDILOL 6.25 MG TABLET PO SCH ×2 (09:00→21:26)
[2016-09-15] MEDS: ENOXAPARIN 80 MG/0.8 ML SYRINGE SUBCUT SCH (12:00)
[2016-09-15] MEDS: ATORVASTATIN 40 MG TABLET PO SCH (21:27)
[2016-09-15] MEDS ORDERED: CLORAZEPATE 7.5 MG TABLET PO ONE (22:15)
[2016-09-16] MEDS: INSULIN REGULAR 100 UNIT/ML SUBCUT SCH ×5 (01:05→20:37)
[2016-09-16] MEDS: CLINDAMYCIN INJ 300 MG in PREMIX 1 EACH IV SCH ×4 (02:13→21:24)
[2016-09-16] MEDS: MEROPENEM 500 MG in SODIUM CHLORIDE 0.9% 100 ML IV SCH ×3 (03:09→20:11)
[2016-09-16] MEDS: ALBUTEROL/IPRATROPIUM 3 ML NEB RESP TX SCH ×6 (03:48→23:51)
[2016-09-16 05:37] LABS: Basophils # 0.1 10*3/uL (0.0-0.2); Basophils % 0.3 % (0.0-0.8); Eosinophils # 0.7 10*3/uL (0.0-0.87); Eosinophils % 4.5 % (0.00-10.9); Hematocrit 27.8 VOL% (42.0-52.0); Hemoglobin 8.6 GM/DL (14.0-18.0); Immature Granulocytes Absolute 0.28 #; Lymphocytes # 1.6 10*3/uL (1.4-4.0); Lymphocytes % 10.8 % (21.2-54.2); Mean Corpuscular HGB Conc 30.9 GM/DL (32-36); Mean Corpuscular Hemoglobin 29 PG (27-34); Mean Corpuscular Volume 92.7 FL (87-102); Mean Platelet Volume 12.7 FL (9.6-12.0); Monocytes # 1.4 10*3/uL (0.11-0.8); Neutrophils # 10.4 10*3/uL (1.4-7.4); Neutrophils % 72.4 % (38.7-73.9); Platelet Count 287 T/CUMM (130-400); Red Cell Distribution Width 16.8 % (9.3-17.3); White Blood Count 14.4 T/CUMM (4-12)
[2016-09-16 06:03] LABS: Eosinophils 8 % (0-10); Hypochromasia 1+; Lymphocytes 17 % (20-55); Microcytosis Slight; Platelet Estimate Adequate; Segmented Neutrophils 67 % (50-85); Total Cells Counted 100
[2016-09-16 06:06] LABS: Calcium 9.4 MG/DL (8.5-10.1); Magnesium 2.4 MG/DL (1.8-2.4); Osmolality,Calculated 308.3 MOS/KG (273-304); Potassium 4.5 MMOL/L (3.5-5.1)
--- NOTE | 2016-09-16 06:29 | Cardiothoracic Progress Note ---
Cardiothoracic Subjective Interval history: Patient seems to be slowly gaining ground. Renal function is improving and he has been off the ventilator now about 48 hours and is slowly getting more comfortable. Continue present therapy for now. Exam (Progress Note) - Constitutional Vitals: Period Temp Pulse Resp BP Sys/Hassan Pulse Ox Last 24 Hr 97.7 F-97.8 F 70-104 16-28 120-168/54-110 86-100 Result/EKG - Labs CBC & BMP: 09/16/16 04:59 09/16/16 04:59 Labs: Laboratory Results - last 24 hr 09/15/16 09/15/16 09/16/16 11:50 17:34 00:15 WBC RBC Hgb Hct MCV MCH MCHC RDW Plt Count MPV Neut % (Auto) Lymph % (Auto) [place] % (Auto) Eos % (Auto) Baso % (Auto) Neut # (Auto) Lymph # (Auto) [place] # (Auto) Eos # (Auto) Baso # (Auto) Total Counted Immature Gran % Nucleated RBC % Immature Gran # Segmented Neutrophils Lymphocytes Monocytes Eosinophils Nucleated RBCs # Platelet Estimate Hypochromasia Microcytosis Morphology Comment Sodium Potassium Chloride Carbon Dioxide Anion Gap BUN Creatinine GFR Calculation BUN/Creatinine Ratio Glucose POC Glucose 243 H 200 H 134 H Calculated Osmolality Calcium Magnesium 09/16/16 09/16/16 09/16/16 04:59 04:59 05:42 WBC 14.4 H RBC 3.00 L Hgb 8.6 L Hct 27.8 L MCV 92.7 MCH 29 MCHC 30.9 L RDW 16.8 Plt Count 287 MPV 12.7 H Neut % (Auto) 72.4 Lymph % (Auto) 10.8 L [place] % (Auto) 10.0 Eos % (Auto) 4.5 Baso % (Auto) 0.3 Neut # (Auto) 10.4 H Lymph # (Auto) 1.6 [place] # (Auto) 1.4 H Eos # (Auto) 0.7 Baso # (Auto) 0.1 Total Counted 100 Immature Gran % 2.0 Nucleated RBC % 0.0 Immature Gran # 0.28 Segmented Neutrophils 67 Lymphocytes 17 L Monocytes 8 Eosinophils 8 Nucleated RBCs # 0.00 Platelet Estimate Adequate Hypochromasia 1+ Microcytosis Slight Morphology Comment Sodium 148 H Potassium 4.5 Chloride 111 H Carbon Dioxide 30 Anion Gap 11.5 BUN 42 H Creatinine 1.50 H GFR Calculation 70 BUN/Creatinine Ratio 28.00 H Glucose 164 H POC Glucose 144 H Calculated Osmolality 308.3 H Calcium 9.4 Magnesium 2.4
--- NOTE | 2016-09-16 06:39 | XRay Report ---
Referring Physician: Juanpablo Gregg MD Exam: XR chest 1V portable Date: September 16, 2016 at 3:11 AM Reason: Shortness of breath Comparison: Chest one view portable September 15, 2016 Findings: The previously seen feeding tube is no longer identified. The cardiac silhouette is mildly enlarged, but this may be related to the portable technique. There is persistent elevation of the right hemidiaphragm, prominent interstitial markings and bibasilar opacities. This is concerning for pulmonary edema and atelectasis, but pneumonia is not excluded. No pneumothorax is identified, but there may be minimal right pleural fluid. The osseous structures appear stable. Impression: There is increased atelectasis at the right lung base and likely slight increased pulmonary edema. PROCEDURE INTERPRETED AT [facility] DEPARTMENT OF RADIOLOGY Final Report Signed by: Dr. Marcelo Reynolds
--- NOTE | 2016-09-16 07:04 | Cardiology Progress Note ---
Cardiology - PN: Subj Interval history: Cardiology note 71-year-old man with three-vessel CAD and cardiomyopathy by heart cath September 07, 2016. Status post Respiratory arrest prior to cath. Currently a little confused. O2 sat 97 on 3 L cannula Blood pressure 150/62 Telemetry shows sinus rhythm in the 80s Regular rhythm no gallop Decreased breath sounds few basilar rhonchi Abdomen soft benign No leg edema Lab data today White count 14.4 Hemoglobin 8.6 hematocrit 27.8 Sodium 148 potassium 4.5 chloride 111 CO2 30 BUN 42 creatinine 1.50 Glucose 164 magnesium 2.4 Impression Status post non-Q-wave [place] Three-vessel CAD with EF 30% Chronic hypertension History of CHF Mild chronic renal insufficiency COPD Noncompliance Plan Pulmonary toilet Aspirin 325 mg Carvedilol 6.25 mg twice daily Atorvastatin 40 mg daily Lisinopril 5 mg daily Exam (Progress Note) - Constitutional Vitals: Period Temp Pulse Resp BP Sys/Hassan Pulse Ox Last 24 Hr 97.7 F-97.8 F 70-104 16-29 120-178/54-110 86-100 Result/EKG - Labs CBC & BMP: 09/16/16 04:59 09/16/16 04:59 Labs: Laboratory Results - last 24 hr 09/15/16 09/15/16 09/16/16 11:50 17:34 00:15 WBC RBC Hgb Hct MCV MCH MCHC RDW Plt Count MPV Neut % (Auto) Lymph % (Auto) [place] % (Auto) Eos % (Auto) Baso % (Auto) Neut # (Auto) Lymph # (Auto) [place] # (Auto) Eos # (Auto) Baso # (Auto) Total Counted Immature Gran % Nucleated RBC % Immature Gran # Segmented Neutrophils Lymphocytes Monocytes Eosinophils Nucleated RBCs # Platelet Estimate Hypochromasia Microcytosis Morphology Comment Sodium Potassium Chloride Carbon Dioxide Anion Gap BUN Creatinine GFR Calculation BUN/Creatinine Ratio Glucose POC Glucose 243 H 200 H 134 H Calculated Osmolality Calcium Magnesium 09/16/16 09/16/16 09/16/16 04:59 04:59 05:42 WBC 14.4 H RBC 3.00 L Hgb 8.6 L Hct 27.8 L MCV 92.7 MCH 29 MCHC 30.9 L RDW 16.8 Plt Count 287 MPV 12.7 H Neut % (Auto) 72.4 Lymph % (Auto) 10.8 L [place] % (Auto) 10.0 Eos % (Auto) 4.5 Baso % (Auto) 0.3 Neut # (Auto) 10.4 H Lymph # (Auto) 1.6 [place] # (Auto) 1.4 H Eos # (Auto) 0.7 Baso # (Auto) 0.1 Total Counted 100 Immature Gran % 2.0 Nucleated RBC % 0.0 Immature Gran # 0.28 Segmented Neutrophils 67 Lymphocytes 17 L Monocytes 8 Eosinophils 8 Nucleated RBCs # 0.00 Platelet Estimate Adequate Hypochromasia 1+ Microcytosis Slight Morphology Comment Sodium 148 H Potassium 4.5 Chloride 111 H Carbon Dioxide 30 Anion Gap 11.5 BUN 42 H Creatinine 1.50 H GFR Calculation 70 BUN/Creatinine Ratio 28.00 H Glucose 164 H POC Glucose 144 H Calculated Osmolality 308.3 H Calcium 9.4 Magnesium 2.4
--- NOTE | 2016-09-16 07:19 | Pulmonology Progress Note ---
Pulmonary - PN: Subj Interval history: The patient is a 71-year-old black man that came in with shortness of breath and some weakness there was a question of mild heart failure. He was taken to the [facility] where he had a brief cardiac arrest. He was found to have triple- vessel coronary artery disease with ejection fraction of 30%. He has been placed on the ventilator and the balloon pump. He did the cooling protocol and now he is warm back up. He has done fairly well over the weekend and the balloon pump has been removed. His blood pressure has been stable. He was doing a little better with his breathing and had a cuff leak. He was extubated and has done reasonably well. He still gets restless easily but his breathing seems to be better. He did sit up in a chair yesterday. Overall he feels better. He is mainly anxious and was to go home. Exam (Progress Note) - Constitutional Vitals: Period Temp Pulse Resp BP Sys/Hassan Pulse Ox Last 24 Hr 97.7 F-97.8 F 70-104 16-29 120-178/54-110 86-100 Exam: General appearance: over weight, other (He is alert and responds okay and is comfortable on low flow oxygen now.) - Head Head exam: Present: normal inspection, normocephalic - Eye Eye exam: Absent: scleral icterus Pupils: Present: JAY - ENT ENT exam: Present: Unremarkable, he has a nasal cannula now. Neck exam: Present: normal inspection. Absent: lymphadenopathy, thyromegaly - Respiratory Respiratory exam: Present: He has good breath sounds bilaterally and his lungs sound reasonably clear. He is moving air fairly well. - Cardiovascular Cardiovascular exam: Present: regular rate and rhythm. Absent: gallop, systolic murmur - GI/Abdominal GI/Abdominal exam: Present: hypoactive bowel sounds, soft. Absent: distended, organomegaly, tenderness - Extremities Exam Extremities exam: Present: He has no leg swelling or tenderness. - Neurological Exam Neurological exam: Present: other (He does follow commands and is fairly alert. He does get anxious at times.) - Skin Skin exam: Present: warm, dry Results - Labs CBC & BMP: 09/16/16 04:59 09/16/16 04:59 - Diagnostic Findings Procedure: Chest x-ray: image reviewed by me, report reviewed by me (Chest x- ray shows mild haziness in the left chest) Assessment and Plan (1) CAD (coronary artery disease) Status: Chronic Assessment and plan: Patient has significant triple-vessel coronary artery disease with an ischemic cardiomyopathy and ejection fraction of 30%. He is off the balloon pump now and has just minimal heart failure. He is definitely more comfortable with his breathing. Current Visit: Yes (2) Hypertension Status: Chronic Assessment and plan: His blood pressure has been better and the balloon pump is out and he is off pressors. He looks fairly stable now. His blood pressure is a little on the high side now. Current Visit: Yes (3) Dyslipidemia Status: Chronic Assessment and plan: This can be treated later. Current Visit: Yes (4) Diabetes Status: Chronic Assessment and plan: His glucose has been monitored. His glucose is 144 this morning Current Visit: Yes (5) Obesity (BMI 30-39.9) Status: Chronic Assessment and plan: He is a large man. He is moving around a little better now. Current Visit: Yes (6) Chronic renal insufficiency, stage II (mild) Status: Chronic Assessment and plan: His creatinine is down to 1.5 today. His renal function has been stable. Current Visit: Yes (7) Hypoxic encephalopathy Status: Acute Assessment and plan: The patient has done well and is more responsive now. He still gets agitated and anxious but is much more alert now. Current Visit: Yes (8) Cardiac arrest Status: Acute Assessment and plan: Patient is status post brief cardiac arrest and has done fairly well now. He is responding okay and is off the ventilator. He looks like he is doing a little better now. We will try to increase his diet and activity. Current Visit: Yes (9) NSTEMI (non-ST elevated myocardial infarction) Status: Acute Assessment and plan: He does have significant enzymes. His troponin went up to 3.4 and is starting to fall. His cardiac enzymes are improving. He has significant coronary artery disease. Current Visit: Yes
[2016-09-16] MEDS: MINERAL OIL/PETROLATUM OPH OINT 3.5 GM TUBE BOTH EYES SCH ×3 (08:40→21:24)
[2016-09-16] MEDS: DESITIN 4OZ/NYSTATIN 15 GRAM MIXTURE PASTE TOP SCH ×2 (08:40→21:25)
[2016-09-16] MEDS: AMIODARONE 200 MG TABLET PO SCH ×2 (08:40→21:18)
[2016-09-16] MEDS: CLORAZEPATE 3.75 MG TABLET PO PRN (08:40)
[2016-09-16] MEDS: PANTOPRAZOLE 40 MG VIAL IV SCH (08:40)
[2016-09-16] MEDS: LISINOPRIL 5 MG TABLET PO SCH (08:40)
[2016-09-16] MEDS: ASPIRIN CHEW 81 MG TABLET PO SCH (08:40)
[2016-09-16] MEDS: MULTIVITAMIN LIQUID (CENTRUM) 60 ML BOTTLE NG SCH (08:40)
[2016-09-16] MEDS: CARVEDILOL 6.25 MG TABLET PO SCH ×2 (08:40→21:18)
[2016-09-16] MEDS: ENOXAPARIN 80 MG/0.8 ML SYRINGE SUBCUT SCH (11:35)
[2016-09-16 18:16] LABS: ABG HCO3 27.1 MMOL/L (20-26); ABG Oxygen Saturation 93.8 % (95-100); ABG PCO2 46.3 MM HG (35-48); ABG PH 7.396 (7.35-7.45); ABG PO2 72.2 MM HG (80-95); ABG TCO2 26.1 MMOL/L (23-27)
--- NOTE | 2016-09-16 18:16 | XRay Report ---
XR chest 1V portable Indication: Lethargy. Decreased breath sounds at the lung bases. Chest one view: Since earlier today at 0314 hours, the right hemidiaphragm remains elevated. There is continued obscuration of the left lung base. Cardiomegaly is stable as well. No new infiltrates are seen. Impression: No change. PROCEDURE INTERPRETED AT [facility] DEPARTMENT OF RADIOLOGY Final Report Signed by: Mickey Goldstein M.D.
[2016-09-16] MEDS: ATORVASTATIN 40 MG TABLET PO SCH (21:18)
[2016-09-17] MEDS: ALBUTEROL/IPRATROPIUM 3 ML NEB RESP TX SCH ×6 (03:35→23:04)
[2016-09-17] MEDS: CLINDAMYCIN INJ 300 MG in PREMIX 1 EACH IV SCH (03:42)
[2016-09-17] MEDS: MEROPENEM 500 MG in SODIUM CHLORIDE 0.9% 100 ML IV SCH ×3 (04:17→20:28)
[2016-09-17 06:06] LABS: Basophils # 0.1 10*3/uL (0.0-0.2); Basophils % 0.4 % (0.0-0.8); Eosinophils # 0.6 10*3/uL (0.0-0.87); Eosinophils % 3.8 % (0.00-10.9); Immature Granulocytes % 1.4 %; Immature Granulocytes Absolute 0.23 #; Lymphocytes # 1.8 10*3/uL (1.4-4.0); Lymphocytes % 10.8 % (21.2-54.2); Mean Corpuscular HGB Conc 28.7 GM/DL (32-36); Mean Corpuscular Hemoglobin 28 PG (27-34); Mean Corpuscular Volume 98.4 FL (87-102); Mean Platelet Volume 12.4 FL (9.6-12.0); Monocytes # 1.6 10*3/uL (0.11-0.8); Monocytes % 9.7 % (1.7-12.7); Neutrophils % 73.9 % (38.7-73.9); Platelet Count 325 T/CUMM (130-400); Red Blood Count 3.15 MC/CUMM (3.8-5.5); Red Cell Distribution Width 16.8 % (9.3-17.3); White Blood Count 16.2 T/CUMM (4-12)
[2016-09-17 06:17] LABS: Hematocrit 30.3 VOL% (42.0-52.0)
--- NOTE | 2016-09-17 06:37 | Cardiothoracic Progress Note ---
Cardiothoracic Subjective Interval history: Patient seems more awake and alert today although he has been a little confused during the night he seems far better this morning than I have seen him since his acute event. Vital signs have been stable and his O2 sats have been acceptable. We will continue current therapy but I am encouraged that he may recover to the point of being able to undergo surgery. Exam (Progress Note) - Constitutional Vitals: Period Temp Pulse Resp BP Sys/Hassan Pulse Ox Last 24 Hr 97.5 F-98.8 F 63-97 18-34 114-180/54-88 92-100 Result/EKG - Labs CBC & BMP: 09/17/16 05:38 09/16/16 04:59 Labs: Laboratory Results - last 24 hr 09/16/16 09/16/16 09/16/16 11:18 16:22 17:56 WBC RBC Hgb Hct MCV MCH MCHC RDW Plt Count MPV Neut % (Auto) Lymph % (Auto) [place] % (Auto) Eos % (Auto) Baso % (Auto) Neut # (Auto) Lymph # (Auto) [place] # (Auto) Eos # (Auto) Baso # (Auto) Immature Gran % Nucleated RBC % Immature Gran # Nucleated RBCs # ABG pH 7.396 ABG pCO2 46.3 ABG pO2 72.2 L ABG HCO3 27.1 H ABG Total CO2 26.1 ABG O2 Saturation 93.8 L ABG Base Excess 3.0 H FiO2 32.00 POC Glucose 215 H 180 H 09/16/16 09/17/16 20:35 05:38 WBC 16.2 H RBC 3.15 L Hgb 9.0 L Hct 30.3 L MCV 98.4 MCH 28 MCHC 28.7 L RDW 16.8 Plt Count 325 MPV 12.4 H Neut % (Auto) 73.9 Lymph % (Auto) 10.8 L [place] % (Auto) 9.7 Eos % (Auto) 3.8 Baso % (Auto) 0.4 Neut # (Auto) 12.0 H Lymph # (Auto) 1.8 [place] # (Auto) 1.6 H Eos # (Auto) 0.6 Baso # (Auto) 0.1 Immature Gran % 1.4 Nucleated RBC % 0.0 Immature Gran # 0.23 Nucleated RBCs # 0.00 ABG pH ABG pCO2 ABG pO2 ABG HCO3 ABG Total CO2 ABG O2 Saturation ABG Base Excess FiO2 POC Glucose 148 H
[2016-09-17 06:44] LABS: Calcium 9.6 MG/DL (8.5-10.1); Magnesium 2.5 MG/DL (1.8-2.4); Osmolality,Calculated 307.3 MOS/KG (273-304); Potassium 5.1 MMOL/L (3.5-5.1)
--- NOTE | 2016-09-17 06:47 | Cardiology Progress Note ---
Cardiology - PN: Subj Interval history: Cardiology note 71-year-old man status post respiratory arrest September 07, 2013 prior to his heart cath. Had a better night. O2 sat 98 on 4 L nasal cannula Telemetry shows sinus rhythm in the 80s Blood pressure 146/82 Appetite improving. Regular rhythm no gallop. Decreased breath sounds with bilateral rhonchi Abdomen soft benign No leg edema Lab data today White count 16.2 hemoglobin 9.0 hematocrit 30.3 BMP is pending Impression Non-Q-wave [place] Three-vessel CAD with ejection fraction 30% Chronic hypertension History of CHF Mild chronic renal insufficiency COPD Noncompliance Plan Pulmonary toilet nebs Aspirin 325 mg daily Lipitor 40 mg daily Lisinopril 5 mg daily Coreg 6.25 mg twice daily BMP pending Exam (Progress Note) - Constitutional Vitals: Period Temp Pulse Resp BP Sys/Hassan Pulse Ox Last 24 Hr 97.5 F-98.8 F 63-97 18-34 114-180/54-88 92-100 Result/EKG - Labs CBC & BMP: 09/17/16 05:38 09/16/16 04:59 Labs: Laboratory Results - last 24 hr 09/16/16 09/16/16 09/16/16 11:18 16:22 17:56 WBC RBC Hgb Hct MCV MCH MCHC RDW Plt Count MPV Neut % (Auto) Lymph % (Auto) [place] % (Auto) Eos % (Auto) Baso % (Auto) Neut # (Auto) Lymph # (Auto) [place] # (Auto) Eos # (Auto) Baso # (Auto) Immature Gran % Nucleated RBC % Immature Gran # Nucleated RBCs # ABG pH 7.396 ABG pCO2 46.3 ABG pO2 72.2 L ABG HCO3 27.1 H ABG Total CO2 26.1 ABG O2 Saturation 93.8 L ABG Base Excess 3.0 H FiO2 32.00 POC Glucose 215 H 180 H 09/16/16 09/17/16 20:35 05:38 WBC 16.2 H RBC 3.15 L Hgb 9.0 L Hct 30.3 L MCV 98.4 MCH 28 MCHC 28.7 L RDW 16.8 Plt Count 325 MPV 12.4 H Neut % (Auto) 73.9 Lymph % (Auto) 10.8 L [place] % (Auto) 9.7 Eos % (Auto) 3.8 Baso % (Auto) 0.4 Neut # (Auto) 12.0 H Lymph # (Auto) 1.8 [place] # (Auto) 1.6 H Eos # (Auto) 0.6 Baso # (Auto) 0.1 Immature Gran % 1.4 Nucleated RBC % 0.0 Immature Gran # 0.23 Nucleated RBCs # 0.00 ABG pH ABG pCO2 ABG pO2 ABG HCO3 ABG Total CO2 ABG O2 Saturation ABG Base Excess FiO2 POC Glucose 148 H
--- NOTE | 2016-09-17 07:48 | Pulmonology Progress Note ---
Pulmonary - PN: Subj Interval history: The patient is a 71-year-old black man that came in with shortness of breath and some weakness there was a question of mild heart failure. He was taken to the [facility] where he had a brief cardiac arrest. He was found to have triple- vessel coronary artery disease with ejection fraction of 30%. He has been placed on the ventilator and the balloon pump. He did the cooling protocol and now he is warm back up. He has done fairly well over the weekend and the balloon pump has been removed. His blood pressure has been stable. He was extubated couple days ago and has done reasonably well. He gets a little agitated sometimes. He has trouble laying flat but did sit up fairly well. His confusion is better. He looks like he will have a tendency for heart failure. Exam (Progress Note) - Constitutional Vitals: Period Temp Pulse Resp BP Sys/Hassan Pulse Ox Last 24 Hr 97.5 F-98.8 F 63-97 18-34 114-180/54-82 92-100 Exam: General appearance: over weight, other (He is alert and and is responding okay and does not seem to be in too much distress.) - Head Head exam: Present: normal inspection, normocephalic - Eye Eye exam: Absent: scleral icterus Pupils: Present: JAY - ENT ENT exam: Present: Unremarkable, he has a nasal cannula now. Neck exam: Present: normal inspection. Absent: lymphadenopathy, thyromegaly - Respiratory Respiratory exam: Present: He has good breath sounds bilaterally does not have any wheezing but has some slight crackles in the bases. - Cardiovascular Cardiovascular exam: Present: regular rate and rhythm. Absent: gallop, systolic murmur - GI/Abdominal GI/Abdominal exam: Present: hypoactive bowel sounds, soft. Absent: distended, organomegaly, tenderness - Extremities Exam Extremities exam: Present: He has no leg swelling or tenderness. - Neurological Exam Neurological exam: Present: other (He does follow commands and is fairly alert. He does get anxious at times.) - Skin Skin exam: Present: warm, dry Results - Labs CBC & BMP: 09/17/16 05:38 09/17/16 05:37 Assessment and Plan (1) CAD (coronary artery disease) Status: Chronic Assessment and plan: Patient has significant triple-vessel coronary artery disease with an ischemic cardiomyopathy and ejection fraction of 30%. He is off the balloon pump now and has just minimal heart failure. We will continue with mild diuresis. Current Visit: Yes (2) Hypertension Status: Chronic Assessment and plan: His blood pressure has been better and the balloon pump is out and he is off pressors. He looks fairly stable now. His blood pressure is a little on the high side now. We will continue with mild diuresis. Current Visit: Yes (3) Dyslipidemia Status: Chronic Assessment and plan: This can be treated later. Current Visit: Yes (4) Diabetes Status: Chronic Assessment and plan: His glucose has been monitored. His glucose is 162 this morning Current Visit: Yes (5) Obesity (BMI 30-39.9) Status: Chronic Assessment and plan: He is a large man. He is moving around a little better now. Current Visit: Yes (6) Chronic renal insufficiency, stage II (mild) Status: Chronic Assessment and plan: His creatinine is down to 1.5 today. His renal function has been stable. Current Visit: Yes (7) Hypoxic encephalopathy Status: Acute Assessment and plan: The patient has done well and is more responsive now. He still gets agitated and anxious but is much more alert now. He is still talking appropriately. Current Visit: Yes (8) Cardiac arrest Status: Acute Assessment and plan: Patient is status post brief cardiac arrest and has done fairly well now. He is responding okay and is off the ventilator. He looks like he is doing a little better now. We will try to increase his diet and activity. Current Visit: Yes (9) NSTEMI (non-ST elevated myocardial infarction) Status: Acute Assessment and plan: He does have significant enzymes. His troponin went up to 3.4 and is starting to fall. His cardiac enzymes are improving. He has significant coronary artery disease. He ultimately needs bypass surgery. Current Visit: Yes
[2016-09-17] MEDS ORDERED: FUROSEMIDE 40 MG/4 ML VIAL IV ONE (07:50)
[2016-09-17] MEDS: INSULIN REGULAR 100 UNIT/ML SUBCUT SCH ×4 (08:13→21:13)
[2016-09-17] MEDS: ASPIRIN CHEW 81 MG TABLET PO SCH (08:51)
[2016-09-17] MEDS: AMIODARONE 200 MG TABLET PO SCH ×2 (08:52→21:11)
[2016-09-17] MEDS: LISINOPRIL 5 MG TABLET PO SCH (08:52)
[2016-09-17] MEDS: CARVEDILOL 6.25 MG TABLET PO SCH ×2 (08:52→21:11)
[2016-09-17] MEDS: DESITIN 4OZ/NYSTATIN 15 GRAM MIXTURE PASTE TOP SCH ×2 (09:07→21:14)
[2016-09-17] MEDS: PANTOPRAZOLE 40 MG VIAL IV SCH (09:07)
[2016-09-17] MEDS: MINERAL OIL/PETROLATUM OPH OINT 3.5 GM TUBE BOTH EYES SCH ×3 (09:07→21:13)
[2016-09-17] MEDS: ENOXAPARIN 80 MG/0.8 ML SYRINGE SUBCUT SCH (11:56)
[2016-09-17] MEDS: MULTIVITAMIN LIQUID (CENTRUM) 60 ML BOTTLE NG SCH ×2 (13:51→17:40)
[2016-09-17] MEDS: ATORVASTATIN 40 MG TABLET PO SCH (21:13)
[2016-09-17] MEDS: CLORAZEPATE 3.75 MG TABLET PO PRN (21:56)
[2016-09-18] MEDS: ALBUTEROL/IPRATROPIUM 3 ML NEB RESP TX SCH ×6 (02:18→22:49)
[2016-09-18] MEDS: MEROPENEM 500 MG in SODIUM CHLORIDE 0.9% 100 ML IV SCH ×3 (04:26→21:14)
[2016-09-18 04:33] LABS: Calcium 9.3 MG/DL (8.5-10.1); Osmolality,Calculated 307.3 MOS/KG (273-304); Potassium 4.3 MMOL/L (3.5-5.1)
[2016-09-18] MEDS: MORPHINE 2 MG/1 ML SYRINGE IV PRN ×3 (04:35→23:31)
--- NOTE | 2016-09-18 06:50 | Cardiology Progress Note ---
Cardiology - PN: Subj Interval history: Cardiology note 71-year-old man status post respiratory arrest prior to heart cath September 07, 2016 More awake but still periods of confusion telemetry shows sinus rhythm in the 80s O2 sat 94% on 2 L cannula Blood pressure 150/76 Regular rhythm no murmur Decreased breath sounds few basilar rhonchi no wheezing Abdomen soft benign No leg edema Lab data today Sodium 148 potassium 4.3 chloride 109 CO2 31 BUN 40 creatinine 1.70 glucose 162 Impression Status post non-Q-wave [place] Severe three-vessel CAD Chronic hypertension Mild chronic renal insufficiency COPD Noncompliance Plan Hopefully surgery next week Continue Coreg 6.25 mg twice daily Continue lisinopril 5 mg daily Continue Lipitor 40 mg daily Aspirin 325 mg daily Exam (Progress Note) - Constitutional Vitals: Period Temp Pulse Resp BP Sys/Hassan Pulse Ox Last 24 Hr 98.2 F-98.5 F 71-90 10-30 121-181/50-78 92-100 Result/EKG - Labs CBC & BMP: 09/17/16 05:38 09/18/16 03:22 Labs: Laboratory Results - last 24 hr 09/17/16 09/17/16 09/17/16 07:47 11:44 15:59 Sodium Potassium Chloride Carbon Dioxide Anion Gap BUN Creatinine GFR Calculation BUN/Creatinine Ratio Glucose POC Glucose 163 H 227 H 197 H Calculated Osmolality Calcium 09/17/16 09/18/16 20:25 03:22 Sodium 148 H Potassium 4.3 Chloride 109 H Carbon Dioxide 31 Anion Gap 12.3 BUN 40 H Creatinine 1.70 H GFR Calculation 61 BUN/Creatinine Ratio 23.00 H Glucose 162 H POC Glucose 139 H Calculated Osmolality 307.3 H Calcium 9.3
[2016-09-18] MEDS: INSULIN REGULAR 100 UNIT/ML SUBCUT SCH ×4 (08:34→21:16)
[2016-09-18] MEDS: AMIODARONE 200 MG TABLET PO SCH ×2 (08:36→21:17)
[2016-09-18] MEDS: MULTIVITAMIN LIQUID (CENTRUM) 60 ML BOTTLE NG SCH (08:36)
[2016-09-18] MEDS: LISINOPRIL 5 MG TABLET PO SCH (08:36)
[2016-09-18] MEDS: PANTOPRAZOLE 40 MG VIAL IV SCH (08:36)
[2016-09-18] MEDS: CARVEDILOL 6.25 MG TABLET PO SCH ×2 (08:36→21:17)
[2016-09-18] MEDS: ASPIRIN CHEW 81 MG TABLET PO SCH (08:36)
[2016-09-18] MEDS: MINERAL OIL/PETROLATUM OPH OINT 3.5 GM TUBE BOTH EYES SCH ×3 (08:37→21:17)
[2016-09-18] MEDS: DESITIN 4OZ/NYSTATIN 15 GRAM MIXTURE PASTE TOP SCH ×2 (08:37→21:17)
--- NOTE | 2016-09-18 08:38 | XRay Report ---
Portable chest Date: 09/18/2016 Clinical history: Shortness of breath Comparison: 09/16/2016 Technique: Portable AP sitting chest Findings: Stable cardiomegaly with density posterior to the heart consistent with probable hiatal hernia. Persistent relative elevation of the right hemidiaphragm with minimal reduction in the parenchymal findings at the lung bases. Stable mediastinum with degenerative changes. Impression: Reduced atelectasis/infiltration/edema at the lung bases with residual small pleural effusions and relative elevation of the right hemidiaphragm. Probable hiatal hernia. PROCEDURE INTERPRETED AT [facility] DEPARTMENT OF RADIOLOGY Final Report Signed by: Dr. Ashia Gamez
[2016-09-18] MEDS: CLORAZEPATE 3.75 MG TABLET PO PRN (09:28)
--- NOTE | 2016-09-18 09:29 | Cardiothoracic Progress Note ---
Cardiothoracic Subjective Interval history: Patient continues to look a little more alert and a little more cooperative. The nurse reports that he did have a restless night however. He appears to be breathing comfortably and his vital signs are stable. He is getting out of bed a little bit more is going to be advanced to solid foods. I think surgical intervention could be complicated later this coming week or early the following week. We will continue to monitor his progress. Exam (Progress Note) - Constitutional Vitals: Period Temp Pulse Resp BP Sys/Hassan Pulse Ox Last 24 Hr 98.1 F-98.5 F 68-90 10-30 121-164/50-78 94-100 Result/EKG - Labs CBC & BMP: 09/17/16 05:38 09/18/16 03:22 Labs: Laboratory Results - last 24 hr 09/17/16 09/17/16 09/17/16 11:44 15:59 20:25 Sodium Potassium Chloride Carbon Dioxide Anion Gap BUN Creatinine GFR Calculation BUN/Creatinine Ratio Glucose POC Glucose 227 H 197 H 139 H Calculated Osmolality Calcium 09/18/16 09/18/16 03:22 07:52 Sodium 148 H Potassium 4.3 Chloride 109 H Carbon Dioxide 31 Anion Gap 12.3 BUN 40 H Creatinine 1.70 H GFR Calculation 61 BUN/Creatinine Ratio 23.00 H Glucose 162 H POC Glucose 172 H Calculated Osmolality 307.3 H Calcium 9.3
[2016-09-18] MEDS: ENOXAPARIN 80 MG/0.8 ML SYRINGE SUBCUT SCH (12:33)
[2016-09-18] MEDS: ATORVASTATIN 40 MG TABLET PO SCH (21:17)
[2016-09-19] MEDS: MORPHINE 2 MG/1 ML SYRINGE IV PRN (02:32)
[2016-09-19] MEDS: ALBUTEROL/IPRATROPIUM 3 ML NEB RESP TX SCH ×6 (02:44→23:35)
[2016-09-19] MEDS: MEROPENEM 500 MG in SODIUM CHLORIDE 0.9% 100 ML IV SCH ×3 (03:57→20:57)
--- NOTE | 2016-09-19 07:01 | Cardiology Progress Note ---
Cardiology - PN: Subj Interval history: Cardiology note 71-year-old man with severe CAD awaiting bypass surgery. Status post respiratory arrest prior to his heart cath September 07, 2013. Main problems now are intermittent confusion and respiratory insufficiency which are improving. Telemetry shows sinus rhythm in the 70-80 range O2 sat 92 on 2 L cannula blood pressure 140/66 Regular rhythm no murmur Decreased breath sounds with bibasilar rhonchi Abdomen benign No leg edema Impression Status post non-Q-wave [place] Three-vessel CAD Chronic hypertension Mild chronic renal insufficiency creatinine 1.70 BUN 41 tested September 18 COPD Confusion Noncompliance Plan Aspirin 325 mg daily Lipitor 40 mg daily Lisinopril 5 mg daily Coreg 6.25 mg twice daily Following neurological and respiratory status closely. Timing of bypass surgery is still unclear at this time, although patient is improving BMP CBC a.m. Exam (Progress Note) - Constitutional Vitals: Period Temp Pulse Resp BP Sys/Hassan Pulse Ox Last 24 Hr 98.1 F-99.8 F 68-96 14-26 101-164/47-85 90-100 Result/EKG - Labs CBC & BMP: 09/17/16 05:38 09/18/16 03:22 Labs: Laboratory Results - last 24 hr 09/18/16 09/18/16 09/18/16 07:52 12:06 15:55 POC Glucose 172 H 227 H 167 H 09/18/16 21:05 POC Glucose 227 H
--- NOTE | 2016-09-19 08:09 | Cardiothoracic Progress Note ---
Cardiothoracic Subjective Interval history: Patient continues to make progress and seems neurologically some better today although he is still periodically confused. He is beginning to get out of bed some during the day and is taking solid food. He still looks to me like he would be formidable surgical risk at this point and although I do understand there is some risk in waiting on surgery I think we need to follow him along for a little while before proceeding. I would think not before the end of this week or the beginning of next week. Exam (Progress Note) - Constitutional Vitals: Period Temp Pulse Resp BP Sys/Hassan Pulse Ox Last 24 Hr 98.2 F-99.8 F 68-96 17-26 101-156/47-85 90-100 Result/EKG - Labs CBC & BMP: 09/17/16 05:38 09/18/16 03:22 Labs: Laboratory Results - last 24 hr 09/18/16 09/18/16 09/18/16 12:06 15:55 21:05 POC Glucose 227 H 167 H 227 H 09/19/16 07:31 POC Glucose 166 H
[2016-09-19] MEDS: ASPIRIN CHEW 81 MG TABLET PO SCH (08:24)
[2016-09-19] MEDS: MULTIVITAMIN LIQUID (CENTRUM) 60 ML BOTTLE NG SCH (08:24)
[2016-09-19] MEDS: CARVEDILOL 6.25 MG TABLET PO SCH ×2 (08:24→20:57)
[2016-09-19] MEDS: AMIODARONE 200 MG TABLET PO SCH ×2 (08:24→20:58)
[2016-09-19] MEDS: PANTOPRAZOLE 40 MG VIAL IV SCH (08:25)
[2016-09-19] MEDS: LISINOPRIL 5 MG TABLET PO SCH (08:25)
[2016-09-19] MEDS: INSULIN REGULAR 100 UNIT/ML SUBCUT SCH ×4 (08:25→20:57)
[2016-09-19] MEDS: DESITIN 4OZ/NYSTATIN 15 GRAM MIXTURE PASTE TOP SCH ×2 (08:25→20:58)
[2016-09-19] MEDS: MINERAL OIL/PETROLATUM OPH OINT 3.5 GM TUBE BOTH EYES SCH ×3 (08:25→20:58)
[2016-09-19] MEDS: ENOXAPARIN 80 MG/0.8 ML SYRINGE SUBCUT SCH (11:56)
[2016-09-19] MEDS: ATORVASTATIN 40 MG TABLET PO SCH (20:57)
[2016-09-20] MEDS: MORPHINE 2 MG/1 ML SYRINGE IV PRN (01:22)
[2016-09-20] MEDS: ALBUTEROL/IPRATROPIUM 3 ML NEB RESP TX SCH ×5 (03:26→20:50)
[2016-09-20] MEDS: MEROPENEM 500 MG in SODIUM CHLORIDE 0.9% 100 ML IV SCH ×3 (04:12→22:23)
--- NOTE | 2016-09-20 06:13 | Cardiothoracic Progress Note ---
Cardiothoracic Subjective Interval history: Continued slow improvement. He is becoming a little less confused and agitated and is more oriented. Hopefully he will improve to the point where we can transfer him out of intensive care for a few days prior to consideration of surgery. Continue present therapy for now. Exam (Progress Note) - Constitutional Vitals: Period Temp Pulse Resp BP Sys/Hassan Pulse Ox Last 24 Hr 97.5 F-98.8 F 65-93 15-26 110-163/45-82 90-100 Result/EKG - Labs CBC & BMP: 09/17/16 05:38 09/18/16 03:22 Labs: Laboratory Results - last 24 hr 09/19/16 09/19/16 09/19/16 07:31 11:52 16:32 POC Glucose 166 H 227 H 155 H 09/19/16 20:37 POC Glucose 156 H
--- NOTE | 2016-09-20 07:30 | Pulmonology Progress Note ---
Pulmonary - PN: Subj Interval history: The patient is a 71-year-old black man that came in with shortness of breath and some weakness there was a question of mild heart failure. He was taken to the [facility] where he had a brief cardiac arrest. He was found to have triple- vessel coronary artery disease with ejection fraction of 30%. He has been placed on the ventilator and the balloon pump. He did the cooling protocol and now he is warm back up. He has done fairly well over the weekend and the balloon pump has been removed. His blood pressure has been stable. He has done fairly well off the ventilator and his shortness of breath is better. He still gets a little agitated at times. He still has considerable confusion. His chest x-ray looks stable couple days ago. Overall he is slowly improving. Exam (Progress Note) - Constitutional Vitals: Period Temp Pulse Resp BP Sys/Hassan Pulse Ox Last 24 Hr 97.5 F-98.8 F 65-93 15-26 110-163/45-82 90-100 Exam: General appearance: over weight, other (He is alert but does get restless and confused at times.) - Head Head exam: Present: normal inspection, normocephalic - Eye Eye exam: Absent: scleral icterus Pupils: Present: JAY - ENT ENT exam: Present: Unremarkable, he has a nasal cannula now. Neck exam: Present: normal inspection. Absent: lymphadenopathy, thyromegaly - Respiratory Respiratory exam: Present: He has good breath sounds bilaterally is moving air fairly well without any wheezing. - Cardiovascular Cardiovascular exam: Present: regular rate and rhythm. Absent: gallop, systolic murmur - GI/Abdominal GI/Abdominal exam: Present: hypoactive bowel sounds, soft. Absent: distended, organomegaly, tenderness - Extremities Exam Extremities exam: Present: He has no leg swelling or tenderness. - Neurological Exam Neurological exam: Present: other (He does follow commands and is fairly alert. He still is very restless and anxious.) - Skin Skin exam: Present: warm, dry Results - Labs CBC & BMP: 09/17/16 05:38 09/18/16 03:22 Assessment and Plan (1) CAD (coronary artery disease) Status: Chronic Assessment and plan: Patient has significant triple-vessel coronary artery disease with an ischemic cardiomyopathy and ejection fraction of 30%. He is off the balloon pump now and has just minimal heart failure. His vital signs are stable Current Visit: Yes (2) Hypertension Status: Chronic Assessment and plan: His blood pressure has been better and the balloon pump is out and he is off pressors. He looks fairly stable now. His blood pressure is a little on the high side now. We will continue with mild diuresis. Current Visit: Yes (3) Dyslipidemia Status: Chronic Assessment and plan: This can be treated later. Current Visit: Yes (4) Diabetes Status: Chronic Assessment and plan: His glucose has been monitored. His glucose is 152 this morning Current Visit: Yes (5) Obesity (BMI 30-39.9) Status: Chronic Assessment and plan: He is a large man. He is moving around a little better now. Current Visit: Yes (6) Chronic renal insufficiency, stage II (mild) Status: Chronic Assessment and plan: His creatinine is down to 1.7 today. His renal function has been stable. Current Visit: Yes (7) Hypoxic encephalopathy Status: Acute Assessment and plan: The patient has done well and is more responsive now. He still gets quite confused easily. Current Visit: Yes (8) Cardiac arrest Status: Acute Assessment and plan: Patient is status post brief cardiac arrest and has done fairly well now. He is responding okay and is off the ventilator. He does not seem to be in congestive heart failure now. We will try to start physical therapy. Current Visit: Yes (9) NSTEMI (non-ST elevated myocardial infarction) Status: Acute Assessment and plan: He does have significant enzymes. His troponin went up to 3.4 and is starting to fall. His cardiac enzymes are improving. He has significant coronary artery disease. He ultimately needs bypass surgery. Current Visit: Yes
--- NOTE | 2016-09-20 08:21 | Cardiology Progress Note ---
<Annia Etienne E - Last Filed: 09/20/16 08:10> Assessment and Plan - Time spent with patient Time spent with patient: Greater than 30 minutes (1) NSTEMI (non-ST elevated myocardial infarction) Status: Resolved Assessment and plan: SEE PLAN OF CARE LISTED BELOW Current Visit: Yes (2) CAD (coronary artery disease) Status: Chronic Assessment and plan: SEE PLAN OF CARE LISTED BELOW Current Visit: Yes (3) Hypertension Status: Chronic Assessment and plan: SEE PLAN OF CARE LISTED BELOW Current Visit: Yes (4) Dyslipidemia Status: Chronic Assessment and plan: SEE PLAN OF CARE LISTED BELOW Current Visit: Yes (5) Diabetes Status: Chronic Assessment and plan: SEE PLAN OF CARE LISTED BELOW Current Visit: Yes (6) Obesity (BMI 30-39.9) Status: Chronic Assessment and plan: SEE PLAN OF CARE LISTED BELOW Current Visit: Yes (7) Chronic renal insufficiency, stage II (mild) Status: Chronic Assessment and plan: SEE PLAN OF CARE LISTED BELOW Current Visit: Yes (8) Noncompliance Status: Chronic Assessment and plan: SEE PLAN OF CARE LISTED BELOW Current Visit: Yes (9) Ischemic cardiomyopathy Status: Chronic Assessment and plan: See plan of care listed below Current Visit: Yes (10) Cardiopulmonary arrest Status: Resolved Assessment and plan: See plan of care listed below Current Visit: Yes (11) On intra-aortic balloon pump assist Status: Resolved Assessment and plan: SEE PLAN OF CARE LISTED BELOW Current Visit: Yes Cardiology - PN: Subj Interval history: TRAUMA SURGEON: DR. MART PCP: DR. GAYLE HATHAWAY INITIAL SUMMARY: Mr. Landry was admitted for NSTEMI September 07, 2016. He underwent cardiac catheterization and was found to have significant three- vessel coronary artery disease, EF 35%, global hypokinesis. CV surgery was consulted regarding consideration of CABG. He did experience brief cardiopulmonary arrest prior to the cardiac catheterization. He required intra- aortic balloon pump and pressors for several days. Because he did not have spontaneous return of consciousness, he was treated with [facility] post-code protocol and has improved. He CRI which has been stable over the weekend. Timing of CABG is uncertain at this time. He is confused and debilitated. Had runs of NSVT and required IV Amiodorone, now taking oral. No atrial fib noted. DAY 14M 2017: SEPTEMBER 20, 2016. Over the weekend, patient has been stable. Again, he remains confused, pleasantly so this morning. He denies chest pain, heaviness or tightness. Today, we will transition him to a telemetry room. Hopefully, we can improve his mental status once he is out of the ICU. Will have physical therapy work with him as well. Continue aspirin, Lovenox, beta blockade, ИВАН inhibitor and lipid-lowering agent. ASSESSMENT/PLAN: 1. NSTEMI - He is on therapeutic doses of Lovenox, aspirin. 2. Three-vessel CAD - Will eventually require bypass grafting but timing uncertain. Once his mental status improves he will be a better candidate. Moving out of the ICU setting today. Check labs. 3. HYPERTENSION - incresae betablockade today. 4. DYSLIPIDEMIA - continue lipid-lowering agent. 5. DIABETES -sliding scale insulin. 6. OBESITY - dietary counseling prior to discharge when able 7. NON-COMPLIANCE - will continue to reiterate the importance of compliance when able 8. RENAL INSUFFICIENCY - chronic renal insufficiency, stage II. Continue current plan of care. Now tolerating ИВАН without worseneing of creatinine. 9. POST CARDIOPULMONARY ARREST - continue current plan of care. 10. ICM - EF 35%. 11. NSVT -DC IV amiodarone and began oral replacement Exam (Progress Note) - Constitutional Vitals: Period Temp Pulse Resp BP Sys/Hassan Pulse Ox Last 24 Hr 97.5 F-98.8 F 65-93 15-26 110-163/48-82 90-100 Exam: General: Awake and cooperative. Appears comfortable. HEENT: [Bilateral arcus noted. Conjunctiva moist and clear. PEARLA] Neck: No obvious JVD/HJR, no thyromegaly or lymphadenopathy noted. No carotid bruit appreciated Cardiac: [Regular rate and rhythm, soft II/ HSM heard best of 5ICS left. Lungs: [Relatively clear. Symmeterical chest wall movements noted. Abdomen: Soft, bowel sounds normoactive. Nontender and nondistended. No abdominal bruit or thrill noted. No masses noted. Musculoskeletal: No fluid collection. Decreased range of motion is noted. Extremities: No clubbing, cyanosis noted. [No lower extremity edema noted.] Upper extremity pulses 2+. Lower extremity pulses 2+. Capillary refill less than 3 seconds. Groins free of hematoma or bruit. Skin: No unusual lesions or rashes. No skin breakdown appreciated. Neuro: No essential tremor is appreciated. Result/EKG - Labs CBC & BMP: 09/17/16 05:38 09/18/16 03:22 Lab Results: I have reviewed the past 24 hour labs Labs: Laboratory Results - last 24 hr 09/19/16 09/19/16 09/19/16 11:52 16:32 20:37 POC Glucose 227 H 155 H 156 H 09/20/16 07:10 POC Glucose 152 H - Diagnostic Findings Procedure: Chest x-ray: report reviewed by me - EKG EKG results: interpreted by md EKG shows: sinus rhythm <Mickey Shields - Last Filed: 09/20/16 10:09> Cardiology - PN: Subj Interval history: The patient personally interviewed and examined. Discussed patient's case with Annia Etienne [employer] HELPER Unfortunately his mental status is still limited and makes it difficult to ascertain his renal status. He is being evaluated for CABG but unfortunately his mental status and overall physical situation makes this difficult at this time. Certainly he may go upstairs but will have to have a sitter with him or some family member. The other issue may be that he has to go to a swing bed or rehabilitation center to recuperate especially now that is developing skin breakdown. We will need physical therapy working with the patient. He may intermission coordinator or at least short-term the medical therapy. His overall prognosis though I think is poor. Exam (Progress Note) - Constitutional Vitals: Period Temp Pulse Resp BP Sys/Hassan Pulse Ox Last 24 Hr 97.5 F-98.8 F 65-86 15-26 117-160/54-82 90-100 Result/EKG - Labs CBC & BMP: 09/17/16 05:38 09/18/16 03:22 Labs: Laboratory Results - last 24 hr 09/19/16 09/19/16 09/19/16 11:52 16:32 20:37 POC Glucose 227 H 155 H 156 H 09/20/16 07:10 POC Glucose 152 H
[2016-09-20] MEDS: LISINOPRIL 5 MG TABLET PO SCH (09:03)
[2016-09-20] MEDS: INSULIN REGULAR 100 UNIT/ML SUBCUT SCH ×4 (09:03→22:23)
[2016-09-20] MEDS: MULTIVITAMIN (CENTRUM) TABLET PO SCH (09:03)
[2016-09-20] MEDS: FUROSEMIDE 80 MG TABLET PO SCH (09:04)
[2016-09-20] MEDS: CARVEDILOL 12.5 MG TABLET PO SCH ×2 (09:04→22:24)
[2016-09-20] MEDS: AMIODARONE 200 MG TABLET PO SCH (09:04)
[2016-09-20] MEDS: ASPIRIN CHEW 81 MG TABLET PO SCH (09:04)
[2016-09-20] MEDS: PANTOPRAZOLE 40 MG VIAL IV SCH (09:05)
[2016-09-20] MEDS: MINERAL OIL/PETROLATUM OPH OINT 3.5 GM TUBE BOTH EYES SCH ×2 (09:11→16:40)
[2016-09-20] MEDS: DESITIN 4OZ/NYSTATIN 15 GRAM MIXTURE PASTE TOP SCH ×2 (10:05→11:41)
[2016-09-20] MEDS: ENOXAPARIN 80 MG/0.8 ML SYRINGE SUBCUT SCH (12:15)
[2016-09-20] MEDS: ATORVASTATIN 40 MG TABLET PO SCH (22:24)
[2016-09-21] MEDS: ALBUTEROL/IPRATROPIUM 3 ML NEB RESP TX SCH ×6 (00:36→19:08)
[2016-09-21] MEDS: DESITIN 4OZ/NYSTATIN 15 GRAM MIXTURE PASTE TOP SCH ×4 (02:37→22:02)
[2016-09-21] MEDS: MINERAL OIL/PETROLATUM OPH OINT 3.5 GM TUBE BOTH EYES SCH ×4 (02:38→22:02)
[2016-09-21 04:43] LABS: Basophils # 0.1 10*3/uL (0.0-0.2); Basophils % 0.4 % (0.0-0.8); Eosinophils # 0.7 10*3/uL (0.0-0.87); Eosinophils % 4.2 % (0.00-10.9); Hematocrit 28.4 VOL% (42.0-52.0); Hemoglobin 8.7 GM/DL (14.0-18.0); Immature Granulocytes % 1.4 %; Immature Granulocytes Absolute 0.21 #; Lymphocytes # 1.9 10*3/uL (1.4-4.0); Lymphocytes % 12.6 % (21.2-54.2); Mean Corpuscular HGB Conc 30.6 GM/DL (32-36); Mean Corpuscular Hemoglobin 29 PG (27-34); Mean Corpuscular Volume 93.4 FL (87-102); Mean Platelet Volume 11.8 FL (9.6-12.0); Monocytes # 1.5 10*3/uL (0.11-0.8); Monocytes % 9.5 % (1.7-12.7); Neutrophils # 11.1 10*3/uL (1.4-7.4); Neutrophils % 71.9 % (38.7-73.9); Platelet Count 532 T/CUMM (130-400); Red Blood Count 3.04 MC/CUMM (3.8-5.5); Red Cell Distribution Width 16.8 % (9.3-17.3); White Blood Count 15.4 T/CUMM (4-12)
[2016-09-21] MEDS: MEROPENEM 500 MG in SODIUM CHLORIDE 0.9% 100 ML IV SCH ×3 (05:15→22:03)
[2016-09-21 05:18] LABS: Calcium 9.4 MG/DL (8.5-10.1); Magnesium 2.3 MG/DL (1.8-2.4); Potassium 4.7 MMOL/L (3.5-5.1)
--- NOTE | 2016-09-21 08:00 | Pulmonology Progress Note ---
Pulmonary - PN: Subj Interval history: The patient is a 71-year-old black man that came in with shortness of breath and some weakness there was a question of mild heart failure. He was taken to the [facility] where he had a brief cardiac arrest. He was found to have triple- vessel coronary artery disease with ejection fraction of 30%. He has been placed on the ventilator and the balloon pump. He did the cooling protocol and now he is warm back up. He has done fairly well over the weekend and the balloon pump has been removed. His blood pressure has been stable. He has done fairly well off the ventilator and his shortness of breath is better. He was moved to telemetry last night and he was very restless. He is still having to be restrained. He is still quite confused. He does seem to be breathing a little better Exam (Progress Note) - Constitutional Vitals: Period Temp Pulse Resp BP Sys/Hassan Pulse Ox Last 24 Hr 96.2 F-99.3 F 61-90 9-30 121-186/53-89 92-100 Exam: General appearance: over weight, other (He is alert but does get restless and confused at times. He apparently had a restless night) - Head Head exam: Present: normal inspection, normocephalic - Eye Eye exam: Absent: scleral icterus Pupils: Present: JAY - ENT ENT exam: Present: Unremarkable, he has a nasal cannula now. Neck exam: Present: normal inspection. Absent: lymphadenopathy, thyromegaly - Respiratory Respiratory exam: Present: He has good breath sounds bilaterally is moving air fairly well without any wheezing. - Cardiovascular Cardiovascular exam: Present: regular rate and rhythm. Absent: gallop, systolic murmur - GI/Abdominal GI/Abdominal exam: Present: hypoactive bowel sounds, soft. Absent: distended, organomegaly, tenderness - Extremities Exam Extremities exam: Present: He has no leg swelling or tenderness. - Neurological Exam Neurological exam: Present: other (He does follow commands but gets confused quite easily.) - Skin Skin exam: Present: warm, dry Results - Labs CBC & BMP: 09/21/16 04:01 09/21/16 04:01 Assessment and Plan (1) CAD (coronary artery disease) Status: Chronic Assessment and plan: Patient has significant triple-vessel coronary artery disease with an ischemic cardiomyopathy and ejection fraction of 30%. He is off the balloon pump now and has just minimal heart failure. His vital signs are stable Current Visit: Yes (2) Hypertension Status: Chronic Assessment and plan: His blood pressure has been better and the balloon pump is out and he is off pressors. His hemodynamics are stable at present. Current Visit: Yes (3) Dyslipidemia Status: Chronic Assessment and plan: This can be treated later. Current Visit: Yes (4) Diabetes Status: Chronic Assessment and plan: His glucose has been monitored. His glucose is 157 this morning Current Visit: Yes (5) Obesity (BMI 30-39.9) Status: Chronic Assessment and plan: He is a large man. He is moving around a little better now. Current Visit: Yes (6) Chronic renal insufficiency, stage II (mild) Status: Chronic Assessment and plan: His creatinine is down to 1.6 today. His renal function has been stable. Current Visit: Yes (7) Hypoxic encephalopathy Status: Acute Assessment and plan: The patient apparently had a restless night and is having to be restrained. He may need a low dose of a tranquilizer to keep him comfortable. Current Visit: Yes (8) Cardiac arrest Status: Acute Assessment and plan: Patient is status post brief cardiac arrest and has done fairly well now. He is responding okay and is off the ventilator. He does not seem to be in congestive heart failure now. We will try to start physical therapy. Current Visit: Yes (9) NSTEMI (non-ST elevated myocardial infarction) Status: Resolved Assessment and plan: He does have significant enzymes. His troponin went up to 3.4 and is starting to fall. His cardiac enzymes are improving. He has significant coronary artery disease. He ultimately needs bypass surgery. Current Visit: Yes
--- NOTE | 2016-09-21 08:04 | Cardiothoracic Progress Note ---
Cardiothoracic Subjective Interval history: Patient has been moved to telemetry and had a relatively stable night. He still remains confused and poorly oriented as to person place and time. He does move all extremities and is responsive but I believe that he needs to show some improvement before we can consider the possibility of bypass surgery. Continue present therapy for now. Exam (Progress Note) - Constitutional Vitals: Period Temp Pulse Resp BP Sys/Hassan Pulse Ox Last 24 Hr 96.2 F-99.3 F 61-90 9-30 121-186/53-89 92-100 Result/EKG - Labs CBC & BMP: 09/21/16 04:01 09/21/16 04:01 Labs: Laboratory Results - last 24 hr 09/20/16 09/20/16 09/20/16 11:12 16:15 20:20 WBC RBC Hgb Hct MCV MCH MCHC RDW Plt Count MPV Neut % (Auto) Lymph % (Auto) [place] % (Auto) Eos % (Auto) Baso % (Auto) Neut # (Auto) Lymph # (Auto) [place] # (Auto) Eos # (Auto) Baso # (Auto) Immature Gran % Nucleated RBC % Immature Gran # Nucleated RBCs # Sodium Potassium Chloride Carbon Dioxide Anion Gap BUN Creatinine GFR Calculation BUN/Creatinine Ratio Glucose POC Glucose 187 H 152 H 173 H Calculated Osmolality Calcium Magnesium 09/21/16 09/21/16 09/21/16 04:01 04:01 07:31 WBC 15.4 H RBC 3.04 L Hgb 8.7 L Hct 28.4 L MCV 93.4 MCH 29 MCHC 30.6 L RDW 16.8 Plt Count 532 H D MPV 11.8 Neut % (Auto) 71.9 Lymph % (Auto) 12.6 L [place] % (Auto) 9.5 Eos % (Auto) 4.2 Baso % (Auto) 0.4 Neut # (Auto) 11.1 H Lymph # (Auto) 1.9 [place] # (Auto) 1.5 H Eos # (Auto) 0.7 Baso # (Auto) 0.1 Immature Gran % 1.4 Nucleated RBC % 0.0 Immature Gran # 0.21 Nucleated RBCs # 0.00 Sodium 143 Potassium 4.7 Chloride 105 Carbon Dioxide 30 Anion Gap 12.7 BUN 32 H Creatinine 1.60 H GFR Calculation 65 BUN/Creatinine Ratio 20.00 Glucose 141 H POC Glucose 157 H Calculated Osmolality 293.0 Calcium 9.4 Magnesium 2.3
[2016-09-21] MEDS: INSULIN REGULAR 100 UNIT/ML SUBCUT SCH ×4 (09:52→22:02)
[2016-09-21] MEDS: PANTOPRAZOLE 40 MG VIAL IV SCH (09:52)
[2016-09-21] MEDS: ASPIRIN CHEW 81 MG TABLET PO SCH (09:52)
[2016-09-21] MEDS: AMIODARONE 200 MG TABLET PO SCH (09:52)
[2016-09-21] MEDS: CARVEDILOL 12.5 MG TABLET PO SCH ×2 (09:53→22:03)
[2016-09-21] MEDS: QUEtiapine 25 MG TABLET PO SCH ×2 (09:53→22:02)
[2016-09-21] MEDS: MULTIVITAMIN (CENTRUM) TABLET PO SCH (09:53)
[2016-09-21] MEDS: FUROSEMIDE 80 MG TABLET PO SCH (09:53)
[2016-09-21] MEDS: LISINOPRIL 5 MG TABLET PO SCH (09:53)
--- NOTE | 2016-09-21 12:25 | Cardiology Progress Note ---
<Annia Etienne E - Last Filed: 09/21/16 12:17> Assessment and Plan - Time spent with patient Time spent with patient: Greater than 30 minutes (1) NSTEMI (non-ST elevated myocardial infarction) Status: Resolved Assessment and plan: SEE PLAN OF CARE LISTED BELOW Current Visit: Yes (2) CAD (coronary artery disease) Status: Chronic Assessment and plan: SEE PLAN OF CARE LISTED BELOW Current Visit: Yes (3) Hypertension Status: Chronic Assessment and plan: SEE PLAN OF CARE LISTED BELOW Current Visit: Yes (4) Dyslipidemia Status: Chronic Assessment and plan: SEE PLAN OF CARE LISTED BELOW Current Visit: Yes (5) Diabetes Status: Chronic Assessment and plan: SEE PLAN OF CARE LISTED BELOW Current Visit: Yes (6) Obesity (BMI 30-39.9) Status: Chronic Assessment and plan: SEE PLAN OF CARE LISTED BELOW Current Visit: Yes (7) Chronic renal insufficiency, stage II (mild) Status: Chronic Assessment and plan: SEE PLAN OF CARE LISTED BELOW Current Visit: Yes (8) Noncompliance Status: Chronic Assessment and plan: SEE PLAN OF CARE LISTED BELOW Current Visit: Yes (9) Ischemic cardiomyopathy Status: Chronic Assessment and plan: See plan of care listed below Current Visit: Yes (10) Cardiopulmonary arrest Status: Resolved Assessment and plan: See plan of care listed below Current Visit: Yes (11) On intra-aortic balloon pump assist Status: Resolved Assessment and plan: SEE PLAN OF CARE LISTED BELOW Current Visit: Yes Cardiology - PN: Subj Interval history: FIRE SUPPORT MAN: DR. BLANCHARD PCP: DR. GAYLE HATHAWAY INITIAL SUMMARY: Mr. Landry was admitted for NSTEMI September 07, 2016. He underwent cardiac catheterization and was found to have significant three- vessel coronary artery disease, EF 35%, global hypokinesis. CV surgery was consulted regarding consideration of CABG. He did experience brief cardiopulmonary arrest prior to the cardiac catheterization. He required intra- aortic balloon pump and pressors for several days. Because he did not have spontaneous return of consciousness, he was treated with [facility] post-code protocol and has improved. He CRI which has been stable over the weekend. Timing of CABG is uncertain at this time. He is confused and debilitated. Had runs of NSVT and required IV Amiodorone, now taking oral. No atrial fib noted. DAY 15: SEPTEMBER 20, 2016. Patient was transferred out of the intensive care unit yesterday and has been housed in our telemetry unit overnight. He does have a sitter at the bedside as he does remain confused but pleasantly so. He denies chest pain, heaviness or tightness. He does seem somewhat short of breath today though he tells me he is not short of breath. I will order chest x -ray this morning to assess. I will have physical therapy see patient and began working with him today. Continue Aspirin, Lovenox, beta blockade, ИВАН inhibitor and lipid-lowering agent. ASSESSMENT/PLAN: 1. NSTEMI - He is on therapeutic doses of Lovenox, aspirin. 2. Three-vessel CAD -patient has been considered for CABG due to the multiple vessels involved. Timing is uncertain at this time. 3. HYPERTENSION -increased beta-jacob yesterday. Blood pressure responded nicely. 4. DYSLIPIDEMIA - continue lipid-lowering agent. 5. DIABETES -sliding scale insulin. 6. OBESITY - dietary counseling prior to discharge when able 7. NON-COMPLIANCE - will continue to reiterate the importance of compliance when able 8. RENAL INSUFFICIENCY - chronic renal insufficiency, stage II. Continue current plan of care. Now tolerating ИВАН without worsening of creatinine (1.6). 9. POST CARDIOPULMONARY ARREST - continue current plan of care. 10. ICM - EF 35%. 11. NSVT -continue oral amiodarone Exam (Progress Note) - Constitutional Vitals: Period Temp Pulse Resp BP Sys/Hassan Pulse Ox Last 24 Hr 96.2 F-99.3 F 61-87 9-30 121-186/53-89 92-100 Exam: General: Awake and cooperative. Appears comfortable. HEENT: [Bilateral arcus noted. Conjunctiva moist and clear. PEARLA] Neck: No obvious JVD/HJR, no thyromegaly or lymphadenopathy noted. No carotid bruit appreciated Cardiac: [Regular rate and rhythm, soft II/ HSM heard best of 5ICS left. Lungs: [Relatively clear. Symmeterical chest wall movements noted. Abdomen: Soft, bowel sounds normoactive. Nontender and nondistended. No abdominal bruit or thrill noted. No masses noted. Musculoskeletal: No fluid collection. Decreased range of motion is noted. Extremities: No clubbing, cyanosis noted. [No lower extremity edema noted.] Upper extremity pulses 2+. Lower extremity pulses 2+. Capillary refill less than 3 seconds. Groins free of hematoma or bruit. Skin: No unusual lesions or rashes. No skin breakdown appreciated. Neuro: No essential tremor is appreciated. Result/EKG - Labs CBC & BMP: 09/21/16 04:01 09/21/16 04:01 Lab Results: I have reviewed the past 24 hour labs Labs: Laboratory Results - last 24 hr 09/20/16 09/20/16 09/21/16 16:15 20:20 04:01 WBC 15.4 H RBC 3.04 L Hgb 8.7 L Hct 28.4 L MCV 93.4 MCH 29 MCHC 30.6 L RDW 16.8 Plt Count 532 H D MPV 11.8 Neut % (Auto) 71.9 Lymph % (Auto) 12.6 L [place] % (Auto) 9.5 Eos % (Auto) 4.2 Baso % (Auto) 0.4 Neut # (Auto) 11.1 H Lymph # (Auto) 1.9 [place] # (Auto) 1.5 H Eos # (Auto) 0.7 Baso # (Auto) 0.1 Immature Gran % 1.4 Nucleated RBC % 0.0 Immature Gran # 0.21 Nucleated RBCs # 0.00 Sodium Potassium Chloride Carbon Dioxide Anion Gap BUN Creatinine GFR Calculation BUN/Creatinine Ratio Glucose POC Glucose 152 H 173 H Calculated Osmolality Calcium Magnesium 09/21/16 09/21/16 09/21/16 04:01 07:31 11:55 WBC RBC Hgb Hct MCV MCH MCHC RDW Plt Count MPV Neut % (Auto) Lymph % (Auto) [place] % (Auto) Eos % (Auto) Baso % (Auto) Neut # (Auto) Lymph # (Auto) [place] # (Auto) Eos # (Auto) Baso # (Auto) Immature Gran % Nucleated RBC % Immature Gran # Nucleated RBCs # Sodium 143 Potassium 4.7 Chloride 105 Carbon Dioxide 30 Anion Gap 12.7 BUN 32 H Creatinine 1.60 H GFR Calculation 65 BUN/Creatinine Ratio 20.00 Glucose 141 H POC Glucose 157 H 186 H Calculated Osmolality 293.0 Calcium 9.4 Magnesium 2.3 - EKG EKG results: interpreted by me EKG shows: sinus rhythm <Mickey Shields - Last Filed: 09/21/16 15:36> Cardiology - PN: Subj Interval history: Patient personally interviewed and examined by me and chart reviewed. Discussed case with by Lowell FAROOQ. I agree with her assessment. It appears the patient's mental status has not improved significantly over the last few days. Situation is such that CV surgery i.e. Dr. Guzman does not feel that he needs to operate at this time. Certainly the patient sleeps a lot and is not oriented to situation location or dates. I think this patient would best benefit from a period of time at rehabilitation or [facility] for further evaluation and rehabilitation. We will look into this. Physical therapy has been consulted. Patient may be followed up by Dr. Blanchard and Dr. Guzman for further therapy. Exam (Progress Note) - Constitutional Vitals: Period Temp Pulse Resp BP Sys/Hassan Pulse Ox Last 24 Hr 96.2 F-99.4 F 67-87 16-30 121-186/53-89 92-99 Result/EKG - Labs CBC & BMP: 09/21/16 04:01 09/21/16 04:01 Labs: Laboratory Results - last 24 hr 09/20/16 09/20/16 09/21/16 16:15 20:20 04:01 WBC 15.4 H RBC 3.04 L Hgb 8.7 L Hct 28.4 L MCV 93.4 MCH 29 MCHC 30.6 L RDW 16.8 Plt Count 532 H D MPV 11.8 Neut % (Auto) 71.9 Lymph % (Auto) 12.6 L [place] % (Auto) 9.5 Eos % (Auto) 4.2 Baso % (Auto) 0.4 Neut # (Auto) 11.1 H Lymph # (Auto) 1.9 [place] # (Auto) 1.5 H Eos # (Auto) 0.7 Baso # (Auto) 0.1 Immature Gran % 1.4 Nucleated RBC % 0.0 Immature Gran # 0.21 Nucleated RBCs # 0.00 Sodium Potassium Chloride Carbon Dioxide Anion Gap BUN Creatinine GFR Calculation BUN/Creatinine Ratio Glucose POC Glucose 152 H 173 H Calculated Osmolality Calcium Magnesium 09/21/16 09/21/16 09/21/16 04:01 07:31 11:55 WBC RBC Hgb Hct MCV MCH MCHC RDW Plt Count MPV Neut % (Auto) Lymph % (Auto) [place] % (Auto) Eos % (Auto) Baso % (Auto) Neut # (Auto) Lymph # (Auto) [place] # (Auto) Eos # (Auto) Baso # (Auto) Immature Gran % Nucleated RBC % Immature Gran # Nucleated RBCs # Sodium 143 Potassium 4.7 Chloride 105 Carbon Dioxide 30 Anion Gap 12.7 BUN 32 H Creatinine 1.60 H GFR Calculation 65 BUN/Creatinine Ratio 20.00 Glucose 141 H POC Glucose 157 H 186 H Calculated Osmolality 293.0 Calcium 9.4 Magnesium 2.3
[2016-09-21] MEDS: ENOXAPARIN 80 MG/0.8 ML SYRINGE SUBCUT SCH (12:59)
--- NOTE | 2016-09-21 13:20 | XRay Report ---
XR chest 1V portable Indication: Shortness of breath Comparison: 18 September 2016 Findings: The heart and mediastinum are normal in size and configuration. The pulmonary vascularity is normal in caliber. There is some increased right lower lung density. No other lung infiltrates, effusions, pneumothorax or other abnormality is demonstrated. Impression: Small amount of increased right lower lung density, could indicate atelectasis or infiltrate. PROCEDURE INTERPRETED AT [facility] DEPARTMENT OF RADIOLOGY Final Report Signed by: Dr. Trent Cedillo
[2016-09-21] MEDS: ATORVASTATIN 40 MG TABLET PO SCH (22:01)
[2016-09-22] MEDS: ALBUTEROL/IPRATROPIUM 3 ML NEB RESP TX SCH ×4 (00:27→16:44)
[2016-09-22 05:04] LABS: Calcium 9.4 MG/DL (8.5-10.1); Magnesium 2.5 MG/DL (1.8-2.4); Osmolality,Calculated 297.1 MOS/KG (273-304); Potassium 4.9 MMOL/L (3.5-5.1)
[2016-09-22 05:20] LABS: Hematocrit 29.5 VOL% (42.0-52.0); Hemoglobin 8.5 GM/DL (14.0-18.0); Mean Corpuscular HGB Conc 28.8 GM/DL (32-36); Mean Corpuscular Hemoglobin 29 PG (27-34); Mean Corpuscular Volume 99.7 FL (87-102); Platelet Count 506 T/CUMM (130-400); Red Blood Count 2.96 MC/CUMM (3.8-5.5)
[2016-09-22] MEDS: MEROPENEM 500 MG in SODIUM CHLORIDE 0.9% 100 ML IV SCH ×2 (05:24→12:09)
--- NOTE | 2016-09-22 06:12 | Cardiothoracic Progress Note ---
Cardiothoracic Subjective Interval history: Patient had a reasonably comfortable night. However he remains somewhat confused and disoriented as to person place and time. This has remained fairly stable over the past several days. His vital signs and rhythm have remained stable and he has not complained of chest pain. In the presence of his neurological condition and in the absence of chest pain and rhythm instability I am extremely reluctant to recommend surgical intervention at this point. I think it is reasonable to continue his present therapy and the hope that over time he will improve neurologically. Will follow. Exam (Progress Note) - Constitutional Vitals: Period Temp Pulse Resp BP Sys/Hassan Pulse Ox Last 24 Hr 98.1 F-99.4 F 65-88 16-21 84-181/45-74 89-99 Result/EKG - Labs CBC & BMP: 09/22/16 03:52 09/22/16 03:52 Labs: Laboratory Results - last 24 hr 09/21/16 09/21/16 09/21/16 07:31 11:55 15:54 WBC RBC Hgb Hct MCV MCH MCHC RDW Plt Count MPV Nucleated RBC % Nucleated RBCs # Sodium Potassium Chloride Carbon Dioxide Anion Gap BUN Creatinine GFR Calculation BUN/Creatinine Ratio Glucose POC Glucose 157 H 186 H 188 H Calculated Osmolality Calcium Magnesium 09/21/16 09/22/16 09/22/16 20:14 03:52 03:52 WBC 13.0 H RBC 2.96 L Hgb 8.5 L Hct 29.5 L MCV 99.7 MCH 29 MCHC 28.8 L RDW 17.0 Plt Count 506 H MPV 12.0 Nucleated RBC % 0.0 Nucleated RBCs # 0.00 Sodium 142 Potassium 4.9 Chloride 105 Carbon Dioxide 26 Anion Gap 15.9 H BUN 46 H D Creatinine 2.60 H GFR Calculation 36 BUN/Creatinine Ratio 17.00 Glucose 159 H POC Glucose 192 H Calculated Osmolality 297.1 Calcium 9.4 Magnesium 2.5 H
[2016-09-22] MEDS: INSULIN REGULAR 100 UNIT/ML SUBCUT SCH ×3 (09:34→16:45)
[2016-09-22] MEDS: PANTOPRAZOLE 40 MG VIAL IV SCH (09:34)
[2016-09-22] MEDS: LISINOPRIL 5 MG TABLET PO SCH (09:35)
[2016-09-22] MEDS: AMIODARONE 200 MG TABLET PO SCH (09:35)
[2016-09-22] MEDS: FUROSEMIDE 80 MG TABLET PO SCH (09:35)
[2016-09-22] MEDS: ASPIRIN CHEW 81 MG TABLET PO SCH (09:35)
[2016-09-22] MEDS: MULTIVITAMIN (CENTRUM) TABLET PO SCH (09:35)
[2016-09-22] MEDS: QUEtiapine 25 MG TABLET PO SCH (09:36)
[2016-09-22] MEDS: CARVEDILOL 12.5 MG TABLET PO SCH (09:36)
[2016-09-22] MEDS: MINERAL OIL/PETROLATUM OPH OINT 3.5 GM TUBE BOTH EYES SCH ×2 (09:39→15:04)
[2016-09-22] MEDS: DESITIN 4OZ/NYSTATIN 15 GRAM MIXTURE PASTE TOP SCH (09:45)
--- NOTE | 2016-09-22 10:12 | Cardiology Progress Note ---
<Annia Etienne E - Last Filed: 09/22/16 10:12> Assessment and Plan - Time spent with patient Time spent with patient: Greater than 30 minutes (1) NSTEMI (non-ST elevated myocardial infarction) Status: Resolved Assessment and plan: SEE PLAN OF CARE LISTED BELOW Current Visit: Yes (2) CAD (coronary artery disease) Status: Chronic Assessment and plan: SEE PLAN OF CARE LISTED BELOW Current Visit: Yes (3) Hypertension Status: Chronic Assessment and plan: SEE PLAN OF CARE LISTED BELOW Current Visit: Yes (4) Dyslipidemia Status: Chronic Assessment and plan: SEE PLAN OF CARE LISTED BELOW Current Visit: Yes (5) Diabetes Status: Chronic Assessment and plan: SEE PLAN OF CARE LISTED BELOW Current Visit: Yes (6) Obesity (BMI 30-39.9) Status: Chronic Assessment and plan: SEE PLAN OF CARE LISTED BELOW Current Visit: Yes (7) Chronic renal insufficiency, stage II (mild) Status: Chronic Assessment and plan: SEE PLAN OF CARE LISTED BELOW Current Visit: Yes (8) Noncompliance Status: Chronic Assessment and plan: SEE PLAN OF CARE LISTED BELOW Current Visit: Yes (9) Ischemic cardiomyopathy Status: Chronic Assessment and plan: See plan of care listed below Current Visit: Yes (10) Cardiopulmonary arrest Status: Resolved Assessment and plan: See plan of care listed below Current Visit: Yes (11) On intra-aortic balloon pump assist Status: Resolved Assessment and plan: SEE PLAN OF CARE LISTED BELOW Current Visit: Yes Cardiology - PN: Subj Interval history: ACID REGENERATOR: DR. MART PCP: DR. GAYLE HATHAWAY INITIAL SUMMARY: Mr. Landry was admitted for NSTEMI September 07, 2016. He underwent cardiac catheterization and was found to have significant three- vessel coronary artery disease, EF 35%, global hypokinesis. CV surgery was consulted regarding consideration of CABG. He did experience brief cardiopulmonary arrest prior to the cardiac catheterization. He required intra- aortic balloon pump and pressors for several days. Because he did not have spontaneous return of consciousness, he was treated with [facility] post-code protocol and has improved. He CRI which has been stable. Patient was at one time considered as a candidate for possible CABG depending on his debilitated and confused state. However, patient has been slow to improve. He is confused and debilitated. Had runs of NSVT and required IV Amiodorone, now taking oral. No atrial fib noted. DAY 16: SEPTEMBER 21, 2016. Patient has been housed in our telemetry unit for 2 days. Mentation has not improved much. Pleasantly confused and cooperative. Remains debilitated. He denies chest pain, heaviness or tightness. Breathing is stable. Chest x-ray yesterday revealed possible infiltrate versus mild amount of increased fluid. White blood cell count is 13 today, decreased from 15. He is afebrile. Continue IV meropenem. He is currently being evaluated for swing bed versus LTAC. We appreciate Dr. Guzman's assistance. At this time, he is a poor candidate for CABG and we will medically manage. Continue Aspirin , Lovenox, beta blockade, ИВАН inhibitor and lipid-lowering agent. DC [place] catheter today ASSESSMENT/PLAN: 1. NSTEMI - He is on therapeutic doses of Lovenox, aspirin. 2. Three-vessel CAD - continue medical management. Not a good surgical candidate 3. HYPERTENSION -tolerating beta blockade increase yesterday without problems. 4. DYSLIPIDEMIA - continue lipid-lowering agent. 5. DIABETES - sliding scale insulin. 6. OBESITY - dietary counseling prior to discharge when able 7. NON-COMPLIANCE - will continue to reiterate the importance of compliance when able 8. RENAL INSUFFICIENCY - chronic renal insufficiency, stage II. Continue current plan of care. Will hold ИВАН inhibitor as his creatinine tends to vacillate and is currently 2.6 today. We will start low-dose nitrate and hydralazine tomorrow 9. POST CARDIOPULMONARY ARREST - continue current plan of care. 10. ICM - EF 35%. 11. NSVT -continue oral amiodarone Exam (Progress Note) - Constitutional Vitals: Period Temp Pulse Resp BP Sys/Hassan Pulse Ox Last 24 Hr 98 F-99.4 F 65-89 16-21 84-143/45-71 89-99 Exam: General: Awake and cooperative. Appears comfortable. HEENT: [Bilateral arcus noted. Conjunctiva moist and clear. PEARLA] Neck: No obvious JVD/HJR, no thyromegaly or lymphadenopathy noted. No carotid bruit appreciated Cardiac: [Regular rate and rhythm, soft II/ HSM heard best of 5ICS left. Lungs: [Relatively clear. Symmeterical chest wall movements noted. Abdomen: Soft, bowel sounds normoactive. Nontender and nondistended. No abdominal bruit or thrill noted. No masses noted. Musculoskeletal: No fluid collection. Decreased range of motion is noted. Extremities: No clubbing, cyanosis noted. [No lower extremity edema noted.] Upper extremity pulses 2+. Lower extremity pulses 2+. Capillary refill less than 3 seconds. Groins free of hematoma or bruit. Skin: No unusual lesions or rashes. No skin breakdown appreciated. Neuro: No essential tremor is appreciated. Result/EKG - Labs CBC & BMP: 09/22/16 03:52 09/22/16 03:52 Lab Results: I have reviewed the past 24 hour labs Labs: Laboratory Results - last 24 hr 09/21/16 09/21/16 09/21/16 11:55 15:54 20:14 WBC RBC Hgb Hct MCV MCH MCHC RDW Plt Count MPV Nucleated RBC % Nucleated RBCs # Sodium Potassium Chloride Carbon Dioxide Anion Gap BUN Creatinine GFR Calculation BUN/Creatinine Ratio Glucose POC Glucose 186 H 188 H 192 H Calculated Osmolality Calcium Magnesium 09/22/16 09/22/16 09/22/16 03:52 03:52 07:15 WBC 13.0 H RBC 2.96 L Hgb 8.5 L Hct 29.5 L MCV 99.7 MCH 29 MCHC 28.8 L RDW 17.0 Plt Count 506 H MPV 12.0 Nucleated RBC % 0.0 Nucleated RBCs # 0.00 Sodium 142 Potassium 4.9 Chloride 105 Carbon Dioxide 26 Anion Gap 15.9 H BUN 46 H D Creatinine 2.60 H GFR Calculation 36 BUN/Creatinine Ratio 17.00 Glucose 159 H POC Glucose 156 H Calculated Osmolality 297.1 Calcium 9.4 Magnesium 2.5 H - Diagnostic Findings Procedure: Chest x-ray: report reviewed by me - EKG EKG results: interpreted by in EKG shows: sinus rhythm <Mickey Shields Elvis - Last Filed: 09/22/16 13:32> Cardiology - PN: Subj Interval history: Patient personally interviewed and examined chart reviewed. I discussed this patient with Annia Etienne SAFETY OFFICER. I agree with the history, exam and assessment. In summation today this patient seems to be clinically better more awake and alert. He still has a lot of underlying medical issues that need to be addressed long-term prior to bypass surgery. I agree that he needs to have some rehabilitation and improvement of his skin especially on his buttocks prior to surgery. I don't think he really has a lot of good home support as well. I have not seen any family here and when attempting to get sitters there was no one in the family available. After rehabilitation if he progresses adequately at some point passers would be appropriate. I don't think he overall is a adequate eventual candidate. This time we'll continue his therapy. Exam (Progress Note) - Constitutional Vitals: Period Temp Pulse Resp BP Sys/Hassan Pulse Ox Last 24 Hr 97.6 F-98.8 F 65-89 17-21 84-143/42-71 89-99 Result/EKG - Labs CBC & BMP: 09/22/16 03:52 09/22/16 03:52 Labs: Laboratory Results - last 24 hr 09/21/16 09/21/16 09/22/16 15:54 20:14 03:52 WBC 13.0 H RBC 2.96 L Hgb 8.5 L Hct 29.5 L MCV 99.7 MCH 29 MCHC 28.8 L RDW 17.0 Plt Count 506 H MPV 12.0 Nucleated RBC % 0.0 Nucleated RBCs # 0.00 Sodium Potassium Chloride Carbon Dioxide Anion Gap BUN Creatinine GFR Calculation BUN/Creatinine Ratio Glucose POC Glucose 188 H 192 H Calculated Osmolality Calcium Magnesium 09/22/16 09/22/16 09/22/16 03:52 07:15 11:34 WBC RBC Hgb Hct MCV MCH MCHC RDW Plt Count MPV Nucleated RBC % Nucleated RBCs # Sodium 142 Potassium 4.9 Chloride 105 Carbon Dioxide 26 Anion Gap 15.9 H BUN 46 H D Creatinine 2.60 H GFR Calculation 36 BUN/Creatinine Ratio 17.00 Glucose 159 H POC Glucose 156 H 213 H Calculated Osmolality 297.1 Calcium 9.4 Magnesium 2.5 H
[2016-09-22] MEDS: ENOXAPARIN 80 MG/0.8 ML SYRINGE SUBCUT SCH (12:11)
--- NOTE | 2016-09-22 12:54 | Pulmonology Progress Note ---
Pulmonary - PN: Subj Interval history: The patient is a 71-year-old black man that came in with shortness of breath and some weakness there was a question of mild heart failure. He was taken to the [facility] where he had a brief cardiac arrest. He was found to have triple- vessel coronary artery disease with ejection fraction of 30%. He has been placed on the ventilator and the balloon pump. He did the cooling protocol and now he is warm back up. He has done fairly well over the weekend and the balloon pump has been removed. His blood pressure has been stable. He has done fairly well off the ventilator and his shortness of breath is better. Today he says he is feeling okay and less short of breath. He seem to have a fairly good night. He still gets confused easily but may be better. He denies chest pain or shortness of breath now Exam (Progress Note) - Constitutional Vitals: Period Temp Pulse Resp BP Sys/Hassan Pulse Ox Last 24 Hr 97.6 F-98.8 F 65-89 17-21 84-143/42-71 89-99 Exam: General appearance: over weight, other (He is comfortable lying in bed and seems a little more alert today.) - Head Head exam: Present: normal inspection, normocephalic - Eye Eye exam: Absent: scleral icterus Pupils: Present: JAY - ENT ENT exam: Present: Unremarkable, he has a nasal cannula now. Neck exam: Present: normal inspection. Absent: lymphadenopathy, thyromegaly - Respiratory Respiratory exam: Present: He has good breath sounds bilaterally is moving air fairly well without any wheezing. - Cardiovascular Cardiovascular exam: Present: regular rate and rhythm. Absent: gallop, systolic murmur - GI/Abdominal GI/Abdominal exam: Present: hypoactive bowel sounds, soft. Absent: distended, organomegaly, tenderness - Extremities Exam Extremities exam: Present: He has no leg swelling or tenderness. - Neurological Exam Neurological exam: Present: other (He does seem a little calmer this morning.) - Skin Skin exam: Present: warm, dry Results - Labs CBC & BMP: 09/22/16 03:52 09/22/16 03:52 - Diagnostic Findings Procedure: Chest x-ray: image reviewed by me, report reviewed by me (Chest x- ray shows cardiomegaly but no overt failure) Assessment and Plan (1) CAD (coronary artery disease) Status: Chronic Assessment and plan: Patient has significant triple-vessel coronary artery disease with an ischemic cardiomyopathy and ejection fraction of 30%. He is off the balloon pump now and has just minimal heart failure. His vital signs are stable. He is not having any angina now Current Visit: Yes (2) Hypertension Status: Chronic Assessment and plan: His blood pressure has been better and the balloon pump is out and he is off pressors. His hemodynamics are stable at present. Current Visit: Yes (3) Dyslipidemia Status: Chronic Assessment and plan: This can be treated later. Current Visit: Yes (4) Diabetes Status: Chronic Assessment and plan: His glucose has been monitored. His glucose is 213 this morning Current Visit: Yes (5) Obesity (BMI 30-39.9) Status: Chronic Assessment and plan: He is a large man. He is moving around a little better now. Current Visit: Yes (6) Chronic renal insufficiency, stage II (mild) Status: Chronic Assessment and plan: His creatinine is down to 2.6 today. His renal function has been stable. Current Visit: Yes (7) Hypoxic encephalopathy Status: Acute Assessment and plan: The patient seems to be a little calmer today and rested a little better Current Visit: Yes (8) Cardiac arrest Status: Acute Assessment and plan: Patient is status post brief cardiac arrest and has done fairly well now. He is responding okay and is off the ventilator. He does not seem to be in congestive heart failure now. We will try to start physical therapy. He can probably go to a swing bed soon Current Visit: Yes (9) NSTEMI (non-ST elevated myocardial infarction) Status: Resolved Assessment and plan: He does have significant enzymes. His troponin went up to 3.4 and is starting to fall. His cardiac enzymes are improving. He has significant coronary artery disease. He ultimately needs bypass surgery. Current Visit: Yes
--- NOTE | 2016-09-22 13:58 | Discharge Summary ---
Hospital Course - Hospital Course Hospital Course: SOUND ART INSTRUCTOR: DR. BLANCHARD PCP: DR. GAYLE HATHAWAY Mr. Landry was admitted for NSTEMI September 07, 2016. He underwent cardiac catheterization and was found to have significant three-vessel coronary artery disease, EF 35%, global hypokinesis. CV surgery was consulted regarding consideration of CABG. He did experience brief cardiopulmonary arrest prior to the cardiac catheterization. He required intra-aortic balloon pump and pressors for several days. Because he did not have spontaneous return of consciousness, he was treated with [facility] post-code protocol and has improved. He CRI which has been stable. Patient was at one time considered as a candidate for possible CABG depending on improvement of his debilitated and confused state. However, patient has been slow to improve. He is confused and debilitated. At this time, he is not considered a surgical candidate and we will continue to treat him medically for his coronary artery disease. Had runs of NSVT (no obvious atrial fibrillation) and required IV Amiodorone, now taking oral. Chest x-ray yesterday revealed possible infiltrate versus mild amount of increased fluid. White blood cell count is decreasing and he is afebrile. Continue IV meropenem. Having felt him at maximal medical therapy, patient is being discharged to LTAC in stable condition. He will be given a follow-up appoint with Dr. Blanchard in approximately 4 weeks. Continue to treat his coronary artery disease medically at this time. She does comorbidities improve or resolve, he may be a candidate for further cardiac treatments and we will follow for this. - Time spent with patient Time with patient DS: Greater than 30 minutes Diagnosis - Discharge Diagnosis (1) NSTEMI (non-ST elevated myocardial infarction) Status: Resolved (2) CAD (coronary artery disease) Status: Chronic (3) Hypertension Status: Chronic (4) Dyslipidemia Status: Chronic (5) Diabetes Status: Chronic (6) Obesity (BMI 30-39.9) Status: Chronic (7) Chronic renal insufficiency, stage II (mild) Status: Chronic (8) Noncompliance Status: Chronic (9) Ischemic cardiomyopathy Status: Chronic (10) Cardiopulmonary arrest Status: Resolved (11) On intra-aortic balloon pump assist Status: Resolved Specialty Discharge - Follow Up or Referrals Follow up with: Mina Blanchard MD [Physician] - (1 month) Discharge Plan - Discharge Data Disposition: Disch/Xfer-Ip Rehab Fac Discharge Diet: heart healthy Activity: other (Per physical therapy) Hygiene: no restrictions Weight Bearing at Discharge: other (Per physical therapy) Driving: not until seen by doctor Contact your physician if you experience:: fever over 101, Difficulty voiding, Redness or swelling, Nausea/Vomiting, Shortness of breath, Bleeding, pain uncontrolled by pain medications - Discharge Medications New Aspirin Chew Tab 324 mg PO DAILY tablet Carvedilol [Coreg] 12.5 mg PO BID tablet Clorazepate [Tranxene] 3.75 mg PO Q8H PRN #0 tablet PRN Reason: Anxiety Isosorbide Mononitrate [Imdur] 15 mg PO DAILY tablet Meropenem [Merrem] 500 mg IV Q8H vial Multivitamin (Centrum) [Centrum Tab] 1 tablet PO DAILY tablet QUEtiapine [SEROquel] 25 mg PO BID tablet Albuterol/Ipratropium Neb [Duoneb] 3 ml RESP TX RT Q4H Amiodarone Tab [Cordarone Tab] 200 mg PO DAILY tablet Furosemide Tab [Lasix Tab] 80 mg PO DAILY tablet hydrALAZINE TAB [Apresoline Tab] 10 mg PO TID tablet Continue Tamsulosin [Flomax] 0.4 mg PO DAILY Pravastatin [Pravachol] 40 mg PO BEDTIME Discontinued Aspirin EC Tab 81 mg PO DAILY Lisinopril 10 mg PO DAILY glipiZIDE [Glipizide Xl] 10 mg PO BID Metformin HCl [Fortamet] 500 mg PO BID - Follow Up or Referral - Forms/Instructions Exam - Constitutional Vitals: Period Temp Pulse Resp BP Sys/Hassan Pulse Ox Last 24 Hr 97.6 F-98.8 F 65-89 17-21 84-143/42-71 89-99 Exam: General: Awake and cooperative. Appears comfortable. HEENT: [Bilateral arcus noted. Conjunctiva moist and clear. PEARLA] Neck: No obvious JVD/HJR, no thyromegaly or lymphadenopathy noted. No carotid bruit appreciated Cardiac: [Regular rate and rhythm, soft II/ HSM heard best of 5ICS left. Lungs: [Relatively clear. Symmeterical chest wall movements noted. Abdomen: Soft, bowel sounds normoactive. Nontender and nondistended. No abdominal bruit or thrill noted. No masses noted. Musculoskeletal: No fluid collection. Decreased range of motion is noted. Extremities: No clubbing, cyanosis noted. [No lower extremity edema noted.] Upper extremity pulses 2+. Lower extremity pulses 2+. Capillary refill less than 3 seconds. Groins free of hematoma or bruit. Skin: No unusual lesions or rashes. No skin breakdown appreciated. Neuro: No essential tremor is appreciated. Discharge Results Procedures and tests throughout hospitalization: Pending Orders 09/23/16 04:00 BMP w/ Mg [Basic Metabolic Panel w/Mg] IN AM CBC [Comp Blood Count Auto Diff] IN AM 09/24/16 04:00 BMP w/ Mg [Basic Metabolic Panel w/Mg] IN AM CBC [Comp Blood Count Auto Diff] IN AM Labs on day of discharge: Labs from last 24 hours 09/22/16 09/22/16 09/22/16 11:34 07:15 03:52 WBC RBC Hgb Hct MCV MCH MCHC RDW Plt Count MPV Nucleated RBC % Nucleated RBCs # Sodium 142 Potassium 4.9 Chloride 105 Carbon Dioxide 26 Anion Gap 15.9 H BUN 46 H D Creatinine 2.60 H GFR Calculation 36 BUN/Creatinine Ratio 17.00 Glucose 159 H POC Glucose 213 H 156 H Calculated Osmolality 297.1 Calcium 9.4 Magnesium 2.5 H 09/22/16 09/21/16 09/21/16 03:52 20:14 15:54 WBC 13.0 H RBC 2.96 L Hgb 8.5 L Hct 29.5 L MCV 99.7 MCH 29 MCHC 28.8 L RDW 17.0 Plt Count 506 H MPV 12.0 Nucleated RBC % 0.0 Nucleated RBCs # 0.00 Sodium Potassium Chloride Carbon Dioxide Anion Gap BUN Creatinine GFR Calculation BUN/Creatinine Ratio Glucose POC Glucose 192 H 188 H Calculated Osmolality Calcium Magnesium - Imaging and Cardiology Cardiology Procedure: report reviewed by me Procedure: Chest x-ray: report reviewed by me DS: Provider Date of admission: 09/06/16 20:36 Primary care physician: . No PCP Attending physician on admission: Mina Blanchard MD Consults: 09/07/16 09:34 Consult to Sleep Center [CONS] Routine Reason for Sleep Center: Sleep Center Physician 09/07/16 15:28 Consult to Physician [CONS] Routine Comment: Consulting Provider: Juanpablo Gregg Consult to Specialist Group: Pulmonology Consult to Physician [CONS] Routine Comment: Consulting Provider: Herminio Lechuga Consult to Specialist Group: Neurology 09/07/16 16:28 Consult to Physician [CONS] Routine Comment: Consulting Provider: Steve Guzman Consult to Specialist Group: Cardiothoracic Surgery Person Notified: Dr. Guzman Date Notified: 09/07/16 Time Notified: 12:55 09/10/16 09:29 Consult to Dietitian [CONS] Routine Reason for Dietitian: TF-Initiate/Manage 09/14/16 09:12 Consult to Physical Therapy [CONS] Routine Reason for Physical Therapy: Evaluate and Treat 09/21/16 15:33 Consult to Case Mgmt/Social Srvs [CONS] Routine Reason for Case Mgmt/Social Srvs: Discharge Planning Rehab 09/21/16 16:13 Consult to Case Mgmt/Social Srvs [CONS] Routine Reason for Case Mgmt/Social Srvs: Discharge Planning Consult Comment: SWB or LTAC Consult to Physical Therapy [CONS] Routine Reason for Physical Therapy: Weakness Discharging clinician: Annia Etienne NP Expected date of discharge: 09/22/16
[2016-09-22] MEDS ORDERED: hydrALAZINE 10 MG TABLET PO SCH (15:00)
[2016-09-22 15:47] VITALS: BP 117/56
[2016-09-23] MEDS ORDERED: ISOSORBIDE MONONITRATE 30 MG TABLET PO SCH (09:00)
== END 2016-09-22 17:50 | DRG 270 ==
LOC: EDBD → EDUNIT# → N.ED 19:55 → N.EDINP 20:51 → N.ICU 21:20 → N.TELES 09-20 17:18
PROVIDERS: ADMIT Internal Medicine Cardiovascular Disease; ATTEND Internal Medicine Cardiovascular Disease
PROC: CLCCHCL (ICD-10-PCS; 2016-09-07 11:15)

== ENCOUNTER 2017-07-09 16:35 | Inpatient (IN) ==
[2017-07-09] MEDS ORDERED: ALBUTEROL 2.5 MG/3 ML NEB RESP TX PRN (18:11)
[2017-07-09] MEDS ORDERED: ACETAMINOPHEN 325 MG TABLET PO PRN (18:11)
[2017-07-09] MEDS ORDERED: PANTOPRAZOLE 40 MG VIAL IV SCH (18:30)
[2017-07-09] MEDS ORDERED: GLUCAGON 1 MG VIAL IM PRN (18:40)
[2017-07-09] MEDS ORDERED: DEXTROSE 50% 25 GM/50 ML VIAL IV PRN (18:40)
[2017-07-09 19:20] LABS: Apearance,Urine CLOUDY (Clear); Bacteria,Urine Occasional /HPF (Few); Bilirubin,Urine Negative (Negative); Blood, Urine Large mg/dL (Negative); Glucose,Urine (UA) Negative (Negative); Ketones,Urine Negative (Negative); Mucus,Urine Occasional /LPF (Occasional); Nitrite,Urine Negative (Negative); Protein,Urine 100 MG/DL; RBC,Urine 140 /HPF (0-4); Squamous Epithelial Cell,Urine Occasional /HPF (0-10); Urine Color Amber (Yellow); Urine Specific Gravity 1.016 (1.001-1.035); Urine Urobilinogen < 2.0 EU/DL (0.2-1.0); WBC,Urine 153 /HPF (0-6)
[2017-07-09 19:21] LABS: Basophils % 0.3 % (0.0-0.8); Eosinophils % 0.3 % (0.00-10.9); Hematocrit 33.4 VOL% (42.0-52.0); Hemoglobin 10.1 GM/DL (14.0-18.0); Immature Granulocytes % 0.7 %; Lymphocytes # 1.3 10*3/uL (1.4-4.0); Lymphocytes % 9.6 % (21.2-54.2); Mean Corpuscular HGB Conc 30.2 GM/DL (32-36); Mean Corpuscular Hemoglobin 30 PG (27-34); Mean Corpuscular Volume 100.3 FL (87-102); Mean Platelet Volume 12.9 FL (9.6-12.0); Monocytes # 1.9 10*3/uL (0.11-0.8); Monocytes % 13.4 % (1.7-12.7); Neutrophils # 10.4 10*3/uL (1.4-7.4); Neutrophils % 75.7 % (38.7-73.9); Platelet Count 204 T/CUMM (130-400); Red Blood Count 3.33 MC/CUMM (3.8-5.5); White Blood Count 13.8 T/CUMM (4-12)
[2017-07-09] MEDS ORDERED: SODIUM CHLORIDE 0.9% 1,000 ML IV SCH ×2 (19:30→20:30)
[2017-07-09 19:56] LABS: Albumin 2.5 G/DL (3.4-5.0); Bilirubin,Total 0.9 MG/DL (0.2-1.0); Calcium 9.2 MG/DL (8.5-10.1); Lactic Acid 1.7 MMOL/L (0.4-2.0); Osmolality,Calculated 306.6 MOS/KG (273-304); Potassium 4.6 MMOL/L (3.5-5.1); Total Protein 6.7 G/DL (6.4-8.3)
[2017-07-09 20:20] LABS: CKMB % 0.4 %
[2017-07-09] MEDS: MEROPENEM 500 MG in SYRINGE 1 EACH IV SCH (20:35)
[2017-07-09] MEDS: INSULIN LISPRO 100 UNIT/ML SUBCUT SCH (20:39)
[2017-07-10 05:19] LABS: Basophils % 0.3 % (0.0-0.8); Eosinophils # 0.2 10*3/uL (0.0-0.87); Eosinophils % 1.4 % (0.00-10.9); Hematocrit 33.7 VOL% (42.0-52.0); Hemoglobin 10.5 GM/DL (14.0-18.0); Immature Granulocytes Absolute 0.12 #; Lymphocytes # 1.5 10*3/uL (1.4-4.0); Lymphocytes % 12.4 % (21.2-54.2); Mean Corpuscular HGB Conc 31.2 GM/DL (32-36); Mean Corpuscular Hemoglobin 31 PG (27-34); Mean Corpuscular Volume 99.1 FL (87-102); Mean Platelet Volume 12.8 FL (9.6-12.0); Monocytes # 1.4 10*3/uL (0.11-0.8); Monocytes % 11.8 % (1.7-12.7); Neutrophils # 8.7 10*3/uL (1.4-7.4); Neutrophils % 73.1 % (38.7-73.9); Platelet Count 209 T/CUMM (130-400); Red Cell Distribution Width 15.2 % (9.3-17.3); White Blood Count 11.9 T/CUMM (4-12)
[2017-07-10 05:46] LABS: Calcium 9.1 MG/DL (8.5-10.1); Osmolality,Calculated 309.1 MOS/KG (273-304); Potassium 4.6 MMOL/L (3.5-5.1)
[2017-07-10 05:51] LABS: Risk Ratio 4.25; VLDL CHOLESTEROL 18.8 MG/DL
[2017-07-10 06:08] LABS: Band Neutrophils 3 % (0-10); Burr Cells Slight; Eosinophils 2 % (0-10); Giant Platelets Few; Hypochromasia 1+; Lymphocytes 13 % (20-55); Ovalocytes Slight; Platelet Estimate Adequate; Segmented Neutrophils 68 % (50-85); Total Cells Counted 100
[2017-07-10] MEDS ORDERED: ALBUTEROL/IPRATROPIUM 3 ML NEB RESP TX PRN (08:01)
[2017-07-10 08:20] LABS: CKMB % 0.4 %
[2017-07-10] MEDS: INSULIN LISPRO 100 UNIT/ML SUBCUT SCH ×4 (08:26→23:13)
[2017-07-10] MEDS: AMIODARONE 200 MG TABLET PO SCH (08:43)
[2017-07-10] MEDS: PANTOPRAZOLE 40 MG TABLET PO SCH (08:43)
[2017-07-10] MEDS: DEXTROSE 5% NACL 0.45% 1,000 ML IV SCH ×2 (08:43→23:30)
[2017-07-10] MEDS: MEROPENEM 500 MG in SYRINGE 1 EACH IV SCH ×2 (12:28→23:24)
[2017-07-11 06:17] LABS: Basophils % 0.2 % (0.0-0.8); Eosinophils # 0.2 10*3/uL (0.0-0.87); Eosinophils % 1.5 % (0.00-10.9); Hematocrit 34.1 VOL% (42.0-52.0); Hemoglobin 10.9 GM/DL (14.0-18.0); Immature Granulocytes Absolute 0.12 #; Lymphocytes # 1.1 10*3/uL (1.4-4.0); Lymphocytes % 9.2 % (21.2-54.2); Mean Corpuscular Hemoglobin 31 PG (27-34); Mean Corpuscular Volume 97.2 FL (87-102); Mean Platelet Volume 12.6 FL (9.6-12.0); Monocytes # 1.4 10*3/uL (0.11-0.8); Monocytes % 11.9 % (1.7-12.7); Neutrophils # 9.2 10*3/uL (1.4-7.4); Neutrophils % 76.2 % (38.7-73.9); Platelet Count 246 T/CUMM (130-400); Red Blood Count 3.51 MC/CUMM (3.8-5.5); Red Cell Distribution Width 15.4 % (9.3-17.3); White Blood Count 12.1 T/CUMM (4-12)
[2017-07-11 06:53] LABS: Burr Cells Slight; Hypochromasia Slight
[2017-07-11 06:57] LABS: Albumin 2.1 G/DL (3.4-5.0); Bilirubin,Total 0.8 MG/DL (0.2-1.0); Calcium 9.3 MG/DL (8.5-10.1); Osmolality,Calculated 307.3 MOS/KG (273-304); Potassium 4.8 MMOL/L (3.5-5.1); Thyroid Stimulating Hormone 0.341 uIU/ml (0.358-3.74); Total Protein 6.3 G/DL (6.4-8.3)
[2017-07-11] MEDS: INSULIN LISPRO 100 UNIT/ML SUBCUT SCH ×4 (09:20→21:02)
[2017-07-11] MEDS: PANTOPRAZOLE 40 MG TABLET PO SCH (09:21)
[2017-07-11] MEDS: AMIODARONE 200 MG TABLET PO SCH (09:21)
[2017-07-11] MEDS: QUEtiapine 100 MG TABLET PO SCH ×2 (09:28→21:02)
[2017-07-11] MEDS: MEROPENEM 500 MG in SYRINGE 1 EACH IV SCH (11:07)
[2017-07-11] MEDS ORDERED: ZIPRASIDONE 20 MG/1 ML VIAL IM PRN (11:12)
[2017-07-11] MEDS: SULFAMETHOX/TRIMETHOPRIM 800-160 MG TABLET PO SCH ×2 (12:47→21:02)
[2017-07-11] MEDS: CARVEDILOL 25 MG TABLET PO SCH (12:47)
[2017-07-11] MEDS: cefTRIAXone 1,000 MG in SYRINGE 1 EACH IV SCH (12:47)
[2017-07-11] MEDS: DEXTROSE 5% NACL 0.45% 1,000 ML IV SCH ×2 (16:22→16:52)
[2017-07-12] MEDS: DEXTROSE 5% NACL 0.45% 1,000 ML IV SCH ×3 (00:57→15:59)
[2017-07-12 05:23] LABS: Basophils % 0.3 % (0.0-0.8); Eosinophils # 0.2 10*3/uL (0.0-0.87); Eosinophils % 2.1 % (0.00-10.9); Hematocrit 33.7 VOL% (42.0-52.0); Hemoglobin 10.3 GM/DL (14.0-18.0); Immature Granulocytes % 1.4 %; Immature Granulocytes Absolute 0.14 #; Lymphocytes # 1.2 10*3/uL (1.4-4.0); Lymphocytes % 11.8 % (21.2-54.2); Mean Corpuscular HGB Conc 30.6 GM/DL (32-36); Mean Corpuscular Hemoglobin 31 PG (27-34); Mean Corpuscular Volume 100.9 FL (87-102); Mean Platelet Volume 12.7 FL (9.6-12.0); Monocytes # 1.5 10*3/uL (0.11-0.8); Monocytes % 14.6 % (1.7-12.7); Neutrophils # 7.2 10*3/uL (1.4-7.4); Neutrophils % 69.8 % (38.7-73.9); Platelet Count 251 T/CUMM (130-400); Red Blood Count 3.34 MC/CUMM (3.8-5.5); Red Cell Distribution Width 15.6 % (9.3-17.3); White Blood Count 10.3 T/CUMM (4-12)
[2017-07-12 05:51] LABS: Anisocytosis 1+; Macrocytosis 3+; Platelet Estimate Normal
[2017-07-12 05:55] LABS: Calcium 9.3 MG/DL (8.5-10.1); Osmolality,Calculated 299.6 MOS/KG (273-304)
[2017-07-12] MEDS: INSULIN LISPRO 100 UNIT/ML SUBCUT SCH ×4 (08:14→21:07)
[2017-07-12] MEDS: CARVEDILOL 25 MG TABLET PO SCH (09:00)
[2017-07-12] MEDS: SULFAMETHOX/TRIMETHOPRIM 800-160 MG TABLET PO SCH ×2 (09:00→21:18)
[2017-07-12] MEDS: PANTOPRAZOLE 40 MG TABLET PO SCH (09:00)
[2017-07-12] MEDS: QUEtiapine 100 MG TABLET PO SCH ×2 (09:00→21:18)
[2017-07-12] MEDS: AMIODARONE 200 MG TABLET PO SCH (09:00)
[2017-07-12] MEDS ORDERED: ALBUTEROL/IPRATROPIUM 3 ML NEB RESP TX ONE (11:30)
[2017-07-12] MEDS: cefTRIAXone 1,000 MG in SYRINGE 1 EACH IV SCH (12:42)
[2017-07-13 06:37] LABS: Basophils % 0.4 % (0.0-0.8); Eosinophils # 0.3 10*3/uL (0.0-0.87); Eosinophils % 3.1 % (0.00-10.9); Hematocrit 33.1 VOL% (42.0-52.0); Hemoglobin 10.1 GM/DL (14.0-18.0); Lymphocytes # 1.3 10*3/uL (1.4-4.0); Lymphocytes % 12.5 % (21.2-54.2); Mean Corpuscular HGB Conc 30.5 GM/DL (32-36); Mean Corpuscular Hemoglobin 31 PG (27-34); Mean Corpuscular Volume 100.6 FL (87-102); Mean Platelet Volume 12.7 FL (9.6-12.0); Monocytes # 1.6 10*3/uL (0.11-0.8); Monocytes % 15.8 % (1.7-12.7); Neutrophils # 6.7 10*3/uL (1.4-7.4); Neutrophils % 66.2 % (38.7-73.9); Platelet Count 264 T/CUMM (130-400); Red Blood Count 3.29 MC/CUMM (3.8-5.5); Red Cell Distribution Width 15.4 % (9.3-17.3); White Blood Count 10.1 T/CUMM (4-12)
[2017-07-13 07:06] LABS: Anisocytosis 1+; Atypical Lymphocytes Few; Band Neutrophils 4 % (0-10); Eosinophils 4 % (0-10); Lymphocytes 25 % (20-55); Macrocytosis 3+; Platelet Estimate Normal; Segmented Neutrophils 61 % (50-85); Total Cells Counted 100
[2017-07-13 07:22] LABS: CKMB % 0.1 %; Calcium 9.3 MG/DL (8.5-10.1); Osmolality,Calculated 297.7 MOS/KG (273-304); Total Protein 6.5 G/DL (6.4-8.3)
[2017-07-13 07:25] LABS: Troponin I Only 19.7 NG/ML (0.00-0.045)
[2017-07-13] MEDS: INSULIN LISPRO 100 UNIT/ML SUBCUT SCH ×4 (10:15→21:27)
[2017-07-13] MEDS: ISOSORBIDE MONONITRATE 60 MG TABLET PO SCH (10:17)
[2017-07-13] MEDS: AMIODARONE 200 MG TABLET PO SCH (10:17)
[2017-07-13] MEDS: SULFAMETHOX/TRIMETHOPRIM 800-160 MG TABLET PO SCH ×2 (10:17→21:22)
[2017-07-13] MEDS: CARVEDILOL 25 MG TABLET PO SCH ×2 (10:18→16:36)
[2017-07-13] MEDS: PANTOPRAZOLE 40 MG TABLET PO SCH (10:18)
[2017-07-13] MEDS: QUEtiapine 100 MG TABLET PO SCH ×2 (10:18→21:22)
[2017-07-13] MEDS ORDERED: ASPIRIN CHEW 81 MG TABLET PO ONE (11:27)
[2017-07-13] MEDS ORDERED: ENOXAPARIN 100 MG/ML SYRINGE SUBCUT ONE (11:27)
[2017-07-13] MEDS ORDERED: hydrALAZINE 25 MG TABLET PO SCH (11:30)
[2017-07-13] MEDS: cefTRIAXone 1,000 MG in SYRINGE 1 EACH IV SCH (11:49)
[2017-07-14 05:34] LABS: Basophils # 0.1 10*3/uL (0.0-0.2); Basophils % 0.6 % (0.0-0.8); Eosinophils # 0.3 10*3/uL (0.0-0.87); Eosinophils % 3.4 % (0.00-10.9); Hematocrit 31.4 VOL% (42.0-52.0); Immature Granulocytes % 6.3 %; Immature Granulocytes Absolute 0.57 #; Lymphocytes # 1.6 10*3/uL (1.4-4.0); Lymphocytes % 17.3 % (21.2-54.2); Mean Corpuscular HGB Conc 31.8 GM/DL (32-36); Mean Corpuscular Hemoglobin 31 PG (27-34); Mean Corpuscular Volume 97.2 FL (87-102); Monocytes # 1.5 10*3/uL (0.11-0.8); Monocytes % 16.6 % (1.7-12.7); Neutrophils % 55.8 % (38.7-73.9); Platelet Count 312 T/CUMM (130-400); Red Blood Count 3.23 MC/CUMM (3.8-5.5); Red Cell Distribution Width 15.5 % (9.3-17.3)
[2017-07-14 05:52] LABS: Calcium 9.4 MG/DL (8.5-10.1); Osmolality,Calculated 297.8 MOS/KG (273-304)
[2017-07-14 06:01] LABS: Band Neutrophils 2 % (0-10); Eosinophils 4 % (0-10); Giant Platelets Few; Hypochromasia 1+; Lymphocytes 21 % (20-55); Platelet Estimate Adequate; Segmented Neutrophils 58 % (50-85); Total Cells Counted 100
[2017-07-14 06:02] LABS: Atypical Lymphocytes Few; Macrocytosis Slight
[2017-07-14 06:12] LABS: Troponin I Only 14.8 NG/ML (0.00-0.045)
[2017-07-14] MEDS: QUEtiapine 100 MG TABLET PO SCH ×2 (10:43→21:52)
[2017-07-14] MEDS: ISOSORBIDE MONONITRATE 60 MG TABLET PO SCH (10:43)
[2017-07-14] MEDS: CARVEDILOL 25 MG TABLET PO SCH ×2 (10:44→17:30)
[2017-07-14] MEDS: ASPIRIN EC 81 MG TABLET PO SCH (10:44)
[2017-07-14] MEDS: SULFAMETHOX/TRIMETHOPRIM 800-160 MG TABLET PO SCH ×2 (10:44→21:52)
[2017-07-14] MEDS: PANTOPRAZOLE 40 MG TABLET PO SCH (10:44)
[2017-07-14] MEDS: AMIODARONE 200 MG TABLET PO SCH (10:44)
[2017-07-14] MEDS: INSULIN LISPRO 100 UNIT/ML SUBCUT SCH ×4 (12:34→21:53)
[2017-07-15 06:52] LABS: Basophils % 0.5 % (0.0-0.8); Eosinophils # 0.2 10*3/uL (0.0-0.87); Eosinophils % 2.7 % (0.00-10.9); Hemoglobin 10.1 GM/DL (14.0-18.0); Immature Granulocytes % 4.5 %; Immature Granulocytes Absolute 0.37 #; Lymphocytes # 1.1 10*3/uL (1.4-4.0); Lymphocytes % 13.8 % (21.2-54.2); Mean Corpuscular HGB Conc 30.6 GM/DL (32-36); Mean Corpuscular Hemoglobin 30 PG (27-34); Mean Corpuscular Volume 99.4 FL (87-102); Monocytes # 1.2 10*3/uL (0.11-0.8); Monocytes % 14.7 % (1.7-12.7); Neutrophils # 5.2 10*3/uL (1.4-7.4); Neutrophils % 63.8 % (38.7-73.9); Platelet Count 319 T/CUMM (130-400); Red Blood Count 3.32 MC/CUMM (3.8-5.5); Red Cell Distribution Width 15.9 % (9.3-17.3); White Blood Count 8.2 T/CUMM (4-12)
[2017-07-15 07:19] LABS: Band Neutrophils 3 % (0-10); Hypochromasia 2+; Lymphocytes 16 % (20-55); Platelet Estimate Adequate; Segmented Neutrophils 71 % (50-85); Total Cells Counted 100
[2017-07-15 07:22] LABS: Calcium 9.7 MG/DL (8.5-10.1); Osmolality,Calculated 301.7 MOS/KG (273-304); Potassium 5.3 MMOL/L (3.5-5.1)
[2017-07-15 07:31] LABS: Alanine Aminotransferase 57 U/L (16-61); Albumin 2.1 G/DL (3.4-5.0); Alkaline Phosphatase 76 U/L (45-117); Aspartate Amino Transferase 107 U/L (0-37); Bilirubin,Indirect 0.2 MG/DL (0.0-1.0); Bilirubin,Total < 0.39 MG/DL (0.2-1.0)
[2017-07-15] MEDS: SULFAMETHOX/TRIMETHOPRIM 800-160 MG TABLET PO SCH ×2 (10:00→21:58)
[2017-07-15] MEDS: ISOSORBIDE MONONITRATE 60 MG TABLET PO SCH (10:01)
[2017-07-15] MEDS: CARVEDILOL 25 MG TABLET PO SCH ×2 (10:01→16:02)
[2017-07-15] MEDS: AMIODARONE 200 MG TABLET PO SCH (10:02)
[2017-07-15] MEDS: PANTOPRAZOLE 40 MG TABLET PO SCH (10:02)
[2017-07-15] MEDS: ASPIRIN EC 81 MG TABLET PO SCH (10:02)
[2017-07-15] MEDS: INSULIN LISPRO 100 UNIT/ML SUBCUT SCH ×4 (10:03→22:00)
[2017-07-15] MEDS: QUEtiapine 100 MG TABLET PO SCH ×2 (10:03→21:58)
[2017-07-15] MEDS: amLODIPine 5 MG TABLET PO SCH (10:10)
[2017-07-16 06:15] LABS: Calcium 9.8 MG/DL (8.5-10.1); Osmolality,Calculated 307.6 MOS/KG (273-304); Potassium 5.3 MMOL/L (3.5-5.1)
[2017-07-16] MEDS: CARVEDILOL 25 MG TABLET PO SCH ×2 (09:34→16:00)
[2017-07-16] MEDS: PANTOPRAZOLE 40 MG TABLET PO SCH (09:34)
[2017-07-16] MEDS: ISOSORBIDE MONONITRATE 60 MG TABLET PO SCH (09:34)
[2017-07-16] MEDS: AMIODARONE 200 MG TABLET PO SCH (09:35)
[2017-07-16] MEDS: QUEtiapine 100 MG TABLET PO SCH ×2 (09:35→22:45)
[2017-07-16] MEDS: SULFAMETHOX/TRIMETHOPRIM 800-160 MG TABLET PO SCH ×2 (09:35→22:45)
[2017-07-16] MEDS: ASPIRIN EC 81 MG TABLET PO SCH (09:35)
[2017-07-16] MEDS: amLODIPine 5 MG TABLET PO SCH (09:35)
[2017-07-16] MEDS: INSULIN LISPRO 100 UNIT/ML SUBCUT SCH ×4 (09:36→22:46)
[2017-07-17 04:58] LABS: Basophils % 0.3 % (0.0-0.8); Eosinophils # 0.2 10*3/uL (0.0-0.87); Eosinophils % 2.2 % (0.00-10.9); Hematocrit 31.2 VOL% (42.0-52.0); Immature Granulocytes % 3.3 %; Immature Granulocytes Absolute 0.32 #; Lymphocytes # 1.6 10*3/uL (1.4-4.0); Lymphocytes % 16.2 % (21.2-54.2); Mean Corpuscular HGB Conc 32.1 GM/DL (32-36); Mean Corpuscular Hemoglobin 31 PG (27-34); Mean Corpuscular Volume 97.8 FL (87-102); Mean Platelet Volume 11.8 FL (9.6-12.0); Monocytes % 9.8 % (1.7-12.7); Neutrophils # 6.7 10*3/uL (1.4-7.4); Neutrophils % 68.2 % (38.7-73.9); Platelet Count 375 T/CUMM (130-400); Red Blood Count 3.19 MC/CUMM (3.8-5.5); Red Cell Distribution Width 15.9 % (9.3-17.3); White Blood Count 9.8 T/CUMM (4-12)
[2017-07-17 05:43] LABS: Calcium 10.1 MG/DL (8.5-10.1); Osmolality,Calculated 301.7 MOS/KG (273-304)
[2017-07-17 05:56] LABS: Albumin 2.2 G/DL (3.4-5.0); Bilirubin,Direct 0.12 MG/DL (0.0-0.20); Bilirubin,Indirect 0.3 MG/DL (0.0-1.0); Bilirubin,Total 0.4 MG/DL (0.2-1.0); Total Protein 7.1 G/DL (6.4-8.3)
[2017-07-17 06:10] LABS: Hypochromasia 1+; Platelet Estimate Normal
[2017-07-17] MEDS: ISOSORBIDE MONONITRATE 60 MG TABLET PO SCH (08:51)
[2017-07-17] MEDS: QUEtiapine 100 MG TABLET PO SCH ×3 (08:51→23:46)
[2017-07-17] MEDS: amLODIPine 5 MG TABLET PO SCH (08:51)
[2017-07-17] MEDS: ASPIRIN EC 81 MG TABLET PO SCH (08:52)
[2017-07-17] MEDS: CARVEDILOL 25 MG TABLET PO SCH ×2 (08:52→16:38)
[2017-07-17] MEDS: AMIODARONE 200 MG TABLET PO SCH (08:52)
[2017-07-17] MEDS: SULFAMETHOX/TRIMETHOPRIM 800-160 MG TABLET PO SCH ×3 (08:52→23:46)
[2017-07-17] MEDS: PANTOPRAZOLE 40 MG TABLET PO SCH (08:52)
[2017-07-17] MEDS: INSULIN LISPRO 100 UNIT/ML SUBCUT SCH ×4 (08:53→22:20)
[2017-07-18 08:00] LABS: Basophils % 0.3 % (0.0-0.8); Eosinophils # 0.2 10*3/uL (0.0-0.87); Eosinophils % 2.4 % (0.00-10.9); Hematocrit 37.1 VOL% (42.0-52.0); Hemoglobin 11.3 GM/DL (14.0-18.0); Immature Granulocytes % 2.6 %; Immature Granulocytes Absolute 0.23 #; Lymphocytes # 1.4 10*3/uL (1.4-4.0); Lymphocytes % 15.7 % (21.2-54.2); Mean Corpuscular HGB Conc 30.5 GM/DL (32-36); Mean Corpuscular Hemoglobin 31 PG (27-34); Mean Platelet Volume 11.6 FL (9.6-12.0); Monocytes # 0.8 10*3/uL (0.11-0.8); Neutrophils # 6.3 10*3/uL (1.4-7.4); Platelet Count 427 T/CUMM (130-400); Red Blood Count 3.71 MC/CUMM (3.8-5.5); Red Cell Distribution Width 15.9 % (9.3-17.3); White Blood Count 8.9 T/CUMM (4-12)
[2017-07-18 08:19] LABS: Giant Platelets Few; Hypochromasia 1+; Ovalocytes Slight; Platelet Estimate Increased
[2017-07-18] MEDS: INSULIN LISPRO 100 UNIT/ML SUBCUT SCH ×4 (08:20→22:52)
[2017-07-18 08:26] LABS: Calcium 10.8 MG/DL (8.5-10.1); Osmolality,Calculated 298.8 MOS/KG (273-304); Potassium 5.5 MMOL/L (3.5-5.1)
[2017-07-18] MEDS: ASPIRIN EC 81 MG TABLET PO SCH (11:20)
[2017-07-18] MEDS: PANTOPRAZOLE 40 MG TABLET PO SCH (11:20)
[2017-07-18] MEDS: QUEtiapine 100 MG TABLET PO SCH ×2 (11:20→22:56)
[2017-07-18] MEDS: AMIODARONE 200 MG TABLET PO SCH (11:20)
[2017-07-18] MEDS: CARVEDILOL 25 MG TABLET PO SCH ×2 (11:20→17:45)
[2017-07-18] MEDS: amLODIPine 5 MG TABLET PO SCH (11:20)
[2017-07-18] MEDS: ISOSORBIDE MONONITRATE 60 MG TABLET PO SCH (11:21)
[2017-07-18] MEDS: SULFAMETHOX/TRIMETHOPRIM 800-160 MG TABLET PO SCH (11:44)
[2017-07-18] MEDS ORDERED: TUBERCULIN SKIN TEST 0.1 ML SYRINGE INTRADERM ONE (12:00)
[2017-07-18] MEDS: ROSUVASTATIN 10 MG TABLET PO SCH (22:56)
[2017-07-18] MEDS: ZINC OXIDE PASTE 113 GM TUBE TOP SCH (22:58)
[2017-07-19 07:33] LABS: Basophils # 0.1 10*3/uL (0.0-0.2); Basophils % 0.4 % (0.0-0.8); Eosinophils # 0.2 10*3/uL (0.0-0.87); Hemoglobin 10.4 GM/DL (14.0-18.0); Immature Granulocytes % 1.8 %; Immature Granulocytes Absolute 0.21 #; Lymphocytes # 1.5 10*3/uL (1.4-4.0); Lymphocytes % 13.1 % (21.2-54.2); Mean Corpuscular HGB Conc 31.5 GM/DL (32-36); Mean Corpuscular Hemoglobin 31 PG (27-34); Mean Corpuscular Volume 98.8 FL (87-102); Mean Platelet Volume 11.9 FL (9.6-12.0); Monocytes % 8.6 % (1.7-12.7); Neutrophils # 8.6 10*3/uL (1.4-7.4); Neutrophils % 74.1 % (38.7-73.9); Platelet Count 438 T/CUMM (130-400); Red Blood Count 3.34 MC/CUMM (3.8-5.5); Red Cell Distribution Width 16.1 % (9.3-17.3); White Blood Count 11.7 T/CUMM (4-12)
[2017-07-19 07:57] LABS: Band Neutrophils 1 % (0-10); Eosinophils 4 % (0-10); Hypochromasia 1+; Lymphocytes 12 % (20-55); Macrocytosis Slight; Platelet Estimate Increased; Segmented Neutrophils 75 % (50-85); Total Cells Counted 100
[2017-07-19 08:05] LABS: Calcium 10.8 MG/DL (8.5-10.1); Osmolality,Calculated 304.8 MOS/KG (273-304); Potassium 5.7 MMOL/L (3.5-5.1)
[2017-07-19] MEDS ORDERED: SODIUM POLYSTYRENE SULFATE 15 GM/60 ML BOTTLE PO ONE (09:00)
[2017-07-19] MEDS: INSULIN LISPRO 100 UNIT/ML SUBCUT SCH ×4 (09:27→20:13)
[2017-07-19] MEDS: ISOSORBIDE MONONITRATE 60 MG TABLET PO SCH (09:47)
[2017-07-19] MEDS: ASPIRIN EC 81 MG TABLET PO SCH (09:48)
[2017-07-19] MEDS: QUEtiapine 100 MG TABLET PO SCH ×2 (09:48→21:12)
[2017-07-19] MEDS: CARVEDILOL 25 MG TABLET PO SCH ×2 (09:48→17:16)
[2017-07-19] MEDS: amLODIPine 5 MG TABLET PO SCH (09:48)
[2017-07-19] MEDS: AMIODARONE 200 MG TABLET PO SCH (09:48)
[2017-07-19] MEDS: ZINC OXIDE PASTE 113 GM TUBE TOP SCH ×2 (09:48→21:12)
[2017-07-19] MEDS: PANTOPRAZOLE 40 MG TABLET PO SCH (09:49)
[2017-07-19] MEDS ORDERED: SODIUM CHLORIDE 0.9% 500 ML IV ONE (10:30)
[2017-07-19 16:08] LABS: ABG Base Excess -1.9 MMOL/L (-2.5-2.5); ABG HCO3 21.9 MMOL/L (20-26); ABG Oxygen Saturation 96.2 % (95-100); ABG PCO2 34.3 MM HG (35-48); ABG PH 7.424 (7.35-7.45)
[2017-07-19] MEDS: ROSUVASTATIN 10 MG TABLET PO SCH (21:12)
[2017-07-20 05:28] LABS: Basophils % 0.3 % (0.0-0.8); Eosinophils # 0.2 10*3/uL (0.0-0.87); Eosinophils % 1.9 % (0.00-10.9); Hematocrit 34.1 VOL% (42.0-52.0); Hemoglobin 10.3 GM/DL (14.0-18.0); Immature Granulocytes % 1.8 %; Immature Granulocytes Absolute 0.19 #; Lymphocytes # 1.6 10*3/uL (1.4-4.0); Lymphocytes % 15.1 % (21.2-54.2); Mean Corpuscular HGB Conc 30.2 GM/DL (32-36); Mean Corpuscular Hemoglobin 31 PG (27-34); Mean Corpuscular Volume 101.5 FL (87-102); Mean Platelet Volume 11.9 FL (9.6-12.0); Monocytes # 0.7 10*3/uL (0.11-0.8); Monocytes % 7.1 % (1.7-12.7); Neutrophils # 7.6 10*3/uL (1.4-7.4); Neutrophils % 73.8 % (38.7-73.9); Platelet Count 444 T/CUMM (130-400); Red Blood Count 3.36 MC/CUMM (3.8-5.5); Red Cell Distribution Width 16.1 % (9.3-17.3); White Blood Count 10.4 T/CUMM (4-12)
[2017-07-20 05:53] LABS: Band Neutrophils 1 % (0-10); Eosinophils 3 % (0-10); Giant Platelets Few; Hypochromasia 1+; Lymphocytes 11 % (20-55); Platelet Estimate Adequate; Segmented Neutrophils 79 % (50-85); Total Cells Counted 100
[2017-07-20 05:54] LABS: Macrocytosis Slight
[2017-07-20 06:08] LABS: Osmolality,Calculated 309.6 MOS/KG (273-304); Potassium 5.4 MMOL/L (3.5-5.1)
[2017-07-20] MEDS ORDERED: SODIUM CHLORIDE 0.9% 1,000 ML IV SCH (07:30)
[2017-07-20] MEDS: INSULIN LISPRO 100 UNIT/ML SUBCUT SCH ×4 (09:00→23:44)
[2017-07-20] MEDS: QUEtiapine 100 MG TABLET PO SCH ×2 (09:16→23:37)
[2017-07-20] MEDS: ISOSORBIDE MONONITRATE 60 MG TABLET PO SCH (09:16)
[2017-07-20] MEDS: PANTOPRAZOLE 40 MG TABLET PO SCH (09:16)
[2017-07-20] MEDS: AMIODARONE 200 MG TABLET PO SCH (09:17)
[2017-07-20] MEDS: ASPIRIN EC 81 MG TABLET PO SCH (09:17)
[2017-07-20] MEDS: CARVEDILOL 25 MG TABLET PO SCH ×2 (09:17→17:29)
[2017-07-20] MEDS: ZINC OXIDE PASTE 113 GM TUBE TOP SCH ×2 (09:17→23:38)
[2017-07-20] MEDS: amLODIPine 5 MG TABLET PO SCH (09:17)
[2017-07-20 15:03] LABS: Osmolality,Calculated 313.8 MOS/KG (273-304); Potassium 5.8 MMOL/L (3.5-5.1)
[2017-07-20] MEDS ORDERED: SODIUM POLYSTYRENE SULFATE 15 GM/60 ML BOTTLE PO STA (15:33)
[2017-07-20] MEDS ORDERED: SODIUM ACETATE 100 MEQ in DEXTROSE 5% 1,000 ML IV SCH (19:00)
[2017-07-20] MEDS: ROSUVASTATIN 10 MG TABLET PO SCH (23:37)
[2017-07-21 07:49] LABS: Basophils # 0.1 10*3/uL (0.0-0.2); Basophils % 0.3 % (0.0-0.8); Eosinophils # 0.3 10*3/uL (0.0-0.87); Eosinophils % 1.8 % (0.00-10.9); Hematocrit 30.8 VOL% (42.0-52.0); Hemoglobin 9.3 GM/DL (14.0-18.0); Immature Granulocytes % 0.7 %; Lymphocytes # 1.6 10*3/uL (1.4-4.0); Lymphocytes % 10.4 % (21.2-54.2); Mean Corpuscular HGB Conc 30.2 GM/DL (32-36); Mean Corpuscular Hemoglobin 31 PG (27-34); Mean Platelet Volume 12.4 FL (9.6-12.0); Monocytes # 1.2 10*3/uL (0.11-0.8); Monocytes % 7.8 % (1.7-12.7); NRBC # 0.06 10*3/uL; Neutrophils # 11.8 10*3/uL (1.4-7.4); Platelet Count 346 T/CUMM (130-400); Red Blood Count 3.05 MC/CUMM (3.8-5.5); Red Cell Distribution Width 16.3 % (9.3-17.3); White Blood Count 14.9 T/CUMM (4-12)
[2017-07-21 08:20] LABS: Calcium 9.9 MG/DL (8.5-10.1); Osmolality,Calculated 310.6 MOS/KG (273-304); Potassium 5.2 MMOL/L (3.5-5.1)
[2017-07-21 08:29] LABS: Eosinophils 1 % (0-10); Giant Platelets Few; Hypochromasia 1+; Lymphocytes 7 % (20-55); Macrocytosis Slight; Ovalocytes Slight; Platelet Estimate Adequate; Segmented Neutrophils 85 % (50-85); Total Cells Counted 100
[2017-07-21] MEDS: ISOSORBIDE MONONITRATE 60 MG TABLET PO SCH ×2 (08:51→09:45)
[2017-07-21] MEDS: amLODIPine 5 MG TABLET PO SCH ×2 (08:51→09:45)
[2017-07-21] MEDS: INSULIN LISPRO 100 UNIT/ML SUBCUT SCH ×4 (08:51→21:32)
[2017-07-21] MEDS: PANTOPRAZOLE 40 MG TABLET PO SCH ×2 (08:51→09:45)
[2017-07-21] MEDS: CARVEDILOL 25 MG TABLET PO SCH ×3 (08:51→16:29)
[2017-07-21] MEDS: ASPIRIN EC 81 MG TABLET PO SCH ×2 (08:51→09:45)
[2017-07-21] MEDS: QUEtiapine 100 MG TABLET PO SCH ×3 (08:51→21:26)
[2017-07-21] MEDS: AMIODARONE 200 MG TABLET PO SCH ×2 (08:51→09:45)
[2017-07-21] MEDS: ZINC OXIDE PASTE 113 GM TUBE TOP SCH ×2 (08:53→21:27)
[2017-07-21 14:49] LABS: Basophils % 0.2 % (0.0-0.8); Eosinophils # 0.3 10*3/uL (0.0-0.87); Eosinophils % 2.4 % (0.00-10.9); Hematocrit 27.2 VOL% (42.0-52.0); Hemoglobin 8.7 GM/DL (14.0-18.0); Lymphocytes # 1.4 10*3/uL (1.4-4.0); Lymphocytes % 13.1 % (21.2-54.2); Mean Corpuscular Hemoglobin 31 PG (27-34); Mean Corpuscular Volume 98.2 FL (87-102); Mean Platelet Volume 11.8 FL (9.6-12.0); Monocytes # 0.9 10*3/uL (0.11-0.8); Monocytes % 8.5 % (1.7-12.7); Neutrophils # 7.9 10*3/uL (1.4-7.4); Neutrophils % 74.8 % (38.7-73.9); Platelet Count 384 T/CUMM (130-400); Red Blood Count 2.77 MC/CUMM (3.8-5.5); White Blood Count 10.5 T/CUMM (4-12)
[2017-07-21 15:18] LABS: Calcium 9.6 MG/DL (8.5-10.1); Osmolality,Calculated 309.4 MOS/KG (273-304); Potassium 4.7 MMOL/L (3.5-5.1)
[2017-07-21] MEDS: ROSUVASTATIN 10 MG TABLET PO SCH (21:26)
[2017-07-22 08:18] VITALS: BP 152/78
[2017-07-22] MEDS: INSULIN LISPRO 100 UNIT/ML SUBCUT SCH (08:19)
[2017-07-22] MEDS: ASPIRIN EC 81 MG TABLET PO SCH (08:24)
[2017-07-22] MEDS: AMIODARONE 200 MG TABLET PO SCH (08:24)
[2017-07-22] MEDS: PANTOPRAZOLE 40 MG TABLET PO SCH (08:25)
[2017-07-22] MEDS: QUEtiapine 100 MG TABLET PO SCH (08:25)
[2017-07-22] MEDS: amLODIPine 5 MG TABLET PO SCH (08:25)
[2017-07-22] MEDS: ISOSORBIDE MONONITRATE 60 MG TABLET PO SCH (08:25)
[2017-07-22] MEDS: CARVEDILOL 25 MG TABLET PO SCH (08:25)
[2017-07-22] MEDS: ZINC OXIDE PASTE 113 GM TUBE TOP SCH (08:25)
== END 2017-07-22 10:13 | DRG 682 ==
LOC: SUATTDRO 17:08 → N.ICU 17:08 → N.TELES 07-10 15:26 → N.2E 07-12 18:34
PROVIDERS: ADMIT Internal Medicine; ATTEND Internal Medicine

== ENCOUNTER 2017-08-02 09:58 | Inpatient (IN) ==
[2017-08-02 10:42] LABS: Basophils # 0.1 10*3/uL (0.0-0.2); Basophils % 0.5 % (0.0-0.8); Eosinophils # 0.3 10*3/uL (0.0-0.87); Eosinophils % 3.6 % (0.00-10.9); Hematocrit 32.1 VOL% (42.0-52.0); Hemoglobin 9.7 GM/DL (14.0-18.0); Immature Granulocytes % 0.9 %; Immature Granulocytes Absolute 0.08 #; Lymphocytes # 1.6 10*3/uL (1.4-4.0); Lymphocytes % 17.4 % (21.2-54.2); Mean Corpuscular HGB Conc 30.2 GM/DL (32-36); Mean Corpuscular Hemoglobin 31 PG (27-34); Mean Corpuscular Volume 100.9 FL (87-102); Mean Platelet Volume 11.9 FL (9.6-12.0); Monocytes # 0.8 10*3/uL (0.11-0.8); Neutrophils # 6.3 10*3/uL (1.4-7.4); Neutrophils % 68.6 % (38.7-73.9); Platelet Count 395 T/CUMM (130-400); Red Blood Count 3.18 MC/CUMM (3.8-5.5); Red Cell Distribution Width 15.5 % (9.3-17.3); White Blood Count 9.1 T/CUMM (4-12)
[2017-08-02 10:47] LABS: Apearance,Urine CLEAR (Clear); Bilirubin,Urine Negative (Negative); Blood, Urine Negative (Negative); Glucose,Urine (UA) Negative (Negative); Hyaline Casts,Urine 4 /LPF (0-3); Ketones,Urine Negative (Negative); Mucus,Urine Occasional /LPF (Occasional); Nitrite,Urine Negative (Negative); Protein,Urine 30 MG/DL; Squamous Epithelial Cell,Urine Occasional /HPF (0-10); Urine Color Yellow (Yellow); Urine Specific Gravity 1.012 (1.001-1.035); Urine Urobilinogen < 2.0 EU/DL (0.2-1.0); WBC,Urine 1 /HPF (0-6)
[2017-08-02 10:52] LABS: Barbiturates Screen,Urine Negative (Negative); Benzodiazepines Screen,Urine Negative (Negative); Cannabinoid Screen,Urine Negative (Negative); Opiate Screen,Urine Negative (Negative); Phencyclidine Screen,Urine Negative (Negative)
[2017-08-02 10:53] LABS: PT Patient Result 10.8 SECS; Partial Thromboplastin Time 27.3 SECS (0-40)
[2017-08-02 11:11] LABS: Alanine Aminotransferase 20 U/L (16-61); Albumin 2.3 G/DL (3.4-5.0); Alkaline Phosphatase 83 U/L (45-117); Aspartate Amino Transferase 25 U/L (0-37); Bilirubin,Total < 0.39 MG/DL (0.2-1.0); Blood Urea Nitrogen 45 MG/DL (7-18); Calcium 10.6 MG/DL (8.5-10.1); Glucose 229 MG/DL (74-106); Osmolality,Calculated 308.6 MOS/KG (273-304); Potassium 5.1 MMOL/L (3.5-5.1); Sodium 146 MMOL/L (136-145); Total Protein 7.9 G/DL (6.4-8.3)
[2017-08-02] MEDS ORDERED: LABETALOL 20 MG/4 ML SYRINGE IV PRN (12:40)
[2017-08-02] MEDS ORDERED: GLUCAGON 1 MG VIAL IM PRN (13:40)
[2017-08-02] MEDS ORDERED: DEXTROSE 50% 25 GM/50 ML VIAL IV PRN (13:40)
[2017-08-02] MEDS: SODIUM CHLORIDE 0.45% 1,000 ML IV SCH (14:33)
[2017-08-02] MEDS: INSULIN LISPRO 100 UNIT/ML SUBCUT SCH ×2 (16:44→21:44)
[2017-08-02] MEDS: ALBUTEROL/IPRATROPIUM 3 ML NEB RESP TX SCH (19:23)
[2017-08-02] MEDS ORDERED: ZIPRASIDONE 20 MG/1 ML VIAL IM ONE (20:18)
[2017-08-02] MEDS: ATORVASTATIN 40 MG TABLET PO SCH ×2 (21:55→22:16)
[2017-08-02] MEDS: QUEtiapine 100 MG TABLET PO SCH ×2 (21:55→22:16)
[2017-08-02] MEDS: FAMOTIDINE 20 MG TABLET PO SCH ×2 (21:55→22:16)
[2017-08-03 04:32] LABS: Basophils % 0.4 % (0.0-0.8); Eosinophils # 0.3 10*3/uL (0.0-0.87); Eosinophils % 3.7 % (0.00-10.9); Hemoglobin 9.7 GM/DL (14.0-18.0); Immature Granulocytes % 0.6 %; Immature Granulocytes Absolute 0.05 #; Lymphocytes # 1.8 10*3/uL (1.4-4.0); Lymphocytes % 22.3 % (21.2-54.2); Mean Corpuscular HGB Conc 31.3 GM/DL (32-36); Mean Corpuscular Hemoglobin 31 PG (27-34); Mean Corpuscular Volume 98.7 FL (87-102); Mean Platelet Volume 11.8 FL (9.6-12.0); Monocytes # 0.9 10*3/uL (0.11-0.8); Monocytes % 10.9 % (1.7-12.7); Neutrophils # 5.1 10*3/uL (1.4-7.4); Neutrophils % 62.1 % (38.7-73.9); Platelet Count 331 T/CUMM (130-400); Red Blood Count 3.14 MC/CUMM (3.8-5.5); Red Cell Distribution Width 15.8 % (9.3-17.3); White Blood Count 8.2 T/CUMM (4-12)
[2017-08-03 04:58] LABS: Calcium 10.3 MG/DL (8.5-10.1); Osmolality,Calculated 305.3 MOS/KG (273-304); Potassium 4.6 MMOL/L (3.5-5.1)
[2017-08-03 05:00] LABS: Risk Ratio 4.03; VLDL CHOLESTEROL 22.6 MG/DL
[2017-08-03] MEDS: SODIUM CHLORIDE 0.45% 1,000 ML IV SCH ×2 (07:00→22:43)
[2017-08-03] MEDS: ALBUTEROL/IPRATROPIUM 3 ML NEB RESP TX SCH ×2 (07:15→19:05)
[2017-08-03] MEDS ORDERED: LORazepam 2 MG/1 ML VIAL IV ONE (08:30)
[2017-08-03] MEDS: FAMOTIDINE 20 MG TABLET PO SCH ×2 (08:43→21:54)
[2017-08-03] MEDS: ASPIRIN EC 325 MG TABLET PO SCH (08:44)
[2017-08-03] MEDS: INSULIN LISPRO 100 UNIT/ML SUBCUT SCH ×4 (08:44→21:54)
[2017-08-03] MEDS: ISOSORBIDE MONONITRATE 60 MG TABLET PO SCH (08:44)
[2017-08-03] MEDS: hydrALAZINE 10 MG TABLET PO SCH (08:44)
[2017-08-03] MEDS: CARVEDILOL 25 MG TABLET PO SCH (08:44)
[2017-08-03] MEDS: AMIODARONE 200 MG TABLET PO SCH (08:44)
[2017-08-03] MEDS: QUEtiapine 100 MG TABLET PO SCH (21:54)
[2017-08-03] MEDS: ATORVASTATIN 40 MG TABLET PO SCH (21:54)
[2017-08-04 06:29] LABS: Basophils % 0.6 % (0.0-0.8); Eosinophils # 0.3 10*3/uL (0.0-0.87); Eosinophils % 4.4 % (0.00-10.9); Hematocrit 29.9 VOL% (42.0-52.0); Hemoglobin 9.4 GM/DL (14.0-18.0); Immature Granulocytes % 0.6 %; Immature Granulocytes Absolute 0.04 #; Lymphocytes # 1.6 10*3/uL (1.4-4.0); Lymphocytes % 24.3 % (21.2-54.2); Mean Corpuscular HGB Conc 31.4 GM/DL (32-36); Mean Corpuscular Hemoglobin 31 PG (27-34); Mean Platelet Volume 11.4 FL (9.6-12.0); Monocytes # 0.7 10*3/uL (0.11-0.8); Monocytes % 10.4 % (1.7-12.7); Neutrophils # 3.8 10*3/uL (1.4-7.4); Neutrophils % 59.7 % (38.7-73.9); Platelet Count 278 T/CUMM (130-400); Red Blood Count 3.02 MC/CUMM (3.8-5.5); Red Cell Distribution Width 15.5 % (9.3-17.3); White Blood Count 6.4 T/CUMM (4-12)
[2017-08-04 07:03] LABS: Calcium 9.5 MG/DL (8.5-10.1); Osmolality,Calculated 296.8 MOS/KG (273-304); Potassium 4.4 MMOL/L (3.5-5.1)
[2017-08-04] MEDS: ALBUTEROL/IPRATROPIUM 3 ML NEB RESP TX SCH ×2 (07:24→19:25)
[2017-08-04] MEDS: ASPIRIN EC 325 MG TABLET PO SCH (08:26)
[2017-08-04] MEDS: CLOPIDOGREL 75 MG TABLET PO SCH (08:26)
[2017-08-04] MEDS: FAMOTIDINE 20 MG TABLET PO SCH ×2 (08:26→21:37)
[2017-08-04] MEDS: CARVEDILOL 25 MG TABLET PO SCH (08:26)
[2017-08-04] MEDS: hydrALAZINE 10 MG TABLET PO SCH (08:26)
[2017-08-04] MEDS: ISOSORBIDE MONONITRATE 60 MG TABLET PO SCH (08:27)
[2017-08-04] MEDS: INSULIN LISPRO 100 UNIT/ML SUBCUT SCH ×4 (08:27→21:37)
[2017-08-04] MEDS: AMIODARONE 200 MG TABLET PO SCH (08:27)
[2017-08-04] MEDS: SODIUM CHLORIDE 0.45% 1,000 ML IV SCH (13:55)
[2017-08-04] MEDS: ATORVASTATIN 40 MG TABLET PO SCH (21:36)
[2017-08-04] MEDS: QUEtiapine 100 MG TABLET PO SCH (21:36)
[2017-08-05] MEDS: SODIUM CHLORIDE 0.45% 1,000 ML IV SCH (02:24)
[2017-08-05 06:52] LABS: Basophils % 0.6 % (0.0-0.8); Eosinophils # 0.3 10*3/uL (0.0-0.87); Hemoglobin 8.9 GM/DL (14.0-18.0); Immature Granulocytes % 0.6 %; Immature Granulocytes Absolute 0.03 #; Lymphocytes # 1.6 10*3/uL (1.4-4.0); Lymphocytes % 28.9 % (21.2-54.2); Mean Corpuscular HGB Conc 31.8 GM/DL (32-36); Mean Corpuscular Hemoglobin 31 PG (27-34); Mean Corpuscular Volume 98.2 FL (87-102); Mean Platelet Volume 11.8 FL (9.6-12.0); Monocytes # 0.5 10*3/uL (0.11-0.8); Monocytes % 9.8 % (1.7-12.7); Neutrophils % 55.1 % (38.7-73.9); Platelet Count 233 T/CUMM (130-400); Red Blood Count 2.85 MC/CUMM (3.8-5.5); Red Cell Distribution Width 15.2 % (9.3-17.3); White Blood Count 5.4 T/CUMM (4-12)
[2017-08-05 07:17] LABS: Eosinophils 6 % (0-10); Lymphocytes 20 % (20-55); Platelet Estimate Adequate; Segmented Neutrophils 64 % (50-85); Total Cells Counted 100
[2017-08-05 07:18] LABS: Giant Platelets Few; Hypochromasia 1+
[2017-08-05 07:25] LABS: Calcium 9.7 MG/DL (8.5-10.1); Osmolality,Calculated 290.1 MOS/KG (273-304); Potassium 4.3 MMOL/L (3.5-5.1)
[2017-08-05 07:27] VITALS: BP 162/79
[2017-08-05] MEDS: ALBUTEROL/IPRATROPIUM 3 ML NEB RESP TX SCH (07:51)
[2017-08-05] MEDS: INSULIN LISPRO 100 UNIT/ML SUBCUT SCH ×2 (07:54→11:48)
[2017-08-05] MEDS: ISOSORBIDE MONONITRATE 60 MG TABLET PO SCH (09:16)
[2017-08-05] MEDS: CARVEDILOL 25 MG TABLET PO SCH (09:16)
[2017-08-05] MEDS: hydrALAZINE 10 MG TABLET PO SCH (09:16)
[2017-08-05] MEDS: FAMOTIDINE 20 MG TABLET PO SCH (09:16)
[2017-08-05] MEDS: CLOPIDOGREL 75 MG TABLET PO SCH (09:16)
[2017-08-05] MEDS: ASPIRIN EC 325 MG TABLET PO SCH (09:16)
[2017-08-05] MEDS: AMIODARONE 200 MG TABLET PO SCH (09:16)
== END 2017-08-05 11:58 | DRG 65 ==
LOC: EDUNIT# → EDBD → N.ED 09:58 → N.EDINP 11:46 → N.ICU 14:35 → N.5E 08-04 10:35
PROVIDERS: ADMIT Internal Medicine; ATTEND Internal Medicine

== ENCOUNTER 2017-09-19 11:23 | Inpatient (IN) ==
[2017-09-19] MEDS ORDERED: SODIUM CHLORIDE 0.9% 2,000 ML IV STA (11:52)
[2017-09-19 12:00] LABS: Basophils # 0.1 10*3/uL (0.0-0.2); Basophils % 0.6 % (0.0-0.8); Hematocrit 31.7 VOL% (42.0-52.0); Immature Granulocytes Absolute 0.13 #; Lymphocytes % 7.9 % (21.2-54.2); Mean Corpuscular HGB Conc 31.5 GM/DL (32-36); Mean Corpuscular Hemoglobin 31 PG (27-34); Mean Corpuscular Volume 96.6 FL (87-102); Mean Platelet Volume 12.7 FL (9.6-12.0); Monocytes # 1.4 10*3/uL (0.11-0.8); Monocytes % 11.2 % (1.7-12.7); Neutrophils # 9.9 10*3/uL (1.4-7.4); Neutrophils % 79.3 % (38.7-73.9); Platelet Count 318 T/CUMM (130-400); Red Blood Count 3.28 MC/CUMM (3.8-5.5); Red Cell Distribution Width 14.9 % (9.3-17.3); White Blood Count 12.5 T/CUMM (4-12)
[2017-09-19 12:07] LABS: PT Patient Result 10.8 SECS; Partial Thromboplastin Time 30.4 SECS (0-40)
[2017-09-19 12:14] LABS: Albumin 2.2 G/DL (3.4-5.0); Bilirubin,Total 1.1 MG/DL (0.2-1.0); Calcium 9.7 MG/DL (8.5-10.1); Osmolality,Calculated 297.8 MOS/KG (273-304); Total Protein 7.1 G/DL (6.4-8.3)
[2017-09-19 12:16] LABS: Potassium 6.4 MMOL/L (3.5-5.1)
[2017-09-19] MEDS ORDERED: DEXTROSE 50% 25 GM/50 ML VIAL IV STA (12:17)
[2017-09-19] MEDS ORDERED: INSULIN REGULAR 100 UNIT/ML IV STA (12:18)
[2017-09-19] MEDS ORDERED: SODIUM BICARBONATE 50 MEQ/50 ML VIAL IV STA (12:18)
[2017-09-19] MEDS ORDERED: ALBUTEROL 2.5 MG/3 ML NEB RESP TX STA (12:20)
[2017-09-19 12:21] LABS: Lactic Acid 4.3 MMOL/L (0.4-2.0)
[2017-09-19 12:27] LABS: Band Neutrophils 9 % (0-10); Burr Cells Slight; Giant Platelets Few; Hypochromasia Slight; Lymphocytes 8 % (20-55); Platelet Estimate Adequate; Segmented Neutrophils 65 % (50-85); Total Cells Counted 100
[2017-09-19] MEDS ORDERED: DEXTROSE 50% 25 GM/50 ML SYRINGE IV ONE (12:28)
[2017-09-19] MEDS ORDERED: INSULIN REGULAR 100 UNIT/ML ONE (12:29)
[2017-09-19] MEDS ORDERED: SODIUM BICARBONATE 10 MEQ/10 ML SYRINGE IV ONE (12:30)
[2017-09-19 13:08] LABS: Amorphous Crystals,Urine Occasional /HPF (Few); Apearance,Urine CLOUDY (Clear); Bilirubin,Urine Small mg/dL (Negative); Blood, Urine Negative (Negative); Glucose,Urine (UA) Negative (Negative); Ketones,Urine Negative (Negative); Nitrite,Urine Negative (Negative); Protein,Urine Negative; RBC,Urine 2 /HPF (0-4); Urine Color Amber (Yellow); Urine Specific Gravity 1.021 (1.001-1.035); WBC,Urine 10 /HPF (0-6)
[2017-09-19] MEDS ORDERED: PIPERACILLIN/TAZOBACTAM 3,375 MG in SODIUM CHLORIDE 0.9% 100 ML IV STA (13:10)
[2017-09-19] MEDS ORDERED: PIPERACILLIN/TAZOBACTAM 3,375 MG VIAL IV ONE (13:34)
[2017-09-19] MEDS ORDERED: NOREPINEPHRINE 4 MG/4 ML VIAL IV ONE (13:34)
[2017-09-19] MEDS: NOREPINEPHRINE 8 MG in SODIUM CHLORIDE 0.9% 242 ML IV SCH (13:45)
[2017-09-19] MEDS ORDERED: SODIUM CHLORIDE 0.9% 3,000 ML IV ONE (13:49)
[2017-09-19] MEDS ORDERED: ALBUTEROL 2.5 MG/3 ML NEB RESP TX PRN (13:51)
[2017-09-19] MEDS ORDERED: SODIUM CHLORIDE 0.9% 1,000 ML IV SCH ×4 (14:00→19:30)
[2017-09-19 14:50] LABS: ABG Base Excess -6.2 MMOL/L (-2.5-2.5); ABG HCO3 19.3 MMOL/L (20-26); ABG Oxygen Saturation 98.3 % (95-100); ABG PCO2 36.6 MM HG (35-48); ABG PH 7.327 (7.35-7.45); ABG TCO2 17.7 MMOL/L (23-27)
[2017-09-19] MEDS ORDERED: VANCOMYCIN INJ 1,500 MG in SODIUM CHLORIDE 0.9% 500 ML IV SCH (15:00)
[2017-09-19] MEDS ORDERED: VANCOMYCIN INJ 1,500 MG in SODIUM CHLORIDE 0.9% 500 ML IV PRN (15:00)
[2017-09-19] MEDS: FAMOTIDINE 20 MG/2 ML VIAL IV SCH (16:01)
[2017-09-19] MEDS ORDERED: VANCOMYCIN INJ 1,500 MG in SODIUM CHLORIDE 0.9% 500 ML IV ONE (18:30)
[2017-09-19] MEDS ORDERED: SODIUM CHLORIDE 0.9% 1,000 ML IV ONE (19:00)
[2017-09-19] MEDS: SODIUM CHLORIDE 0.9% 1,000 ML IV SCH (22:24)
[2017-09-20] MEDS ORDERED: PIPERACILLIN/TAZOBACTAM 3,375 MG in SODIUM CHLORIDE 0.9% 100 ML IV SCH (02:00)
[2017-09-20] MEDS: SODIUM CHLORIDE 0.9% 1,000 ML IV SCH ×2 (05:10→07:11)
[2017-09-20 06:21] LABS: Basophils % 0.2 % (0.0-0.8); Eosinophils % 0.1 % (0.00-10.9); Hematocrit 30.7 VOL% (42.0-52.0); Immature Granulocytes Absolute 0.09 #; Lymphocytes # 0.4 10*3/uL (1.4-4.0); Lymphocytes % 4.9 % (21.2-54.2); Mean Corpuscular HGB Conc 29.3 GM/DL (32-36); Mean Corpuscular Hemoglobin 31 PG (27-34); Mean Corpuscular Volume 105.1 FL (87-102); Mean Platelet Volume 12.7 FL (9.6-12.0); Monocytes # 1.4 10*3/uL (0.11-0.8); Monocytes % 15.5 % (1.7-12.7); Neutrophils # 7.1 10*3/uL (1.4-7.4); Neutrophils % 78.3 % (38.7-73.9); Platelet Count 242 T/CUMM (130-400); Red Blood Count 2.92 MC/CUMM (3.8-5.5); Red Cell Distribution Width 15.4 % (9.3-17.3); White Blood Count 9.1 T/CUMM (4-12)
[2017-09-20 06:26] LABS: Band Neutrophils 7 % (0-10); Burr Cells Slight; Giant Platelets Few; Lymphocytes 6 % (20-55); Ovalocytes Slight; Platelet Estimate Adequate; Segmented Neutrophils 72 % (50-85); Total Cells Counted 100
[2017-09-20] MEDS: NOREPINEPHRINE 8 MG in SODIUM CHLORIDE 0.9% 242 ML IV SCH ×3 (06:35→20:38)
[2017-09-20 06:48] LABS: Calcium 8.7 MG/DL (8.5-10.1); Osmolality,Calculated 307.3 MOS/KG (273-304)
[2017-09-20] MEDS: cefTRIAXone 1,000 MG in SYRINGE 1 EACH IV SCH (10:25)
[2017-09-20] MEDS ORDERED: ACETAMINOPHEN 650 MG SUPP RECTAL PRN (10:45)
[2017-09-20] MEDS: SODIUM BICARB INJ 150 MEQ in DEXTROSE 5% 850 ML IV SCH ×2 (12:31→22:27)
[2017-09-20] MEDS: FAMOTIDINE 20 MG/2 ML VIAL IV SCH (14:59)
[2017-09-20] MEDS: ZINC OXIDE PASTE 113 GM TUBE TOP SCH ×2 (15:14→20:21)
[2017-09-21 05:10] LABS: Basophils % 0.4 % (0.0-0.8); Eosinophils % 0.4 % (0.00-10.9); Hematocrit 23.7 VOL% (42.0-52.0); Hemoglobin 7.6 GM/DL (14.0-18.0); Immature Granulocytes % 3.4 %; Immature Granulocytes Absolute 0.33 #; Lymphocytes # 0.7 10*3/uL (1.4-4.0); Lymphocytes % 7.3 % (21.2-54.2); Mean Corpuscular HGB Conc 32.1 GM/DL (32-36); Mean Corpuscular Hemoglobin 31 PG (27-34); Mean Corpuscular Volume 96.3 FL (87-102); Mean Platelet Volume 12.7 FL (9.6-12.0); Monocytes # 1.2 10*3/uL (0.11-0.8); Monocytes % 12.8 % (1.7-12.7); Neutrophils # 7.3 10*3/uL (1.4-7.4); Neutrophils % 75.7 % (38.7-73.9); Platelet Count 290 T/CUMM (130-400); Red Blood Count 2.46 MC/CUMM (3.8-5.5); Red Cell Distribution Width 15.3 % (9.3-17.3); White Blood Count 9.6 T/CUMM (4-12)
[2017-09-21 05:25] LABS: Albumin 1.7 G/DL (3.4-5.0); Bilirubin,Total 1.5 MG/DL (0.2-1.0); Calcium 8.8 MG/DL (8.5-10.1); Osmolality,Calculated 316.3 MOS/KG (273-304); Potassium 4.1 MMOL/L (3.5-5.1); Total Protein 5.5 G/DL (6.4-8.3)
[2017-09-21 05:32] LABS: Band Neutrophils 7 % (0-10); Eosinophils 2 % (0-10); Hypochromasia Slight; Lymphocytes 6 % (20-55); Segmented Neutrophils 77 % (50-85); Total Cells Counted 100
[2017-09-21 05:33] LABS: Burr Cells Slight; Macrocytosis Slight
[2017-09-21 05:34] LABS: Platelet Estimate Normal
[2017-09-21] MEDS ORDERED: SODIUM CHLORIDE 0.9% 1,000 ML IV PRN (07:29)
[2017-09-21] MEDS: SODIUM BICARB INJ 150 MEQ in DEXTROSE 5% 850 ML IV SCH (07:55)
[2017-09-21] MEDS: DEXTROSE 5% NACL 0.45% 1,000 ML IV SCH ×3 (08:01→22:13)
[2017-09-21] MEDS: ZINC OXIDE PASTE 113 GM TUBE TOP SCH ×2 (09:17→22:06)
[2017-09-21] MEDS: cefTRIAXone 1,000 MG in SYRINGE 1 EACH IV SCH (09:51)
[2017-09-21] MEDS: FAMOTIDINE 20 MG/2 ML VIAL IV SCH (14:41)
[2017-09-21] MEDS: NOREPINEPHRINE 8 MG in SODIUM CHLORIDE 0.9% 242 ML IV SCH (14:46)
[2017-09-21] MEDS ORDERED: VANCOMYCIN INJ 1,500 MG in SODIUM CHLORIDE 0.9% 500 ML IV ONE (21:00)
[2017-09-21] MEDS: PANTOPRAZOLE 40 MG VIAL IV SCH (22:06)
[2017-09-22 05:42] LABS: Basophils # 0.1 10*3/uL (0.0-0.2); Basophils % 0.6 % (0.0-0.8); Eosinophils # 0.3 10*3/uL (0.0-0.87); Eosinophils % 2.5 % (0.00-10.9); Hematocrit 27.9 VOL% (42.0-52.0); Hemoglobin 9.1 GM/DL (14.0-18.0); Immature Granulocytes Absolute 0.61 #; Lymphocytes # 1.1 10*3/uL (1.4-4.0); Lymphocytes % 10.6 % (21.2-54.2); Mean Corpuscular HGB Conc 32.6 GM/DL (32-36); Mean Corpuscular Hemoglobin 31 PG (27-34); Mean Corpuscular Volume 93.6 FL (87-102); Mean Platelet Volume 12.1 FL (9.6-12.0); Monocytes # 1.8 10*3/uL (0.11-0.8); Monocytes % 17.8 % (1.7-12.7); NRBC # 0.03 10*3/uL; Neutrophils # 6.3 10*3/uL (1.4-7.4); Neutrophils % 62.5 % (38.7-73.9); Platelet Count 270 T/CUMM (130-400); Red Blood Count 2.98 MC/CUMM (3.8-5.5); Red Cell Distribution Width 16.5 % (9.3-17.3); White Blood Count 10.1 T/CUMM (4-12)
[2017-09-22] MEDS: DEXTROSE 5% NACL 0.45% 1,000 ML IV SCH ×4 (06:04→15:34)
[2017-09-22 06:11] LABS: Band Neutrophils 8 % (0-10); Eosinophils 2 % (0-10); Hypochromasia 1+; Lymphocytes 16 % (20-55); Platelet Estimate Adequate; Segmented Neutrophils 66 % (50-85); Total Cells Counted 100
[2017-09-22 06:28] LABS: Albumin 1.6 G/DL (3.4-5.0); Bilirubin,Total 1.8 MG/DL (0.2-1.0); Calcium 8.8 MG/DL (8.5-10.1); Osmolality,Calculated 313.9 MOS/KG (273-304); Potassium 4.1 MMOL/L (3.5-5.1); Total Protein 5.5 G/DL (6.4-8.3)
[2017-09-22] MEDS: DEXTROSE 5% 500 ML IV SCH ×2 (07:20→09:32)
[2017-09-22] MEDS: PANTOPRAZOLE 40 MG VIAL IV SCH ×2 (09:28→21:04)
[2017-09-22] MEDS: ZINC OXIDE PASTE 113 GM TUBE TOP SCH ×2 (09:30→21:04)
[2017-09-22] MEDS: cefTRIAXone 1,000 MG in SYRINGE 1 EACH IV SCH (09:59)
[2017-09-22] MEDS ORDERED: LIDOCAINE 100 MG/5 ML SYRINGE ONE (12:45)
[2017-09-22] MEDS ORDERED: PROPOFOL 200 MG/20 ML VIAL IV ONE (12:45)
[2017-09-22] MEDS ORDERED: GLYCOPYRROLATE 0.4 MG/2 ML VIAL ONE (12:45)
[2017-09-22] MEDS: NOREPINEPHRINE 8 MG in SODIUM CHLORIDE 0.9% 242 ML IV SCH (13:22)
[2017-09-23] MEDS: DEXTROSE 5% NACL 0.45% 1,000 ML IV SCH ×2 (00:11→10:12)
[2017-09-23 05:05] LABS: Basophils # 0.1 10*3/uL (0.0-0.2); Basophils % 0.7 % (0.0-0.8); Eosinophils # 0.3 10*3/uL (0.0-0.87); Eosinophils % 2.6 % (0.00-10.9); Hematocrit 29.1 VOL% (42.0-52.0); Immature Granulocytes % 7.5 %; Immature Granulocytes Absolute 0.71 #; Lymphocytes # 1.2 10*3/uL (1.4-4.0); Lymphocytes % 13.1 % (21.2-54.2); Mean Corpuscular HGB Conc 30.9 GM/DL (32-36); Mean Corpuscular Hemoglobin 30 PG (27-34); Mean Corpuscular Volume 95.7 FL (87-102); Mean Platelet Volume 12.7 FL (9.6-12.0); Monocytes # 1.5 10*3/uL (0.11-0.8); Monocytes % 15.4 % (1.7-12.7); NRBC # 0.02 10*3/uL; Neutrophils # 5.7 10*3/uL (1.4-7.4); Neutrophils % 60.7 % (38.7-73.9); Platelet Count 263 T/CUMM (130-400); Red Blood Count 3.04 MC/CUMM (3.8-5.5); Red Cell Distribution Width 16.6 % (9.3-17.3); White Blood Count 9.5 T/CUMM (4-12)
[2017-09-23 05:29] LABS: Band Neutrophils 6 % (0-10); Eosinophils 2 % (0-10); Hypochromasia 1+; Lymphocytes 14 % (20-55); Metamyelocytes 1 %; Myelocytes 2 %; Segmented Neutrophils 66 % (50-85); Total Cells Counted 100
[2017-09-23 05:30] LABS: Anisocytosis 1+; Giant Platelets Few; Macrocytosis 1+; Polychromasia Slight
[2017-09-23 05:38] LABS: Atypical Lymphocytes Few
[2017-09-23 05:44] LABS: Albumin 1.7 G/DL (3.4-5.0); Bilirubin,Total 2.3 MG/DL (0.2-1.0); Osmolality,Calculated 307.9 MOS/KG (273-304); Total Protein 5.8 G/DL (6.4-8.3)
[2017-09-23] MEDS ORDERED: TUBERCULIN SKIN TEST 0.1 ML SYRINGE INTRADERM ONE (08:46)
[2017-09-23] MEDS: PANTOPRAZOLE 40 MG VIAL IV SCH ×2 (09:01→21:01)
[2017-09-23] MEDS: cefTRIAXone 1,000 MG in SYRINGE 1 EACH IV SCH ×2 (09:01→09:58)
[2017-09-23] MEDS: ZINC OXIDE PASTE 113 GM TUBE TOP SCH ×2 (09:45→21:00)
[2017-09-23] MEDS ORDERED: NITROGLYCERIN SL 0.4 MG TABLET SL PRN (10:10)
[2017-09-23] MEDS ORDERED: ALBUTEROL 2.5 MG/3 ML NEB RESP TX PRN (10:10)
[2017-09-23] MEDS ORDERED: GLUCAGON 1 MG VIAL IM PRN (14:55)
[2017-09-23] MEDS ORDERED: DEXTROSE 50% 25 GM/50 ML VIAL IV PRN (14:55)
[2017-09-23] MEDS: INSULIN REGULAR 100 UNIT/ML SUBCUT SCH (17:44)
[2017-09-23] MEDS ORDERED: ATORVASTATIN 40 MG TABLET PO SCH (21:00)
[2017-09-23] MEDS: QUEtiapine 100 MG TABLET PO SCH (21:01)
[2017-09-23] MEDS: LANSOPRAZOLE ODT 30 MG TABLET PO SCH (21:01)
[2017-09-24] MEDS: INSULIN REGULAR 100 UNIT/ML SUBCUT SCH ×4 (00:18→18:21)
[2017-09-24 06:00] LABS: Calcium 9.2 MG/DL (8.5-10.1); Osmolality,Calculated 313.6 MOS/KG (273-304); Potassium 4.2 MMOL/L (3.5-5.1)
[2017-09-24] MEDS: PANTOPRAZOLE 40 MG VIAL IV SCH ×2 (10:11→22:38)
[2017-09-24] MEDS: ASPIRIN CHEW 81 MG TABLET PO SCH (10:16)
[2017-09-24] MEDS: LANSOPRAZOLE ODT 30 MG TABLET PO SCH ×2 (10:16→22:38)
[2017-09-24] MEDS: CARVEDILOL 25 MG TABLET PO SCH (10:16)
[2017-09-24] MEDS: CLOPIDOGREL 75 MG TABLET PO SCH (10:16)
[2017-09-24] MEDS: AMIODARONE 200 MG TABLET PO SCH (10:16)
[2017-09-24] MEDS: ISOSORBIDE MONONITRATE 60 MG TABLET PO SCH (10:16)
[2017-09-24] MEDS: QUEtiapine 100 MG TABLET PO SCH ×2 (10:16→22:42)
[2017-09-24] MEDS: MULTIVITAMIN (CENTRUM) TABLET PO SCH (10:17)
[2017-09-24] MEDS: ZINC OXIDE PASTE 113 GM TUBE TOP SCH ×2 (10:17→22:38)
[2017-09-24] MEDS: hydrALAZINE 10 MG TABLET PO SCH (10:17)
[2017-09-24] MEDS: cefTRIAXone 1,000 MG in SYRINGE 1 EACH IV SCH (11:05)
[2017-09-24] MEDS: DEXTROSE 5% 1,000 ML IV SCH (13:17)
[2017-09-25] MEDS: INSULIN REGULAR 100 UNIT/ML SUBCUT SCH ×4 (00:43→12:19)
[2017-09-25] MEDS: DEXTROSE 5% 1,000 ML IV SCH ×2 (00:48→12:20)
[2017-09-25 05:37] LABS: Calcium 8.4 MG/DL (8.5-10.1); Osmolality,Calculated 313.1 MOS/KG (273-304); Potassium 4.6 MMOL/L (3.5-5.1)
[2017-09-25] MEDS: ISOSORBIDE MONONITRATE 60 MG TABLET PO SCH (09:38)
[2017-09-25] MEDS: AMIODARONE 200 MG TABLET PO SCH (09:38)
[2017-09-25] MEDS: PANTOPRAZOLE 40 MG VIAL IV SCH (09:38)
[2017-09-25] MEDS: MULTIVITAMIN (CENTRUM) TABLET PO SCH (09:38)
[2017-09-25] MEDS: CARVEDILOL 25 MG TABLET PO SCH (09:39)
[2017-09-25] MEDS: hydrALAZINE 10 MG TABLET PO SCH (09:39)
[2017-09-25] MEDS: ASPIRIN CHEW 81 MG TABLET PO SCH (09:39)
[2017-09-25] MEDS: ZINC OXIDE PASTE 113 GM TUBE TOP SCH (09:39)
[2017-09-25] MEDS: QUEtiapine 100 MG TABLET PO SCH (09:39)
[2017-09-25] MEDS: CLOPIDOGREL 75 MG TABLET PO SCH (09:39)
[2017-09-25] MEDS: LANSOPRAZOLE ODT 30 MG TABLET PO SCH (09:39)
[2017-09-25 16:16] VITALS: BP 106/48
[2017-09-25] MEDS ORDERED: EPINEPHrine 1 MG/10 ML SYRINGE ONE (16:54)
[2017-09-25] MEDS ORDERED: SODIUM BICARBONATE 50 MEQ/50 ML SYRINGE IV ONE (16:54)
== END 2017-09-25 16:57 | disposition expired | DRG 682 ==
LOC: EDUNIT# → EDBD → N.ED 11:23 → N.EDINP 13:12 → SUATTDRO 13:12 → N.ICU 13:44 → N.5E 09-22 18:00
PROVIDERS: ADMIT Family Medicine; ATTEND Internal Medicine
PROC: EGDWPEG (ICD-10-PCS; 2017-09-22 08:35)